=== PATIENT | male | born 1950 | race Caucasian/White ===

== ENCOUNTER 2019-10-09 10:03 | Inpatient (IN) | payer MEDICARE, BC, SELFPAY ==
[2019-10-09] VITALS (28 sets, daily range): BP systolic 132–191; BP diastolic 59–96; PULSE 72–89; RESP 14–22; TEMP 36.2–36.9; O2SAT 95–100
--- NOTE | ~2019-10-09 | XR_ITS ---
XR chest 1V portable DATE: 10/09/2019 10:34 INDICATION: Acute onset of midsternal chest pain TECHNIQUE: Portable upright AP chest on 10/09/2019 at 1036 hours COMPARISON: 11/17/2005 portable AP chest FINDINGS: Cardiomegaly. There is aortic calcification and unfolding. No pulmonary infiltrate or consolidation, pleural effusion or pulmonary vascular congestion or pneumo thorax. Osteopenia. Degenerative spurring of the thoracic spine. IMPRESSION: Cardiomegaly Reviewed, dictated and finalized at location A. IMPRESSION: Cardiomegaly
--- NOTE | 2019-10-09 10:05 | ECG_ITS ---
Measurements Intervals [place] Rate: 82 P: 78 NV: 181 QRS: 30 QRSD: 92 T: 68 QT: 354 QTc: 415 Interpretive Statements SINUS RHYTHM FREQUENT ATRIAL PREMATURE COMPLEXES NONSPECIFIC ST & T-WAVE ABNORMALITY- HIGH LATERAL LEADS BASELINE ARTIFACT- I, II, AVR, AVL ABNORMAL ECG Electronically Signed On 10-09-2019 11:09:30 CDT by James Miles D.O.
[2019-10-09 10:32] LABS: Basophils Percent Auto 0.4 % (0.2-1.2); Eosinophils Absolute Auto 0.1 K/mm3 (0-0.3); Eosinophils Percent Auto 2.1 % (0-4.4); Hematocrit 45.4 % (42.0-52.0); Hemoglobin 14.9 g/dL (14.0-18.0); Immature Granulocyte Absolute 0.02 K/mm3 (0.00-0.031); Immature Granulocyte Percent A 0.4 % (0-0.5); Lymphocytes Absolute Auto 0.67 K/mm3 (0.9-3.2); Lymphocytes Percent Auto 11.9 % (18.3-44.2); Mean Corpuscular HGB Conc 32.8 g/dl (32-36); Mean Corpuscular Hemoglobin 28.4 pg (26-34); Mean Corpuscular Volume 86.6 fl (80-100); Mean Platelet Volume 10.2 fl (7.4-10.4); Monocytes Absolute Auto 0.5 K/mm3 (0.1-0.6); Neutrophils Absolute Auto 4.3 K/mm3 (1.3-6.7); Neutrophils Percent Auto 76.2 % (45.5-73.1); Platelet Count Result 207 k/mm3 (150-375); Red Blood Count 5.24 M/mm3 (4.6-6.20); Red Cell Distribution Width 13.4 % (11.5-14.5); White Blood Count 5.6 K/mm3 (4.5-10.0)
[2019-10-09] MEDS: ASPIRIN 81 MG CHEWABLE TABLET 324 MG PO (10:35)
[2019-10-09 10:41] LABS: INR 0.9; Prothrombin Time 12.3 Seconds (11.1-14.7)
[2019-10-09 10:42] LABS: Partial Thromboplastin Time 20.9 SECONDS (22.3-36.8)
[2019-10-09 10:43] LABS: Anion Gap 9.8 mmol/L (7-16); Blood Urea Nitrogen 19 mg/dL (9-20); Calcium 8.8 mg/dL (8.4-10.2); Carbon Dioxide 27 mmol/L (22-30); Chloride 104 mmol/L (98-107); Estimated CRCL calculation 110 ml/min; Estimated Glomerular Filt Rate > 60; Glucose 148 mg/dL (75-110); Potassium 3.8 mmol/L (3.4-5.0); Sodium 137 mmol/L (137-145)
[2019-10-09 11:01] LABS: Troponin I 0.318 ng/mL (0.000-0.034)
[2019-10-09 11:05] LABS: Alanine Aminotransferase 25 U/L (4-50); Albumin Level 3.8 g/dL (3.5-5.1); Alkaline Phosphatase 100 U/L (38-126); Aspartate Amino Transferase 25 U/L (17-59); Bilirubin,Total 0.5 mg/dL (0.2-1.3); Lipase 54 U/L (23-300)
--- NOTE | 2019-10-09 11:07 | ED.GENADULT ---
HPI - General Adult General Chief complaint: Chest Pain <BUDDY Sevilla Last Filed: 10/09/19 12:04> Stated complaint: Chest Pain <BUDDY Sevilla Last Filed: 10/09/19 12:04> Time Seen by Provider: 10/09/19 10:12 <BUDDY Sevilla Last Filed: 10/09/19 12:04> Source: patient and family <BUDDY Sevilla Last Filed: 10/09/19 12:04> Mode of arrival: ambulatory <BUDDY Sevilla Last Filed: 10/09/19 12:04> Limitations: no limitations <BUDDY Sevilla Last Filed: 10/09/19 12:04> History of Present Illness HPI narrative: Patient is a 69-year-old male who presents to emergency department for evaluation of epigastric discomfort that began last night at midnight. Patient notes that he was able to go to bed after the pain subsided and then this morning had a recurrence also felt diaphoretic and weak for short period this morning patient does note he has a history of angioplasty and coronary artery disease without stenting. Patient on arrival to emergency department notes he has no pain or discomfort. Patient has felt more short of breath with exertion over the last week. Patient denies nausea vomiting diarrhea or URI symptoms <BUDDY Sevilla Last Filed: 10/09/19 12:04> Related Data Home medications: Home Medications Medication Instructions Recorded Confirmed aspirin 81 mg PO HS 10/09/19 10/09/19 atorvastatin 40 mg PO HS 10/09/19 10/09/19 <BUDDY Sevilla Last Filed: 10/09/19 12:04> Allergies/adverse reactions: Allergies Allergy/AdvReac Type Severity Reaction Status Date / Time meperidine [From Demerol] Allergy Unknown Verified 10/09/19 14:48 PROPOXYPHENE HCL AdvReac Mild Unknown Uncoded 10/09/19 14:48 <BUDDY Sevilla Last Filed: 10/09/19 12:04> Review of Systems Review of Systems: All systems reviewed & are unremarkable except as noted in HPI and below <BUDDY Sevilla Last Filed: 10/09/19 12:04> PMFSH Past Medical History Medical History: Medical History Hyperlipidemia Myocardial infarction Obese <Emanuel Killian PA-C - Last Filed: 10/09/19 12:04> Surgical History Surgical History: Surgical History Coronary angioplasty status <Emanuel Killian PA-C - Last Filed: 10/09/19 12:04> Social History Social History: Social History (Updated 10/09/19 @ 11:11 by Emanuel Killian PA-C) Smoking status: Current every day smoker Tobacco type: cigars Smokeless tobacco user: chewing tobacco Additional smoking assessment comments: 1-2 cigars/day Alcohol intake: never Substance use: never Living arrangements: with family Gender identity (if verbalized by the patient): Male Sexual Orientation (if Verbalized by the Patient): Straight or Heterosexual Spiritual care concerns: Yes (Muslim) <Emanuel Killian PA-C - Last Filed: 10/09/19 12:04> Exam Narrative: Exam Narrative: GENERAL: Well-appearing, obese, and in no acute distress. HEAD: Normocephalic, atraumatic. EYES: PERRLA and EOMI. ENT: Nares clear, no rhinorrhea or epistaxis. Mucous membranes moist. Oropharynx without tonsillar hypertrophy exudate or other lesions. NECK: Supple. No adenopathy or masses. CHEST: Clear to auscultation. No respiratory distress. No wheezes rales or rhonchi HEART: Regular rate and rhythm. No murmur heard. Normal peripheral pulses. ABDOMEN: Soft, nontender, distended EXTREMITIES: Normal range of motion. No edema. SKIN: Warm, dry, no rash. NEURO: No focal deficits. Alert and oriented x3. PSYCH: Normal mood and affect. <Emanuel Killian PA-C - Last Filed: 10/09/19 12:04> Course Course Emergency Course: Patient in the room at this time resting comfortably aware of discussions with cardiology and plan was given aspirin in the emerge
[2019-10-09 11:11] LABS: NT Pro B Type Natriuretic Pept 291 PG/ML (5-100)
[2019-10-09 13:56] LABS: Cholesterol 137 mg/dL (0-200); HDL Direct 30 mg/dL; Triglycerides 67 mg/dL (<150)
[2019-10-09 14:07] LABS: LDL Cholesterol Direct 96 mg/dL
[2019-10-09 14:08] LABS: Troponin I 0.436 ng/mL (0.000-0.034)
--- NOTE | 2019-10-09 14:08 | PC.NURSE ---
Sylvia from Lab called to report a critical tropoin. Will inform and pts nurse
--- NOTE | 2019-10-09 14:36 | ADMGEN ---
This patient, Papa Bay, was admitted to IMU Room 201-01. Patient/family oriented to hospital policies and general routines including ID bracelet, bed and alarms, visiting hours, pain management, procedures, bathroom and other care routines, personal items, smoking policy, room service/diet, and visiting hours. Valuables list has been completed. Information on how to activate the Rapid Response Team has been discussed. Patient/Family are encouraged to report perceived risks to care and to ask questions if they do not understand what they are told or what they should do.
--- NOTE | 2019-10-09 15:04 | ECG_ITS ---
Measurements Intervals [place] Rate: 78 P: 17 MT: 181 QRS: 15 QRSD: 84 T: 30 QT: 346 QTc: 395 Interpretive Statements SINUS RHYTHM WITH SINUS ARRHYTHMIA BASELINE ARTIFACT- I, II, III, AVR, AVL NORMAL ECG Electronically Signed On 10-09-2019 15:49:36 CDT by James Miles D.O.
--- NOTE | 2019-10-09 15:12 | PM.IMHP ---
H&P: HPI History of Present Illness Date/Time: Date of service:10/09/19 15:12 Chief complaint: Non STEMI Narrative: Papa Bay is a 69 year old male Who has a history of coronary artery disease admitted to our service from the emergency room with evidence of acute coronary syndrome. The patient states he was in his usual state of what he considers to be good health when he started to have some symptoms of retrosternal subxiphoid chest pain yesterday evening. He thought this represented dyspepsia as he otherwise felt well. He laid down for a while and relaxed in the symptoms subsided. He felt fairly well through the night and actually had a good night sleep. This morning after breakfast the symptoms returned and this time were associated with a sense of some diaphoresis. For this reason and because of his history he contacted his physician who instructed him to come to the emergency room for evaluation. In the emergency room or before he got there his symptoms spontaneously resolved. His electrocardiogram shows a sinus mechanism with PACs but no significant ischemic or injury pattern. His troponin levels however are somewhat elevated at 0.3 and 0.4 he is therefore been admitted with the presumptive diagnosis of acute coronary syndrome / non ST elevation [place]. He has a history of coronary artery disease having been previously treated elsewhere with evidence of an acute inferior wall infarction in 1995. He underwent emergency angioplasty at [facility] by the wire stitcher operator on-call at that time with a good result. He was followed up for a few years after that and then failed follow-up in had been quite stable. He came to see me in actually in September of this year because he had seen a wire stitcher operator in about 5 years and at that time had no complaints of any kind. He had an echocardiogram prior to that appointment which looked favorable he has very modest enlargement of his aortic root otherwise the study was not significantly remarkable. Past medical history is remarkable for hypertension and morbid obesity. Medications prior to admission included aspirin and atorvastatin. Review of Systems Constitutional: Constitutional: Reports no additional constitutional complaints Eyes: Eyes: Reports no additional eye complaints ENT: Reports system reviewed and no additional complaints, except as documented Cardiovascular: Cardiovascular: Reports as per HPI Respiratory: Respiratory: Reports as per HPI Gastrointestinal: Gastrointestinal: Reports no additional gastrointestinal complaints Genitourinary: Genitourinary: Reports no additional male genitourinary complaints Musculoskeletal: Musculoskeletal: Reports no additional musculoskeletal complaints Integumentary/Breasts: Skin/Breast: Reports system reviewed and no additional complaints, except as docu Neurologic: Reports system reviewed and no additional complaints, except as documented Psychiatric: Psychiatric: Reports no additional psychiatric complaints PMF Past Medical History Medical History Hyperlipidemia Myocardial infarction Obese Surgical History Surgical History Coronary angioplasty status Social History Social History (Updated 10/09/19 @ 11:11 by Emanuel Killian PA-C) Smoking status: Current every day smoker Tobacco type: cigars Smokeless tobacco user: chewing tobacco Additional smoking assessment comments: 1-2 cigars/day Alcohol intake: never Substance use: never Living arrangements: with family Gender identity (if verbalized by the patient): Male Sexual Orientation (if Verbalized by the Patient): Straight or Heterosexual Spiritual care concerns: Yes (Hinduism) Meds Home Medications and Allergies Home Medications Medication Instructions Recorded Confirmed Type aspirin 81 mg PO HS 10/09/19 10/09/19 History sarah
--- NOTE | 2019-10-09 15:29 | WPDMODSED ---
Moderate Sedation Note-Pt Data Patient Data Diagnosis: chest pain, troponin elevation consistent with acute coronary syndrome known coronary artery disease remote history of a mi/PCI in 1995 morbid obesity Present Complaint: intermittent episodes of chest discomfort in the last 12 hours Procedure to be performed/Plan: left heart catheterization Allergies Allergy/AdvReac Type Severity Reaction Status Date / Time meperidine [From Demerol] Allergy Unknown Verified 10/09/19 14:48 PROPOXYPHENE HCL AdvReac Mild Unknown Uncoded 10/09/19 14:48 Home Medications Medication Instructions Recorded Confirmed Type aspirin 81 mg PO HS 10/09/19 10/09/19 History atorvastatin 40 mg PO HS 10/09/19 10/09/19 History Current Medications: Active Medications Acetaminophen (Tylenol Tablet) 650 mg PO Q4H PRN PRN Reason: Mild Pain (1-3) Aspirin (Aspirin Chewable) 81 mg PO DAILY@0800 ZACKERY Aspirin (Aspirin Chewable) 81 mg PO HS ZACKERY Atorvastatin Calcium (Lipitor) 40 mg PO HS ZACKERY Nitroglycerin (Nitrostat Subl 0.4 Mg (1/150)) 0.4 mg SUBLINGUAL Q5MIN PRN PRN Reason: Chest Pain Ondansetron HCl (Zofran Inj) 4 mg IV PUSH Q6H PRN PRN Reason: Nausea And Vomiting Sedation/Anesthesia: No previous sedation/anesthesia problems (including family history). [facility] Past Medical History Medical History Hyperlipidemia Myocardial infarction Obese Surgical History Surgical History Coronary angioplasty status Social History Social History (Updated 10/09/19 @ 11:11 by Emanuel Killian PA-C) Smoking status: Current every day smoker Tobacco type: cigars Smokeless tobacco user: chewing tobacco Additional smoking assessment comments: 1-2 cigars/day Alcohol intake: never Substance use: never Living arrangements: with family Gender identity (if verbalized by the patient): Male Sexual Orientation (if Verbalized by the Patient): Straight or Heterosexual Spiritual care concerns: Yes (Anabaptist) Mod Sed Physical Exam Physical Exam Pre Procedural Exam: Normal: Neck, Throat, Airway, Lungs, Heart Size, Heart Rate, Heart Rhythm, Neuro Exam and Extremities and Variation: Appearance ( obese white male appearing his stated age in no apparent distress) and Abdomen ( morbidly obese) Hours since solid foods: 12 Hours since liquid intake: 12 Internal Medicine - PN: Obj Da Vital Signs Vital Signs: Vital Signs - 24 hr 10/09/19 10:07 10/09/19 10:27 10/09/19 11:21 Temperature 36.7 C 36.7 C Pulse Rate 89 78 75 Respiratory Rate 16 20 Blood Pressure 191/89 H 164/85 H Pulse Oximetry 96 97 10/09/19 12:35 10/09/19 14:30 10/09/19 14:40 Temperature 36.6 C 36.2 C L Pulse Rate 73 82 87 Respiratory Rate 20 20 22 H Blood Pressure 158/85 H 138/77 167/88 H Pulse Oximetry 97 97 98 Meds/Results Medications: Active Medications Generic Name Dose Route Start Last Admin Trade Name Freq PRN Reason Stop Dose Admin Acetaminophen 650 mg 10/09/19 12:04 Tylenol Tablet PO Q4H PRN Mild Pain (1-3) Aspirin 81 mg 10/10/19 08:00 Aspirin Chewable PO DAILY@0800 ZACKERY Aspirin 81 mg 10/09/19 21:00 Aspirin Chewable PO HS ZACKERY Atorvastatin Calcium 40 mg 10/09/19 21:00 Lipitor PO HS ZACKERY Nitroglycerin 0.4 mg 10/09/19 12:04 Nitrostat Subl 0.4 Mg (1/150) SUBLINGUAL Q5MIN PRN Chest Pain Ondansetron HCl 4 mg 10/09/19 12:04 Zofran Inj IV PUSH Q6H PRN Nausea And Vomiting Radiology Results: ITS Impressions Chest X-Ray 10/09/19 10:43 IMPRESSION: Cardiomegaly Labs CBC & Chem 7: 10/09/19 10:23 10/09/19 10:23 Labs: Laboratory Results - last 24 hr 10/09/19 10/09/19 10/09/19 10:23 10:23 10:23 WBC 5.6 RBC 5.24 Hgb 14.9 Hct 45.4 MCV 86.6 MCH 28.4 MCHC 32.8 RDW 13.4 Plt Count 2
--- NOTE | 2019-10-09 16:32 | WPDCARDPROC ---
Cardiac Cath Procedure Note Date of procedure:: 10/09/19 Performing physician:: Bam Singh MD Indication:: acute coronary syndrome known history of coronary artery disease with remote history of TN, PCI in 1995 Brief clinical history:: this is a 69-year-old man presenting with intermittent ischemic chest pain starting last evening. No significant ECG abnormalities but troponin shows modest rise. He underwent emergency PCI of his right coronary artery in the setting of an acute TN in 1995. Procedure Procedure performed:: Left heart catheterization with left ventriculography and coronary angiography percutaneous revascularization of the circumflex Sedation/Medication given:: fentanyl 50 mg Versed 2 mg case start time 3:48 p.m. case end time 4:20 p.m. sedation provided by Derik Hitchcock RN, trained observer Access site:: right femoral artery Estimated blood loss:: 15-20 cc Procedure note:: this patient was brought to the cardiac catheterization lab in postabsorptive state where the right femoral triangle was prepared in the usual fashion. Anesthesia was given with 1% lidocaine infiltrated locally. Using the modified Seldinger technique a 5 Somali sheath was placed into the femoral artery after this left heart catheterization was carried out. IUD I used a 5 Somali angled pigtail catheter to document left-sided hemodynamics and to inject the left ventriculogram in the CALDWELL projection. After this a JR4 catheter was used to engage inject the right coronary artery and left coronary was engaged and injected using a 5 Somali FL4 catheter. Cineangiograms were then reviewed and PCI of the circumflex was recommended and carried out as detailed below. Prior to PCI 5 Somali sheath was changed over the guidewire for 6 Somali sheath. He was systemically anticoagulated with bolus and infusion of Angiomax. He received Brilinta 180 mg orally prior to PCI received aspirin in the emergency Room. Following completion of the study the catheters were removed removed the sheath was sutured into position he was taken to the holding area for post catheterization / PCI recovery. Findings:: Hemodynamics: Central aortic pressure is 128/67 left ventricle 128/0 end-diastolic pressure 14. There is no gradient upon pullback across the aortic valve. Left ventricle: The LV is significantly dilated. The inferior wall is akinetic. The remainder of the LV is severely hypodynamic. The global ejection fraction is visually estimated to be 30%. The left main coronary artery is large in caliber and widely patent the LAD is a [id number] caliber vessel extending down to the cardiac apex the LAD has minimal luminal irregularities but is otherwise free of significant disease the circumflex is a large caliber artery with a 99% stenosis in the midportion of the trunk of the circumflex. Proximal marginal branches are rather small. The right coronary artery is large in caliber dominant to the posterior circulation. There is modest luminal irregularities in the RCA but the vessel is widely patent with J LUIS 3 flow. This vessel was treated with balloon angioplasty in 1995. the patient was treated interventionally for the high-grade circumflex lesion. He was anticoagulated with Angiomax bolus infusion as detailed above. The left coronary was engaged using a 6 Somali CLS 3.5 guiding catheter. The circumflex lesion was wired using a 0.014 BMW. Balloon was pre-dilated using a 3.0 x 20 mm emerge PTCA balloon. following balloon dilatation the vessel was nicely patent with J LUIS 3 flow. There was a localized dissection at the site of the high-grade lesion which did not appear to be propagating or flow limiting. The area of disease proximal to the high-grade lesion was also noted. This was covered using a 3.5 x 30 mm Orsiro drug-eluting stent resulting in excellent anatomical result. There was no residual stenosis dissection perforation or distal embolization.
--- NOTE | 2019-10-09 18:40 | SUR.PHASEII ---
R. GROIN 6FR MANUAL SHEATH PULL PER PROTOCOL BY LEE MARTINEZ RN. FIRM STEADY PRESSURE BEING HELD TO SITE TO ACHIEVE HEMOSTASIS. VSS. WILL MONITOR.
--- NOTE | 2019-10-09 19:10 | SUR.PHASEII ---
HEMOSTASIS ACHIEVED TO R. GROIN PUNCTURE SITE AFTER 30 MINUTES OF MANUAL PRESSURE HOLD BY LEE MARTINEZ RN. SOME NAUSEA AND LOWER BACK PAIN C/O TOWARD END OF PRESSURE HOLD; EXPRESSED SOME RELIEF AFTER HEMOSTASIS AND SITE DRESSED. AT BEDSIDE. SITE DRESSED W/ STAT SEAL AND TEGADERM DRESSING. SITE SOFT, NONTENDER, NO BLEEDING OR HEMATOMA NOTED. R. PEDAL PULSE EASILY PALP. REVIEWED BEDREST ORDERS AND ACTIVITY RESTRICTIONS. VOICED UNDERSTANDING.
--- NOTE | 2019-10-09 19:20 | SUR.PHASEII ---
END PHASE II RECOVERY. RETURNED TO IMU 201 VIA STRETCHER. BEDSIDE REPORT AND UPDATES GIVEN TO DIPAK SALAZAR RN BY LEE MARTINEZ RN. BOTH OBSERVED R. GROIN SITE AND PULSES. NO NEW CHANGES.
[2019-10-09] MEDS: SODIUM CHLORIDE 0.9% IV 1,000 ML 125 ML IV CONT (20:22)
[2019-10-09] MEDS: ATORVASTATIN 40 MG TABLET PO (20:23)
[2019-10-09] MEDS: ASPIRIN 81 MG CHEWABLE TABLET PO (20:23)
[2019-10-09] MEDS: carvediloL 6.25 MG TABLET PO (20:23)
[2019-10-09] MEDS: TICAGRELOR 90 MG TABLET PO (20:23)
[2019-10-09 21:42] LABS: Troponin I 0.608 ng/mL (0.000-0.034)
[2019-10-10] VITALS (11 sets, daily range): BP systolic 133–156; BP diastolic 74–94; PULSE 71–92; RESP 12–20; TEMP 36.2–37.2; O2SAT 96–99
[2019-10-10 04:42] LABS: Anion Gap 4 mmol/L (8-16); Blood Urea Nitrogen 16 mg/dL (9-20); Calcium 8.6 mg/dL (8.4-10.2); Carbon Dioxide 25 mmol/L (22-30); Chloride 105 mmol/L (98-107); Estimated CRCL calculation 107 ml/min; Estimated Glomerular Filt Rate > 60; Glucose 110 mg/dL (75-110); Magnesium 2.1 mg/dL (1.6-2.3); Potassium 3.9 mmol/L (3.4-5.0); Sodium 134 mmol/L (137-145)
--- NOTE | 2019-10-10 05:11 | ECG_ITS ---
Measurements Intervals [place] Rate: 84 P: 42 CT: 176 QRS: 27 QRSD: 100 T: 41 QT: 358 QTc: 423 Interpretive Statements SINUS RHYTHM FREQUENT ATRIAL PREMATURE COMPLEXES BASELINE ARTIFACT- II, III ABNORMAL ECG Electronically Signed On 10-10-2019 8:10:42 CDT by James Miles D.O.
[2019-10-10] MEDS: TICAGRELOR 90 MG TABLET PO (08:45)
[2019-10-10] MEDS: ASPIRIN 81 MG CHEWABLE TABLET PO (08:45)
[2019-10-10] MEDS: ATORVASTATIN 40 MG TABLET PO (08:45)
[2019-10-10] MEDS: lisinopriL 5 MG TABLET PO (08:46)
[2019-10-10] MEDS: carvediloL 6.25 MG TABLET PO (08:46)
[2019-10-10] MEDS: SPIRONOLACTONE 25 MG TABLET PO (08:46)
--- NOTE | 2019-10-10 09:50 | PM.PNCARD ---
Progress Note: A&P Assessment and Plan (1) Non-ST elevated myocardial infarction (non-STEMI): Code(s): I21.4 - Non-ST elevation (NSTEMI) myocardial infarction Status: Acute (2) Hypertension: Code(s): I10 - Essential (primary) hypertension Status: Acute (3) Cardiomyopathy: Code(s): I42.9 - Cardiomyopathy, unspecified Status: Acute (4) CAD (coronary artery disease): Code(s): I25.10 - Atherosclerotic heart disease of [place] coronary artery without angina pectoris Status: Acute Subjective Date/time seen: 10/10/19 09:50 Patient admitted 10/09/2019 with a history of coronary disease inferior wall infarction in 1995 treated with emergency PCI. Doing very well in the intervening years now presents with his 2 episodes of ischemic type chest pain very modest troponin elevation up to 0.61, no concerning ECG abnormalities.. cardiac catheterization 10/09/[address] Singh showed akinesis of the inferior wall with severe hypokinesis of the rest the ventricle, EF 30%. 99% stenosis of the mid circumflex and luminal irregularities of the Left anterior descending and RCA. 3.5 x 30 mm drug-eluting Orsiro stent placed in the circumflex. Date of service: 10/10/2019 Objective Data Vital Signs Vital Signs: Vital Signs - 24 hr 10/09/19 10:07 10/09/19 10:27 10/09/19 11:21 Temperature 98.0 F 98.0 F Pulse Rate 89 78 75 Respiratory Rate 16 20 Blood Pressure 191/89 H 164/85 H Pulse Oximetry 96 97 10/09/19 12:35 10/09/19 14:30 10/09/19 14:40 Temperature 97.8 F 97.2 F L Pulse Rate 73 82 87 Respiratory Rate 20 20 22 H Blood Pressure 158/85 H 138/77 167/88 H Pulse Oximetry 97 97 98 10/09/19 16:45 10/09/19 17:00 10/09/19 17:15 Temperature Pulse Rate 81 76 75 Respiratory Rate 16 18 14 Blood Pressure 159/59 H 153/96 H 149/84 H Pulse Oximetry 99 99 99 10/09/19 17:30 10/09/19 18:00 10/09/19 18:30 Temperature Pulse Rate 78 77 72 Respiratory Rate 20 15 18 Blood Pressure 146/90 H 157/92 H 157/87 H Pulse Oximetry 98 100 99 10/09/19 18:40 10/09/19 18:50 10/09/19 19:00 Temperature Pulse Rate 86 81 84 Respiratory Rate 16 20 16 Blood Pressure 144/87 H 139/82 142/81 H Pulse Oximetry 98 98 98 10/09/19 19:05 10/09/19 19:10 10/09/19 19:25 Temperature 98.4 F Pulse Rate 80 78 73 Respiratory Rate 16 14 16 Blood Pressure 157/87 H 143/84 H 154/84 H Pulse Oximetry 98 98 98 10/09/19 19:40 10/09/19 19:55 10/09/19 20:00 Temperature 98.0 F 97.4 F L 98.4 F Pulse Rate 77 84 88 Respiratory Rate 18 18 16 Blood Pressure 155/77 H 143/83 H 154/84 H Pulse Oximetry 100 97 98 10/09/19 20:10 10/09/19 20:23 10/09/19 20:40 Temperature 98.0 F 97.8 F Pulse Rate 78 80 81 Respiratory Rate 18 18 Blood Pressure 144/74 H 142/76 H Pulse Oximetry 95 98 10/09/19 21:10 10/09/19 22:00 10/09/19 22:08 Temperature 97.9 F 97.9 F Pulse Rate 74 73 80 Respiratory Rate 18 18 Blood Pressure 138/76 132/74 Pulse Oximetry 98 98 10/09/19 23:10 10/10/19 00:00 10/10/19 01:10 Temperature 97.4 F L 97.1 F L 97.4 F L Pulse Rate 77 72 77 Respiratory Rate 18 18 18 Blood Pressure 147/73 H 137/77 133/74 Pulse Oximetry 98 96 99 10/10/19 02:00 10/10/19 04:00 10/10/19 06:00 Temperature 97.1 F L Pulse Rate 78 78 92 Respiratory Rate 18 Blood Pressure 154/84 H Pulse Oximetry 98 10/10/19 07:47 10/10/19 08:00 10/10/19 08:46 Temperature 99 F Pulse Rate 71 78 78 Respiratory Rate 12 Blood Pressure 156/94 H Pulse Oximetry 98 Intake/Output Intake/Output: Intake & Output 10/07/19 10/08/19 10/09/19 10/10/19 23:59 23:59 23:59 23:59 Intake Total 150 1470 Output Total 250 325 Balance -100 1145 Meds/Results Medications: Active Medications Generic Name Dose Route Start Last Admin Trade Name Freq PRN Reason Stop Dose Admin Acetaminophen 650 mg 10/09/19 12:04 Tylenol Tablet PO Q4H PRN Mild Pain (1-3) Aspirin 81 mg
--- NOTE | 2019-10-10 10:24 | PM.DS ---
DS: Admitting Diagnosis Admitting Diagnosis Admitting Diagnosis: chest pain, acute coronary syndrome DS: Discharge Diagnosis Discharge Diagnosis (1) Non-ST elevated myocardial infarction (non-STEMI): Code(s): I21.4 - Non-ST elevation (NSTEMI) myocardial infarction Status: Acute (2) CAD (coronary artery disease): Code(s): I25.10 - Atherosclerotic heart disease of [place] coronary artery without angina pectoris Status: Acute (3) Cardiomyopathy: Code(s): I42.9 - Cardiomyopathy, unspecified Status: Acute (4) Hypertension: Code(s): I10 - Essential (primary) hypertension Status: Acute (5) S/P drug eluting coronary stent placement: Code(s): Z95.5 - Presence of coronary angioplasty implant and graft Status: Acute (6) Tobacco use: Code(s): Z72.0 - Tobacco use Status: Acute (7) Hypercholesterolemia: Code(s): E78.00 - Pure hypercholesterolemia, unspecified Status: Acute (8) Obstructive sleep apnea: Code(s): G47.33 - Obstructive sleep apnea (adult) (pediatric) Status: Acute (9) Morbid obesity: Code(s): E66.01 - Morbid (severe) obesity due to excess calories Status: Acute DS: Summary Hospital Course Reason for hospitalization: chest pain, ACS Hospital Course: Patient admitted 10/09/2019 with chest discomfort and diaphoresis. He has a history of coronary disease inferior wall infarction in 1995 treated with emergency PCI. He has been doing very well in the intervening years now presents with his 2 episodes of ischemic type chest pain and a very modest troponin elevation up to 0.61, no concerning ECG abnormalities. Cardiac catheterization 10/09/[address] Singh showed akinesis of the inferior wall with severe hypokinesis of the rest the ventricle, EF 30%. 99% stenosis of the mid circumflex and luminal irregularities of the Left anterior descending and RCA. 3.5 x 30 mm drug-eluting Orsiro stent placed in the circumflex. The patient was started on Brilinta, as well as medications for his hypertension and cardiomyopathy: Lisinopril, carvedilol, spironolactone. His blood pressure was running high in the 140s to 150s for most of the time and he tolerated the addition of these medications. I also added ezetimibe because his LDL cholesterol was 96 despite being compliant with his atorvastatin 40 mg daily. The patient strongly desired to be discharged today. He was up and ambulating, feeling well with no further did chest discomfort. I am encouraging him to quit smoking, pursue treatment of his sleep apnea (intolerant of CPAP in the past), lose weight and exercise. His is interested in him starting cardiac rehab , which we will arrange after his 1st office visit. I also reviewed coronary disease, cardiomyopathy ( this needs to be treated as it can lead to heart failure and ), treatment, need for dual anti-platelet therapy (if this is interrupted he can suffer a stent thrombosis and heart attack/, etcetera), and other issues. Time spent discussing smoking cessation with patient: 3 to 10 minutes Status at Discharge Cognitive/behavioral status at discharge: Competent Functional status at discharge: independent ambulation Overall status at discharge: patient is back to baseline Time Spent with Patient Time attestation: Total time spent providing and/or coordinating discharge services: Time spent: Greater than 30 minutes Exam Const: General: comfortable and no acute distress HENMT: Mouth: Yes moist mucous membranes Eyes: EOM: EOMs intact bilaterally Neck: Neck: supple Resp: Effort & Inspection: normal respiratory effort Auscultation: clear to auscultation bilaterally Cardio: Rate: regular rate Rhythm: regular rhythm Heart sounds: no murmurs Other: cardiac catheterization site shows no hematoma or bleeding. Distal pulses are intact. GI: Inspectio
== END 2019-10-10 15:33 | disposition home or self-care (01) | DRG 247 ==
LOC: ANHED 12:29 → ANHIMU 14:00
PROVIDERS: Emergency Medicine Emergency Medical Services; Nurse Practitioner Adult Health; Admitting Provider Specialist; Emergency Provider Emergency Medicine; PCP Family Medicine Adolescent Medicine; Visit Provider Internal Medicine Cardiovascular Disease
PROC: 4A023N7 Measurement of Cardiac Sampling and Pressure, Left Heart, Percutaneous Approach (ICD-10-PCS; CPT 93452; principal; 2019-10-09 15:15)
PROC: 027034Z Dilation of Coronary Artery, One Artery with Drug-eluting Intraluminal Device, Percutaneous Approach (ICD-10-PCS; CPT 92928; 2019-10-09 15:15)
DX: I21.4 Non-ST elevation (NSTEMI) myocardial infarction (principal); I42.9 Cardiomyopathy, unspecified; I25.10 Atherosclerotic heart disease of native coronary artery without angina pectoris; I10 Essential (primary) hypertension; E78.00 Pure hypercholesterolemia, unspecified; G47.33 Obstructive sleep apnea (adult) (pediatric); E66.01 Morbid (severe) obesity due to excess calories; F17.220 Nicotine dependence, chewing tobacco, uncomplicated; F17.290 Nicotine dependence, other tobacco product, uncomplicated; I25.2 Old myocardial infarction; Z98.61 Coronary angioplasty status
CPT/HCPCS: 36415; 71045; 80048; 80061; 80076; 83690; 83735; 83880; 84484; 85025; 85610; 85730; 93005; 93458; 99291; A9270; C1725; C1769; C1874; C1887; C1894; C9600; G0378; J0583; J1644; J2250; J3010; J7030; J7040

== ENCOUNTER 2019-12-25 14:37 | Outpatient (CLI) | payer MEDICARE, BC, SELFPAY ==
--- NOTE | 2020-01-27 18:17 | WPDHOMESLEEP ---
Sleep Study - Home Unattended Date of Study: 12/25/19 Ordering Provider: Jennifer Molina NP Interpreting Physician: Emiliana Catalan MD Home Sleep Study Type: Apnea Link Air Height: 1.78 m Weight: 120.202 kg Body Mass Index: 38.0 [place]: 2 Reason for Sleep Study Frequent loud snoring; history of BOOGIE in the past with difficulty tolerating CPAP Sleep History Papa Bay is a 69 year-old man who has hypertension, hyperlipidemia, coronary artery disease with a stent in 1995, and a recent non-STEMI with a drug eluting stent placed to the mid-circumflex. He also has ischemic cardiomyopathy. He has a history of BOOGIE with poor tolerance of CPAP in the past. I do not have access to that study. He had an acute non-ST elevation CO in October, and this event brought to attention his sleep issues by his cardiologists. He was also instructed to stop tobacco use. He occasionally falls asleep in the day. He does not awaken from sleep feeling short of breath. He does not have heartburn, belching or coughing at night. He frequently snores and frequently it is loud enough that others complain about it. He occasionally falls asleep during the day, rarely remembers his dreams. Otherwise his sleep questionnaire reveals that he does not have trouble sleeping with a cold, does not gasp for breath at night, does not sweat excessively at night or notices his heart pounding or beating irregularly at night. He does not fall asleep involuntarily, while driving, during physical effort and he does not have loss of muscle tone with strong emotion. He does not have daytime dysfunction due to excessive sleepiness, currently retired. he does not feel paralyzed on waking or falling asleep nor does he have vivid dreamlike scenes upon awakening or falling asleep. He is never afraid to go to sleep. he does not recall his dreams. He does not feel sad, depressed or anxious. He does not notice parts of his body jerking at night, denies kicking at night, does not have crawling or aching feelings in his legs at night nor does he have leg pain at night. He does not have morning jaw pain, does not grind his teeth at night, does not have pain in the day and is not awakened with pain at night. He does not wake up feeling stiff in the morning, and does not have sore or achy muscles on waking. Normal bedtime is 9:00 p.m., falling asleep within 10 minutes, waking twice at night to use the bathroom. Wakes in the morning at 5:00 a.m.. Weekend schedule is the same. He takes naps on occasion. A short nap may be refreshing. He feels good in the morning but feels better later in the day. Habits: Used tobacco 35 years; up until recently smoked cigars and used chewing tobacco. No caffeine, alcohol or recreational drugs. [facility] Past Medical History Medical History CAD (coronary artery disease) 1996: IMI treated with balloon angioplasty 10/2019: Non-STEMI, RIC to the mid CX, Dr. Singh Cardiomyopathy 10/2019: EF 30% Hypercholesterolemia Hyperlipidemia Hypertension Morbid obesity Myocardial infarction Obese Obstructive sleep apnea Tobacco use Surgical History Surgical History Coronary angioplasty status Family History Family History Sibling Acute myocardial infarction Thyroid cancer Father Malignant neoplasm of prostate Acute myocardial infarction Social History Social History Smoking packs per day: 2 Smoking cigarettes per day: 40.0 Years smoked: 51 Smoking pack-years: 102.00 Smoking status: Current every day smoker Tobacco type: cigarettes and cigars Smokeless tobacco user: chewing tobacco Second hand tobacco smoke exposure: No Additional smoking assessment comments: he also smoked cigars and used chewing tabacco he has quit all Alcohol intake: never Substance use: never Gender
[2020-01-27 19:44] VITALS: BMI 38.0
== END 2019-12-25 14:38 | disposition home or self-care (01) ==
LOC: ANHCSM 02-02 14:37
PROVIDERS: PCP Family Medicine Adolescent Medicine; Visit Provider Nurse Practitioner Adult Health
DX: G47.33 Obstructive sleep apnea (adult) (pediatric) (principal); G47.10 Hypersomnia, unspecified; I25.5 Ischemic cardiomyopathy; E66.01 Morbid (severe) obesity due to excess calories; I42.9 Cardiomyopathy, unspecified
CPT/HCPCS: 95806

== ENCOUNTER 2020-01-21 13:30 | Outpatient (RCR) | payer MEDICARE, BC, SELFPAY ==
[2019-11-03 08:40] VITALS: BP 144/70; PULSE 57; RESP 16; TEMP 37.2; O2SAT 97
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
--- NOTE | 2020-01-25 07:54 | PCCPR ---
Victor Manuel called off states he had a Covid exposure, due to dc Victor Manuel called this am states he found out he had a Covid exposure and started feeling poorly on Saturday including a fever. 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 He will be Covid tested later this week. States we gave him his dc paperwork on his last visit. He plans to go ahead with dc and have his daughter run in his paperwork.
== END 2020-01-25 09:21 | disposition home or self-care (01) ==
LOC: ANHCPREHAB 13:30
PROVIDERS: PCP Family Medicine Adolescent Medicine; Visit Provider Nurse Practitioner Adult Health
DX: Z95.5 Presence of coronary angioplasty implant and graft (principal); I25.2 Old myocardial infarction
CPT/HCPCS: 93798

== ENCOUNTER 2020-01-24 12:27 | Emergency (ER) | payer MEDICARE, BC, SELFPAY ==
--- NOTE | ~2020-01-24 | XR_ITS ---
EXAMINATION: XR chest 2V EXAM DATE: 01/24/2020 12:51 INDICATION: Cough, fever, congestion. TECHNIQUE: Frontal and lateral projections of the chest obtained and reviewed. Comparison is made to prior examination from 10/09/2019. FINDINGS: Probable small amount left lower lobe atelectasis or infection. This finding has been indic ated, marked on the examination for review, clinical correlation. The lungs are otherwise clear. The re are no pleural effusions. The cardiomediastinal silhouette is within normal limits. There is no pneumothorax suspected. The bones and soft tissues are unremarkable. IMPRESSION: Probable subsegmental left lower lobe atelectasis or infection. Reviewed, dictated and finalized at location A. E CUTTER
--- NOTE | 2020-01-24 12:35 | ED.GENADULT ---
HPI - General Adult General Chief complaint: Upper Respiratory Infection Stated complaint: cough/congestion Time Seen by Provider: 01/24/20 12:34 Source: patient Mode of arrival: ambulatory Limitations: no limitations History of Present Illness HPI narrative: 69-year-old male patient presents to the [facility] with complaints of cold symptoms for the past 3 days. Patient states he has had nasal congestion, runny nose and a cough that started about 2 to 3 days ago. Denies any chest pain or shortness of breath. Patient states that he is still able to do all of his activities of daily living without any shortness of breath. Denies any nausea, vomiting or diarrhea. Patient states he had a stent placed in his heart about a couple of weeks ago and has been going to cardiac rehab. Patient states tomorrow supposed be his last day in cardiac rehab. Related Data Home Medications Medication Instructions Recorded Confirmed aspirin 81 mg PO HS 10/09/19 01/24/20 atorvastatin 40 mg PO HS 10/09/19 01/24/20 carvedilol [Coreg] 25 mg PO Q12HR 11/03/19 01/24/20 lisinopril 10 mg PO DAILY 11/03/19 01/24/20 Allergies Allergy/AdvReac Type Severity Reaction Status Date / Time meperidine [From Demerol] Allergy Unknown Verified 10/09/19 14:48 PROPOXYPHENE HCL AdvReac Mild Unknown Uncoded 10/09/19 14:48 Review of Systems Review of Systems: Narrative: CONSTITUTIONAL: Positive fever on arrival to clinic, denies chills, or sweats. EYES: Denies visual changes, redness, or discharge. ENT: Positive rhinorrhea, congestion, denies sore throat, or otalgia. CARDIOVASCULAR: Denies chest pain, palpitations, or edema. RESPIRATORY: Positive cough, denies dyspnea. GASTROINTESTINAL: Denies abdominal pain, nausea, vomiting, or diarrhea. GENITOURINARY: Denies dysuria or hematuria. SKIN: Denies rash or itching. MUSCULOSKELETAL: Denies back pain, joint pain, or myalgia. NEUROLOGIC: Denies headache, numbness, or weakness. PSYCHIATRIC: Denies anxiety or depression. [facility] Past Medical History Medical History CAD (coronary artery disease) 1996: IMI treated with balloon angioplasty 10/2019: Non-STEMI, RIC to the mid CX, Dr. Singh Cardiomyopathy 10/2019: EF 30% Hypercholesterolemia Hyperlipidemia Hypertension Morbid obesity Myocardial infarction Obese Obstructive sleep apnea Tobacco use Surgical History Surgical History Coronary angioplasty status Family History Family History Sibling Acute myocardial infarction Thyroid cancer Father Malignant neoplasm of prostate Acute myocardial infarction Social History Social History Smoking packs per day: 2 Smoking cigarettes per day: 40.0 Years smoked: 51 Smoking pack-years: 102.00 Smoking status: Current every day smoker Tobacco type: cigarettes and cigars Smokeless tobacco user: chewing tobacco Second hand tobacco smoke exposure: No Additional smoking assessment comments: he also smoked cigars and used chewing tabacco he has quit all Alcohol intake: never Substance use: never Gender identity (if verbalized by the patient): Male Spiritual care concerns: Yes (Congregational) Comments At the time of my signature I agree with nursing past medical history, surgical, social, and family history. There is no relevant family history pertinent to the presenting complaint. Exam Narrative: Exam Narrative: GENERAL: Well-appearing, well-nourished, and in no acute distress. HEAD: Normocephalic, atraumatic. EYES: PERRLA and EOMI. ENT: Nares clear, no rhinorrhea or epistaxis. Mucous membranes moist. NECK: Supple. No lymphadenopathy CHEST: Clear to auscultation. No respiratory distress. HEART: Regular rate and rhythm. No murmur heard. Normal peripheral pulses. ABDOMEN: Soft, nontender, nondistended, normal active bowel rene
[2020-01-24 12:41] VITALS: PULSE 85; RESP 20; TEMP 38.5; O2SAT 96
== END 2020-01-24 13:10 | disposition home or self-care (01) ==
PROVIDERS: Emergency Provider Nurse Practitioner Family; PCP Family Medicine Adolescent Medicine
DX: Z20.828 Contact with and (suspected) exposure to other viral communicable diseases (principal); J98.11 Atelectasis; Z87.891 Personal history of nicotine dependence; I25.10 Atherosclerotic heart disease of native coronary artery without angina pectoris; E78.00 Pure hypercholesterolemia, unspecified; E78.5 Hyperlipidemia, unspecified; I10 Essential (primary) hypertension; I25.2 Old myocardial infarction; G47.33 Obstructive sleep apnea (adult) (pediatric); E66.01 Morbid (severe) obesity due to excess calories; Z95.1 Presence of aortocoronary bypass graft; Z79.82 Long term (current) use of aspirin
CPT/HCPCS: 71046; 87081; 87804; 87880; 99213; G0463

== ENCOUNTER 2020-01-25 06:55 | Outpatient (NON) | payer MEDICARE, BC, SELFPAY ==
[2020-01-26 01:19] LABS: SARS-CoV-2 RNA PCR Negative
== END 2020-01-25 06:56 ==
LOC: ANHCOVIDDT 07:15
PROVIDERS: PCP Family Medicine Adolescent Medicine; Visit Provider Nurse Practitioner Family
DX: R05 Cough (principal); Z20.828 Contact with and (suspected) exposure to other viral communicable diseases
CPT/HCPCS: 87635; C9803; U0003

== ENCOUNTER 2020-03-08 01:27 | Outpatient (CLI) | payer MEDICARE, BC, SELFPAY ==
[2020-03-08 19:42] LABS: SARS-CoV-2 RNA PCR Negative
== END 2020-03-08 01:28 | disposition home or self-care (01) ==
LOC: ANHCOVIDDT 01:28
PROVIDERS: PCP Family Medicine Adolescent Medicine; Visit Provider Internal Medicine Critical Care Medicine
DX: Z01.812 Encounter for preprocedural laboratory examination (principal); Z20.822 Contact with and (suspected) exposure to COVID-19
CPT/HCPCS: C9803; U0003

== ENCOUNTER 2020-03-10 09:29 | Outpatient (CLI) | payer MEDICARE, BC, SELFPAY ==
--- NOTE | 2020-04-20 11:14 | WPDSLEEPSTUD ---
Sleep Study Date of Study: 03/10/20 Ordering Provider: Jennifer Molina NP Interpreting Physician: Emiliana Catalan MD Sleep Study Type: BiPAP Titration Height: 1.78 m Weight: 120.202 kg Body Mass Index: 38.0 Neck Circumference: 48.26 cm [place]: 6 Reason for Sleep Study Home sleep test on 12/25/2019 with extremely severe obstructive sleep apnea, AHI 84, desaturation to 78% mainly centrals; returns for a BiPAP titration Sleep History Papa Bay is a 69 year old man with hypertension, hyperlipidemia, coronary artery disease with a stent in 1995, and a recent non-STEMI with a drug eluting stent placed to the mid-circumflex. He also has ischemic cardiomyopathy EF 30%. He has a history of BOOGIE with poor tolerance of CPAP in the past. I do not have access to that study. He had an acute non-ST elevation PR in October 2019, and this event brought to attention his sleep issues by his cardiologists. He was also instructed to stop tobacco use. He occasionally falls asleep in the day. He does not awaken from sleep feeling short of breath. He does not have heartburn, belching or coughing at night. He frequently snores and frequently it is loud enough that others complain about it. He occasionally falls asleep during the day, rarely remembers his dreams. Otherwise his sleep questionnaire reveals that he does not have trouble sleeping with a cold, does not gasp for breath at night, does not sweat excessively at night or notices his heart pounding or beating irregularly at night. He does not fall asleep involuntarily, while driving, during physical effort and he does not have loss of muscle tone with strong emotion. He does not have daytime dysfunction due to excessive sleepiness, currently retired. he does not feel paralyzed on waking or falling asleep nor does he have vivid dreamlike scenes upon awakening or falling asleep. He is never afraid to go to sleep. he does not recall his dreams. He does not feel sad, depressed or anxious. He does not notice parts of his body jerking at night, denies kicking at night, does not have crawling or aching feelings in his legs at night nor does he have leg pain at night. He does not have morning jaw pain, does not grind his teeth at night, does not have pain in the day and is not awakened with pain at night. He does not wake up feeling stiff in the morning, and does not have sore or achy muscles on waking. Normal bedtime is 9:00 p.m., falling asleep within 10 minutes, waking twice at night to use the bathroom. Wakes in the morning at 5:00 a.m.. Weekend schedule is the same. He takes naps on occasion. A short nap may be refreshing. He feels good in the morning but feels better later in the day. Habits: Used tobacco 35 years; up until recently smoked cigars and used chewing tobacco. No caffeine, alcohol or recreational drugs. [facility] Past Medical History Medical History CAD (coronary artery disease) 1995: IMI treated with balloon angioplasty 10/2019: Non-STEMI, RIC to the mid CX, Dr. Singh Cardiomyopathy 10/2019: EF 30% Hypercholesterolemia Hyperlipidemia Hypertension Morbid obesity Myocardial infarction Obese Obstructive sleep apnea (~12/2019) Tobacco use Surgical History Surgical History Coronary angioplasty status Family History Family History Sibling Acute myocardial infarction Thyroid cancer Father Malignant neoplasm of prostate Acute myocardial infarction Social History Social History Smoking packs per day: 2 Smoking cigarettes per day: 40.0 Years smoked: 51 Smoking pack-years: 102.00 Smoking status: Current every day smoker Tobacco type: cigarettes and cigars Smokeless tobacco user: chewing tobacco Second hand tobacco smoke exposure: No Additional smoking assessment comments: he also smoked cigars a
[2020-04-20 17:30] VITALS: BMI 38.0
== END 2020-03-10 09:30 | disposition home or self-care (01) ==
LOC: ANHCSM 09:30
PROVIDERS: PCP Family Medicine Adolescent Medicine; Visit Provider Nurse Practitioner Adult Health
DX: G47.39 Other sleep apnea (principal); I10 Essential (primary) hypertension; E78.5 Hyperlipidemia, unspecified; I25.810 Atherosclerosis of coronary artery bypass graft(s) without angina pectoris
CPT/HCPCS: 95811

== ENCOUNTER 2020-09-09 08:43 | Outpatient (CLI) | payer MEDICARE, BC, SELFPAY ==
--- NOTE | 2020-09-14 15:21 | WPDPFTINT ---
PFT Procedure Performed PFT Procedure Performed Spirometry with Pre/Post Bronchodilator Plethysmography (Lung Vol) Diffusing Cap (DLCO) Flow Vol Loop PFT Interpretation DOS:09/09/2020 REQUESTING: Dr Catalan REASON FOR TESTING: Exertional dyspnea PULMONARY FUNCTION TESTS Spirometry results are reliable and reproducible. Spirometry: FEV1 is 64% predicted, 2.13 L. FVC is 61%. The ratio is normal 80%. There is no change with bronchodilator administration. Lung volumes: Total lung capacity is 63% consistent with moderate restriction. residual volume is 66%. RV/TLC is 36% consistent with air trapping. Airway resistance is elevated 203%. Diffusion: DLCO 67% mildly decreased. Flow volume loop: Irregular and not reproducible IMPRESSION: There is a moderate restrictive impairment with mild air trapping and mild diffusion impairment. This is consistent with restrictive and obstructive overlap. Restriction can mask obstruction. There is no response to bronchodilator. Lack of response to bronchodilators should not preclude use of clinically indicated Emiliana Catalan MD
--- NOTE | 2020-09-14 15:21 | WPDSIXMINUTE ---
Six Minute Walk Procedure Procedure Performed Pulmonary Stress Test (6 min walk) Six Minute Walk Six Minute Walk: SIX MINUTE WALK This test was conducted per ATS guidelines. The initial saturation was 97% on room air and pulse was 76. The patient walked without stopping for a total of 950 ft/ 289.6 m. He did not use any assist device. His lowest saturation was 93%. Highest pulse 128. IMPRESSION: No supplemental oxygen is indicated with exertion. Distance walked is less than expected for age. Emiliana Catalan MD
== END 2020-09-09 08:44 | disposition home or self-care (01) ==
LOC: ANHPFT 08:44
PROVIDERS: PCP Family Medicine Adolescent Medicine; Visit Provider Internal Medicine Critical Care Medicine
DX: R06.02 Shortness of breath (principal)
CPT/HCPCS: 94060; 94618; 94726; 94729

== ENCOUNTER 2020-10-14 13:39 | Emergency (ER) | payer MEDICARE, BC, SELFPAY ==
--- NOTE | ~2020-10-14 | XR_ITS ---
XR knee RT min 4V DATE: 10/14/2020 14:08 INDICATION: Patient fell onto concrete. Generalized knee pain. TECHNIQUE: 5 views COMPARISON: None FINDINGS: There is mild suprapatellar knee joint effusion. No recent fracture or dislocation. No periosteal reaction or bone destruction. Joint spaces are well preserved. No radiopaque intra-articular loose body or chondrocalcinosis. There is some heterotopic chronic ossification along the posteromedial aspect of the fibular neck and proximal shaft. IMPRESSION: Mild suprapatellar knee joint effusion No recent fracture or dislocation Reviewed, dictated and finalized at location A.
[2020-10-14 13:49] VITALS: BP 139/54; PULSE 69; RESP 18; TEMP 37.1; O2SAT 98
--- NOTE | 2020-10-14 14:38 | ED.LOWEXIN ---
HPI - Extremity Injury (Lower) General Chief Complaint: Extremity Injury, Lower Stated Complaint: right knee pain Time Seen by Provider: 10/14/20 13:54 Source: patient and RN notes reviewed Mode of arrival: ambulatory Limitations: no limitations History of Present Illness HPI Narrative: Patient presents today complaining of a right knee injury. He was on the back of his 0 turn lawnmower when he fell off onto some cement this morning. Denies numbness or tingling in the leg or foot. Currently rates his knee pain 9/10, which increases with flexion of the knee, especially if he goes to sit down on the toilet. It also increases with walking. He has been using some topical Aleve roll-on with mild relief. Patient takes Brilinta for anticoagulation. Patient has seen Dr. Collado in the past for his left knee issues. MD complaint: knee injury Related Data Home Medications Medication Instructions Recorded Confirmed aspirin 81 mg PO HS 10/09/19 10/14/20 atorvastatin 40 mg PO HS 10/09/19 10/14/20 carvedilol [Coreg] 25 mg PO Q12HR 11/03/19 10/14/20 lisinopril 10 mg PO DAILY 11/03/19 10/14/20 Allergies Allergy/AdvReac Type Severity Reaction Status Date / Time meperidine [From Demerol] Allergy Intermediate Vomiting Verified 10/14/20 13:56 PROPOXYPHENE HCL AdvReac Mild Diarrhea Uncoded 10/14/20 13:56 Review of Systems Review of Systems: CONSTITUTIONAL: Denies body aches, fever, chills, or sweats. EYES: Denies visual changes, redness, or discharge. ENT: Denies rhinorrhea, congestion, sore throat, or otalgia. CARDIOVASCULAR: Denies chest pain, palpitations, or edema. RESPIRATORY: Denies cough or dyspnea. GASTROINTESTINAL: Denies abdominal pain, nausea, vomiting, or diarrhea. GENITOURINARY: Denies dysuria or hematuria. SKIN: Denies rash, itching, or wounds. MUSCULOSKELETAL: Denies back pain,or myalgia.+ Right knee injury NEUROLOGIC: Denies headache, numbness, tingling, or weakness. PSYCH: Denies depression or anxiety. [facility] Past Medical History Medical History CAD (coronary artery disease) 1995: IMI treated with balloon angioplasty 10/2019: Non-STEMI, RIC to the mid CX, Dr. Singh Cardiomyopathy 10/2019: EF 30% Chronic shortness of breath Hypercholesterolemia Hyperlipidemia Hypertension Morbid obesity Myocardial infarction Obese Obstructive sleep apnea (~12/2019) Tobacco use Surgical History Surgical History Coronary angioplasty status Family History Family History Sibling Acute myocardial infarction Thyroid cancer Father Malignant neoplasm of prostate Acute myocardial infarction Social History Social History Smoking packs per day: 2 Smoking cigarettes per day: 40.0 Years smoked: 51 Smoking pack-years: 102.00 Smoking status: Former smoker Tobacco type: cigarettes and cigars Smokeless tobacco user: chewing tobacco Second hand tobacco smoke exposure: No Additional smoking assessment comments: he also smoked cigars and used chewing tabacco he has quit all Alcohol intake: never Substance use: never Gender identity (if verbalized by the patient): Male Spiritual care concerns: Yes (Roman Catholic) Comments At time of signature, I have reviewed and agree with nursing past medical, surgical, social and family history unless otherwise noted. Please see nursing chart for further information. There is no relevant family history pertinent to the presenting complaint Exam Narrative: GENERAL: Well-appearing, well-nourished, and in no acute distress. HEAD: Normocephalic, atraumatic. EYES: EOMI. No redness or drainage. Conjunctivae normal. ENT: Mucous membranes pink and moist. NECK: Normal AROM. CHEST: No respiratory distress. EXTREMITIES: Right knee: Tenderness to the infrapatellar area as well a
== END 2020-10-14 14:52 | disposition home or self-care (01) ==
PROVIDERS: Emergency Provider Nurse Practitioner; PCP Family Medicine Adolescent Medicine
DX: M25.461 Effusion, right knee (principal); Z87.891 Personal history of nicotine dependence; I42.9 Cardiomyopathy, unspecified; E78.00 Pure hypercholesterolemia, unspecified; E78.5 Hyperlipidemia, unspecified; I10 Essential (primary) hypertension; E66.01 Morbid (severe) obesity due to excess calories; Z68.38 Body mass index [BMI] 38.0-38.9, adult; I25.2 Old myocardial infarction
CPT/HCPCS: 73564; 99213; G0463

== ENCOUNTER 2020-10-21 07:54 | Outpatient (CLI) | payer MEDICARE, BC, SELFPAY ==
--- NOTE | ~2020-10-21 | CT_ITS ---
EXAMINATION:CT chest high resolution wo wy DATE: 10/21/2020 08:39 INDICATION: Other disorders of lung. TECHNIQUE: Computed tomography (CT) of the chest was performed without intravenous contrast. Automate d exposure control and iterative reconstruction technique were employed. The dose-length product (DLP ) was 675.04 mGy-cm. COMPARISON: CT abdomen and pelvis 02/10/2015, chest two views 01/24/2020 FINDINGS: The lungs demonstrate mild atelectasis. A calcified right lung nodule and calcified right h ilar lymph nodes are consistent with old granulomatous disease. There is a 3 mm nodule in right upper lobe, likely benign. No pleural effusion. The heart size is normal. There are coronary artery calcif ications. No pericardial effusion. Mediastinal lipomatosis is noted. There is bilateral gynecomastia. Partially visualized is a 5.3 cm cyst in right kidney. There is severe mid thoracic spondylosis. IMPRESSION: 1. No significant lung disease. Reviewed, dictated and finalized at location A.
== END 2020-10-21 07:55 | disposition home or self-care (01) ==
PROVIDERS: PCP Family Medicine Adolescent Medicine; Visit Provider Internal Medicine Critical Care Medicine
DX: J98.4 Other disorders of lung (principal)
CPT/HCPCS: 71250

== ENCOUNTER 2021-02-23 08:07 | Outpatient (CLI) | payer MEDICARE, BC, SELFPAY ==
--- NOTE | ~2021-02-23 | US_ITS ---
EXAMINATION: US art doppler w press LE BI DATE: 02/23/2021 09:04 INDICATION: Vascular disease. Unable to palpate bilateral lower limb pulses. TECHNIQUE: Segmental pressures and plethysmographic and Doppler waveforms of the brachial and lower e xtremity arteries were obtained. COMPARISON: None. FINDINGS: Right and left brachial artery pressures of 135 mm Hg and 129 mm Hg, respectively, are concordant (no rmal difference <= 30 mmHg). The right high thigh pressure index is 1.44 (normal > 1.2). The left hi gh thigh pressure index was unable to be obtained due to inability to occlude the vessels. The right ankle-brachial index (YESSENIA) is 1.10 (normal >= 0.9-1). The right great toe-brachial index (T BI) is 1.19 (normal >= 0.6-0.8). The right lower extremity segmental pressure gradients are normal (n ormal gradients <= 20-30 mmHg between adjacent levels on the same leg or the same levels on the two l egs). Arterial waveforms are biphasic at the right dorsalis pedis and posterior tibial arteries and t riphasic at the right common femoral, superficial femoral and popliteal arteries, all with brisk syst olic upstrokes. The left YESSENIA is unable to be obtained due to inability to occlude the vessels at the left ankle. The left TBI is 1.27. The left lower extremity segmental pressure gradients are normal. Arterial waveform s are biphasic at the left posterior tibial artery and triphasic at the left common femoral, superfic ial femoral, popliteal and dorsalis pedis arteries, all with brisk systolic upstrokes. IMPRESSION: 1. No significant arterial occlusive disease with normal bilateral TBIs and right YESSENIA . Left YESSENIA unab le to be obtained due to inability to occlude the vessels at the left ankle. Reviewed, dictated and finalized at location H. 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 No significant arterial occlusive disease with normal bilateral TBIs and rig ht YESSENIA . Left YESSENIA unable to be obtained due to inability to occlude the vessels at the left ankle.
== END 2021-02-23 08:08 | disposition home or self-care (01) ==
PROVIDERS: PCP Family Medicine Adolescent Medicine; Visit Provider Podiatrist Foot & Ankle Surgery
DX: I73.9 Peripheral vascular disease, unspecified (principal)
CPT/HCPCS: 93923

== ENCOUNTER 2021-03-08 12:01 | Emergency (ER) | payer MEDICARE, BC, SELFPAY ==
--- NOTE | ~2021-03-08 | XR_ITS ---
EXAMINATION: XR chest 2V DATE: 03/08/2021 14:01 INDICATION: Cough and congestion. TECHNIQUE: Frontal and lateral views of the chest were obtained on 3 radiographs. COMPARISON: Chest 2 views 01/24/2020, chest CT 10/21/2020 FINDINGS: The chest demonstrates clear lungs without pneumonia, pleural effusion, or pneumothorax. Th e heart size is normal. There are prominent paracardial fat pads. IMPRESSION: 1. No acute cardiopulmonary disease. Reviewed, dictated and finalized at location A. [place]
[2021-03-08 12:52] VITALS: BP 125/62; PULSE 75; RESP 18; TEMP 36.3; O2SAT 100
--- NOTE | 2021-03-08 14:55 | ED.URI ---
HPI - URI/Sore Throat General Chief Complaint: Upper Respiratory Infection Stated Complaint: Cough,Chest Congestion,Shortness of Breathe Time Seen by Provider: 03/08/21 14:42 Source: patient and RN notes reviewed Mode of arrival: ambulatory Limitations: no limitations History of Present Illness HPI Narrative: Patient presents today complaining of 3-day history of productive cough, chest heaviness, mild shortness of breath. Denies congestion, sore throat, ear pain or fever. He has tried his rescue inhaler at home, but no [id number] medication for symptoms prior to arrival. He has been vaccinated against COVID-19 and influenza. MD elicited complaint: cough Related Data Home Medications Medication Instructions Recorded Confirmed aspirin 81 mg PO HS 10/09/19 03/08/21 atorvastatin 40 mg PO HS 10/09/19 03/08/21 carvedilol [Coreg] 25 mg PO Q12HR 11/03/19 03/08/21 lisinopril 10 mg PO DAILY 11/03/19 03/08/21 Allergies Allergy/AdvReac Type Severity Reaction Status Date / Time meperidine [From Demerol] Allergy Intermediate Vomiting Verified 03/08/21 13:59 PROPOXYPHENE HCL AdvReac Mild Diarrhea Uncoded 03/08/21 13:59 Review of Systems Review of Systems: CONSTITUTIONAL: Denies body aches, fever, chills, or sweats. EYES: Denies visual changes, redness, or discharge. ENT: Denies rhinorrhea, congestion, sore throat, or otalgia. CARDIOVASCULAR: Denies chest pain, palpitations, or edema. RESPIRATORY: + Cough, shortness of breath GASTROINTESTINAL: Denies abdominal pain, nausea, vomiting, or diarrhea. GENITOURINARY: Denies dysuria or hematuria. SKIN: Denies rash, itching, or wounds. MUSCULOSKELETAL: Denies back pain, joint pain, or myalgia. NEUROLOGIC: Denies headache, numbness, tingling, or weakness. PSYCH: Denies depression or anxiety. [facility] Past Medical History Medical History CAD (coronary artery disease) 1996: IMI treated with balloon angioplasty 10/2019: Non-STEMI, RIC to the mid CX, Dr. Singh Cardiomyopathy 10/2019: EF 30% Chronic shortness of breath Hypercholesterolemia Hyperlipidemia Hypertension Morbid obesity Myocardial infarction Obese Obstructive sleep apnea (~12/2019) Tobacco use Surgical History Surgical History Coronary angioplasty status Family History Family History Sibling Acute myocardial infarction Thyroid cancer Father Malignant neoplasm of prostate Acute myocardial infarction Social History Social History Smoking packs per day: 2 Smoking cigarettes per day: 40.0 Years smoked: 51 Smoking pack-years: 102.00 Smoking status: Former smoker Tobacco type: cigarettes and cigars Smokeless tobacco user: chewing tobacco Second hand tobacco smoke exposure: No Additional smoking assessment comments: he also smoked cigars and used chewing tabacco he has quit all Alcohol intake: never Substance use: never Gender identity (if verbalized by the patient): Male Sexual Orientation (if Verbalized by the Patient): Straight or Heterosexual Spiritual care concerns: Yes (Synagogue) Comments At time of signature, I have reviewed and agree with nursing past medical, surgical, social and family history unless otherwise noted. Please see nursing chart for further information. There is no relevant family history pertinent to the presenting complaint Exam Narrative: GENERAL: Chronically ill-appearing, well-nourished, and in no acute distress. HEAD: Normocephalic, atraumatic. EYES: EOMI. No redness or drainage. Conjunctivae normal. ENT: Mucous membranes pink and moist. Nares clear. No rhinorrhea. TMs normal bilaterally. Throat normal. Uvula midline. NECK: Normal AROM. Supple. No lymphadenopathy. CHEST: No respiratory distress. Clear to auscultation. HEART: Regular rate and rhythm. No
== END 2021-03-08 15:03 | disposition home or self-care (01) ==
PROVIDERS: Emergency Provider Nurse Practitioner; PCP Family Medicine Adolescent Medicine
DX: U07.1 COVID-19 (principal); Z87.891 Personal history of nicotine dependence; I25.10 Atherosclerotic heart disease of native coronary artery without angina pectoris; E78.00 Pure hypercholesterolemia, unspecified; E78.5 Hyperlipidemia, unspecified; I10 Essential (primary) hypertension; E66.01 Morbid (severe) obesity due to excess calories; Z68.38 Body mass index [BMI] 38.0-38.9, adult; I25.2 Old myocardial infarction; G47.33 Obstructive sleep apnea (adult) (pediatric); Z95.1 Presence of aortocoronary bypass graft
CPT/HCPCS: 71046; 87426; 87804; 99213; C9803; G0463

== ENCOUNTER 2022-03-12 08:22 | Outpatient (CLI) | payer MEDICARE, BC, SELFPAY ==
--- NOTE | ~2022-03-12 | CT_ITS ---
EXAMINATION: CT lung screening DATE: 03/12/2022 08:52 INDICATION: Personal history of nicotine dependence, prior smoker with 100 pack year history TECHNIQUE: Computed tomography (CT) of the chest was performed without intravenous contrast. The dose -length product (DLP) was 406.41 mGy-cm. Automated exposure control and iterative reconstruction tech [employer]une were employed. COMPARISON: 10/21/2020 FINDINGS: There is mild emphysema. There is a stable 2 mm nodule in the superior segment of the right lower lobe. There is a stable 2 mm nodule of the left lower lobe. No pleural effusion or pneumothora x. The lungs are free of acute opacities. Bilateral gynecomastia is noted. There is calcified coronar y artery atherosclerosis. Subendocardial fat deposition in the left ventricle ejection consistent wit h prior myocardial infarction. There is a 6.4 cm cyst of the left kidney. Again noted is mediastinal lipomatosis. Punctate calcifications in an otherwise normal spleen likely represent healed granulomat ous disease. There is severe mid thoracic spondylosis. IMPRESSION: 1. Lung-RADS category 2: Benign appearance or behavior. Continue annual screening with noncontrast lo w-dose chest CT in 12 months. Reviewed, dictated and finalized at location B. ER CLERK IMPRESSION: 1. Lung-RADS category 2: Benign appearance or behavior. Continue annual screeni ng with noncontrast low-dose chest CT in 12 months.
== END 2022-03-12 08:23 | disposition home or self-care (01) ==
PROVIDERS: PCP Family Medicine Adolescent Medicine; Visit Provider Physician Assistant
DX: Z12.2 Encounter for screening for malignant neoplasm of respiratory organs (principal); Z87.891 Personal history of nicotine dependence
CPT/HCPCS: 71271

== ENCOUNTER 2022-04-26 08:54 | Outpatient (CLI) | payer MEDICARE, BC, SELFPAY ==
--- NOTE | 2022-04-26 10:45 | NEURO_ITS ---
Impression: # Complains of numbness of hands. # Evolving bilateral Carpal Tunnel Syndrome. # Mild right ulnar neuropathy across the elbow. # Normal needle/EMG exam. # Clinical correlation recommended. Motor Nerve Conduction Upper Extremities Median Nerve Conduction Velocity (m/sec) Terminal Latency (msec) Response Voltage(mV) Elbow-Wrist Wrist Elbow Wrist Right 60 3.9 1 2 Left 58 3.6 2 2 Ulnar Nerve Conduction Velocity (m/sec) Terminal Latency (msec) Response Voltage(mV) Above Elbow Below Elbow Wrist Above Elbow Below Elbow Wrist Right 52 55 2.2 4 4 5 Left 56 2.2 5 6 F-Wave Latency Median (ms) Ulnar (ms) Right 28.8 28.4 Left 28.6 28.4 Sensory Nerve Conduction Upper Extremities Median Nerve Stimulation Terminal Latency (msec) Wrist/Digit Response Voltage (uV) Wrist Right 3.3/3.3 23/28 Left 2.9/3.1 49/33 Ulnar Nerve Stimulation Terminal Latency (msec) Wrist/Digit Response Voltage (uV) Wrist Right 2.5 44 Left 2.6 52 Radial Nerve Terminal Latency (msec) Response Voltage(mV) Right 2.4 14 Left 2.3 21 Left Right Muscles Examined Fibrillation Fasciculation Scarcity Voltage Duration Left Right Left Right Left Right Left Right Left Right Deltoid Biceps X X Brachioradialis Triceps X X Pronator Teres X X Ext Indicis X X Ext Digitorum X X Abd Poll Brev X X 1st Dorsal Interosseus X X Abd Dig Min MTDD
== END 2022-04-26 08:55 | disposition home or self-care (01) ==
LOC: ANHNEURO 08:56
PROVIDERS: PCP Family Medicine Adolescent Medicine; Visit Provider Orthopaedic Surgery
DX: G56.03 Carpal tunnel syndrome, bilateral upper limbs (principal)
CPT/HCPCS: 95886; 95911

== ENCOUNTER 2022-10-12 06:45 | Outpatient (CLI) | payer MEDICARE, BC, SELFPAY ==
[2022-10-12 07:27] LABS: Anion Gap 5 mmol/L (8-16); Blood Urea Nitrogen 27 mg/dL (9-20); Calcium 9.4 mg/dL (8.4-10.2); Carbon Dioxide 28 mmol/L (22-30); Chloride 101 mmol/L (98-107); Estimated Glomerular Filt Rate 46; Glucose 110 mg/dL (65-110); Potassium 4.6 mmol/L (3.4-5.0); Sodium 134 mmol/L (137-145)
--- NOTE | 2022-10-12 08:02 | ECG_ITS ---
Measurements Intervals [place] Rate: 65 P: 53 [place]: 186 QRS: 34 QRSD: 92 T: 39 QT: 361 QTc: 376 Interpretive Statements SINUS RHYTHM COMPARED TO ECG 10/10/2019 07:22:26 NO SIGNIFICANT CHANGES Electronically Signed On 10-12-2022 9:01:22 CDT by Reginaldo Amaral M.D.
== END 2022-10-12 06:46 | disposition home or self-care (01) ==
PROVIDERS: PCP Family Medicine Adolescent Medicine; Visit Provider Orthopaedic Surgery
DX: Z01.818 Encounter for other preprocedural examination (principal)
CPT/HCPCS: 36415; 80048; 93005

== ENCOUNTER 2022-12-24 06:45 | Outpatient (CLI) | payer MEDICARE, BC, SELFPAY ==
[2022-12-24 07:40] LABS: Hematocrit 44.2 % (42.0-52.0); Hemoglobin 14.2 g/dL (14.0-18.0); Mean Corpuscular HGB Conc 32.1 g/dl (32-36); Mean Corpuscular Hemoglobin 28.7 pg (26-34); Mean Corpuscular Volume 89.3 fl (80-100); Mean Platelet Volume 10.2 fl (7.4-10.4); Platelet Count Result 208 k/mm3 (150-375); Red Blood Count 4.95 M/mm3 (4.6-6.20); Red Cell Distribution Width 13.6 % (11.5-14.5); White Blood Count 5.4 K/mm3 (4.5-10.0)
[2022-12-24 07:52] LABS: Alanine Aminotransferase 24 U/L (6-50); Albumin Level 4.1 g/dL (3.5-5.1); Alkaline Phosphatase 93 U/L (38-126); Anion Gap 7 mmol/L (8-16); Aspartate Amino Transferase 23 U/L (17-59); Bilirubin,Total 0.7 mg/dL (0.2-1.3); Blood Urea Nitrogen 24 mg/dL (9-20); Calcium 9.4 mg/dL (8.4-10.2); Carbon Dioxide 25 mmol/L (22-30); Chloride 102 mmol/L (98-107); Cholesterol 105 mg/dL (0-200); Estimated Glomerular Filt Rate > 60; Glucose 107 mg/dL (65-110); HDL Direct 34 mg/dL; Potassium 4.4 mmol/L (3.4-5.0); Sodium 134 mmol/L (137-145); Triglycerides 113 mg/dL (<150)
[2022-12-24 08:03] LABS: LDL Cholesterol Direct 58 mg/dL
== END 2022-12-24 06:46 | disposition home or self-care (01) ==
PROVIDERS: PCP Family Medicine Adolescent Medicine; Visit Provider Family Medicine Adolescent Medicine
DX: E78.00 Pure hypercholesterolemia, unspecified (principal); I10 Essential (primary) hypertension; R35.1 Nocturia; Z12.5 Encounter for screening for malignant neoplasm of prostate
CPT/HCPCS: 36415; 80053; 80061; 85027

== ENCOUNTER 2023-03-13 13:13 | Outpatient (CLI) | payer MEDICARE, BC, SELFPAY ==
--- NOTE | ~2023-03-13 | CT_ITS ---
CT Scan of the Chest without Contrast: Clinical Indication: Lung cancer screening, personal history of nicotine dependence Technique: Contiguous sections were acquired throughout the chest without intravenous contrast. Dose reduction technique was used on this scan by utilizing automated exposure control and iterative recon struction technique. The dose-length product (DLP) was 375.28 mGy-cm. COMPARISON: 03/12/2022 Findings: There is no evidence of any significant mediastinal, hilar or axillary lymphadenopathy. The mediastin al soft tissues appear normal. There is no evidence of pleural or pericardial effusion. The lungs are clear. No pulmonary nodules or infiltrates are noted. Images through the upper abdomen reveal stable right renal cyst. Impression: Lung RADS 1: Negative. 12 month follow-up screening CT advised. Reviewed, dictated and finalized at location . 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 12 month follow-up screening CT advised.
== END 2023-03-13 13:14 | disposition home or self-care (01) ==
LOC: ANHIMG 13:16
PROVIDERS: PCP Family Medicine Adolescent Medicine; Visit Provider Physician Assistant
DX: Z12.2 Encounter for screening for malignant neoplasm of respiratory organs (principal); Z87.891 Personal history of nicotine dependence
CPT/HCPCS: 71271

== ENCOUNTER 2023-12-23 12:23 | Outpatient (CLI) | payer MEDICARE, BC, SELFPAY ==
[2023-12-23 13:09] LABS: Alanine Aminotransferase 27 U/L (6-50); Albumin Level 4.1 g/dL (3.5-5.1); Alkaline Phosphatase 89 U/L (38-126); Anion Gap 8 mmol/L (4-12); Aspartate Amino Transferase 21 U/L (17-59); Bilirubin,Total 0.5 mg/dL (0.2-1.3); Blood Urea Nitrogen 21 mg/dL (9-20); Calcium 9.7 mg/dL (8.4-10.2); Carbon Dioxide 27 mmol/L (22-30); Chloride 99 mmol/L (98-107); Cholesterol 105 mg/dL (0-200); Estimated Glomerular Filt Rate 60; Glucose 140 mg/dL (65-110); HDL Direct 36 mg/dL; Potassium 4.2 mmol/L (3.4-5.0); Sodium 134 mmol/L (137-145); Triglycerides 148 mg/dL (<150)
[2023-12-23 13:21] LABS: LDL Cholesterol Direct 46 mg/dL
[2023-12-23 13:41] LABS: Prostate Specific Antigen 1.4 ng/mL (< OR = 4.0)
== END 2023-12-23 12:24 | disposition home or self-care (01) ==
PROVIDERS: PCP Family Medicine Adolescent Medicine; Referring Provider Specialist; Visit Provider Family Medicine Adolescent Medicine
DX: E78.00 Pure hypercholesterolemia, unspecified (principal); I10 Essential (primary) hypertension; R35.1 Nocturia; Z12.5 Encounter for screening for malignant neoplasm of prostate
CPT/HCPCS: 36415; 80053; 80061; 84153; G0103

== ENCOUNTER 2024-03-16 07:24 | Outpatient (CLI) | payer MEDICARE, BC, SELFPAY ==
--- NOTE | ~2024-03-16 | CT_ITS ---
CT Scan of the Chest without Contrast: Clinical Indication: Lung cancer screening, nicotine dependence Technique: Contiguous sections were acquired throughout the chest without intravenous contrast. Dose reduction technique was used on this scan by utilizing automated exposure control and iterative recon struction technique. The dose-length product (DLP) was 357.34 mGy-cm. COMPARISON: 03/13/2023 Findings: There is no evidence of any significant mediastinal, hilar or axillary lymphadenopathy. The mediastin al soft tissues appear normal. There is no evidence of pleural or pericardial effusion. The lungs are clear. No pulmonary nodules or infiltrates are noted. Images through the upper abdomen reveal no abnormalities. Impression: Lung RADS 1: Negative. 12 month follow-up screening CT advised. Reviewed, dictated and finalized at location . 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 12 month follow-up screening CT advised.
== END 2024-03-16 07:25 | disposition home or self-care (01) ==
PROVIDERS: PCP Family Medicine Adolescent Medicine; Visit Provider Physician Assistant
DX: Z12.2 Encounter for screening for malignant neoplasm of respiratory organs (principal); Z87.891 Personal history of nicotine dependence
CPT/HCPCS: 71271

== ENCOUNTER 2024-05-03 12:12 | Emergency (ER) | payer MEDICARE, BC, SELFPAY ==
[2024-05-03 12:26] VITALS: BP 135/70; PULSE 66; RESP 18; TEMP 36.2; O2SAT 99
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
[2024-05-03] MEDS: ACETAMINOPHEN 500 MG TABLET 1000 MG PO (12:48)
[2024-05-03 13:41] LABS: EDUAAPPEAR Clear; EDUABILI Negative (Negative); EDUABLOOD Negative (Negative); EDUACOLOR1 Yellow; EDUAGLUCOSE Negative (Negative); EDUAKETONE Negative (Negative); EDUALEUKO Negative (Negative); EDUANITRATE Negative (Negative); EDUAPROTEIN Trace (Negative)
== END 2024-05-03 13:49 | disposition home or self-care (01) ==
PROVIDERS: Emergency Provider Nurse Practitioner Family; PCP Family Medicine Adolescent Medicine
DX: M54.32 Sciatica, left side (principal); I25.10 Atherosclerotic heart disease of native coronary artery without angina pectoris; I25.2 Old myocardial infarction; E78.5 Hyperlipidemia, unspecified; I10 Essential (primary) hypertension; Z87.891 Personal history of nicotine dependence
CPT/HCPCS: 73502; 73564; 81003; 99214; A9270; G0463

== ENCOUNTER 2024-05-07 02:55 | Emergency (ER) | payer MEDICARE, BC, SELFPAY ==
--- NOTE | ~2024-05-07 | CT_ITS ---
Noncontrast CT scan of the left knee CLINICAL HISTORY: Pain, prior surgery TECHNIQUE: Axial noncontrast imaging of the left knee was performed. Sagittal and coronal reformatted images were constructed. Dose reduction technique was used on this scan by utilizing automated expos ure control and iterative reconstruction technique. The dose-length product (DLP) was 713.11 mGy-cm. Findings: No acute fracture or dislocation is seen. There is compression plate with interlocking scre ws along the lateral aspect of the proximal tibia, compatible with prior orthopedic surgery. There is mild tricompartmental degenerative change at the knee. No definite joint effusion seen. Visualized musculature is grossly unremarkable. No soft tissue mass or fluid collection evident. Subc utaneous soft tissues are unremarkable. IMPRESSION: No acute abnormality. Prior ORIF of the proximal tibia. Mild tricompartmental degenerative change of the knee. Reviewed, dictated and finalized at [facility]. [facility] S[place]TER
[2024-05-07 02:56] VITALS: BP 132/87; PULSE 79; RESP 16; TEMP 36.4; O2SAT 98
[2024-05-07 03:10] VITALS: BP 132/87; PULSE 79; RESP 16; TEMP 36.4; O2SAT 98
[2024-05-07] MEDS: MORPHINE SULFATE (*CRX) 4 MG/ML INJ IV PUSH (03:32)
[2024-05-07 03:39] LABS: Basophils Percent Auto 0.2 % (0.2-1.2); Eosinophils Percent Auto 0.2 % (0-4.4); Hematocrit 45.4 % (42.0-52.0); Hemoglobin 15.2 g/dL (14.0-18.0); Immature Granulocyte Absolute 0.06 K/mm3 (0.00-0.031); Immature Granulocyte Percent A 0.5 % (0-0.5); Lymphocytes Absolute Auto 1.09 K/mm3 (0.9-3.2); Lymphocytes Percent Auto 9.7 % (18.3-44.2); Mean Corpuscular HGB Conc 33.5 g/dl (32-36); Mean Corpuscular Hemoglobin 28.5 pg (26-34); Mean Corpuscular Volume 85.2 fl (80-100); Mean Platelet Volume 9.4 fl (7.4-10.4); Monocytes Absolute Auto 0.9 K/mm3 (0.1-0.6); Monocytes Percent Auto 8.2 % (2.6-8.5); Neutrophils Absolute Auto 9.1 K/mm3 (1.3-6.7); Neutrophils Percent Auto 81.2 % (45.5-73.1); Platelet Count Result 267 k/mm3 (150-375); Red Blood Count 5.33 M/mm3 (4.6-6.20); Red Cell Distribution Width 13.4 % (11.5-14.5); White Blood Count 11.2 K/mm3 (4.5-10.0)
[2024-05-07 03:51] LABS: Alanine Aminotransferase 24 U/L (6-50); Albumin Level 3.9 g/dL (3.5-5.1); Alkaline Phosphatase 82 U/L (38-126); Anion Gap 12 mmol/L (4-12); Aspartate Amino Transferase 21 U/L (17-59); Bilirubin,Total 0.9 mg/dL (0.2-1.3); Blood Urea Nitrogen 29 mg/dL (9-20); Calcium 9.6 mg/dL (8.4-10.2); Carbon Dioxide 22 mmol/L (22-30); Chloride 99 mmol/L (98-107); Estimated CRCL calculation 78 ml/min; Estimated Glomerular Filt Rate > 60; Glucose 120 mg/dL (65-110); Potassium 4.1 mmol/L (3.4-5.0); Sodium 133 mmol/L (137-145)
--- NOTE | 2024-05-07 03:54 | ED_ITS ---
HPI - General Adult General Chief complaint: Extremity Injury, Lower Stated complaint: knee pain Time Seen by Provider: 05/07/24 03:09 History of Present Illness HPI narrative: This presumed year old gentleman presents emergency department chief complaint of left knee pain. Patient reports he has prior history of a knee surgery reports that he has an appointment later this week with his orthopedic surgeon Dr. Edmond the patient states that he has multiple pins and screws in his legs patient reports he was seen at urgent care and had plain film x-rays of his knee and reports now he cannot put weight on his left leg. The patient reports no pain in the hip denies back pain denies any new trauma. Related Data Home Medications ?Medication ?Instructions ?Recorded ?Confirmed ?Last Taken ?Type aspirin 81 mg chewable tablet 81 mg PO HS 10/09/19 04/08/24 11/03/19 History carvedilol 6.25 mg tablet (Coreg) 25 mg PO Q12HR 11/03/19 04/08/24 Unknown History lisinopril 5 mg tablet 10 mg PO DAILY 11/03/19 04/08/24 11/03/19 History Allergies Allergy/AdvReac Type Severity Reaction Status Date / Time meperidine (From Demerol) Allergy Intermediate Vomiting Verified 05/03/24 12:29 acetaminophen (From AdvReac Mild Nausea and Verified 05/03/24 12:17 Darvocet-N) Vomiting propoxyphene (From AdvReac Mild Nausea and Verified 05/03/24 12:29 Darvocet-N) Vomiting Review of Systems 2 Review of Systems: A 10 system review of systems was completed on the patient and is negative except for what is stated in the HPI. Nursing and ancillary documentation was reviewed. [facility] Past Medical History Medical History Left carpal tunnel syndrome COVID-19 Morbid obesity Obstructive sleep apnea (~12/2019) Hypercholesterolemia Tobacco use Quit 2019 CAD (coronary artery disease) 1996: IMI treated with balloon angioplasty 10/2019: Non-STEMI, RIC to the mid CX, Dr. Singh Cardiomyopathy 10/2019: EF 30% Hypertension Non-ST elevated myocardial infarction (non-STEMI) Myocardial infarction Hyperlipidemia Obese Surgical History Surgical History Coronary angioplasty status Family History Family History Sibling Acute myocardial infarction Thyroid cancer Father Malignant neoplasm of prostate Acute myocardial infarction Mother Acute myocardial infarction Social History Social History Smoking packs per day: 2 Smoking cigarettes per day: 40.0 Years smoked: 51 Smoking pack-years: 102.00 Smoking status: Former smoker Tobacco type: cigarettes and cigars Smokeless tobacco user: chewing tobacco Second hand tobacco smoke exposure: No Additional smoking assessment comments: he also smoked cigars and used chewing tabacco he has quit all Alcohol intake: never Substance use: never Lack of Transportation: No Lack of Food: Never True Current Housing: I Have Housing Concerned About Future Housing: No Difficulty Paying Gas/Electric Bills: No Difficulty Paying for Meds: No Currently Unemployed: No Education: High School Diploma/GED Difficulty w/ Childcare or Family Care: No Living arrangements: with family Gender identity (if verbalized by the patient): Male Sexual Orientation (if Verbalized by the Patient): Straight or Heterosexual 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 HEAD: Normocephalic, atraumatic. EYES: PERRLA and EOMI. ENT: Nares clear, no rhinorrhea or epistaxis. Mucous membranes moist. NECK: Supple. CHEST: Clear to auscultation. No respiratory distress. HEART: Regular rate and rhythm. No murmur heard. Normal peripheral pulses. ABDOMEN: Soft, nontender, nondistended, normal active bowel sounds. EXTREMITIES: Normal range of motion. No edema. SKIN: Warm, dry, no rash. NEURO: No focal deficits. Alert and oriented x3. PSYCH: Normal mood and affect. Course Vital Signs Vital signs: Vital Signs Temperature 36.4 C 05/07/24 02:56 Pulse Rate 79 05/07/24 02:56 Respiratory Rate 16 05/07/24 02:56 Blood Pressure 132/87 05/07/24 02:56 Pulse Oximetry 98 05/07/24 02:56 Oxygen Delivery Room Air 05/07/24 02:56 Temperature 36.4 C 05/07/24 03:10 Pulse Rate 73 03/06/25 05:04 Respiratory Rate 19 05/07/24 05:04 Blood Pressure 121/77 05/07/24 05:04 Pulse Oximetry 96 05/07/24 05:04 Oxygen Delivery Room Air 05/07/24 02:56 Medical Decision Making MDM Narrative Medical decision making narrative: Differential diagnosis includes occult fracture, internal derangement knee CT of the knee was obtained as the patient had recently had plain film studies. CT showed no acute abnormality Patient was placed in knee immobilizer Patient given a prescription for pain control and will be instructed to follow- up with his orthopedic surgeon Vital Signs Vital Signs: Vital Signs Temperature 36.4 C 05/07/24 02:56 Pulse Rate 79 05/07/24 02:56 Respiratory Rate 16 05/07/24 02:56 Blood Pressure 132/87 05/07/24 02:56 Pulse Oximetry 98 05/07/24 02:56 Oxygen Delivery Room Air 05/07/24 02:56 Temperature 36.4 C 05/07/24 03:10 Pulse Rate 73 05/07/24 05:04 Respiratory Rate 19 05/07/24 05:04 Blood Pressure 121/77 05/07/24 05:04 Pulse Oximetry 96 05/07/24 05:04 Oxygen Delivery Room Air 05/07/24 02:56 Lab Data 05/07/24 03:29 05/07/24 03:29 Labs: Lab Results 05/07/24 Range/Units 03:29 WBC 11.2 H (4.5-10.0) K/mm3 RBC 5.33 (4.6-6.20) M/mm3 Hgb 15.2 (14.0-18.0) g/dL Hct 45.4 (42.0-52.0) % MCV 85.2 (80-100) fl MCH 28.5 (26-34) pg MCHC 33.5 (32-36) g/dl RDW 13.4 (11.5-14.5) % Plt Count 267 (150-375) k/mm3 MPV 9.4 (7.4-10.4) fl Immature Gran % (Auto) 0.5 (0-0.5) % Neut % (Auto) 81.2 H (45.5-73.1) % Lymph % (Auto) 9.7 L (18.3-44.2) % [place] % (Auto) 8.2 (2.6-8.5) % Eos % (Auto) 0.2 (0-4.4) % Baso % (Auto) 0.2 (0.2-1.2) % Lymph # (Auto) 1.09 (0.9-3.2) K/mm3 [place] # (Auto) 0.9 H (0.1-0.6) K/mm3 Eos # (Auto) 0.0 (0-0.3) K/mm3 Baso # (Auto) 0.0 (0.0-0.1) K/mm3 Abs Immat Gran (auto) 0.06 H (0.00-0.031) K/mm3 Absolute Neuts (auto) 9.1 H (1.3-6.7) K/mm3 Absolute Nucleated RBC 0.000 (0.0-0.012) K/mm3 Nucleated RBC % 0.0 (0.0-0.2) % Sodium 133 L (137-145) mmol/L Potassium 4.1 (3.4-5.0) mmol/L Chloride 99 (98-107) mmol/L Carbon Dioxide 22 (22-30) mmol/L Anion Gap 12 (4-12) mmol/L BUN 29 H (9-20) mg/dL Creatinine 0.95 (0.7-1.3) mg/dL Estim Creat Clear Calc 78 ml/min Estimated GFR > 60 (59 - ) Glucose 120 H (65-110) mg/dL Calcium 9.6 (8.4-10.2) mg/dL Total Bilirubin 0.9 (0.2-1.3) mg/dL AST 21 (17-59) U/L ALT 24 (6-50) U/L Alkaline Phosphatase 82 (38-126) U/L Total Protein 7.0 (6.3-8.2) g/dL Albumin 3.9 (3.5-5.1) g/dL Discharge Plan Discharge Clinical Impression: Acute pain of left knee, Acute internal derangement of left knee Patient Disposition: Home, Self-Care Condition: Stable Instructions: Antibiotic Form, Knee Pain (ED), Knee Immobilizer (ED) Patient Language: Faroese Prescriptions: New hydrocodone-acetaminophen 5-325 mg tablet 1 tablet PO Q6H PRN (Reason: pain) 3 Days Qty: 12 0RF No Action prednisone 10 mg tablets,dose pack See Rx Instructions .ROUTE .COMPLEX Qty: 48 0RF Rx Instructions: 50 mg x 3 days, 40 mg x 3 days, 30 mg x 3 days, 20 mg x 3 days, 10 mg x 3 days cyclobenzaprine 10 mg tablet 10 mg PO TID PRN (Reason: muscle spasm) 7 Days Qty: 21 0RF aspirin 81 mg Tablet,Chewable 81 mg PO HS spironolactone 25 mg Tablet 25 mg PO DAILY Qty: 30 2RF ezetimibe 10 mg tablet 10 mg PO DAILY Qty: 90 1RF carvedilol [Coreg] 6.25 mg tablet 25 mg PO Q12HR lisinopril 5 mg tablet 10 mg PO DAILY atorvastatin 40 mg tablet 40 mg PO HS Qty: 90 2RF Follow-up/Referrals: Cole Petty MD [Primary Care Provider] - Time of Disposition: 05:57
--- OUTSIDE RECORDS SUMMARY | 2024-05-07 04:12 | XMS_ITS | Clinical Summary ---
Author Organization [facility] [address] Address [address] [place] [address] Care Team Providers Care Vocational Instructor Name Role Phone Cole Petty MD Primary Care Prov ider Allergies Active Allergy Reactions Criticality Noted Date Comments Meperidine Unknown 12/27/2022 Propoxyphene Medications atorvastatin (LIPITOR) 40 mg tablet 1 tablet (40 mg total) daily 2 11/16/2018 Active aspirin 81 mg enteric coated tablet Take 1 tablet (81 mg total) by mouth daily Active albuterol HFA (PROVENTIL HFA,VENTOLIN HFA,PROAIR HFA) 90 mcg/actuation inhaler INHALE 1 TO 2 PUFFS BY MOUTH EVERY 4 TO 6 HOURS NEEDED FOR COUGH 11/18/2020 Active nitroglycerin (NITROSTAT) 0.4 mg SL tablet DISSOLVE 1 TABLET UNDER THE TONGUE EVERY 5 MINUTES NEEDED FOR CHEST PAIN 25 tablet 1 02/14/2021 Active nitroglycerin (NITROSTAT) 0.[address] 1 tablet (0.4 mg total) under the tongue every 5 (five) minutes as needed for chest pain May repeat dose q 5 min, up to 3 doses total 30 tablet 3 06/19/2022 Active carvediloL (COREG) 6.25 mg tablet TAKE 1 TABLET BY MOUTH EVERY 12 HOURS 180 tablet 3 03/18/2023 Active ezetimibe (ZETIA) 10 mg tablet TAKE 1 TABLET(10 MG) BY MOUTH DAILY 90 tablet 2 09/11/2023 Active lisinopriL (PRINIVIL,ZESTR [place]) 10 mg tabletIndicatio ns:Cardiomyopat hy, ischemic TAKE 1 TABLET(10 MG) BY MOUTH DAILY 90 tablet 3 10/18/2023 Active spironolactone (ALDACTONE) 25 mg tablet TAKE 1 TABLET BY MOUTH DAILY 90 tablet 2 02/06/2024 Active Active Problems Problem Noted Date Diagnosed Date Morbid (severe) obesity due to excess calories 0 06/19/2022 Angina pectoris, unspecified 06/19/2022 History of coronary artery stent placement 12/22 Coronary artery disease invo lving [place] coronary artery of [place] heart without angina pectoris 12/02/2018 Surgical History Surgery Date Site/Laterality Comments CARDIAC CATHETERIZATION CORONARY ANGIOPLASTY 03/04/1995 - 03/03/1996 Angioplasty to RCA CORONARY ANGIOPLASTY WITH STENT PLACEMENT 10/09/2019 Stent to proximal LCX Medical History Medical History Date Comments Coronary artery disease Hypertension Hyperlipidemia Ischemic cardiomyopathy Family History Medical History Relation Name Comments Heart attack Brother 3 Myocardial Infa rction; Coronary artery disease Brother 4 Martinez nary Artery Bypass Graft; Relation Name Status Comments Brother 1 Alive Brother 2 Alive Brother 3 Brother 4 Social History Tobacco Use Types Packs/Day Years Used Date Smoking Tobacco: Former Cigars Smokeless Tobacco: Former Quit: 10/09/2019 Tobacco Cessation:Counseling Given: Not Answered Comments:CIGARS/ 1 DAILY Alcohol Use Standard Drinks/Week Comments No 0 (1 standard drink = 0.6 oz pur e alcohol) Personal Safety Answer Date Recorded Getting School Help Needed Not on file 02/20 Sex and Gender Information Value Date Recorded Sex Assigned at Not on file 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 Gender Identity Not on file Sexual Orientation Not on file Obstetrics History Last Filed Vital Signs Vital Sign Reading Time Taken Comments Blood Pressure 120/70 12/24/2023 8:55 AM CDT Pulse 79 12/24/2023 8:55 AM CDT Temperature 36.9 C (98.4 F) 12/29/2019 9:05 AM CDT Respiratory Rate 15 12/08/2019 10:5 5 AM CDT Oxygen Saturation 99% 12/24/2023 8:55 AM CDT Inhaled Oxygen Concentration - - Weight 121.7 kg (268 lb 6.4 oz) 12/24/2023 8:55 AM CDT Height 180.3 cm (5' 11 ) 12/24/2023 8:55 AM CDT Body Mass Index 37.43 12/24/2023 8:55 AM CDT Plan of Treatment Health Maintenance Due Date Last Done Comments Colon Cancer Screening-Colonoscopy 1950 Depression Screening 1950 Hepatitis C Screening 1950 DTaP/Tdap/Td Vaccine (1 - Tdap) 07/27/1963 Hepatitis B Screening 1970 Pneumococcal vaccine 65+ (1 of 1 - PCV) 2002 Zoster Vaccine (1 of 2) 2002 Abdominal Aortic Aneurysm (AAA) Screen 2017 Well Visit 65+ 2017 Fall Risk Assessment 12/07/2020 12/08/2019 Influenza Vaccine (#1) 2023 01/11/2020 Insurance MEDICARE [facility] MEDICARE [facility] FEDERAL Care Teams Vocational Instructor Relationship Specialty Start Date End Date Cole Petty MD [address] [place] [address] PCP - General 07/01/12
--- OUTSIDE RECORDS SUMMARY | 2024-05-07 04:12 | XMS_ITS | Clinical Summary ---
Author Organization [facility] Address [facility] [place] [address] Care Team Providers Care Windows Mobile Developer Name Role Phone Unavailable Primary Care Provider Unavailabl e Social History Tobacco Use Types Packs/Day Years Used Date Smoking Tobacco: Never Assessed Sex and Gender Information Value Date Recorded Sex Assigned at Not on file Legal Sex Male 6:29 PM CDT Gender Identity Not on file Sexual Orientation Not on file Plan of Treatment Health Maintenance Due Date Last Done Comments Colorectal Cancer Screening Colonoscopy (10 Years) 1952 Hepatitis C 1970 DTaP, Tdap and Td Vaccines ( 1 - Tdap) 07/27/1971 Zoster Vaccines (1 of 2) 2002 Pneumococcal Vaccine: 65+ Ye ars (1 of 1 - PCV) 2017 COVID-19 Vaccine ( - 2023-2 5 season) 2023 Influenza Adult (#1) 2023 RSV Immunization or 60+ Years (1 - 1-dose 75+ series) 07/27/2027 Meningococcal B Vaccine Aged Out No l onger eligible based on patient's age to complete this topic Meningococcal Vaccine Aged Out No vinicio kristy eligible based on patient's age to complete this topic RSV Immunizations Under 20 Months Aged Out No longer eligible based on patient's age to complete this topic
--- OUTSIDE RECORDS SUMMARY | 2024-05-07 04:12 | XMS_ITS | Data Portability ---
Author Organization [place] [facility] [address], Main Office Address [address] [place] [address] Care Team Providers Care Technology Strategist Name Role Phone ROSARIO CARVAJAL Primary Care Provider ROSARIO CARVAJAL Referring Provider Assessment Encounter Date Assessment Date Assessment LastModified by Organization Details LastModified Time 05/22/2022 05/22/2022 My impression patient has carpal and cubital tunnel. He brings an MRI and EMG that shows both carpal tunnel as well as cubital tunnel complaints. I have offered him surgical intervention he says the left hand is worse than the right. I discussed this with him in detail risks benefits limitations and alternatives were probably release both the cubital and carpal tunnel at the same time. He has declined for now and is going to live with it unless he gets worse. Recommend he wear a brace at night. He does have tingling in all of his fingers at this time. Secondary complaint is that of shoulder pains got impingement pain with overhead motion he is weak with resisted abduction external rotation neurologically he is intact. Wished to have an injection this is done with 20 mg Kenalog 4 cc 1% lidocaine will continue with exercise and anti-inflammatory medication. [email or web address] Not available 05/22/2022 15:03:46 08/30/2022 08/30/2022 Patient returns with the hand and wrist pain left. He has got numbness and tingling more dense in the cubital and carpal tunnel. He has decided he would like to have surgery and I have discussed this with him risks benefits limitations and alternatives. We will release both the cubital tunnel and carpal tunnels he has EMG findings on both we discussed risks benefits limitations and alternatives in detail. [email or web address] Not available 08/30/2022 10:26:07 11/08/2022 11/08/2022 Patient returns status post carpal tunnel release left cubital tunnel release left. Pain and numbness are resolving. He has looks like he has had a very nice result. His incisions look clean. Sutures out today. Follow up on an as-needed basis. He can get back to activity slowly. I told him not to overdo it. [email or web address] Not available 11/08/2022 09:35:04 Plan of Treatment Reminders Order Date Submit Date Provider Last Modified By Organization Details Last Modified Time Details Appointments None recorded. Lab None recorded. Referral None recorded. Procedures injection/a spiration joint/bursa (PROC) - in office procedure, administere d by provider 2022 023 [email or web address] In-Office Order, Internal Use Only DO Not Attach Compendium DO Not Attach Compendium, Do Not Delete/merge, [id number] 14:55:12 Surgeries None recorded. Imaging None recorded. Medication Orders Kenalog 10 mg/mL suspension for injection 2022 023 [address] [address] [id number], [address] [facility], [place], [place], [id number], 14:57:54 ropivacaine (PF) 5 mg/mL (0.5 %) injection solution 2022 023 [email or web address] Not available 16:08:51 Patient TargetsNo targets recorded. Patient InstructionsNo instructions recorded. Reason for Referral None Reported. Results Created Date Observation Date Name Description Value Unit Range Abnormal Flag Note LastModifiedBy Organization Detail LastModifiedTime 03/13/19 23 XR, shoul isabella No observ ation record ed. M[facility]. [facility] [address], [place], [address], 05/03/2022 01:50:34 04/26/19 23 04/26/2022 elect romyo gram + nerve condu ction study No observ ation record ed. [id number] [facility] [address], [place], [address], 05/03/2022 01:50:34 Result Notes None recorded. Problems Name Problem SNOMED Code Status Onset Date Resolution Date Notes Provider Name and Address Organization Details Recorded Time Pain of left shoulder joint 5150612073076 9109 Active 2022 Not Available [facility] 3 01:49:44 Partial thickness rotator cuff tear 403563090 Active 2022 Not Available [facility] 3 01:49:44 Full thickness rotator cuff tear 980196189 Active 2022 Not Available [facility] 3 01:49:45 Full thickness rotator cuff tear 450834670 Active 2022 Not Available [facility] 3 01:49:45 Carpal tunnel syndrome of left wrist 7319577669471 02 Active 2022 Not Available [facility] 3 01:49:45 Bilateral carpal tunnel syndrome 0812958579538 9101 Active 2022 Jaclyn Stapleton RMLaw null, [place] [facility] 3 14:38:36 Carpal tunnel syndrome of right wrist 6282216847316 08 Active 2022 Jaclyn Stapleton RMLaw null, [place] [facility] 3 14:38:54 Problem Notes None recorded. Procedures Surgical History Date Name Laterality Status Provider Name and Address Organization Details Recorded Time 3 Ortho - Cortisone Injection completed Christo Edmond MD [address] [place] [address], [address], [place] [facility] 05/22/2022 15:01:17 Imaging Results Imaging Date Name Status LastModified by Organization Details LastModified Time 03/13/2022 XR, shoulder completed [id number] [facility] [address], [place], [address], 05/03/2022 01:50:34 04/26/2022 electromyogram + nerve conduction study completed [id number], [place], [address], 05/03/2022 01:50:34 Procedure Notes None recorded. Medical Equipment None Reported. Allergies Allergen ID Allergen Name Allergen Category Reaction Reaction Severity Criticality Documentation Date Start Date Code Code System Note Provider Name and Address Organization Details Recorded Time 26278 Demerol medicatio n Not available Not available Not available 05/03/2022 05640 1 RxNorm Not Available [facility] 01:50:28 Medications Name Sig Start Date Stop Date Status Note LastModified by Organization Details LastModified Time atorvastatin 40 mg tablet TAKE 1 TABLET BY MOUTH AT BEDTIME active Not Available Not Available No t Available carvedilol 6.25 mg tablet TAKE 1 TABLET BY MOUTH EVERY 12 HOURS active Not Available Not Available No t Available prednisone 10 mg tablet TAKE 1 TABLET BY MOUTH THREE TIMES DAILY FOR 3 DAYS THEN TAKE 1 TABLET BY MOUTH TWICE DAILY FOR 2 DAYS THEN TAKE 1 TABLET BY MOUTH DAILY FOR 1 DAY active Not Available Not Available No t Available hydrocodone 5 mg-acetaminoph en 325 mg tablet TAKE 1 TABLET BY MOUTH EVERY 6 HOURS active Not Available Not Available No t Available spironolactone 25 mg tablet TAKE 1 TABLET BY MOUTH DAILY active Not Available Not Available No t Available prednisone 10 mg tablets in a dose pack Take 1 tab by mouth, 3 times a day for 3 daysTake 1 tab by mouth 2 times a day for 2 daysTake 1 tab by mouth once a day for 1 day active Not Available Not Available No t Available Kenalog 10 mg/mL suspension for injection in office 2022 active [facility]: 0003- 0494- 20 Not Available Not Available Not Available lisinopril 10 mg tablet active Not Available Not Available No t Available nitroglycerin 0.[address] 1 TABLET UNDER THE TONGUE AND DISSOLVE EVERY 5 MINUTES NEEDED FOR CHEST PAIN. MAY REPEAT UP TO 3 DOSES active Not Available Not Available No t Available albuterol sulfate HFA 90 mcg/actuation aerosol inhaler INHALE 1 TO 2 PUFFS BY MOUTH EVERY 4 TO 6 HOURS NEEDED FOR COUGH active Not Available Not Available No t Available ezetimibe 10 mg tablet active Not Available Not Available No t Available ropivacaine (PF) 5 mg/mL (0.5 %) injection solution in office 2022 active [facility] 80389 -064- 01 Not Available Not Available Not Available Vitals Date Recorded Body mass index (BMI) Body height Body weight Provider Name and Address Organization Details Last Updated DateTime 04/10/2022 36.7 kg/m2 177.8 cm 634737.65 g Not Available [facility] 05/03/2022 01:49:29 Date Recorded Body height Provider Name an d Address Organization Details Last Updated DateTime 05/22/2022 177.8 cm GORDON Abel [facility] [employer] [facility] 05/22/2022 14:37:23 Date Recorded Body height Provider Name an d Address Organization Details Last Updated DateTime 08/30/2022 177.8 cm Sushma Ricketts [facility] [address] 08/30/2022 10:05:33 Date Recorded Body height Body mass index (BMI) Body weight Provider Name and Address Organization Details Last Updated DateTime 11/08/2022 180.34 cm 36.8 kg/m2 337792.39 g Catrachita Pike [employer] [facility] [address] 11/08/2022 09:22:57 Social History None recorded. Functional Status None recorded. Mental Status None recorded. Family History Relationship Description Onset Age of this Age Resolved Age Notes LastModified by Organization Details LastModified Time Father Heart disease [id number] Not available 05/03/2022 01:49:17 Brother Family history of malignant neoplasm [id number] Not available 05/03/2022 01:49:17 Medical History No medical history recorded. Past Encounters Encounter ID Performer Location Encounter Start Date Encounter Closed Date Diagnosis/Indication Diagnosis SNOMED-CT Code Diagnosis ICD10 Code Diagnosis Note [id number] [facility] [address] [place] [address] 03/13/2022 00:00:00 03/13/2022 15:35:06 [id number] [facility] [address] [place] [address] 04/10/2022 00:00:00 04/10/2022 14:08:16 [id number] Christo Edmond MD [facility] [address] [place] [address] 05/22/2022 14:31:14 05/22/2022 15:25:37 Carpal tunnel syndrome of left wrist 7855429103 99458 G56.02 Bilateral carpal tunnel syndrome 3023310385 0053061 G56.03 Carpal waqar tabitha syndrome of right wrist 4107225759 65790 G56.01 Partial th ickness rotator cuff tear 908244385 M75.102 [id number] Christo Edmond MD [facility] [address] [place] [address] 08/30/2022 10:02:29 08/30/2022 11:32:18 Bilateral carpal tunnel syndrome 1830863344 7050934 G56.03 Pain of le ft shoulder joint 0403591915 2574522 M25.512 Partial th ickness rotator cuff tear 076488620 M75.102 Full thick ness rotator cuff tear 931949380 M75.136 [id number] Christo Edmond MD [facility] [address] [place] [address] 11/08/2022 09:20:38 11/08/2022 09:59:06 Bilateral carpal tunnel syndrome 0739096418 6767119 G56.03 Pain of le ft shoulder joint 5936368268 5168105 M25.512 Partial th ickness rotator cuff tear 396000133 M75.102 Full thick ness rotator cuff tear 587416277 M75.121 Postoperative visit 1835 [id number] Z09 Health Concerns Section Related Observation LastModified by Organization Detai ls LastModified Time None Recorded Concern Status LastModified by Organization Details LastModified Time None Recorded Advance Directives Directive None Recorded Payers Encounter Date Sequence Insurance Name Policy Number Policy [place] Covered Member ID [place] Member ID Guarantor Name 05/22/2022 1 [place] [id number] [place] 05/22/2022 2 [place] [address] [place] [id number] [place] 08/30/2022 1 [place] [id number] [place] 08/30/2022 2 [place] [address] [place] [place] [id number] [place] 11/08/2022 1 [place] [id number] [place] 11/08/2022 2 [facility]: [facility] PRO[facility] (PPO) [address] [place] [id number] [place] Notes Date Note Type Note Provider Name and Address Organization Details Recorded Time 03/13/2022 text/html ShoulderReported bypatient.Hand Dominance:right Location:left; anterior; lateral Quality:throbbing; frequent Severity:moderate Timing:recurrent; occasional Duration:continuous since onset Aggravating Factors:pushing/pulli ng; throwing; damp weather Alleviating Factors:rest; elevation; stretching; NSAIDs Associated Symptoms:no weakness; no numbness; no tingling; no redness; no ecchymosis; no catching/locking; no popping/clicking; no buckling; no grinding; no instability; no radiation down arm; no drainage; no fever; no chills; no weight loss; no change in bowel/bladder habits;swelling;warmt hWrist/HandReported bypatient.Quality:ach ing; deep; worsening Severity:moderate Duration:continuous since onset Timing:chronic Alleviating Factors:ice; rest; elevation; OTC medication; NSAIDs; brace Aggravating Factors:carrying; twisting; gripping; grasping Associated Symptoms:no tingling; no redness; no ecchymosis; no catching/locking; no popping/clicking; no buckling; no grinding; no instability; no radiation; no drainage; no fever; no chills; no weight loss; no change in bowel/bladder habits;weakness;numbn ess;swelling;warmth Not Available [facility] 03/13/2022 15:35:06 04/10/2022 text/html ShoulderReported bypatient.Hand Dominance:right Location:left; anterior; lateral Quality:throbbing; frequent Severity:moderate Timing:recurrent; occasional Duration:continuous since onset Aggravating Factors:pushing/pulli ng; throwing; damp weather Alleviating Factors:rest; elevation; stretching; NSAIDs Associated Symptoms:no weakness; no numbness; no tingling; no redness; no ecchymosis; no catching/locking; no popping/clicking; no buckling; no grinding; no instability; no radiation down arm; no drainage; no fever; no chills; no weight loss; no change in bowel/bladder habits;swelling;warmt hWrist/HandReported bypatient.Quality:ach ing; deep; worsening Severity:moderate Duration:continuous since onset Timing:chronic Alleviating Factors:ice; rest; elevation; OTC medication; NSAIDs; brace Aggravating Factors:carrying; twisting; gripping; grasping Associated Symptoms:no tingling; no redness; no ecchymosis; no catching/locking; no popping/clicking; no buckling; no grinding; no instability; no radiation; no drainage; no fever; no chills; no weight loss; no change in bowel/bladder habits;weakness;numbn ess;swelling;warmth Not Available [employer] 04/10/2022 14:08:16 05/22/2022 text/html Patient returns bilateral hand pain. He has got pain in both hands numbness and tingling. He not only has the carpal but also the cubital tunnel distribution the left worse than right. Tried prednisone on and did seem to help too much he is recommended to wear braces at night than it is helping a bit. Presents with an EMG today. Secondary complaint is that of shoulder pain left. Continues to have pain in the left shoulder particularly with activity overhead. Christo Edmond MD [address], [place] [address], [place], [address], [employer] 05/22/2022 15:04:06 08/30/2022 text/html Patient returns bilateral hand pain. He has got pain in both hands numbness and tingling. He not only has the carpal but also the cubital tunnel distribution the left worse than right. Tried prednisone on and did seem to help too much he is recommended to wear braces at night than it is helping a bit. Presents with an EMG today. Secondary complaint is that of shoulder pain left. Continues to have pain in the left shoulder particularly with activity overhead. Christo Edmond MD [address], [facility] [address], [place], [address], [employer] 08/30/2022 10:26:30 11/08/2022 text/html Patient returns status post cubital carpal tunnel release on the left. Numbness and tingling are resolving he looks great. He is comfortable and he thinks the problem has been addressed. Christo Edmond MD [address] [place] [address], [place], [address], [place] [facility] 11/08/2022 09:35:21
--- OUTSIDE RECORDS SUMMARY | 2024-05-07 04:12 | XMS_ITS | Referral Summary ---
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
[2024-05-07 05:04] VITALS: BP 121/77; PULSE 73; RESP 19; O2SAT 96
[2024-05-07] MEDS: HYDROmorphone HCL INJ (*CRX) 1 MG/ML SYR IV PUSH (05:30)
== END 2024-05-07 06:20 | disposition home or self-care (01) ==
PROVIDERS: Emergency Provider Emergency Medicine; PCP Family Medicine Adolescent Medicine
DX: M23.92 Unspecified internal derangement of left knee (principal); I25.10 Atherosclerotic heart disease of native coronary artery without angina pectoris; I42.9 Cardiomyopathy, unspecified; I10 Essential (primary) hypertension; I25.2 Old myocardial infarction; E78.00 Pure hypercholesterolemia, unspecified; E66.01 Morbid (severe) obesity due to excess calories; Z68.35 Body mass index [BMI] 35.0-35.9, adult; G47.33 Obstructive sleep apnea (adult) (pediatric); Z98.61 Coronary angioplasty status; Z86.16 Personal history of COVID-19; Z87.891 Personal history of nicotine dependence; Z79.899 Other long term (current) drug therapy; Z79.82 Long term (current) use of aspirin
CPT/HCPCS: 36415; 73700; 80053; 85025; 96374; 96375; 99284; J1171; J2270

== ENCOUNTER 2024-06-27 16:33 | Inpatient (IN) | payer MEDICARE, BC, SELFPAY ==
[2024-06-27] VITALS (19 sets, daily range): BP systolic 97–141; BP diastolic 54–83; PULSE 65–121; RESP 13–23; TEMP 36.5–36.8; O2SAT 96–100; BMI 36.1
--- NOTE | ~2024-06-27 | XR_ITS ---
XR chest 1V portable Ordering provider: Yuri Torres MD History: 73 years Male with . tachycardia . Comparison: March 08, 2021 FINDINGS: MEDIASTINUM: The cardiac silhouette is slightly enlarged. LUNGS: No effusions or pneumothorax. Prominent markings in the left lower lobe which may indicate ate lectatic changes. OTHER: No free air under the diaphragm. IMPRESSION: Prominent markings in the left lower lobe which is suggestive of atelectatic changes. Reviewed, dictated and finalized at location A. IMPRESSION: Prominent markings in the left lower lobe which is suggestive of atelectatic ch anges.
--- NOTE | 2024-06-27 16:42 | ECG_ITS ---
Test Date: 2024-06-27 16:42:03 Measurements Intervals [place] Rate: 163 P: 153 MO: 185 QRS: 45 QRSD: 89 T: 150 QT: 274 QTc: 451 Interpretive Statements ECTOPIC ATRIAL TACHYCARDIA WITH EPISODES OF VENTRICULAR TACHYCARDIA LOW QRS VOLTAGE - LIMB LEADS BORDERLINE T WAVE ABNORMALITY- HIGH LATERAL LEADS BASELINE ARTIFACT- V6 ABNORMAL ECG No previous ECG available for comparison Electronically Signed On 06-27-2024 20:46:23 CDT by James Miles D.O.
--- NOTE | 2024-06-27 16:45 | PC.NURSE ---
Pt arrived to ED room 4 at 1630. Pt denying pain/dizziness currently. PT on monitor showing v-tach. Pt attached to [facility]. Dr. carrasco at bedside. Dr. Monse PHELPS to administer 300mg amiodarone IVP stat. 300mg amiodarone IVP administered at 1643. Dr. Shea continues to place orders. Pt a&ox4. Skin pwd
--- OUTSIDE RECORDS SUMMARY | 2024-06-27 16:55 | XMS_ITS | Referral Summary ---
Author [place] [facility] [place] [place] [address] Address [address] [place] [address] Care Team Providers Care Casino Floor Runner Name Role Phone Cole Petty MD Primary Care Prov ider Allergies Active Allergy Reactions Criticality Noted Date Comments Meperidine Unknown 12/27/2022 Propoxyphene Medications atorvastatin (LIPITOR) 40 mg tablet 1 tablet (40 mg total) daily 2 11/17/19 19 Active aspirin 81 mg enteric coated tablet Take 1 tablet (81 mg total) by mouth daily Active albuterol HFA (PROVENTIL HFA,VENTOLIN HFA,PROAIR HFA) 90 mcg/actuation inhaler INHALE 1 TO 2 PUFFS BY MOUTH EVERY 4 TO 6 HOURS NEEDED FOR COUGH 11/19/19 21 Active nitroglycerin (NITROSTAT) 0.4 mg SL tablet DISSOLVE 1 TABLET UNDER THE TONGUE EVERY 5 MINUTES NEEDED FOR CHEST PAIN 25 tablet 1 02/15/20 21 Active nitroglycerin (NITROSTAT) 0.[address] 1 tablet (0.4 mg total) under the tongue every 5 (five) minutes as needed for chest pain May repeat dose q 5 min, up to 3 doses total 30 tablet 3 06/20/19 23 Active lisinopriL (PRINIVIL,ZEST RIL) 10 mg tabletIndicati ons:Cardiomyop athy, ischemic TAKE 1 TABLET(10 MG) BY MOUTH DAILY 90 tablet 3 10/18/19 24 Active spironolactone (ALDACTONE) 25 mg tablet TAKE 1 TABLET BY MOUTH DAILY 90 tablet 2 02/06/20 24 Active carvediloL (COREG) 6.25 mg tablet Take 1 tablet (6.25 mg total) by mouth every 12 (twelve) hours 180 tablet 1 06/12/19 25 Active ezetimibe (ZETIA) 10 mg tablet TAKE 1 TABLET(10 MG) BY MOUTH DAILY 90 tablet 1 06/16/19 25 Active carvediloL (COREG) 6.25 mg tablet TAKE 1 TABLET BY MOUTH EVERY 12 HOURS 180 tablet 3 03/18/19 24 025 Discontinued(Re order) ezetimibe (ZETIA) 10 mg tablet TAKE 1 TABLET(10 MG) BY MOUTH DAILY 90 tablet 2 09/11/19 24 025 Discontinued Active Problems Problem Noted Date Diagnosed Date Morbid (severe) obesity due to excess calories 0 06/19/2022 Angina pectoris, unspecified 06/19/2022 History of coronary artery stent placement 12/22 Coronary artery disease invo lving [place] coronary artery of [place] heart without angina pectoris 12/02/2018 Social History [...] on file 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
--- OUTSIDE RECORDS SUMMARY | 2024-06-27 16:55 | XMS_ITS | Data Portability ---
Author Organization [place] [facility], Main Office Address [address] [place] [address] Care Team Providers Care Rn Recruitment Name Role Phone ROSARIO CARVAJAL Primary Care [...] will continue with exercise and anti-inflammatory medication. [email or web address] Not available 05/22/2022 15:03:46 08/30/2022 08/30/2022 Patient [...] risks benefits limitations and alternatives in detail. Not available 08/30/2022 10:26:07 11/08/2022 11/08/2022 Patient [...] procedure, administere d by provider 2022 023 [email or web address] In-Office Order, Internal Use Only DO Not Attach Compendium DO Not Attach Compendium, Do Not Delete/merge, [id number] 14:55:12 Surgeries None recorded. Imaging None recorded. Medication Orders Kenalog 10 mg/mL suspension for injection 2022 023 austen [address] [id number], [address] [facility], [place], [place], [id number], 14:57:54 ropivacaine (PF) 5 mg/mL (0.5 %) injection solution 2022 023 [email or web address] Not available 16:08:51 Patient TargetsNo targets recorded. Patient InstructionsNo instructions recorded. Reason for Referral None Reported. Results Created Date Observation Date Name Description Value Unit Range Abnormal Flag Note LastModifiedBy Organization Detail LastModifiedTime 03/13/19 23 XR, shoul isabella No observ ation record ed. [facility]. [facility] [address], [place], [address], 05/03/2022 01:50:34 04/26/19 23 04/26/2022 elect romyo gram + nerve condu ction study No observ ation record ed. [id number] [facility] [address], [place], [address], 05/03/2022 01:50:34 Result Notes None recorded. Problems Name Problem SNOMED Code Status Onset Date Resolution Date Notes Provider Name and Address Organization Details Recorded Time Pain of left shoulder joint 0907821007046 9109 Active 2022 Not Available [facility] 3 01:49:44 Partial thickness rotator cuff tear 320583014 Active 2022 Not Available [facility] 3 01:49:44 Full thickness rotator cuff tear 009231125 Active 2022 Not Available [facility] 3 01:49:45 Full thickness rotator cuff tear 284617957 Active 2022 Not Available [facility] 3 01:49:45 Carpal tunnel syndrome of left wrist 6291626259050 02 Active 2022 Not Available [facility] 3 01:49:45 Bilateral carpal tunnel syndrome 4957978670363 9101 Active 2022 Jaclyn Stapleton RMLaw null, [place] [facility] 3 14:38:36 Carpal tunnel syndrome of right wrist 1140740292279 08 Active 2022 Jaclyn Stapleton RMLaw null, [place] [facility] 3 14:38:54 Problem Notes None recorded. Procedures Surgical History Date Name Laterality Status Provider Name and Address Organization Details Recorded Time 3 Ortho - Cortisone Injection completed Christo Edmond MD [address] [place] [address], [address], [place] [email or web address] 05/22/2022 15:01:17 Imaging Results Imaging Date Name Status LastModified by Organization Details LastModified Time 03/13/2022 XR, shoulder completed [id number] [facility] [address], [place], [address], 05/03/2022 01:50:34 04/26/2022 electromyogram + nerve conduction study completed [id number], [place], [address], 05/03/2022 01:50:34 Procedure Notes None recorded. Medical Equipment None Reported. Allergies Allergen ID Allergen Name Allergen Category Reaction Reaction Severity Criticality Documentation Date Start Date Code Code System Note Provider Name and Address Organization Details Recorded Time 36961 Demerol medicatio n Not available Not available Not available 05/03/2022 45309 1 RxNorm Not Available [facility] 01:50:28 Medications Name Sig Start Date [...] suspension for injection in office 2022 active [facility]: 0003- 0494- 20 Not Available Not Available [...] %) injection solution in office 2022 active [facility] 09441 -064- 01 Not Available Not Available Not Available Vitals Date Recorded Body mass index (BMI) Body height Body weight Provider Name and Address Organization Details Last Updated DateTime 04/10/2022 36.7 kg/m2 177.8 cm 720756.65 g Not Available [facility] 05/03/2022 01:49:29 Date Recorded Body height Provider Name an d Address Organization Details Last Updated DateTime 05/22/2022 177.8 cm GORDON Abel [facility] 05/22/2022 14:37:23 Date Recorded Body height Provider Name an d Address Organization Details Last Updated DateTime 08/30/2022 177.8 cm Sushma Ricketts [facility] 08/30/2022 10:05:33 Date Recorded Body height Body mass index (BMI) Body weight Provider Name and Address Organization Details Last Updated DateTime 11/08/2022 180.34 cm 36.8 kg/m2 163076.39 g Catrachita Pike [employer] [place] [facility] 11/08/2022 09:22:57 Social History None recorded. Functional Status None recorded. Mental Status None recorded. Family History Relationship Description Onset Age of this Age Resolved Age Notes LastModified by Organization Details LastModified Time Father Heart disease [email or web address] [id number] Not available 05/03/2022 01:49:17 Brother Family history of malignant neoplasm [id number] [id number] Not available 05/03/2022 01:49:17 Medical History No medical history recorded. Past Encounters Encounter ID Performer Location Encounter Start Date Encounter Closed Date Diagnosis/Indication Diagnosis SNOMED-CT Code Diagnosis ICD10 Code Diagnosis Note [id number] [facility] [address] [place] [address] 03/13/2022 00:00:00 03/13/2022 15:35:06 [id number] [facility] [address] [place] [address] 04/10/2022 00:00:00 04/10/2022 14:08:16 [id number] Christo Edmond MD [facility] [address] [place] [address] 05/22/2022 14:31:14 05/22/2022 15:25:37 Carpal tunnel syndrome of left wrist 5154971739 60048 G56.02 Bilateral carpal tunnel syndrome 0108953724 0297999 G56.03 Carpal waqar tabitha syndrome of right wrist 1583566041 12901 G56.01 Partial th ickness rotator cuff tear 813966402 M75.102 [id number] Christo Edmond MD [facility] [address] [place] [address] 08/30/2022 10:02:29 08/30/2022 11:32:18 Bilateral carpal tunnel syndrome 9307580911 1450591 G56.03 Pain of le ft shoulder joint 3483712168 5248419 M25.512 Partial th ickness rotator cuff tear 988266097 M75.102 Full thick ness rotator cuff tear 821205510 M75.064 [id number] Christo Edmond MD [facility] [place] [address] [place] [address] 11/08/2022 09:20:38 11/08/2022 09:59:06 Bilateral carpal tunnel syndrome 0218802211 9514611 G56.03 Pain of le ft shoulder joint 9561702020 2571450 M25.512 Partial th ickness rotator cuff tear 684167862 M75.102 Full thick ness rotator cuff tear 300892255 M75.121 Postoperative visit 1837 28003 Z09 Health Concerns Section Related Observation LastModified by Organization Detai ls LastModified Time None Recorded Concern Status LastModified by Organization Details LastModified Time None Recorded Advance Directives Directive None Recorded Payers Encounter Date Sequence Insurance Name Policy Number Policy Duckworth Covered Member ID Duckworth Member ID Guarantor Name 05/22/2022 1 [place] [id number] [place] 05/22/2022 2 [place] [address] [id number] [place] 08/30/2022 1 [place] [id number] [place] 08/30/2022 2 [place] [address] [place] [id number] [place] 11/08/2022 1 [place] [id number] [place] 11/08/2022 2 [facility]: [facility] EMPLOYEE PROGRAM (PPO) [address] [place] [id number] [place] Notes Date Note Type Note [...] change in bowel/bladder habits;weakness;numbn ess;swelling;warmth Not Available [facility] 03/13/2022 15:35:06 04/10/2022 text/html ShoulderReported bypatient.Hand Dominance:right [...] change in bowel/bladder habits;weakness;numbn ess;swelling;warmth Not Available [facility] 04/10/2022 14:08:16 05/22/2022 text/html Patient returns bilateral [...] overhead. Christo Edmond MD [address], [place] [address], [place], [address], [employer] 05/22/2022 15:04:06 08/30/2022 text/html Patient returns bilateral [...] overhead. Christo Edmond MD [address], [facility] [address], [place], [address], [employer] 08/30/2022 10:26:30 11/08/2022 text/html Patient returns status post cubital carpal tunnel release on the left. Numbness and tingling are resolving he looks great. He is comfortable and he thinks the problem has been addressed. Christo Edmond MD [address] [place] [address], [place], [address], [place] [facility] 11/08/2022 09:35:21
--- OUTSIDE RECORDS SUMMARY | 2024-06-27 16:55 | XMS_ITS | Clinical Summary ---
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
--- OUTSIDE RECORDS SUMMARY | 2024-06-27 16:55 | XMS_ITS | Clinical Summary ---
Author Organization [facility] Address [facility] [place] [address] Care Team Providers Care Leather Roller Name Role Phone Unavailable Primary Care Provider [...] Td Vaccines ( 1 - Tdap) 07/27/1971 Pneumococcal Vaccine: 50+ Ye ars (1 of 1 - PCV) 2002 Zoster Vaccines (1 of 2) 2002 COVID-19 Vaccine ( - 2023-2 5 season) 2023 RSV Immunization or 60+ Years (1 [...]
[2024-06-27] MEDS: AMIODARONE 150 MG/D5W 100 ML 150 MG/100 ML BAG 600 MG IV CONT (16:57)
[2024-06-27 17:02] LABS: Basophils Percent Auto 0.2 % (0.2-1.2); Eosinophils Absolute Auto 0.2 K/mm3 (0-0.3); Eosinophils Percent Auto 2.4 % (0-4.4); Hematocrit 40.7 % (42.0-52.0); Immature Granulocyte Absolute 0.03 K/mm3 (0.00-0.031); Immature Granulocyte Percent A 0.3 % (0-0.5); Lymphocytes Absolute Auto 0.91 K/mm3 (0.9-3.2); Mean Corpuscular HGB Conc 31.9 g/dl (32-36); Mean Corpuscular Hemoglobin 28.7 pg (26-34); Mean Corpuscular Volume 89.8 fl (80-100); Mean Platelet Volume 10.2 fl (7.4-10.4); Monocytes Absolute Auto 0.8 K/mm3 (0.1-0.6); Monocytes Percent Auto 8.6 % (2.6-8.5); Neutrophils Absolute Auto 7.2 K/mm3 (1.3-6.7); Neutrophils Percent Auto 78.5 % (45.5-73.1); Platelet Count Result 239 k/mm3 (150-375); Red Blood Count 4.53 M/mm3 (4.6-6.20); Red Cell Distribution Width 14.4 % (11.5-14.5); White Blood Count 9.1 K/mm3 (4.5-10.0)
[2024-06-27 17:14] LABS: Alanine Aminotransferase 34 U/L (6-50); Albumin Level 3.9 g/dL (3.5-5.1); Alkaline Phosphatase 81 U/L (38-126); Anion Gap 8 mmol/L (4-12); Aspartate Amino Transferase 22 U/L (17-59); Bilirubin,Total 0.5 mg/dL (0.2-1.3); Blood Urea Nitrogen 31 mg/dL (9-20); Calcium 9.4 mg/dL (8.4-10.2); Carbon Dioxide 24 mmol/L (22-30); Chloride 105 mmol/L (98-107); Estimated CRCL calculation 57 ml/min; Estimated Glomerular Filt Rate 52; Glucose 104 mg/dL (65-110); Lipase 93 U/L (23-300); Potassium 4.2 mmol/L (3.4-5.0); Sodium 137 mmol/L (137-145)
[2024-06-27] MEDS: AMIODARONE 360 MG/D5W 200 ML 360 MG/200 ML BAG 33.33 MG IV CONT (17:15)
--- NOTE | 2024-06-27 17:15 | ED_ITS ---
HPI - Arrhythmia/Palpitations General Chief Complaint: Arrhythmia/Palpitations Stated Complaint: runs of V-Tach Time Seen by Provider: 06/27/24 16:42 History of Present Illness HPI narrative: 73-year-old male presents for dizziness and lightheadedness. Has a history of cardiac disease with a single stent placed and follows with Dr. Corrales from Cardiology. He has been in his normal state of health recently. Last month he saw his orthopedic doctor for some knee injections for a potential tore meniscus. No recent health issues otherwise. Denies any chest pain, shortness a breath, nausea, vomiting, abdominal pain, back pain, fever, chills. No leg swelling that is worse than baseline. No history of DVT or PE to his knowledge. He is on aspirin Plavix but no other anticoagulation. On Coreg at home. Related Data Home Medications ?Medication ?Instructions ?Recorded ?Confirmed ?Last Taken ?Type aspirin 81 mg chewable tablet 81 mg PO HS 10/09/19 05/26/24 11/03/19 History carvedilol 6.25 mg tablet (Coreg) 25 mg PO Q12HR 11/03/19 05/26/24 Unknown History lisinopril 5 mg tablet 10 mg PO DAILY 11/03/19 06/27/24 11/03/19 History Allergies Allergy/AdvReac Type Severity Reaction Status Date / Time meperidine (From Demerol) Allergy Intermediate Vomiting Verified 05/26/24 07:10 propoxyphene (From AdvReac Mild Nausea and Verified 05/26/24 07:10 Darvocet-N) Vomiting Review of Systems 2 Review of Systems: As [facility] Past Medical History Medical History Left carpal tunnel syndrome COVID-19 Morbid obesity Obstructive sleep apnea (~12/2019) Hypercholesterolemia Tobacco use Quit 2019 CAD (coronary artery disease) 1996: IMI treated with balloon angioplasty 10/2019: Non-STEMI, RIC to the mid CX, Dr. Singh Cardiomyopathy 10/2019: EF 30% Hypertension Non-ST elevated myocardial infarction (non-STEMI) Myocardial infarction Hyperlipidemia Obese Surgical History Surgical History Coronary angioplasty status Family History Family History Sibling Acute myocardial infarction Thyroid cancer Father Malignant neoplasm of prostate Acute myocardial infarction Mother Acute myocardial infarction Social History Social History Smoking packs per day: 2 Smoking cigarettes per day: 40.0 Years smoked: 51 Smoking pack-years: 102.00 Smoking status: Former smoker Additional smoking assessment comments: he also smoked cigars and used chewing tabacco he has quit all Alcohol intake: never Substance use: never Do You Feel Safe in your Home?: Yes Lack of Transportation: No Lack of Food: Never True Current Housing: I Have Housing Concerned About Future Housing: No Difficulty Paying Gas/Electric Bills: No Difficulty Paying for Meds: No Currently Unemployed: No Education: Decline to Answer Difficulty w/ Childcare or Family Care: No Living arrangements: with family Gender identity (if verbalized by the patient): Male Sexual Orientation (if Verbalized by the Patient): Straight or Heterosexual Spiritual care concerns: Yes (Jain) Exam 2 Narrative: GENERAL: [Well-appearing, well-nourished, and in no acute distress.] HEAD: [Normocephalic, atraumatic.] EYES: [PERRLA and EOMI.] ENT: Nares clear, no rhinorrhea or epistaxis. Mucous membranes moist. NECK: Supple. CHEST: [Clear to auscultation. No respiratory distress.] HEART: Tachycardic rate with a regular. No murmur heard. [Normal peripheral pulses.] ABDOMEN: [Soft, nondistended], [nontender], [No rigidity or guarding] EXTREMITIES: Normal range of motion. Edematous symmetric legs SKIN: Warm, dry, no rash. NEURO: [No focal deficits]. Alert and oriented [x3.] PSYCH: [Normal mood and affect.] Course Vital Signs Vital signs: Vital Signs Temperature 36.5 C 06/27/24 16:38 Pulse Rate 121 H 06/27/24 16:38 Respiratory Rate 17 06/27/24 16:38 Blood Pressure 134/83 06/27/24 16:38 Temperature 36.5 C 06/27/24 16:38 Pulse Rate 66 06/27/24 20:01 Respiratory Rate 20 06/27/24 20:01 Blood Pressure 123/67 06/27/24 20:01 Pulse Oximetry 97 06/27/24 20:01 MDM - Arrhythmia/Palpitations MDM Narrative Medical decision making narrative: 73-year-old male presenting with dizziness since . He presents via EMS. Had intermittent runs of V-tach on EMS monitor but here 1 placed on our monitoring analyst he is in persistent V-tach for up to 10 seconds at a time. He had symptomatic during these episodes and feels like he is about to pass out. These are broken out by normal sinus rhythm in the background otherwise. Patient denies any chest pain, shortness a breath, nausea, vomiting, abdominal pain. No history of dysrhythmias to his knowledge. States that he has been having intermittent symptoms for 3-4 days. At one point during the evaluation patient began having greater than 20s runs of V-tach and had mental status changes with concerns for unstable dysrhythmia and impending cardiac arrest, initiating ACLS protocol with cardiac pads and a bolus dose of 300 mg IV push of amiodarone which seemed to resolve his symptoms before needing to shock him as he is now awake alert and V-tach run had stopped. He is now having very occasional PVCs and awake, alert, denies any symptoms besides some intermittent dizziness. Amiodarone was continued at this time with protocols with pharmacy to assist in dosing. I spoke to the counseling case manager Dr. Christy and made them aware patient's presentation while workup is pending. Recommendations are to given 2 g of magnesium in addition to his cardiac workup. Laboratory studies are pending and he is placed on cardiac monitoring cardiac pads and re-evaluated frequently. Currently appears sinus rhythm with occasional PVC on the monitor at bedside. Patient re-evaluated frequently at bedside remains hemodynamically stable with significant improvement now normal sinus on the monitor with very infrequent PVC identifiable. Workup shows no leukocytosis, hemoglobin of 13.0 which is slight drop from baseline. No active bleeding. Normal platelet count. Normal coag studies. Slight TROY compared to baseline, normal electrolytes, normal glucose and LFTs. Negative initial troponin. Mildly elevated BNP but not significant. TSH normal. Normal lipase. Chest x-ray shows atelectasis but no pneumonia or pneumothorax. Spoke to the hospitalist as well as the liability claims adjuster regarding patient's presentation. He was accepted to the ICU at this juncture. Made the patient and family aware of the plan and they were agreeable. Patient remains asymptomatic on amiodarone at this time. Repeat EKG obtained prior to transport up to the ICU and showed normal sinus rhythm, no signs of ST segment elevations or depressions.. Medical Records Attestation: I reviewed the patient's medical records. Lab Data Attestation: I reviewed the patient's lab results. 06/27/24 16:50 06/27/24 16:50 Labs: Lab Results 06/27/24 Range/Units 16:50 WBC 9.1 (4.5-10.0) K/mm3 RBC 4.53 L (4.6-6.20) M/mm3 Hgb 13.0 L (14.0-18.0) g/dL Hct 40.7 L (42.0-52.0) % MCV 89.8 (80-100) fl MCH 28.7 (26-34) pg MCHC 31.9 L (32-36) g/dl RDW 14.4 (11.5-14.5) % Plt Count 239 (150-375) k/mm3 MPV 10.2 (7.4-10.4) fl Immature Gran % (Auto) 0.3 (0-0.5) % Neut % (Auto) 78.5 H (45.5-73.1) % Lymph % (Auto) 10.0 L (18.3-44.2) % [place] % (Auto) 8.6 H (2.6-8.5) % Eos % (Auto) 2.4 (0-4.4) % Baso % (Auto) 0.2 (0.2-1.2) % Lymph # (Auto) 0.91 (0.9-3.2) K/mm3 [place] # (Auto) 0.8 H (0.1-0.6) K/mm3 Eos # (Auto) 0.2 (0-0.3) K/mm3 Baso # (Auto) 0.0 (0.0-0.1) K/mm3 Abs Immat Gran (auto) 0.03 (0.00-0.031) K/mm3 Absolute Neuts (auto) 7.2 H (1.3-6.7) K/mm3 Absolute Nucleated RBC 0.000 (0.0-0.012) K/mm3 Nucleated RBC % 0.0 (0.0-0.2) % PT 13.0 (11.1-14.7) Seconds INR 0.9 APTT 26.6 (22.3-36.8) Seconds Sodium 137 (137-145) mmol/L Potassium 4.2 (3.4-5.0) mmol/L Chloride 105 (98-107) mmol/L Carbon Dioxide 24 (22-30) mmol/L Anion Gap 8 (4-12) mmol/L BUN 31 H (9-20) mg/dL Creatinine 1.35 H (0.7-1.3) mg/dL Estim Creat Clear Calc 57 ml/min Estimated GFR 52 L (59 - ) Glucose 104 (65-110) mg/dL Calcium 9.4 (8.4-10.2) mg/dL Total Bilirubin 0.5 (0.2-1.3) mg/dL AST 22 (17-59) U/L ALT 34 (6-50) U/L Alkaline Phosphatase 81 (38-126) U/L Troponin I < 0.012 (0.000-0.034) ng/mL NT-Pro-B Natriuret Pep 453 H (19.9-100) pg/mL Total Protein 7.0 (6.3-8.2) g/dL Albumin 3.9 (3.5-5.1) g/dL Lipase 93 (23-300) U/L TSH (Reflex) 2.490 (0.465-4.68) uIU/mL Imaging Data Attestation: I personally reviewed and interpreted this imaging study as follows: My impression: Impressions Chest X-Ray 06/27/24 16:55 IMPRESSION: Prominent markings in the left lower lobe which is suggestive of atelectatic changes. ECG Data EKG #1: Attestation: I personally reviewed and interpreted this ECG as follows: ECG completion date: 06/27/24 ECG completion time: 16:42 Prior ECG tracings: available for review Interpretation: Nonsustained ventricular tachycardia with atrial tachycardia in the background. QTC 451. Final interpretation ventricular tachycardia nonsustained Critical Care Time Critical Care Time Critical Care Time: Yes Total Critical Care Time: 76 Discharge Plan Discharge Clinical Impression: Ventricular tachycardia, Cardiac dysrhythmia, History of cardiomyopathy Patient Disposition: Still a Patient Condition: Serious Time of Disposition: 19:53
[2024-06-27 17:23] LABS: INR 0.9
[2024-06-27 17:24] LABS: Partial Thromboplastin Time 26.6 Seconds (22.3-36.8); Troponin I < 0.012 ng/mL (0.000-0.034)
[2024-06-27 18:26] LABS: NT Pro B Type Natriuretic Pept 453 pg/mL (19.9-100)
[2024-06-27] MEDS: MAGNESIUM SULF 2 GM/WATER 50ML 2 GM/50 ML BAG IVPB (18:26)
--- NOTE | 2024-06-27 20:01 | ECG_ITS ---
Test Date: 2024-06-27 20:07:27 Measurements Intervals Douglas Rate: 66 P: 67 ME: 185 QRS: 24 QRSD: 81 T: 44 QT: 348 QTc: 366 Interpretive Statements SINUS RHYTHM CONSIDER ANTERIOR INFARCT, AGE INDETERMINATE BASELINE ARTIFACT- I, III, AVR, AVL, V3 ABNORMAL ECG Compared to ECG 06/27/2024 16:42:03 ECTOPIC ATRIAL RHYTHM NO LONGER PRESENT Ventricular tachycardia no longer present Electronically Signed On 06-27-2024 20:52:02 CDT by James Miles D.O.
--- NOTE | 2024-06-27 20:41 | P.HP_ITS ---
H&P: HPI History of Present Illness Date/Time: 06/27/24 20:41 Chief Complaint: Dizziness Narrative: Pleasant, loquacious 73-year-old male with a past medical history of severe obstructive sleep apnea, combined restrictive and obstructive lung disease, ischemic cardiomyopathy, severe right ventricular systolic dysfunction,... Who presented to the ER via EMS with intermittent dizziness for 3 days. EMS reported the patient had intermittent runs of V-tach on route to the hospital. The patient reports for the last couple of days he has had intermittent episodes of transient lightheadedness and feeling flushed and on well. The symptoms last from a few seconds to a couple of minutes. He denies any near-syncope. He denies any chest pain, shortness of breath, dyspnea on exertion or actual palpitations. He has not had any changes in his cardiac medications. He does have chronic lower extremity swelling but is unchanged from baseline. The only recent changes in medications was the initiation of Flomax after he had some decreased urinary stream in output that started while being treated for sciatica with pain medications. It he reports his sciatica got better over the last month any is only on diclofenac which was started in May. He follows with Dr. Singh and is post to have an outpatient follow-up with Dr. Singh on the . EKG in the ER did demonstrate intermittent ventricular tachycardia. Patient was symptomatic during the episode. He was initiated on amiodarone infusion. Since arriving to the ICU the patient has not had any recurrent episodes of ventricular tachycardia. He is having occasional PVCs. Review of Systems 2 Review of Systems: 12 systems were reviewed with pertinent positives and negatives per HPI. Except as documented in the HPI, all other systems were reviewed and are negative. 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 Singh Hypertension Non-ST elevated myocardial infarction (non-STEMI) Myocardial infarction Hyperlipidemia Obese BMI 36.2 Surgical History Surgical History (Updated 06/27/24 @ 21:08 by Ying Comer DO) S/P drug eluting coronary stent placement (10/2019) October 2019 Family History Family History Sibling Acute myocardial infarction Thyroid cancer Father Malignant neoplasm of prostate Acute myocardial infarction Mother Acute myocardial infarction Social History Social History (Updated 06/28/24 @ 01:10 by Ying Comer DO) Social History: Of the patient lives with his Jana. They have been for 51 years. They raised a son and a daughter. The daughter is a nurse practitioner. They live on 1 [address]. 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 He stays busy working on things around the property. He used to smoke 2 packs of cigarettes per day the majority of the years he smoked he smoked unfiltered cigarettes and chewed tobacco. He also smoked about 5 cigars a day as well. He quit smoking altogether in 2019. He used to drink 2 fifths of [place] a day on the weekends for a lot of years with about 3 shots of [place] on week days to stop his morning tremors. He quit drinking altogether in approximately 2004. He denies history of illicit substance use. Code status: The patient states he does not have advanced directives in place. However he does not think he would want intubation or CPR. He he states that he would be willing to have cardioversion if on in and unstable heart rhythm. He would not want prolonged or heroic measures. Surrogate decision maker: Jana () Smoking packs per day: 2 Smoking cigarettes per day: 40.0 Years smoked: 51 Smoking pack-years: 102.00 Smoking status: Former smoker Additional smoking assessment comments: he also smoked cigars and used chewing tabacco he has quit all Alcohol intake: former Alcohol use details: 2 fifths of [place] for about 30 years quit in 2004 Substance use: never Substance use type: does not use Do You Feel Safe in your Home?: Yes Lack of Transportation: No Lack of Food: Never True Current Housing: I Have Housing Concerned About Future Housing: No Difficulty Paying Gas/Electric Bills: No Difficulty Paying for Meds: No Currently Unemployed: No Education: High School Diploma/GED Difficulty w/ Childcare or Family Care: No Living arrangements: with family Gender identity (if verbalized by the patient): Male Sexual Orientation (if Verbalized by the Patient): Straight or Heterosexual Spiritual care concerns: No Meds Home Medications and Allergies Home Medications ?Medication ?Instructions ?Recorded ?Confirmed ?Type aspirin 81 mg chewable tablet 81 mg PO HS 10/09/19 06/27/24 History ezetimibe 10 mg tablet 10 mg PO DAILY #90 tabs 10/10/19 06/27/24 Rx spironolactone 25 mg tablet 25 mg PO DAILY #30 tabs 10/10/19 06/27/24 Rx carvedilol 6.25 mg tablet (Coreg) 6.25 mg PO Q12HR 11/03/19 06/27/24 History atorvastatin 40 mg tablet 40 mg PO HS #90 tabs 03/11/24 06/27/24 Rx diclofenac sodium 75 mg 75 mg PO BID #60 tabs 05/26/24 06/27/24 Rx tablet,delayed release tamsulosin 0.4 mg capsule See Rx Instructions .Route 06/14/24 06/27/24 Rx .COMPLEX #180 caps acetaminophen 500 mg tablet 500 mg PO Q4-6H PRN pain 06/27/24 06/27/24 History (Acetaminophen Extra Strength) albuterol sulfate 90 mcg/actuation 1 - 2 puff inhalation Q4-6H PRN 06/27/24 06/27/24 History aerosol inhaler shortness of breath or wheezing lisinopril 10 mg tablet 10 mg PO HS 06/27/24 06/27/24 History Allergies Allergy/AdvReac Type Severity Reaction Status Date / Time meperidine (From Demerol) Allergy Intermediate Vomiting Verified 05/26/24 07:10 propoxyphene (From AdvReac Mild Nausea and Verified 05/26/24 07:10 Darvocet-N) Vomiting Vital Signs Vital Signs - 24 hr 06/27/24 16:38 06/27/24 16:49 06/27/24 16:57 Temperature 97.7 F Pulse Rate 121 H 100 84 Respiratory Rate 17 20 Blood Pressure 134/83 141/57 H 141/57 H Pulse Oximetry 98 06/27/24 17:02 06/27/24 17:10 06/27/24 17:15 Temperature Pulse Rate 84 79 82 Respiratory Rate 20 Blood Pressure 119/73 119/73 119/73 Pulse Oximetry 98 06/27/24 17:16 06/27/24 17:25 06/27/24 17:46 Temperature Pulse Rate 82 94 104 H Respiratory Rate 20 19 20 Blood Pressure 119/73 119/73 112/70 Pulse Oximetry 100 98 96 06/27/24 18:00 06/27/24 18:15 06/27/24 18:30 Temperature Pulse Rate 98 79 72 Respiratory Rate 17 16 13 Blood Pressure Pulse Oximetry 98 99 98 06/27/24 19:00 06/27/24 19:15 06/27/24 19:31 Temperature Pulse Rate 70 70 69 Respiratory Rate 15 14 23 H Blood Pressure 97/54 L 120/64 Pulse Oximetry 96 97 97 06/27/24 20:01 Temperature Pulse Rate 66 Respiratory Rate 20 Blood Pressure 123/67 Pulse Oximetry 97 Exam 2 Narrative: ?Weight 114.3 kg BMI 36.2 Const: Other: Obese, no acute distress, appears stated age HENMT: Other: Mucous membranes are tacky, no oral pharyngeal erythema, crowded posterior oropharynx Eyes: Other: No scleral icterus, no conjunctival pallor, pupils are equal and reactive Neck: Other: Large neck circumference, no JVD, trachea midline Resp: Other: Clear to auscultation bilaterally, no increased work of breathing Cardio: Other: Regular rate, regular rhythm, 2+ bilateral radial pedal pulses GI: Other: Obese/protuberant, distended, soft, nontender Skin: Other: No jaundice, no pallor Neuro: Other: Speech is clear, cranial nerves 2-12 grossly intact, no localizing neurologic deficits noted during the course of conversation Extrem: Other: No clubbing, no cyanosis, 2+ pitting edema bilateral feet and ankles up to about the mid [place] bilaterally Psych: Other: Loquacious, pleasant and cooperative, Appropriate mood and affect, judgment and insight intact H&P: Results Labs Labs: Laboratory Tests 06/27/24 16:50 06/27/24 16:50 06/27/24 06/27/24 16:50 20:08 WBC 9.1 RBC 4.53 L Hgb 13.0 L Hct 40.7 L MCV 89.8 MCH 28.7 MCHC 31.9 L RDW 14.4 Plt Count 239 MPV 10.2 Immature Gran % (Auto) 0.3 Neut % (Auto) 78.5 H Lymph % (Auto) 10.0 L [place] % (Auto) 8.6 H Eos % (Auto) 2.4 Baso % (Auto) 0.2 Lymph # (Auto) 0.91 [place] # (Auto) 0.8 H Eos # (Auto) 0.2 Baso # (Auto) 0.0 Abs Immat Gran (auto) 0.03 Absolute Neuts (auto) 7.2 H Absolute Nucleated RBC 0.000 Nucleated RBC % 0.0 PT 13.0 INR 0.9 APTT 26.6 Sodium 137 Potassium 4.2 Chloride 105 Carbon Dioxide 24 Anion Gap 8 BUN 31 H Creatinine 1.35 H Estim Creat Clear Calc 57 Estimated GFR 52 L Glucose 104 Calcium 9.4 Total Bilirubin 0.5 AST 22 ALT 34 Alkaline Phosphatase 81 Troponin I < 0.012 < 0.012 NT-Pro-B Natriuret Pep 453 H Total Protein 7.0 Albumin 3.9 Lipase 93 TSH (Reflex) 2.490 Impressions Chest X-Ray 06/27/24 16:55 IMPRESSION: Prominent markings in the left lower lobe which is suggestive of atelectatic changes. EKGs:: Test Date: 2024-06-27 16:42:03 Measurements Intervals [place] Rate: 163 P: 153 LA: 185 QRS: 45 QRSD: 89 T: 150 QT: 274 QTc: 451 Interpretive Statements ECTOPIC ATRIAL TACHYCARDIA WITH EPISODES OF VENTRICULAR TACHYCARDIA LOW QRS VOLTAGE - LIMB LEADS BORDERLINE T WAVE ABNORMALITY- HIGH LATERAL LEADS BASELINE ARTIFACT- V6 ABNORMAL ECG No previous ECG available for comparison Test Date: 2024-06-27 20:07:27 Measurements Intervals [place] Rate: 66 P: 67 LA: 185 QRS: 24 QRSD: 81 T: 44 QT: 348 QTc: 366 Interpretive Statements SINUS RHYTHM CONSIDER ANTERIOR INFARCT, AGE INDETERMINATE BASELINE ARTIFACT- I, III, AVR, AVL, V3 ABNORMAL ECG Compared to ECG 06/27/2024 16:42:03 ECTOPIC ATRIAL RHYTHM NO LONGER PRESENT Ventricular tachycardia no longer present All imaging and EKGs personally reviewed and interpreted. And unless stated otherwise agree with radiologic and cardiology interpretation. Assessment and Plan Assessment and plan (1) Ventricular tachycardia: Code(s): I47.20 - Ventricular tachycardia, unspecified Status: Acute (2) Ischemic cardiomyopathy: Code(s): I25.5 - Ischemic cardiomyopathy Status: Acute (3) Obstructive sleep apnea: Onset Date: ~12/2019 Code(s): G47.33 - Obstructive sleep apnea (adult) (pediatric) Status: Acute (4) Acute kidney injury: Code(s): N17.9 - Acute kidney failure, unspecified Status: Acute (5) Advance directive discussed with patient: Code(s): Z71.89 - Other specified counseling Status: Acute Plan The patient had episodes of symptomatic recurrent ventricular tachycardia. Patient received amiodarone bolus and is been placed on amiodarone drip per protocol. Patient's cardiac rhythm has stabilized. Is not had any further dysrhythmias since arriving to the ICU. Blood pressures are stable. Cardiology has been consulted. I the patient reports that he is post have a follow-up with Dr. Singh this coming Saturday. She is will Cardiology consultation for further discussion or recommendations she is antiarrhythmic medication versus potential pacemaker placement. Will continue on Coreg, spironolactone and lisinopril. Patient did receive magnesium supplementation as well in the ER. Will check magnesium level in a.m. and will aim for goal potassium of greater than 4 and magnesium was: 2 to help stabilize the patient's myocardium. Electronic Die Maker has also been consulted Patient does have ischemic cardiomyopathy he does have 2+ pitting edema to his feet and lower extremities which she reports is chronic and unchanged. He is not having any orthopnea, paroxysmal nocturnal dyspnea or other symptoms of acute exacerbation. He reports that his weight is actually down 20 lb due to improved diet over the last couple of months. Given acute kidney injury will need to monitor I&O's closely. Acute kidney injury likely due to recent addition of diclofenac to treat sciatica. Will hold back on fat neck. She will continue home she spironolactone lisinopril with close monitoring of kidney function with repeat electrolyte panel in a.m.. The patient was recently started on Flomax due to decreased urinary stream with recent diagnosis of sciatica and decreased activity. Patient reports significant improvement in urinary symptoms. Will continue home Flomax and monitor urine output closely. An extensive conversation was held with the patient regarding advanced directives upon his request. The patient feels that he would not want CPR or intubation and specially in the case of an outpatient cardiopulmonary arrest or respiratory distress. He would be willing to have medications and or cardioversion if in unstable cardiac rhythm were to develop. But is his heart had actually stopped he would not want chest compressions intervention. At this time I will change the patient's code status to do not intubate. Patient would like to establish advanced directives subsequently care coordination consult has been placed. Quality VTE Prophylaxis VTE prophylaxis: pharmacologic ordered (Lovenox 40 mg subQ daily.) Hospitalist MIPS Advance Care Plan I have confirmed that the patient's Advanced Care Plan is present, code status is documented, or surrogate decision maker is listed in patient medical record.: Yes Medication Reconciliation I have utilized all available resources to obtain, update and review the patients current medications (includes all prescriptions, OTC, herbals, cannabis, and nutritional supplements).: Yes
[2024-06-27 20:50] LABS: Troponin I < 0.012 ng/mL (0.000-0.034)
--- NOTE | 2024-06-27 21:47 | PC.NURSE ---
This patient, [place], was admitted to Intensive Care Unit-5 at 2030. Patient/family oriented to hospital policies and general routines including ID bracelet, bed and alarms, visiting hours, pain management, procedures, bathroom and other care routines, personal items, smoking policy, room service/diet, and visiting hours. Information on how to activate the Rapid Response Team has been discussed. Patient/Family are encouraged to report perceived risks to care and to ask questions if they do not understand what they are told or what they should do.
[2024-06-27] MEDS: lisinopriL 10 MG TABLET PO (22:00)
[2024-06-27 22:34] LABS: MRSA (PCR) NOT DETECTED (NOT DETECTE)
[2024-06-27] MEDS: AMIODARONE 360 MG/D5W 200 ML 360 MG/200 ML BAG 16.67 MG IV CONT (23:07)
[2024-06-27 23:15] LABS: Troponin I 0.013 ng/mL (0.000-0.034)
[2024-06-28] VITALS (27 sets, daily range): BP systolic 97–159; BP diastolic 52–97; PULSE 62–98; RESP 14–20; TEMP 36.4–36.8; O2SAT 94–99
[2024-06-28 04:08] LABS: Hematocrit 39.4 % (42.0-52.0); Hemoglobin 12.7 g/dL (14.0-18.0); Mean Corpuscular HGB Conc 32.2 g/dl (32-36); Mean Corpuscular Hemoglobin 28.7 pg (26-34); Mean Corpuscular Volume 88.9 fl (80-100); Mean Platelet Volume 9.8 fl (7.4-10.4); Platelet Count Result 218 k/mm3 (150-375); Red Blood Count 4.43 M/mm3 (4.6-6.20); Red Cell Distribution Width 14.6 % (11.5-14.5); White Blood Count 7.4 K/mm3 (4.5-10.0)
[2024-06-28 04:18] LABS: Anion Gap 7 mmol/L (4-12); Blood Urea Nitrogen 25 mg/dL (9-20); Calcium 9.1 mg/dL (8.4-10.2); Carbon Dioxide 24 mmol/L (22-30); Chloride 104 mmol/L (98-107); Estimated CRCL calculation 72 ml/min; Estimated Glomerular Filt Rate > 60; Glucose 106 mg/dL (65-110); Magnesium 2.2 mg/dL (1.6-2.3); Potassium 4.1 mmol/L (3.4-5.0); Sodium 135 mmol/L (137-145)
[2024-06-28 08:00] LABS: Phosphorus 2.8 mg/dL (2.5-4.5)
[2024-06-28] MEDS: SPIRONOLACTONE 25 MG TABLET PO (08:17)
[2024-06-28] MEDS: TAMSULOSIN HCL 0.4 MG CAPSULE PO ×2 (08:17→20:01)
[2024-06-28] MEDS: ENOXAPARIN 40 MG/0.4 ML SYRINGE SUB-Q (08:17)
[2024-06-28] MEDS: carvediloL 6.25 MG TABLET PO (08:17)
[2024-06-28] MEDS: EZETIMIBE 10 MG TABLET PO (09:02)
--- NOTE | 2024-06-28 09:22 | P.CONIN_ITS ---
Assessment and Plan Assessment and plan (1) Ventricular tachycardia: Code(s): I47.20 - Ventricular tachycardia, unspecified Status: Acute Assessment and Plan: Intermittent runs of V-tach in a patient with history of coronary disease status post stenting x2 and ischemic cardiomyopathy EKG at the time of admission showed sinus rhythm Denies any chest pain and troponin negative Electrolytes reviewed and are normal range Echo ordered and pending Cardiology consult Continue Coreg statin aspirin lisinopril and spironolactone Continue amiodarone infusion May need cardiac catheterization and or AICD depending on echo results and Cardiology recommendation (2) Hypertension: Code(s): I10 - Essential (primary) hypertension Status: Acute Assessment and Plan: Continue Coreg, Aldactone and lisinopril (3) Ischemic cardiomyopathy: Code(s): I25.5 - Ischemic cardiomyopathy Status: Acute Assessment and Plan: See above (4) CAD (coronary artery disease): Qualifiers: Coronary Disease-Associated Artery/Lesion type: [place] artery [place] vs. transplanted heart: [place] heart Associated angina: without angina Q ualified Code(s): I25.10 - Atherosclerotic heart disease of [place] coronary artery without angina pectoris Code(s): I25.10 - Atherosclerotic heart disease of [place] coronary artery without angina pectoris Status: Acute Assessment and Plan: See above (5) Hypercholesterolemia: Code(s): E78.00 - Pure hypercholesterolemia, unspecified Status: Acute Assessment and Plan: Continue statin (6) Obstructive sleep apnea: Onset Date: ~12/2019 Code(s): G47.33 - Obstructive sleep apnea (adult) (pediatric) Status: Acute Assessment and Plan: BiPAP ordered. Patient prefers to get is on BiPAP machine from home. His will bring his BiPAP machine today (7) Swelling of both lower extremities: Code(s): M79.89 - Other specified soft tissue disorders Status: Acute Assessment and Plan: Significant swelling of the legs likely secondary to cor pulmonale Echo ordered and pending Will start Lasix from tomorrow Compression stockings ordered but patient elected to wear them (8) Acute kidney injury: Code(s): N17.9 - Acute kidney failure, unspecified Status: Acute Assessment and Plan: Patient presented with elevated creatinine of 1.35 which is likely secondary to hypoperfusion from V-tach Patient was given cautious amount of IV fluids due to his history of congestive heart failure and his creatinine has normalized Monitor urine output electrolytes and creatinine Hold further IV fluids as patient is overall volume overloaded Will start diuretics in 24 hours as there is no emergency to diurese patient considering he is on room air and has chronic lower extremity swelling Resume lisinopril and spironolactone NSAIDs on hold Plan DVT prophylaxis -Lovenox Nutrition -diet ordered Code Status -patient wishes to be DNI Total Critical Care Time - 30 minutes Due to a high probability of clinically significant, life threatening deterioration, the patient required my highest level of preparedness to intervene emergently and I personally spent this critical care time directly and personally managing the patient. This critical care time included obtaining a history; examining the patient; pulse oximetry; ordering and review of studies; arranging urgent treatment with development of a management plan; evaluation of patient's response to treatment; frequent reassessment; and discussions with other providers. It was exclusive of separately billable procedures and treating other patients and teaching time. Please see Assessment and Plan section and the rest of the note for further information on patient assessment and treatment [employer] Consult Note Consult date: 06/28/24 Reason for consult: Ventricular tachycardia HPI: [place] is a 73 year old male with a past medical history of severe obstructive sleep apnea on BiPAP, combined restrictive and obstructive lung disease, coronary disease status post stenting and ischemic cardiomyopathy, severe right ventricular systolic dysfunction presented to ER by EMS with intermittent dizziness and lightheadedness for 3 days. Patient states that he was doing well until 3 days ago when he started having intermittent episodes of feeling little dizzy and lightheaded. He did not had any chest pain shortness a breath or palpitations. He states he checked his blood pressure which was low and he called EMS. He was found to be having intermittent runs of V-tach by EMS and was brought to ER. In ER patient again had intermittent runs of V-tach when he was symptomatic but did not lose his pulse. Cardiology consulted patient was started on amiodarone infusion and admitted to ICU for monitoring. Overnight patient has not had any recurrence of V-tach. He denies any symptoms at this time. Review of system was positive for lower extremity swelling which is chronic. He denies any intake of caffeine or nicotine or energy drinks. He claims compliance with his BiPAP and medications. Patient denies fever, chest pain, shortness of breath, cough, nausea vomiting, abdominal pain,, diarrhea, headache or constipation. 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 Singh Hypertension Non-ST elevated myocardial infarction (non-STEMI) Myocardial infarction Hyperlipidemia Obese BMI 36.2 Surgical History Surgical History S/P drug eluting coronary stent placement (10/2019) October 2019 Family History Family History Sibling Acute myocardial infarction Thyroid cancer Father Malignant neoplasm of prostate Acute myocardial infarction Mother Acute myocardial infarction Social History Social History Social History: Of the patient lives with his Jana. They have been for 51 years. They raised a son and a daughter. The daughter is a nurse practitioner. They live on [address]. 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 He stays busy working on things around the property. He used to smoke 2 packs of cigarettes per day the majority of the years he smoked he smoked unfiltered cigarettes and chewed tobacco. He also smoked about 5 cigars a day as well. He quit smoking altogether in 2019. He used to drink 2 fifths of [place] a day on the weekends for a lot of years with about 3 shots of [place] on week days to stop his morning tremors. He quit drinking altogether in approximately 2004. He denies history of illicit substance use. Code status: The patient states he does not have advanced directives in place. However he does not think he would want intubation or CPR. He he states that he would be willing to have cardioversion if on in and unstable heart rhythm. He would not want prolonged or heroic measures. Surrogate decision maker: Jana () Smoking packs per day: 2 Smoking cigarettes per day: 40.0 Years smoked: 51 Smoking pack-years: 102.00 Smoking status: Former smoker Additional smoking assessment comments: he also smoked cigars and used chewing tabacco he has quit all Alcohol intake: former Alcohol use details: 2 fifths of [place] for about 30 years quit in 2004 Substance use: never Substance use type: does not use Do You Feel Safe in your Home?: Yes Lack of Transportation: No Lack of Food: Never True Current Housing: I Have Housing Concerned About Future Housing: No Difficulty Paying Gas/Electric Bills: No Difficulty Paying for Meds: No Currently Unemployed: No Education: High School Diploma/GED Difficulty w/ Childcare or Family Care: No Living arrangements: with family Gender identity (if verbalized by the patient): Male Sexual Orientation (if Verbalized by the Patient): Straight or Heterosexual Spiritual care concerns: No Meds Home Medications and Allergies Home Medications ?Medication ?Instructions ?Recorded ?Confirmed ?Type aspirin 81 mg chewable tablet 81 mg PO HS 10/09/19 06/27/24 History ezetimibe 10 mg tablet 10 mg PO DAILY #90 tabs 10/10/19 06/27/24 Rx spironolactone 25 mg tablet 25 mg PO DAILY #30 tabs 10/10/19 06/27/24 Rx carvedilol 6.25 mg tablet (Coreg) 6.25 mg PO Q12HR 11/03/19 06/27/24 History atorvastatin 40 mg tablet 40 mg PO HS #90 tabs 03/11/24 06/27/24 Rx diclofenac sodium 75 mg 75 mg PO BID #60 tabs 05/26/24 06/27/24 Rx tablet,delayed release tamsulosin 0.4 mg capsule See Rx Instructions .Route 06/14/24 06/27/24 Rx .COMPLEX #180 caps acetaminophen 500 mg tablet 500 mg PO Q4-6H PRN pain 06/27/24 06/27/24 History (Acetaminophen Extra Strength) albuterol sulfate 90 mcg/actuation 1 - 2 puff inhalation Q4-6H PRN 06/27/24 06/27/24 History aerosol inhaler shortness of breath or wheezing lisinopril 10 mg tablet 10 mg PO HS 06/27/24 06/27/24 History Allergies Allergy/AdvReac Type Severity Reaction Status Date / Time meperidine (From Demerol) Allergy Intermediate Vomiting Verified 05/26/24 07:10 propoxyphene (From AdvReac Mild Nausea and Verified 05/26/24 07:10 Darvocet-N) Vomiting Vital Signs Vital Signs - 24 hr 06/27/24 16:38 06/27/24 16:49 06/27/24 16:57 Temperature 36.5 C Pulse Rate 121 H 100 84 Respiratory Rate 17 20 Blood Pressure 134/83 141/57 H 141/57 H Pulse Oximetry 98 Oxygen Delivery 06/27/24 17:02 06/27/24 17:10 06/27/24 17:15 Temperature Pulse Rate 84 79 82 Respiratory Rate 20 Blood Pressure 119/73 119/73 119/73 Pulse Oximetry 98 Oxygen Delivery 06/27/24 17:16 06/27/24 17:25 06/27/24 17:46 Temperature Pulse Rate 82 94 104 H Respiratory Rate 20 19 20 Blood Pressure 119/73 119/73 112/70 Pulse Oximetry 100 98 96 Oxygen Delivery 06/27/24 18:00 06/27/24 18:15 06/27/24 18:30 Temperature Pulse Rate 98 79 72 Respiratory Rate 17 16 13 Blood Pressure Pulse Oximetry 98 99 98 Oxygen Delivery 06/27/24 19:00 06/27/24 19:15 06/27/24 19:31 Temperature Pulse Rate 70 70 69 Respiratory Rate 15 14 23 H Blood Pressure 97/54 L 120/64 Pulse Oximetry 96 97 97 Oxygen Delivery 06/27/24 20:01 06/27/24 20:45 06/27/24 21:50 Temperature Pulse Rate 66 70 Respiratory Rate 20 Blood Pressure 123/67 136/74 Pulse Oximetry 97 Oxygen Delivery BiPAP 06/27/24 22:00 06/27/24 22:00 06/27/24 22:00 Temperature 36.8 C Pulse Rate 69 69 69 Respiratory Rate 16 Blood Pressure 127/68 127/68 Pulse Oximetry 97 Oxygen Delivery 06/27/24 23:07 06/27/24 23:15 06/28/24 00:00 Temperature Pulse Rate 65 Respiratory Rate Blood Pressure 128/67 Pulse Oximetry Oxygen Delivery BiPAP Room Air 06/28/24 00:00 06/28/24 00:00 06/28/24 00:15 Temperature 36.5 C Pulse Rate 65 62 65 Respiratory Rate 16 Blood Pressure 116/65 116/65 Pulse Oximetry 95 Oxygen Delivery 06/28/24 02:00 06/28/24 02:00 06/28/24 02:05 Temperature Pulse Rate 62 62 63 Respiratory Rate 16 Blood Pressure 97/57 L 97/57 L Pulse Oximetry 99 Oxygen Delivery 06/28/24 04:00 06/28/24 04:00 06/28/24 04:00 Temperature 36.6 C Pulse Rate 65 64 Respiratory Rate 20 Blood Pressure 136/79 Pulse Oximetry 94 97 Oxygen Delivery Room Air 06/28/24 04:05 06/28/24 06:00 06/28/24 06:00 Temperature Pulse Rate 65 63 62 Respiratory Rate 16 Blood Pressure 136/79 144/86 H Pulse Oximetry 98 Oxygen Delivery 06/28/24 06:02 06/28/24 07:00 06/28/24 07:44 Temperature 36.6 C Pulse Rate 62 67 67 Respiratory Rate 18 Blood Pressure 144/86 H 132/79 132/79 Pulse Oximetry 96 Oxygen Delivery 06/28/24 08:00 06/28/24 08:00 06/28/24 08:00 Temperature Pulse Rate 74 72 Respiratory Rate Blood Pressure 143/97 H Pulse Oximetry Oxygen Delivery Room Air 06/28/24 08:17 06/28/24 08:21 06/28/24 09:00 Temperature Pulse Rate 77 71 Respiratory Rate Blood Pressure 128/81 Pulse Oximetry 99 Oxygen Delivery Room Air Exam 2 Narrative: General: Pt is alert awake and in NAD Lungs/Chest: Trachea central Clear BS B/L, No crackles or wheezing. Cardiac: RRR. Normal S1 S2. No murmurs Circulation: Pedal pulses are intact and symmetrical. Abdomen: Normal bowel sounds. Obese. Soft. NT. ND. Extremities: Bilateral pitting edema present : Domínguez in place Neurologic: Follows commands. Moves all 4 extremities PERRL AO x3 Skin: No Rash Results Labs 06/28/24 04:02 06/28/24 04:02 Labs: Impressions Chest X-Ray 06/27/24 16:55 IMPRESSION: Prominent markings in the left lower lobe which is suggestive of atelectatic changes. Short CBC 06/27/24 06/28/24 Range/Units 16:50 04:02 WBC 9.1 7.4 (4.5-10.0) K/mm3 Hgb 13.0 L 12.7 L (14.0-18.0) g/dL Hct 40.7 L 39.4 L (42.0-52.0) % Plt Count 239 218 (150-375) k/mm3 BMP 06/27/24 06/28/24 16:50 04:02 Sodium 137 135 L Potassium 4.2 4.1 Chloride 105 104 Carbon Dioxide 24 24 BUN 31 H 25 H Creatinine 1.35 H 1.05 Glucose 104 106 Calcium 9.4 9.1 Cardiac Enzymes 06/27/24 06/27/24 06/27/24 Range/Units 16:50 20:08 22:45 Troponin I < 0.012 < 0.012 0.013 (0.000-0.034) ng/mL Liver Function 06/27/24 Range/Units 16:50 Total Bilirubin 0.5 (0.2-1.3) mg/dL AST 22 (17-59) U/L ALT 34 (6-50) U/L Alkaline Phosphatase 81 (38-126) U/L Albumin 3.9 (3.5-5.1) g/dL
--- NOTE | 2024-06-28 09:40 | PM.CNCAR ---
Assessment and Plan Assessment and plan (1) Hypertension: Code(s): I10 - Essential (primary) hypertension Status: Acute (2) Ischemic cardiomyopathy: Code(s): I25.5 - Ischemic cardiomyopathy Status: Acute (3) CAD (coronary artery disease): Qualifiers: Coronary Disease-Associated Artery/Lesion type: [place] artery [place] vs. transplanted heart: [place] heart Associated angina: without angina Qualified Code(s): I25.10 - Atherosclerotic heart disease of [place] coronary artery without angina pectoris Code(s): I25.10 - Atherosclerotic heart disease of [place] coronary artery without angina pectoris Status: Acute (4) Old myocardial infarction: Code(s): I25.2 - Old myocardial infarction Status: Acute (5) Ventricular tachycardia: Code(s): I47.20 - Ventricular tachycardia, unspecified Status: Acute Plan 1. Monomorphic VT 2. CAD --- POBA RCA in 1995 ---PCI OF LEFT CIRCUMFLEX IN 2016, 3.0/30 MM RIC 3. Chronic systolic heart failure NYHA II, Stage C Last known EF 50% Ischemic cardiomyopathy - left heart catheterization tomorrow to rule out ischemia as an etiology for monomorphic VT - which she was controlled on IV amiodarone, will continue IV today and transition to oral tomorrow - switch carvedilol to metoprolol succinate - discussed the risks, benefits and alternatives of left heart catheterization and possible PCI. The patient understood the risks which include but are not limited to bleeding, infection, arrhythmia, myocardial infarction, stroke, emergent surgery, need for emergency surgery, kidney injury, need for temporary/permanent hemodialysis and even -echo tomorrow to assess LV dimensions, function. -NPO midnight -further recommendations post coronary angiography. No Christy MD [facility] Cardiology History of Present Illness History of Present Illness Consult date/time: 06/28/24 09:40 Reason For Visit: Ventricular dysrhythmia Narrative: [place] is a 73 year old male with a past medical history of CAD s/p POBA in 1995, PCI of LCX in 2017 (3.5/30 mm RIC) , systolic HF s/p recovered EF, last known EF 50%, ICM, obstructive sleep apnea on BiPAP, combined restrictive and obstructive lung disease who sees Dr. Liang as an outpatient. He was admitted with episodes of dizziness and was found to have monomorphic VT. Denies any chest pain. 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 Singh Hypertension Non-ST elevated myocardial infarction (non-STEMI) Myocardial infarction Hyperlipidemia Obese BMI 36.2 Surgical History Surgical History S/P drug eluting coronary stent placement (10/2019) October 2019 Family History Family History Sibling Acute myocardial infarction Thyroid cancer Father Malignant neoplasm of prostate Acute myocardial infarction Mother Acute myocardial infarction Social History Social History Social History: Of the patient lives with his Jana. They have been for 51 years. They raised a son and a daughter. The daughter is a nurse practitioner. They live on 1 [address]. 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 He stays busy working on things around the property. He used to smoke 2 packs of cigarettes per day the majority of the years he smoked he smoked unfiltered cigarettes and chewed tobacco. He also smoked about 5 cigars a day as well. He quit smoking altogether in 2019. He used to drink 2 fifths of [place] a day on the weekends for a lot of years with about 3 shots of [place] on week days to stop his morning tremors. He quit drinking altogether in approximately 2004. He denies history of illicit substance use. Code status: The patient states he does not have advanced directives in place. However he does not think he would want intubation or CPR. He he states that he would be willing to have cardioversion if on in and unstable heart rhythm. He would not want prolonged or heroic measures. Surrogate decision maker: Jana () Smoking packs per day: 2 Smoking cigarettes per day: 40.0 Years smoked: 51 Smoking pack-years: 102.00 Smoking status: Former smoker Additional smoking assessment comments: he also smoked cigars and used chewing tabacco he has quit all Alcohol intake: former Alcohol use details: 2 fifths of [place] for about 30 years quit in 2004 Substance use: never Substance use type: does not use Do You Feel Safe in your Home?: Yes Lack of Transportation: No Lack of Food: Never True Current Housing: I Have Housing Concerned About Future Housing: No Difficulty Paying Gas/Electric Bills: No Difficulty Paying for Meds: No Currently Unemployed: No Education: High School Diploma/GED Difficulty w/ Childcare or Family Care: No Living arrangements: with family Gender identity (if verbalized by the patient): Male Sexual Orientation (if Verbalized by the Patient): Straight or Heterosexual Spiritual care concerns: No Meds Home Medications and Allergies Home Medications ?Medication ?Instructions ?Recorded ?Confirmed ?Type aspirin 81 mg chewable tablet 81 mg PO HS 10/09/19 06/27/24 History ezetimibe 10 mg tablet 10 mg PO DAILY #90 tabs 10/10/19 06/27/24 Rx spironolactone 25 mg tablet 25 mg PO DAILY #30 tabs 10/10/19 06/27/24 Rx carvedilol 6.25 mg tablet (Coreg) 6.25 mg PO Q12HR 11/03/19 06/27/24 History atorvastatin 40 mg tablet 40 mg PO HS #90 tabs 03/11/24 06/27/24 Rx diclofenac sodium 75 mg 75 mg PO BID #60 tabs 05/26/24 06/27/24 Rx tablet,delayed release tamsulosin 0.4 mg capsule See Rx Instructions .Route 06/14/24 06/27/24 Rx .COMPLEX #180 caps acetaminophen 500 mg tablet 500 mg PO Q4-6H PRN pain 06/27/24 06/27/24 History (Acetaminophen Extra Strength) albuterol sulfate 90 mcg/actuation 1 - 2 puff inhalation Q4-6H PRN 06/27/24 06/27/24 History aerosol inhaler shortness of breath or wheezing lisinopril 10 mg tablet 10 mg PO HS 06/27/24 06/27/24 History Allergies Allergy/AdvReac Type Severity Reaction Status Date / Time meperidine (From Demerol) Allergy Intermediate Vomiting Verified 05/26/24 07:10 propoxyphene (From AdvReac Mild Nausea and Verified 05/26/24 07:10 Darvocet-N) Vomiting Vital Signs Vital Signs - 24 hr 06/27/24 16:38 06/27/24 16:49 06/27/24 16:57 Temperature 36.5 C Pulse Rate 121 H 100 84 Respiratory Rate 17 20 Blood Pressure 134/83 141/57 H 141/57 H Pulse Oximetry 98 Oxygen Delivery 06/27/24 17:02 06/27/24 17:10 06/27/24 17:15 Temperature Pulse Rate 84 79 82 Respiratory Rate 20 Blood Pressure 119/73 119/73 119/73 Pulse Oximetry 98 Oxygen Delivery 06/27/24 17:16 06/27/24 17:25 06/27/24 17:46 Temperature Pulse Rate 82 94 104 H Respiratory Rate 20 19 20 Blood Pressure 119/73 119/73 112/70 Pulse Oximetry 100 98 96 Oxygen Delivery 06/27/24 18:00 06/27/24 18:15 06/27/24 18:30 Temperature Pulse Rate 98 79 72 Respiratory Rate 17 16 13 Blood Pressure Pulse Oximetry 98 99 98 Oxygen Delivery 06/27/24 19:00 06/27/24 19:15 06/27/24 19:31 Temperature Pulse Rate 70 70 69 Respiratory Rate 15 14 23 H Blood Pressure 97/54 L 120/64 Pulse Oximetry 96 97 97 Oxygen Delivery 06/27/24 20:01 06/27/24 20:45 06/27/24 21:50 Temperature Pulse Rate 66 70 Respiratory Rate 20 Blood Pressure 123/67 136/74 Pulse Oximetry 97 Oxygen Delivery BiPAP 06/27/24 22:00 06/27/24 22:00 06/27/24 22:00 Temperature 36.8 C Pulse Rate 69 69 69 Respiratory Rate 16 Blood Pressure 127/68 127/68 Pulse Oximetry 97 Oxygen Delivery 06/27/24 23:07 06/27/24 23:15 06/28/24 00:00 Temperature Pulse Rate 65 Respiratory Rate Blood Pressure 128/67 Pulse Oximetry Oxygen Delivery BiPAP Room Air 06/28/24 00:00 06/28/24 00:00 06/28/24 00:15 Temperature 36.5 C Pulse Rate 65 62 65 Respiratory Rate 16 Blood Pressure 116/65 116/65 Pulse Oximetry 95 Oxygen Delivery 06/28/24 02:00 06/28/24 02:00 06/28/24 02:05 Temperature Pulse Rate 62 62 63 Respiratory Rate 16 Blood Pressure 97/57 L 97/57 L Pulse Oximetry 99 Oxygen Delivery 06/28/24 04:00 06/28/24 04:00 06/28/24 04:00 Temperature 36.6 C Pulse Rate 65 64 Respiratory Rate 20 Blood Pressure 136/79 Pulse Oximetry 94 97 Oxygen Delivery Room Air 06/28/24 04:05 06/28/24 06:00 06/28/24 06:00 Temperature Pulse Rate 65 63 62 Respiratory Rate 16 Blood Pressure 136/79 144/86 H Pulse Oximetry 98 Oxygen Delivery 06/28/24 06:02 06/28/24 07:00 06/28/24 07:44 Temperature 36.6 C Pulse Rate 62 67 67 Respiratory Rate 18 Blood Pressure 144/86 H 132/79 132/79 Pulse Oximetry 96 Oxygen Delivery 06/28/24 08:00 06/28/24 08:00 06/28/24 08:00 Temperature Pulse Rate 74 72 Respiratory Rate Blood Pressure 143/97 H Pulse Oximetry Oxygen Delivery Room Air 06/28/24 08:17 06/28/24 08:21 06/28/24 09:00 Temperature Pulse Rate 77 71 Respiratory Rate Blood Pressure 128/81 Pulse Oximetry 99 Oxygen Delivery Room Air Exam Narrative: General: Pt is alert awake and in NAD Lungs/Chest: Trachea central Clear BS B/L, No crackles or wheezing. Cardiac: RRR. Normal S1 S2. No murmurs Circulation: Pedal pulses are intact and symmetrical. Abdomen: Normal bowel sounds. Obese. Soft. NT. ND. Extremities: Bilateral pitting edema present : Domínguez in place Neurologic: Follows commands. Moves all 4 extremities PERRL AO x3 Skin: No Rash Results Labs and Meds 06/28/24 04:02 06/28/24 04:02 Lab results: Cardiac Enzymes 06/27/24 06/27/24 06/27/24 Range/Units 16:50 20:08 22:45 AST 22 (17-59) U/L Troponin I < 0.012 < 0.012 0.013 (0.000-0.034) ng/mL Coagulation 06/27/24 Range/Units 16:50 PT 13.0 (11.1-14.7) Seconds APTT 26.6 (22.3-36.8) Seconds CBC 06/27/24 06/28/24 Range/Units 16:50 04:02 WBC 9.1 7.4 (4.5-10.0) K/mm3 RBC 4.53 L 4.43 L (4.6-6.20) M/mm3 Hgb 13.0 L 12.7 L (14.0-18.0) g/dL Hct 40.7 L 39.4 L (42.0-52.0) % Plt Count 239 218 (150-375) k/mm3 Lymph # (Auto) 0.91 (0.9-3.2) K/mm3 [place] # (Auto) 0.8 H (0.1-0.6) K/mm3 Eos # (Auto) 0.2 (0-0.3) K/mm3 Baso # (Auto) 0.0 (0.0-0.1) K/mm3 Comprehensive Metabolic Panel 06/27/24 06/28/24 Range/Units 16:50 04:02 Sodium 137 135 L (137-145) mmol/L Potassium 4.2 4.1 (3.4-5.0) mmol/L Chloride 105 104 (98-107) mmol/L Carbon Dioxide 24 24 (22-30) mmol/L BUN 31 H 25 H (9-20) mg/dL Creatinine 1.35 H 1.05 (0.7-1.3) mg/dL Glucose 104 106 (65-110) mg/dL Calcium 9.4 9.1 (8.4-10.2) mg/dL AST 22 (17-59) U/L ALT 34 (6-50) U/L Alkaline Phosphatase 81 (38-126) U/L Total Protein 7.0 (6.3-8.2) g/dL Albumin 3.9 (3.5-5.1) g/dL Intake and Output 06/27/24 06/28/24 06/28/24 23:59 07:59 15:59 Intake Total 308.4 611.4 273.4 Output Total 600 500 250 Balance -291.6 111.4 23.4 Intake: IV 308.4 131.4 33.4 Amiodarone 150 mg/D5w 100 ml 100 150 mg In 100 ml @ 600 mls/hr IV CONT .Q10M PENDING SALE TO [facility] Rx#:[id number] Amiodarone 360 mg/D5w 200 ml 158.4 131.4 33.4 360 mg In 200 ml @ 0.5 MG/MIN 16.667 mls/hr IV CONT .Q12H PENDING SALE TO [facility] Rx#:[id number] Magnesium Sulf 2 gm/Water 50Ml 50 2 gm In 50 ml @ 25 mls/hr IVPB ONCE ONE Rx#:[id number] Oral 480 240 Output: Urine 600 500 250 Other: Number of Bowel Movements Today 1 Patient Weight 06/28/24 23:59 Weight 114.3 kg
--- NOTE | 2024-06-28 09:46 | P.PNIM_ITS ---
Progress Note: A&P Assessment and Plan (1) Ventricular tachycardia: Code(s): I47.20 - Ventricular tachycardia, unspecified Status: Acute Assessment and Plan: Intermittent runs of V-tach in a patient with history of coronary disease status post stenting x2 and ischemic cardiomyopathy EKG at the time of admission showed sinus rhythm Denies any chest pain and troponin negative Electrolytes reviewed and are normal range Echo ordered and pending Cardiology consult Continue Coreg statin aspirin lisinopril and spironolactone Continue amiodarone infusion May need cardiac catheterization and or AICD depending on echo results and Cardiology recommendation 06/28/2024 Cardio consult noted Heart rate is controlled, will continue current treatment (2) Hypertension: Code(s): I10 - Essential (primary) hypertension Status: Acute Assessment and Plan: Continue Coreg, Aldactone and lisinopril (3) Ischemic cardiomyopathy: Code(s): I25.5 - Ischemic cardiomyopathy Status: Acute Assessment and Plan: See above (4) CAD (coronary artery disease): Qualifiers: Coronary Disease-Associated Artery/Lesion type: [place] artery [place] vs. transplanted heart: [place] heart Associated angina: without angina Qualified Code(s): I25.10 - Atherosclerotic heart disease of [place] coronary artery without angina pectoris Code(s): I25.10 - Atherosclerotic heart disease of [place] coronary artery without angina pectoris Status: Acute Assessment and Plan: See above (5) Hypercholesterolemia: Code(s): E78.00 - Pure hypercholesterolemia, unspecified Status: Acute Assessment and Plan: Continue statin (6) Obstructive sleep apnea: Onset Date: ~12/2019 Code(s): G47.33 - Obstructive sleep apnea (adult) (pediatric) Status: Acute Assessment and Plan: BiPAP ordered. Patient prefers to get is on BiPAP machine from home. His will bring his BiPAP machine today (7) Swelling of both lower extremities: Code(s): M79.89 - Other specified soft tissue disorders Status: Acute Assessment and Plan: Significant swelling of the legs likely secondary to cor pulmonale Echo ordered and pending Will start Lasix from tomorrow Compression stockings ordered but patient elected to wear them (8) Acute kidney injury: Code(s): N17.9 - Acute kidney failure, unspecified Status: Acute Assessment and Plan: Patient presented with elevated creatinine of 1.35 which is likely secondary to hypoperfusion from V-tach Patient was given cautious amount of IV fluids due to his history of congestive heart failure and his creatinine has normalized Monitor urine output electrolytes and creatinine Hold further IV fluids as patient is overall volume overloaded Will start diuretics in 24 hours as there is no emergency to diurese patient considering he is on room air and has chronic lower extremity swelling Resume lisinopril and spironolactone NSAIDs on hold Plan DVT prophylaxis -Lovenox Nutrition -diet ordered Code Status -patient wishes to be DNI Subjective Date/time seen: 06/28/24 09:46 Interval history: Patient was seen during the morning rounds today. Patient is feeling better. No chest pain no shortness of breath. No abdominal pain, nausea, no vomiting. Review of Systems Review of Systems: 12 systems were reviewed with pertinent positives and negatives per HPI. Except as documented in the HPI, all other systems were reviewed and are negative. All systems reviewed & are unremarkable except as noted in HPI and below (HPI) Exam Narrative: General: Pt is alert awake and in NAD Lungs/Chest: Trachea central Clear BS B/L, No crackles or wheezing. Cardiac: RRR. Normal S1 S2. No murmurs Circulation: Pedal pulses are intact and symmetrical. Abdomen: Normal bowel sounds. Obese. Soft. NT. ND. Extremities: Bilateral pitting edema present : Domínguez in place Neurologic: Follows commands. Moves all 4 extremities PERRL AO x3 Skin: No Rash Const: Other: Obese, no acute distress, appears stated age HENMT: Other: Mucous membranes are tacky, no oral pharyngeal erythema, crowded posterior oropharynx Eyes: Other: No scleral icterus, no conjunctival pallor, pupils are equal and reactive Neck: Other: Large neck circumference, no JVD, trachea midline Resp: Other: Clear to auscultation bilaterally, no increased work of breathing Cardio: Other: Regular rate, regular rhythm, 2+ bilateral radial pedal pulses GI: Other: Obese/protuberant, distended, soft, nontender Skin: Other: No jaundice, no pallor Neuro: Other: Speech is clear, cranial nerves 2-12 grossly intact, no localizing neurologic deficits noted during the course of conversation Extrem: Other: No clubbing, no cyanosis, 2+ pitting edema bilateral feet and ankles up to about the mid [place] bilaterally Psych: Other: Loquacious, pleasant and cooperative, Appropriate mood and affect, judgment and insight intact Objective Data Vital Signs Vital Signs: Vital Signs - 24 hr 06/27/24 16:38 06/27/24 16:49 06/27/24 16:57 Temperature 36.5 C Pulse Rate 121 H 100 84 Respiratory Rate 17 20 Blood Pressure 134/83 141/57 H 141/57 H Pulse Oximetry 98 Oxygen Delivery 06/27/24 17:02 06/27/24 17:10 06/27/24 17:15 Temperature Pulse Rate 84 79 82 Respiratory Rate 20 Blood Pressure 119/73 119/73 119/73 Pulse Oximetry 98 Oxygen Delivery 06/27/24 17:16 06/27/24 17:25 06/27/24 17:46 Temperature Pulse Rate 82 94 104 H Respiratory Rate 20 19 20 Blood Pressure 119/73 119/73 112/70 Pulse Oximetry 100 98 96 Oxygen Delivery 06/27/24 18:00 06/27/24 18:15 06/27/24 18:30 Temperature Pulse Rate 98 79 72 Respiratory Rate 17 16 13 Blood Pressure Pulse Oximetry 98 99 98 Oxygen Delivery 06/27/24 19:00 06/27/24 19:15 06/27/24 19:31 Temperature Pulse Rate 70 70 69 Respiratory Rate 15 14 23 H Blood Pressure 97/54 L 120/64 Pulse Oximetry 96 97 97 Oxygen Delivery 06/27/24 20:01 06/27/24 20:45 06/27/24 21:50 Temperature Pulse Rate 66 70 Respiratory Rate 20 Blood Pressure 123/67 136/74 Pulse Oximetry 97 Oxygen Delivery BiPAP 06/27/24 22:00 06/27/24 22:00 06/27/24 22:00 Temperature 36.8 C Pulse Rate 69 69 69 Respiratory Rate 16 Blood Pressure 127/68 127/68 Pulse Oximetry 97 Oxygen Delivery 06/27/24 23:07 06/27/24 23:15 06/28/24 00:00 Temperature Pulse Rate 65 Respiratory Rate Blood Pressure 128/67 Pulse Oximetry Oxygen Delivery BiPAP Room Air 06/28/24 00:00 06/28/24 00:00 06/28/24 00:15 Temperature 36.5 C Pulse Rate 65 62 65 Respiratory Rate 16 Blood Pressure 116/65 116/65 Pulse Oximetry 95 Oxygen Delivery 06/28/24 02:00 06/28/24 02:00 06/28/24 02:05 Temperature Pulse Rate 62 62 63 Respiratory Rate 16 Blood Pressure 97/57 L 97/57 L Pulse Oximetry 99 Oxygen Delivery 06/28/24 04:00 06/28/24 04:00 06/28/24 04:00 Temperature 36.6 C Pulse Rate 65 64 Respiratory Rate 20 Blood Pressure 136/79 Pulse Oximetry 94 97 Oxygen Delivery Room Air 06/28/24 04:05 06/28/24 06:00 06/28/24 06:00 Temperature Pulse Rate 65 63 62 Respiratory Rate 16 Blood Pressure 136/79 144/86 H Pulse Oximetry 98 Oxygen Delivery 06/28/24 06:02 06/28/24 07:00 06/28/24 07:44 Temperature 36.6 C Pulse Rate 62 67 67 Respiratory Rate 18 Blood Pressure 144/86 H 132/79 132/79 Pulse Oximetry 96 Oxygen Delivery 06/28/24 08:00 06/28/24 08:00 06/28/24 08:00 Temperature Pulse Rate 74 72 Respiratory Rate Blood Pressure 143/97 H Pulse Oximetry Oxygen Delivery Room Air 06/28/24 08:17 06/28/24 08:21 06/28/24 09:00 Temperature Pulse Rate 77 71 Respiratory Rate Blood Pressure 128/81 Pulse Oximetry 99 Oxygen Delivery Room Air Intake/Output Intake/Output: Intake & Output 06/25/24 06/26/24 06/27/24 06/28/24 23:59 23:59 23:59 23:59 Intake Total 308.4 884.8 Output Total 600 750 Balance -291.6 134.8 Meds/Results Medications: Active Medications Generic Name Dose Route Start Last Admin Trade Name Mjq PRN Reason Stop Dose Admin Acetaminophen 500 mg 06/27/24 21:13 Acetaminophen 500 Mg Tablet PO Q4H PRN Mild Pain (1-3) or Fever Aspirin 81 mg 06/28/24 21:00 Aspirin 81 Mg Chewable Tablet PO HS ZACKERY Atorvastatin Calcium 40 mg 06/28/24 21:00 Atorvastatin 40 Mg Tablet PO HS ZACKERY Ezetimibe 10 mg 06/28/24 09:00 06/28/24 09:02 Ezetimibe 10 Mg Tablet PO 10 mg DAILY ZACKERY Administration Enoxaparin Sodium 40 mg 06/28/24 09:00 06/28/24 08:17 Enoxaparin 40 Mg/0.4 Ml Syringe SUB-Q 40 mg DAILY ZACKERY Administration Furosemide 40 mg 06/29/24 09:00 Furosemide Inj 40 Mg/4 Ml Vial IV PUSH DAILY ZACKERY Amiodarone HCl/Dextrose 360 mg in 200 mls @ 16.667 mls/hr 06/27/24 22:44 06/28/24 09:00 Nexterone 360 Mg/D5w 200 Ml IV CONT 0.5 mg/min .Q12H ZACKERY 16.67 mls/hr Infusion 0.5 MG/MIN Levalbuterol HCl 0.63 mg 06/27/24 21:14 Levalbuterol Neb 1.25 Mg/3 Ml INHALATION Q6HRT PRN Shortness Of Breath Lisinopril 10 mg 06/27/24 21:10 06/27/24 22:00 Lisinopril 10 Mg Tablet PO 10 mg HS ZACKERY Administration Metoprolol Succinate 25 mg 06/28/24 17:00 Metoprolol Succinate Ext Rel 25 Mg Tabcr PO BID ZACKERY Perflutren Lipid Microsphere 0 ml 06/28/24 07:43 Perflutren Lipid Microspheres 1.5 Ml Vial Diluted To 10 Ml Total Volume IV PUSH 07/01/24 07:45 ONCE PRN adequate visualization Protocol Spironolactone 25 mg 06/28/24 09:00 06/28/24 08:17 Spironolactone 25 Mg Tablet PO 25 mg DAILY ZACKERY Administration Tamsulosin HCl 0.4 mg 06/28/24 09:00 06/28/24 08:17 Tamsulosin Hcl 0.4 Mg Capsule PO 0.4 mg Q12HR ZACKERY Administration Radiology Results: ITS Impressions Chest X-Ray 06/27/24 16:55 IMPRESSION: Prominent markings in the left lower lobe which is suggestive of atelectatic changes. Labs Labs: Laboratory Results - last 24 hr 06/27/24 06/27/24 06/27/24 16:50 20:08 21:18 WBC 9.1 RBC 4.53 L Hgb 13.0 L Hct 40.7 L MCV 89.8 MCH 28.7 MCHC 31.9 L RDW 14.4 Plt Count 239 MPV 10.2 Immature Gran % (Auto) 0.3 Neut % (Auto) 78.5 H Lymph % (Auto) 10.0 L [place] % (Auto) 8.6 H Eos % (Auto) 2.4 Baso % (Auto) 0.2 Lymph # (Auto) 0.91 [place] # (Auto) 0.8 H Eos # (Auto) 0.2 Baso # (Auto) 0.0 Abs Immat Gran (auto) 0.03 Absolute Neuts (auto) 7.2 H Absolute Nucleated RBC 0.000 Nucleated RBC % 0.0 PT 13.0 INR 0.9 APTT 26.6 Sodium 137 Potassium 4.2 Chloride 105 Carbon Dioxide 24 Anion Gap 8 BUN 31 H Creatinine 1.35 H Estim Creat Clear Calc 57 Estimated GFR 52 L Glucose 104 Calcium 9.4 Phosphorus Magnesium Total Bilirubin 0.5 AST 22 ALT 34 Alkaline Phosphatase 81 Troponin I < 0.012 < 0.012 NT-Pro-B Natriuret Pep 453 H Total Protein 7.0 Albumin 3.9 Lipase 93 TSH (Reflex) 2.490 Nasal MRSA (PCR) Not detected 06/27/24 06/28/24 06/28/24 22:45 03:56 04:02 WBC 7.4 RBC 4.43 L Hgb 12.7 L Hct 39.4 L MCV 88.9 MCH 28.7 MCHC 32.2 RDW 14.6 H Plt Count 218 MPV 9.8 Immature Gran % (Auto) Neut % (Auto) Lymph % (Auto) [place] % (Auto) Eos % (Auto) Baso % (Auto) Lymph # (Auto) [place] # (Auto) Eos # (Auto) Baso # (Auto) Abs Immat Gran (auto) Absolute Neuts (auto) Absolute Nucleated RBC Nucleated RBC % PT INR APTT Sodium 135 L Potassium 4.1 Chloride 104 Carbon Dioxide 24 Anion Gap 7 BUN 25 H Creatinine 1.05 Estim Creat Clear Calc 72 Estimated GFR > 60 Glucose 106 Calcium 9.1 Phosphorus 2.8 Magnesium 2.2 Total Bilirubin AST ALT Alkaline Phosphatase Troponin I 0.013 NT-Pro-B Natriuret Pep Total Protein Albumin Lipase TSH (Reflex) Nasal MRSA (PCR) Quality VTE Prophylaxis VTE prophylaxis: pharmacologic ordered (Lovenox 40 mg subQ daily.)
[2024-06-28] MEDS: AMIODARONE 360 MG/D5W 200 ML 360 MG/200 ML BAG 16.67 MG IV CONT ×2 (10:27→22:10)
[2024-06-28] MEDS: METOPROLOL SUCCINATE EXT REL 25 MG TABCR PO (17:27)
--- NOTE | 2024-06-28 17:32 | PC.NURSE ---
Report given to DAWOOD Alaniz with IMU. All questions answered and plan of care reviewed. Patient transferred to IMU room 204.
[2024-06-28] MEDS: ATORVASTATIN 40 MG TABLET PO (20:01)
[2024-06-28] MEDS: ASPIRIN 81 MG CHEWABLE TABLET PO (20:01)
[2024-06-28] MEDS: lisinopriL 10 MG TABLET PO (20:01)
[2024-06-28] MEDS: WATER FOR IRRIGATION, STERILE 1,000 ML BOTTLE 1000 ML (22:45)
[2024-06-29] VITALS (39 sets, daily range): BP systolic 96–146; BP diastolic 5–88; PULSE 60–109; RESP 14–24; TEMP 36.4–37; O2SAT 93–100
--- NOTE | 2024-06-29 | ECHO_ITS ---
Patient Info Name: Papa Bay Age: 73 years : 1950 Gender: Male Ht: 70 in Wt: 251 lbs BSA: 2.41 m2 BP: 120 / 60 mmHg Technical Quality: Fair Exam Date: 06/29/2024 1:52 PM Exam Location: Echo Lab Patient Status: Inpatient Admit Date: 06/27/2024 Staff Ordering Physician: Ravin Joe MD Apron Worker: Mirian Goetz RDCS Attending Provider: Ying Comer DO Exam Type: CA echo doppler color flow Study Info Indications - VT, CAD Complete two-dimensional, color flow and Doppler transthoracic echocardiogram is performed. Summary 1. Complete two-dimensional, color flow and Doppler transthoracic echocardiogram is performed. 2. Left ventricular systolic function is normal, estimated at 50-55%. 3. There is moderate concentric increased left ventricular wall thickness. 4. The left ventricular diastolic function is grade I diastolic dysfunction. 5. There is mild aortic valve regurgitation. 6. There is mild mitral valve regurgitation. 7. There is trace tricuspid valve regurgitation. 8. No pulmonary hypertension, estimated pulmonary arterial systolic pressure is 26 mmHg. Left Ventricle Left ventricular chamber dimension is normal. Left ventricular systolic function is normal, estimated at 50-55%. There is moderate concentric increased left ventricular wall thickness. Left ventricular septal wall motion is normal. The left ventricular diastolic function is grade I diastolic dysfunction. Right Ventricle Right ventricular chamber dimension is normal. Right ventricular systolic function is normal. Left Atria Left atrial chamber dimension is normal. Right Atria Right atrial chamber dimension is normal. Aortic Valve The aortic valve is probable trileaflet. There is mild aortic valve sclerosis. There is no aortic valve stenosis. There is mild aortic valve regurgitation. Pulmonic Valve The pulmonic valve is normal. There is no pulmonic valve stenosis. There is no pulmonic regurgitation. Mitral Valve The mitral valve has normal leaflets. There is no mitral valve stenosis. There is mild mitral valve regurgitation. Tricuspid Valve The tricuspid valve leaflets are normal. There is no significant tricuspid valve stenosis. There is trace tricuspid valve regurgitation. No pulmonary hypertension, estimated pulmonary arterial systolic pressure is 26 mmHg. Pericardium/Pleural The pericardium appears normal. There is no pericardial effusion. Inferior Vena Cava Normal inferior vena cava with >50% collapse upon inspiration consistent with Empty right atrial pressure, 10 mmHg. Aorta The aortic root size at the sinus of Valsalva is normal. The prox ascending aorta size is normal. Left Ventricular Outflow Tract Name Value Normal LVOT 2D LVOT Diameter 2.1 cm LVOT Doppler LVOT Peak Gradient 3 mmHg LVOT Mean Gradient 2 mmHg LVOT VTI 16 cm LVOT VTI/AV VTI Ratio 0.7 LVOT Stroke Volume 59 ml LVOT CO 14.4 l/min LVOT CI 5.9 l/min/m2 Pulmonic Valve Name Value Normal PV Doppler PV Peak Gradient 2 mmHg Mitral Valve Name Value Normal MV Doppler MV Decel [place] 154 cm/s2 MV PHT 101 ms MV Area (PHT) 2.2 cm2 4.0-5.0 MV Diastolic Function MV E Peak Velocity 54 cm/s MV A Peak Velocity 67 cm/s MV E/A 0.8 MV Decel Time 350 ms MV Annular TDI MV E/e' (Septal) 8.3 <=8.0 MV E/e' (Lateral) 7.8 <=8.0 MV E/e' (Average) 8.0 Tricuspid Valve Name Value Normal TV Regurgitation Doppler TR Peak Velocity 201 cm/s TR Peak Gradient 16 mmHg Estimated PAP/RSVP RA Pressure 10 mmHg <=5 PA Systolic Pressure 26 mmHg <36 RV Systolic Pressure 26 mmHg <36 Aorta Name Value Normal Ascending Aorta Ao Root Diameter (MM) 3.8 cm Ao Root Diam Index (MM) 1.6 cm/m2 Aortic Valve Name Value Normal AV Doppler AV Peak Velocity 109 cm/s AV Peak Gradient 5 mmHg AV Mean Gradient 3 mmHg AV VTI 22 cm AV Area (Cont Eq VTI) 2.7 cm2 >=3.0 AV Area (Cont Eq Ronak) 2.7 cm2 AV Regurgitation 2D LVOT Area 3.6 cm2 Ventricles Name Value Normal LV Dimensions 2D/MM IVS Diastolic Thickness (2D) 1.5 cm 0.6-1.0 LVID Diastole (2D) 4.3 cm 4.2-5.8 LVIW Diastolic Thickness (2D) 1.2 cm 0.6-1.0 LVID Systole (2D) 3.5 cm 2.5-4.0 LVOT Diameter 2.1 cm LV Mass (2D Cubed) 226.73 g 88.00-224.00 LV Mass Index (2D Cubed) 94 g/m2 49-115 Relative Wall Thickness (2D) 0.57 LV Fractional Shortening/Ejection Fraction 2D/MM LV Fractional Shortening (2D) 19 % 25-43 LV EF (2D Teicholz) 39 % 52-72 LV Diastolic Volume (4C MOD) 129 ml LV EF (4C MOD) 54 % LV Diastolic Volume (2C MOD) 88 ml LV EF (2C MOD) 51 % LV Diastolic Volume (BP MOD) 107 ml 62-150 LV Diastolic Volume Index (BP MOD) 44 ml/m2 34-74 LV Systolic Volume (BP MOD) 52 ml 21-61 LV Systolic Volume Index (BP MOD) 22 ml/m2 11-31 LV EF (BP MOD) 51 % 52-72 LV Diastolic Length (4C) 8.4 cm LV Systolic Length (4C) 6.7 cm LV Stroke Volume (4C MOD) 70 ml RV Dimensions 2D/MM RVID Diastole (2D) 4.0 cm 2.5-3.5 Atria Name Value Normal LA Dimensions LA Dimension (MM) 3.6 cm 3.0-4.1 LA Volume (4C A-L) 42 ml LA Volume (BP A-L) 41 ml RA Dimensions RA Area (4C) 11.6 cm2 <=18.0 Report Signatures
[2024-06-29 04:16] LABS: Hematocrit 39.7 % (42.0-52.0); Hemoglobin 12.9 g/dL (14.0-18.0); Mean Corpuscular HGB Conc 32.5 g/dl (32-36); Mean Corpuscular Hemoglobin 28.9 pg (26-34); Mean Corpuscular Volume 88.8 fl (80-100); Mean Platelet Volume 9.8 fl (7.4-10.4); Platelet Count Result 218 k/mm3 (150-375); Red Blood Count 4.47 M/mm3 (4.6-6.20); Red Cell Distribution Width 14.6 % (11.5-14.5); White Blood Count 7.5 K/mm3 (4.5-10.0)
[2024-06-29 04:31] LABS: Alanine Aminotransferase 35 U/L (6-50); Albumin Level 3.8 g/dL (3.5-5.1); Alkaline Phosphatase 83 U/L (38-126); Anion Gap 6 mmol/L (4-12); Aspartate Amino Transferase 23 U/L (17-59); Bilirubin,Total 0.5 mg/dL (0.2-1.3); Blood Urea Nitrogen 21 mg/dL (9-20); Calcium 9.4 mg/dL (8.4-10.2); Carbon Dioxide 29 mmol/L (22-30); Chloride 102 mmol/L (98-107); Estimated CRCL calculation 75 ml/min; Estimated Glomerular Filt Rate > 60; Glucose 104 mg/dL (65-110); Magnesium 1.9 mg/dL (1.6-2.3); Phosphorus 3.2 mg/dL (2.5-4.5); Potassium 4.3 mmol/L (3.4-5.0); Sodium 137 mmol/L (137-145)
--- NOTE | 2024-06-29 07:16 | P.SEDATION_ITS ---
Moderate Sedation Note-Pt Data Patient Data Present Complaint: Ventricular tachycardia Procedure to be performed/Plan: Left heart catheterization Coronary angiography Allergies Allergy/AdvReac Type Severity Reaction Status Date / Time meperidine (From Demerol) Allergy Intermediate Vomiting Verified 05/26/24 07:10 propoxyphene (From AdvReac Mild Nausea and Verified 05/26/24 07:10 Darvocet-N) Vomiting Home Medications ?Medication ?Instructions ?Recorded ?Confirmed ?Type aspirin 81 mg chewable tablet 81 mg PO HS 10/09/19 06/27/24 History ezetimibe 10 mg tablet 10 mg PO DAILY #90 tabs 10/10/19 06/27/24 Rx spironolactone 25 mg tablet 25 mg PO DAILY #30 tabs 10/10/19 06/27/24 Rx carvedilol 6.25 mg tablet (Coreg) 6.25 mg PO Q12HR 11/03/19 06/27/24 History atorvastatin 40 mg tablet 40 mg PO HS #90 tabs 03/11/24 06/27/24 Rx diclofenac sodium 75 mg 75 mg PO BID #60 tabs 05/26/24 06/27/24 Rx tablet,delayed release tamsulosin 0.4 mg capsule See Rx Instructions .Route 06/14/24 06/27/24 Rx .COMPLEX #180 caps acetaminophen 500 mg tablet 500 mg PO Q4-6H PRN pain 06/27/24 06/27/24 History (Acetaminophen Extra Strength) albuterol sulfate 90 mcg/actuation 1 - 2 puff inhalation Q4-6H PRN 06/27/24 06/27/24 History aerosol inhaler shortness of breath or wheezing lisinopril 10 mg tablet 10 mg PO HS 06/27/24 06/27/24 History Current Medications: Active Medications Acetaminophen (Acetaminophen 500 Mg Tablet) 500 mg PO Q4H PRN PRN Reason: Mild Pain (1-3) or Fever Aspirin (Aspirin 81 Mg Chewable Tablet) 81 mg PO HS [facility] Last Admin: 06/28/24 20:01 Dose: 81 mg Atorvastatin Calcium (Atorvastatin 40 Mg Tablet) 40 mg PO HS [facility] Last Admin: 06/28/24 20:01 Dose: 40 mg Ezetimibe (Ezetimibe 10 Mg Tablet) 10 mg PO DAILY [facility] Last Admin: 06/28/24 09:02 Dose: 10 mg Enoxaparin Sodium (Enoxaparin 40 Mg/0.4 Ml Syringe) 40 mg SUB-Q DAILY [facility] Last Admin: 06/28/24 08:17 Dose: 40 mg Furosemide (Furosemide Inj 40 Mg/4 Ml Vial) 40 mg IV PUSH DAILY [facility] Amiodarone HCl/Dextrose (Nexterone 360 Mg/D5w 200 Ml) 360 mg in 200 mls @ 16.667 mls/hr IV CONT .Q12H [facility] Last Infusion: 06/29/24 06:00 Dose: 0.5 mg/min, 16.67 mls/hr Levalbuterol HCl (Levalbuterol Neb 1.25 Mg/3 Ml) 0.63 mg INHALATION Q6HRT PRN PRN Reason: Shortness Of Breath Lisinopril (Lisinopril 10 Mg Tablet) 10 mg PO HS [facility] Last Admin: 06/28/24 20:01 Dose: 10 mg Metoprolol Succinate (Metoprolol Succinate Ext Rel 25 Mg Tabcr) 25 mg PO BID [facility] Last Admin: 06/28/24 17:27 Dose: 25 mg Perflutren Lipid Microsphere (Perflutren Lipid Microspheres 1.5 Ml Vial Diluted To 10 Ml Total Volume) 0 ml IV PUSH ONCE PRN; Protocol PRN Reason: adequate visualization Stop: 07/01/24 07:45 Spironolactone (Spironolactone 25 Mg Tablet) 25 mg PO DAILY [facility] Last Admin: 06/28/24 08:17 Dose: 25 mg Tamsulosin HCl (Tamsulosin Hcl 0.4 Mg Capsule) 0.4 mg PO Q12HR [facility] Last Admin: 06/28/24 20:01 Dose: 0.4 mg Sedation/Anesthesia: No previous sedation/anesthesia problems (including family history). 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 Singh Hypertension Non-ST elevated myocardial infarction (non-STEMI) Myocardial infarction Hyperlipidemia Obese BMI 36.2 Surgical History Surgical History S/P drug eluting coronary stent placement (10/2019) October 2019 Family History Family History Sibling Acute myocardial infarction Thyroid cancer Father Malignant neoplasm of prostate Acute myocardial infarction Mother Acute myocardial infarction Social History Social History Social History: Of the patient lives with his Jana. They have been for 51 years. They raised a son and a daughter. The daughter is a nurse practitioner. They live on 1 [address]. 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 He stays busy working on things around the property. He used to smoke 2 packs of cigarettes per day the majority of the years he smoked he smoked unfiltered cigarettes and chewed tobacco. He also smoked about 5 cigars a day as well. He quit smoking altogether in 2019. He used to drink 2 fifths of [place] a day on the weekends for a lot of years with about 3 shots of [place] on week days to stop his morning tremors. He quit drinking altogether in approximately 2004. He denies history of illicit substance use. Code status: The patient states he does not have advanced directives in place. However he does not think he would want intubation or CPR. He he states that he would be willing to have cardioversion if on in and unstable heart rhythm. He would not want prolonged or heroic measures. Surrogate decision maker: Jana () Smoking packs per day: 2 Smoking cigarettes per day: 40.0 Years smoked: 51 Smoking pack-years: 102.00 Smoking status: Former smoker Additional smoking assessment comments: he also smoked cigars and used chewing tabacco he has quit all Alcohol intake: former Alcohol use details: 2 fifths of [place] for about 30 years quit in 2004 Substance use: never Substance use type: does not use Do You Feel Safe in your Home?: Yes Lack of Transportation: No Lack of Food: Never True Current Housing: I Have Housing Concerned About Future Housing: No Difficulty Paying Gas/Electric Bills: No Difficulty Paying for Meds: No Currently Unemployed: No Education: High School Diploma/GED Difficulty w/ Childcare or Family Care: No Living arrangements: with family Gender identity (if verbalized by the patient): Male Sexual Orientation (if Verbalized by the Patient): Straight or Heterosexual Spiritual care concerns: No Mod Sed Physical Exam Physical Exam Pre Procedural Exam: Normal: Appearance, Eyes, Ears, Nose, Neck, Throat, Airway, Lungs, Heart Size, Heart Rate, Heart Rhythm, Neuro Exam, Abdomen, Liver, Kidneys, Spleen, Breasts, Genitalia, Extremities and Skin Hours since solid foods: 10 Hours since liquid intake: 10 Mallampati Classification: class II Internal Medicine - PN: Obj Da Vital Signs Vital Signs: Vital Signs - 24 hr 06/28/24 07:44 06/28/24 08:00 06/28/24 08:00 Temperature 36.6 C Pulse Rate 67 74 Respiratory Rate 18 Blood Pressure 132/79 143/97 H Pulse Oximetry 96 Oxygen Delivery Room Air 06/28/24 08:00 06/28/24 08:17 06/28/24 08:21 Temperature Pulse Rate 72 77 Respiratory Rate Blood Pressure Pulse Oximetry 99 Oxygen Delivery Room Air 06/28/24 09:00 06/28/24 10:00 06/28/24 10:00 Temperature Pulse Rate 71 83 76 Respiratory Rate 20 Blood Pressure 128/81 139/66 Pulse Oximetry 96 Oxygen Delivery 06/28/24 10:00 06/28/24 10:27 06/28/24 10:27 Temperature Pulse Rate 70 70 70 Respiratory Rate Blood Pressure 139/66 139/66 139/66 Pulse Oximetry Oxygen Delivery 06/28/24 11:00 06/28/24 12:00 06/28/24 12:00 Temperature Pulse Rate 66 79 Respiratory Rate Blood Pressure 150/84 H Pulse Oximetry Oxygen Delivery Room Air 06/28/24 12:00 06/28/24 12:00 06/28/24 14:00 Temperature 36.6 C Pulse Rate 76 76 81 Respiratory Rate 18 Blood Pressure 123/77 123/77 Pulse Oximetry 97 Oxygen Delivery 06/28/24 14:00 06/28/24 14:00 06/28/24 16:00 Temperature Pulse Rate 81 81 Respiratory Rate 18 Blood Pressure 159/89 H 159/89 H Pulse Oximetry 99 Oxygen Delivery Room Air 06/28/24 16:00 06/28/24 16:00 06/28/24 16:00 Temperature 36.4 C L Pulse Rate 74 88 88 Respiratory Rate 20 Blood Pressure 113/71 113/71 Pulse Oximetry 99 Oxygen Delivery 06/28/24 17:27 06/28/24 18:00 06/28/24 18:00 Temperature 36.8 C Pulse Rate 90 80 80 Respiratory Rate 14 Blood Pressure 104/61 104/61 Pulse Oximetry 98 Oxygen Delivery 06/28/24 18:00 06/28/24 19:35 06/28/24 20:00 Temperature 36.5 C Pulse Rate 98 96 79 Respiratory Rate 18 Blood Pressure 130/71 130/71 Pulse Oximetry 97 Oxygen Delivery 06/28/24 20:00 06/28/24 20:00 06/28/24 22:00 Temperature Pulse Rate 80 80 Respiratory Rate Blood Pressure 156/74 H Pulse Oximetry Oxygen Delivery Room Air 06/28/24 22:00 06/28/24 22:00 06/28/24 22:10 Temperature 36.4 C L Pulse Rate 80 79 80 Respiratory Rate 17 Blood Pressure 156/74 H 156/74 H Pulse Oximetry 98 Oxygen Delivery 06/28/24 22:10 06/28/24 22:30 06/28/24 23:35 Temperature 36.5 C Pulse Rate 80 71 Respiratory Rate 17 Blood Pressure 156/74 H 136/52 L Pulse Oximetry 94 Oxygen Delivery BiPAP 06/29/24 00:00 06/29/24 00:00 06/29/24 00:05 Temperature Pulse Rate 68 71 Respiratory Rate Blood Pressure 136/52 L Pulse Oximetry Oxygen Delivery BiPAP 06/29/24 02:00 06/29/24 02:00 06/29/24 02:00 Temperature 36.8 C Pulse Rate 76 60 76 Respiratory Rate 18 Blood Pressure 146/76 H 146/76 H Pulse Oximetry 96 Oxygen Delivery 06/29/24 03:56 06/29/24 04:00 06/29/24 04:00 Temperature 36.7 C Pulse Rate 75 68 75 Respiratory Rate 16 Blood Pressure 120/60 120/60 Pulse Oximetry 98 Oxygen Delivery 06/29/24 04:00 06/29/24 06:00 06/29/24 06:00 Temperature 36.4 C L Pulse Rate 73 75 Respiratory Rate 18 Blood Pressure 114/52 L Pulse Oximetry 94 Oxygen Delivery Room Air 06/29/24 06:00 Temperature Pulse Rate 75 Respiratory Rate Blood Pressure 114/52 L Pulse Oximetry Oxygen Delivery Intake/Output Intake/Output: Intake & Output 06/26/24 06/27/24 06/28/24 06/29/24 23:59 23:59 23:59 23:59 Intake Total 308.4 1584.2 130.5 Output Total 600 1850 Balance -291.6 -265.8 130.5 Meds/Results Medications: Active Medications Generic Name Dose Route Start Last Admin Trade Name Freq PRN Reason Stop Dose Admin Acetaminophen 500 mg 06/27/24 21:13 Acetaminophen 500 Mg Tablet PO Q4H PRN Mild Pain (1-3) or Fever Aspirin 81 mg 06/28/24 21:00 06/28/24 20:01 Aspirin 81 Mg Chewable Tablet PO 81 mg HS [facility] Administration Atorvastatin Calcium 40 mg 06/28/24 21:00 06/28/24 20:01 Atorvastatin 40 Mg Tablet PO 40 mg HS [facility] Administration Ezetimibe 10 mg 06/28/24 09:00 06/28/24 09:02 Ezetimibe 10 Mg Tablet PO 10 mg DAILY [facility] Administration Enoxaparin Sodium 40 mg 06/28/24 09:00 06/28/24 08:17 Enoxaparin 40 Mg/0.4 Ml Syringe SUB-Q 40 mg DAILY [facility] Administration Furosemide 40 mg 06/29/24 09:00 Furosemide Inj 40 Mg/4 Ml Vial IV PUSH DAILY [facility] Amiodarone HCl/Dextrose 360 mg in 200 mls @ 16.667 mls/hr 06/27/24 22:44 06/29/24 06:00 Nexterone 360 Mg/D5w 200 Ml IV CONT 0.5 mg/min .Q12H [facility] 16.67 mls/hr Infusion 0.5 MG/MIN Levalbuterol HCl 0.63 mg 06/27/24 21:14 Levalbuterol Neb 1.25 Mg/3 Ml INHALATION Q6HRT PRN Shortness Of Breath Lisinopril 10 mg 06/27/24 21:10 06/28/24 20:01 Lisinopril 10 Mg Tablet PO 10 mg HS [facility] Administration Metoprolol Succinate 25 mg 06/28/24 17:00 06/28/24 17:27 Metoprolol Succinate Ext Rel 25 Mg Tabcr PO 25 mg BID [facility] Administration Perflutren Lipid Microsphere 0 ml 06/28/24 07:43 Perflutren Lipid Microspheres 1.5 Ml Vial Diluted To 10 Ml Total Volume IV PUSH 07/01/24 07:45 ONCE PRN adequate visualization Protocol Spironolactone 25 mg 06/28/24 09:00 06/28/24 08:17 Spironolactone 25 Mg Tablet PO 25 mg DAILY [facility] Administration Tamsulosin HCl 0.4 mg 06/28/24 09:00 06/28/24 20:01 Tamsulosin Hcl 0.4 Mg Capsule PO 0.4 mg Q12HR [facility] Administration Radiology Results: ITS Impressions Chest X-Ray 06/27/24 16:55 IMPRESSION: Prominent markings in the left lower lobe which is suggestive of atelectatic changes. Labs 06/29/24 04:07 06/29/24 04:07 Labs: Laboratory Results - last 24 hr 06/28/24 06/29/24 03:56 04:07 WBC 7.5 RBC 4.47 L Hgb 12.9 L Hct 39.7 L MCV 88.8 MCH 28.9 MCHC 32.5 RDW 14.6 H Plt Count 218 MPV 9.8 Sodium 137 Potassium 4.3 Chloride 102 Carbon Dioxide 29 Anion Gap 6 BUN 21 H Creatinine 1.01 Estim Creat Clear Calc 75 Estimated GFR > 60 Glucose 104 Calcium 9.4 Phosphorus 2.8 3.2 Magnesium 1.9 Total Bilirubin 0.5 AST 23 ALT 35 Alkaline Phosphatase 83 Total Protein 6.0 L Albumin 3.8 ASA Classification/Sedation ASA Classification/Sedation ASA Class: III Emergent: No Risks: Risks, benefits and alternatives explained and patient/family accepted plan for sedation. Patient re-evaluated immediately prior to sedation.
--- NOTE | 2024-06-29 08:22 | P.PNCA_ITS ---
Progress Note: A&P Assessment and Plan (1) Hypertension: Code(s): I10 - Essential (primary) hypertension Status: Acute (2) Ischemic cardiomyopathy: Code(s): I25.5 - Ischemic cardiomyopathy Status: Acute (3) CAD (coronary artery disease): Qualifiers: Coronary Disease-Associated Artery/Lesion type: [place] artery [place] vs. transplanted heart: [place] heart Associated angina: without angina Qualified Code(s): I25.10 - Atherosclerotic heart disease of [place] coronary artery without angina pectoris Code(s): I25.10 - Atherosclerotic heart disease of [place] coronary artery without angina pectoris Status: Acute (4) Old myocardial infarction: Code(s): I25.2 - Old myocardial infarction Status: Acute (5) Ventricular tachycardia: Code(s): I47.20 - Ventricular tachycardia, unspecified Status: Acute Plan 1. Monomorphic VT 2. CAD --- POBA RCA in 1995 ---PCI OF LEFT CIRCUMFLEX IN 2017, 3.0/30 MM RIC 3. Chronic systolic heart failure NYHA II, Stage C Last known EF 50% Ischemic cardiomyopathy - left heart catheterization tomorrow to rule out ischemia as an etiology for monomorphic VT -will transition to oral -continue metoprolol succinate - Left heart catheterization/angiography today -further recommendations post coronary angiography. Subjective Date/time seen: 06/29/24 08:22 Interval history: No acute events over Denies any chest pain shortness a Review of Systems Review of Systems: All systems reviewed & are unremarkable except as noted in HPI and below (HPI) Exam Narrative: General: Pt is alert awake and in NAD Lungs/Chest: Trachea central Clear BS B/L, No crackles or wheezing. Cardiac: RRR. Normal S1 S2. No murmurs Circulation: Pedal pulses are intact and symmetrical. Abdomen: Normal bowel sounds. Obese. Soft. NT. ND. Extremities: Bilateral pitting edema present : Domínguez in place Neurologic: Follows commands. Moves all 4 extremities PERRL AO x3 Skin: No Rash Objective Data Vital Signs Vital Signs: Vital Signs - 24 hr 06/28/24 09:00 06/28/24 10:00 06/28/24 10:00 Temperature Pulse Rate 71 83 76 Respiratory Rate 20 Blood Pressure 128/81 139/66 Pulse Oximetry 96 Oxygen Delivery 06/28/24 10:00 06/28/24 10:27 06/28/24 10:27 Temperature Pulse Rate 70 70 70 Respiratory Rate Blood Pressure 139/66 139/66 139/66 Pulse Oximetry Oxygen Delivery 06/28/24 11:00 06/28/24 12:00 06/28/24 12:00 Temperature Pulse Rate 66 79 Respiratory Rate Blood Pressure 150/84 H Pulse Oximetry Oxygen Delivery Room Air 06/28/24 12:00 06/28/24 12:00 06/28/24 14:00 Temperature 36.6 C Pulse Rate 76 76 81 Respiratory Rate 18 Blood Pressure 123/77 123/77 Pulse Oximetry 97 Oxygen Delivery 06/28/24 14:00 06/28/24 14:00 06/28/24 16:00 Temperature Pulse Rate 81 81 Respiratory Rate 18 Blood Pressure 159/89 H 159/89 H Pulse Oximetry 99 Oxygen Delivery Room Air 06/28/24 16:00 06/28/24 16:00 06/28/24 16:00 Temperature 36.4 C L Pulse Rate 74 88 88 Respiratory Rate 20 Blood Pressure 113/71 113/71 Pulse Oximetry 99 Oxygen Delivery 06/28/24 17:27 06/28/24 18:00 06/28/24 18:00 Temperature 36.8 C Pulse Rate 90 80 80 Respiratory Rate 14 Blood Pressure 104/61 104/61 Pulse Oximetry 98 Oxygen Delivery 06/28/24 18:00 06/28/24 19:35 06/28/24 20:00 Temperature 36.5 C Pulse Rate 98 96 79 Respiratory Rate 18 Blood Pressure 130/71 130/71 Pulse Oximetry 97 Oxygen Delivery 06/28/24 20:00 06/28/24 20:00 06/28/24 22:00 Temperature Pulse Rate 80 80 Respiratory Rate Blood Pressure 156/74 H Pulse Oximetry Oxygen Delivery Room Air 06/28/24 22:00 06/28/24 22:00 06/28/24 22:10 Temperature 36.4 C L Pulse Rate 80 79 80 Respiratory Rate 17 Blood Pressure 156/74 H 156/74 H Pulse Oximetry 98 Oxygen Delivery 06/28/24 22:10 06/28/24 22:30 06/28/24 23:35 Temperature 36.5 C Pulse Rate 80 71 Respiratory Rate 17 Blood Pressure 156/74 H 136/52 L Pulse Oximetry 94 Oxygen Delivery BiPAP 06/29/24 00:00 06/29/24 00:00 06/29/24 00:05 Temperature Pulse Rate 68 71 Respiratory Rate Blood Pressure 136/52 L Pulse Oximetry Oxygen Delivery BiPAP 06/29/24 02:00 06/29/24 02:00 06/29/24 02:00 Temperature 36.8 C Pulse Rate 76 60 76 Respiratory Rate 18 Blood Pressure 146/76 H 146/76 H Pulse Oximetry 96 Oxygen Delivery 06/29/24 03:56 06/29/24 04:00 06/29/24 04:00 Temperature 36.7 C Pulse Rate 75 68 75 Respiratory Rate 16 Blood Pressure 120/60 120/60 Pulse Oximetry 98 Oxygen Delivery 06/29/24 04:00 06/29/24 06:00 06/29/24 06:00 Temperature 36.4 C L Pulse Rate 73 75 Respiratory Rate 18 Blood Pressure 114/52 L Pulse Oximetry 94 Oxygen Delivery Room Air 06/29/24 06:00 06/29/24 08:00 Temperature 36.4 C Pulse Rate 75 78 Respiratory Rate 24 H Blood Pressure 114/52 L 137/78 Pulse Oximetry 100 Oxygen Delivery Intake/Output Intake/Output: Intake & Output 06/26/24 06/27/24 06/28/24 06/29/24 23:59 23:59 23:59 23:59 Intake Total 308.4 1584.2 130.5 Output Total 600 1850 Balance -291.6 -265.8 130.5 Meds/Results Medications: Active Medications Generic Name Dose Route Start Last Admin Trade Name Freq PRN Reason Stop Dose Admin Acetaminophen 500 mg 06/27/24 21:13 Acetaminophen 500 Mg Tablet PO Q4H PRN Mild Pain (1-3) or Fever Aspirin 81 mg 06/28/24 21:00 06/28/24 20:01 Aspirin 81 Mg Chewable Tablet PO 81 mg HS ZACKERY Administration Atorvastatin Calcium 40 mg 06/28/24 21:00 06/28/24 20:01 Atorvastatin 40 Mg Tablet PO 40 mg HS ZACKERY Administration Ezetimibe 10 mg 06/28/24 09:00 06/28/24 09:02 Ezetimibe 10 Mg Tablet PO 10 mg DAILY ZACKERY Administration Enoxaparin Sodium 40 mg 06/28/24 09:00 06/28/24 08:17 Enoxaparin 40 Mg/0.4 Ml Syringe SUB-Q 40 mg DAILY ZACKERY Administration Furosemide 40 mg 06/29/24 09:00 Furosemide Inj 40 Mg/4 Ml Vial IV PUSH DAILY ZACKERY Amiodarone HCl/Dextrose 360 mg in 200 mls @ 16.667 mls/hr 06/27/24 22:44 06/29/24 06:00 Nexterone 360 Mg/D5w 200 Ml IV CONT 0.5 mg/min .Q12H ZACKERY 16.67 mls/hr Infusion 0.5 MG/MIN Levalbuterol HCl 0.63 mg 06/27/24 21:14 Levalbuterol Neb 1.25 Mg/3 Ml INHALATION Q6HRT PRN Shortness Of Breath Lisinopril 10 mg 06/27/24 21:10 06/28/24 20:01 Lisinopril 10 Mg Tablet PO 10 mg HS ZACKERY Administration Metoprolol Succinate 25 mg 06/28/24 17:00 06/28/24 17:27 Metoprolol Succinate Ext Rel 25 Mg Tabcr PO 25 mg BID ZACKERY Administration Perflutren Lipid Microsphere 0 ml 06/28/24 07:43 Perflutren Lipid Microspheres 1.5 Ml Vial Diluted To 10 Ml Total Volume IV PUSH 07/01/24 07:45 ONCE PRN adequate visualization Protocol Spironolactone 25 mg 06/28/24 09:00 06/28/24 08:17 Spironolactone 25 Mg Tablet PO 25 mg DAILY ZACKERY Administration Tamsulosin HCl 0.4 mg 06/28/24 09:00 06/28/24 20:01 Tamsulosin Hcl 0.4 Mg Capsule PO 0.4 mg Q12HR ZACKERY Administration Radiology Results: ITS Impressions Chest X-Ray 06/27/24 16:55 IMPRESSION: Prominent markings in the left lower lobe which is suggestive of atelectatic changes. Labs Labs: Laboratory Results - last 24 hr 06/29/24 04:07 WBC 7.5 RBC 4.47 L Hgb 12.9 L Hct 39.7 L MCV 88.8 MCH 28.9 MCHC 32.5 RDW 14.6 H Plt Count 218 MPV 9.8 Sodium 137 Potassium 4.3 Chloride 102 Carbon Dioxide 29 Anion Gap 6 BUN 21 H Creatinine 1.01 Estim Creat Clear Calc 75 Estimated GFR > 60 Glucose 104 Calcium 9.4 Phosphorus 3.2 Magnesium 1.9 Total Bilirubin 0.5 AST 23 ALT 35 Alkaline Phosphatase 83 Total Protein 6.0 L Albumin 3.8
--- NOTE | 2024-06-29 08:31 | PC.NURSE ---
This patient, [place], was transferred to [facility] on 06/29/24 at 0811.
--- NOTE | 2024-06-29 08:49 | PM.IMPN ---
Progress Note: A&P Assessment and Plan (1) Ventricular tachycardia: Code(s): I47.20 - Ventricular tachycardia, unspecified Status: Acute Plan (1) Ventricular tachycardia: Code(s): I47.20 - Ventricular tachycardia, unspecified Status: Acute Assessment and Plan: Intermittent runs of V-tach in a patient with history of coronary disease status post stenting x2 and ischemic cardiomyopathy EKG at the time of admission showed sinus rhythm Denies any chest pain and troponin negative Electrolytes reviewed and are normal range Echo ordered and pending Cardiology consult Continue Coreg statin aspirin lisinopril and spironolactone Continue amiodarone infusion Cardiac catheterization showed patent coronary artery AICD depending on echo results and Cardiology recommendation Hypertension: Code(s): I10 - Essential (primary) hypertension Status: Acute Assessment and Plan: Continue Coreg, Aldactone and lisinopril (3) Ischemic cardiomyopathy: Code(s): I25.5 - Ischemic cardiomyopathy Status: Acute Assessment and Plan: (4) CAD (coronary artery disease): Qualifiers: Coronary Disease-Associated Artery/Lesion type: [place] artery [place] vs. transplanted heart: [place] Associated angina: without angina Qualified Code(s): I25.10 - Atherosclerotic heart disease of [place] coronary artery without angina pectoris Code(s): I25.10 - Atherosclerotic heart disease of [place] coronary artery without angina pectoris Status: Acute Assessment and Plan: See above (5) Hypercholesterolemia: Code(s): E78.00 - Pure hypercholesterolemia, unspecified Status: Acute Assessment and Plan: Continue statin (6) Obstructive sleep apnea: Onset Date: ~12/2019 Code(s): G47.33 - Obstructive sleep apnea (adult) (pediatric) Status: Acute Assessment and Plan: BiPAP ordered. Patient prefers to get is on BiPAP machine from home. His will bring his BiPAP machine today Swelling of both lower extremities: Code(s): M79.89 - Other specified soft tissue disorders Status: Acute Assessment and Plan: Significant swelling of the legs likely secondary to cor pulmonale Echo ordered and pending Compression stockings ordered but patient elected to wear them (8) Acute kidney injury: Code(s): N17.9 - Acute kidney failure, unspecified Status: Acute Assessment and Plan: Patient presented with elevated creatinine of 1.35 which is likely secondary to hypoperfusion from V-tach resolved Avoid nephrotoxic medication Subjective Date/time seen: 06/29/24 08:49 Interval history: Patient underwent catheterization today without complication, patient denies chest pain, palpitation Telemetry showed sinus rhythm Exam Narrative: GENERAL: Pleasant, in no acute distress. Well-nourished, obesity. - EYES: EOMI. Anicteric. - HENT: Moist mucous membranes. - LUNGS: Clear to auscultation bilaterally, no wheezing, rhonchi, or rales. - CARDIOVASCULAR: Regular rate and rhythm. No murmur. No JVD. - ABDOMEN: Soft, non-tender and non-distended. No palpable masses. - EXTREMITIES: No edema. Peripheral pulses 2+. Non-tender. - NEUROLOGIC: No focal neurological deficits. CN II-XII grossly intact. - PSYCHIATRIC: Awake, Alert and oriented x 3. Appropriate mood and affect. - SKIN: No rashes or lesions. Warm. - LYMPH: No cervical lymphadenopathy. Objective Data Vital Signs Vital Signs: Vital Signs - 24 hr 06/28/24 09:00 06/28/24 10:00 06/28/24 10:00 Temperature Pulse Rate 71 83 76 Respiratory Rate 20 Blood Pressure 128/81 139/66 Pulse Oximetry 96 Oxygen Delivery 06/28/24 10:00 06/28/24 10:27 06/28/24 10:27 Temperature Pulse Rate 70 70 70 Respiratory Rate Blood Pressure 139/66 139/66 139/66 Pulse Oximetry Oxygen Delivery 06/28/24 11:00 06/28/24 12:00 06/28/24 12:00 Temperature Pulse Rate 66 79 Respiratory Rate Blood Pressure 150/84 H Pulse Oximetry Oxygen Delivery Room Air 06/28/24 12:00 06/28/24 12:00 06/28/24 14:00 Temperature 98 F Pulse Rate 76 76 81 Respiratory Rate 18 Blood Pressure 123/77 123/77 Pulse Oximetry 97 Oxygen Delivery 06/28/24 14:00 06/28/24 14:00 06/28/24 16:00 Temperature Pulse Rate 81 81 Respiratory Rate 18 Blood Pressure 159/89 H 159/89 H Pulse Oximetry 99 Oxygen Delivery Room Air 06/28/24 16:00 06/28/24 16:00 06/28/24 16:00 Temperature 97.5 F L Pulse Rate 74 88 88 Respiratory Rate 20 Blood Pressure 113/71 113/71 Pulse Oximetry 99 Oxygen Delivery 06/28/24 17:27 06/28/24 18:00 06/28/24 18:00 Temperature 98.3 F Pulse Rate 90 80 80 Respiratory Rate 14 Blood Pressure 104/61 104/61 Pulse Oximetry 98 Oxygen Delivery 06/28/24 18:00 06/28/24 19:35 06/28/24 20:00 Temperature 97.7 F Pulse Rate 98 96 79 Respiratory Rate 18 Blood Pressure 130/71 130/71 Pulse Oximetry 97 Oxygen Delivery 06/28/24 20:00 06/28/24 20:00 06/28/24 22:00 Temperature Pulse Rate 80 80 Respiratory Rate Blood Pressure 156/74 H Pulse Oximetry Oxygen Delivery Room Air 06/28/24 22:00 06/28/24 22:00 06/28/24 22:10 Temperature 97.5 F L Pulse Rate 80 79 80 Respiratory Rate 17 Blood Pressure 156/74 H 156/74 H Pulse Oximetry 98 Oxygen Delivery 06/28/24 22:10 06/28/24 22:30 06/28/24 23:35 Temperature 97.7 F Pulse Rate 80 71 Respiratory Rate 17 Blood Pressure 156/74 H 136/52 L Pulse Oximetry 94 Oxygen Delivery BiPAP 06/29/24 00:00 06/29/24 00:00 06/29/24 00:05 Temperature Pulse Rate 68 71 Respiratory Rate Blood Pressure 136/52 L Pulse Oximetry Oxygen Delivery BiPAP 06/29/24 02:00 06/29/24 02:00 06/29/24 02:00 Temperature 98.2 F Pulse Rate 76 60 76 Respiratory Rate 18 Blood Pressure 146/76 H 146/76 H Pulse Oximetry 96 Oxygen Delivery 06/29/24 03:56 06/29/24 04:00 06/29/24 04:00 Temperature 98.0 F Pulse Rate 75 68 75 Respiratory Rate 16 Blood Pressure 120/60 120/60 Pulse Oximetry 98 Oxygen Delivery 06/29/24 04:00 06/29/24 06:00 06/29/24 06:00 Temperature 97.5 F L Pulse Rate 73 75 Respiratory Rate 18 Blood Pressure 114/52 L Pulse Oximetry 94 Oxygen Delivery Room Air 06/29/24 06:00 06/29/24 08:00 06/29/24 08:00 Temperature 97.6 F Pulse Rate 75 78 78 Respiratory Rate 24 H Blood Pressure 114/52 L 137/78 137/78 Pulse Oximetry 100 Oxygen Delivery Intake/Output Intake/Output: Intake & Output 06/26/24 06/27/24 06/28/24 06/29/24 23:59 23:59 23:59 23:59 Intake Total 308.4 1584.2 163.8 Output Total 600 1850 Balance -291.6 -265.8 163.8 Meds/Results Medications: Active Medications Generic Name Dose Route Start Last Admin Trade Name Freq PRN Reason Stop Dose Admin Acetaminophen 500 mg 06/27/24 21:13 Acetaminophen 500 Mg Tablet PO Q4H PRN Mild Pain (1-3) or Fever Aspirin 81 mg 06/28/24 21:00 06/28/24 20:01 Aspirin 81 Mg Chewable Tablet PO 81 mg HS ZACKERY Administration Atorvastatin Calcium 40 mg 06/28/24 21:00 06/28/24 20:01 Atorvastatin 40 Mg Tablet PO 40 mg HS ZACKERY Administration Ezetimibe 10 mg 06/28/24 09:00 06/28/24 09:02 Ezetimibe 10 Mg Tablet PO 10 mg DAILY ZACKERY Administration Enoxaparin Sodium 40 mg 06/28/24 09:00 06/28/24 08:17 Enoxaparin 40 Mg/0.4 Ml Syringe SUB-Q 40 mg DAILY ZACKERY Administration Furosemide 40 mg 06/29/24 09:00 Furosemide Inj 40 Mg/4 Ml Vial IV PUSH DAILY ZACKERY Amiodarone HCl/Dextrose 360 mg in 200 mls @ 16.667 mls/hr 06/27/24 22:44 06/29/24 08:00 Nexterone 360 Mg/D5w 200 Ml IV CONT 0.5 mg/min .Q12H ZACKERY 16.67 mls/hr Infusion 0.5 MG/MIN Levalbuterol HCl 0.63 mg 06/27/24 21:14 Levalbuterol Neb 1.25 Mg/3 Ml INHALATION Q6HRT PRN Shortness Of Breath Lisinopril 10 mg 06/27/24 21:10 06/28/24 20:01 Lisinopril 10 Mg Tablet PO 10 mg HS ZACKERY Administration Metoprolol Succinate 25 mg 06/28/24 17:00 06/28/24 17:27 Metoprolol Succinate Ext Rel 25 Mg Tabcr PO 25 mg BID ZACKERY Administration Perflutren Lipid Microsphere 0 ml 06/28/24 07:43 Perflutren Lipid Microspheres 1.5 Ml Vial Diluted To 10 Ml Total Volume IV PUSH 07/01/24 07:45 ONCE PRN adequate visualization Protocol Spironolactone 25 mg 06/28/24 09:00 06/28/24 08:17 Spironolactone 25 Mg Tablet PO 25 mg DAILY ZACKERY Administration Tamsulosin HCl 0.4 mg 06/28/24 09:00 06/28/24 20:01 Tamsulosin Hcl 0.4 Mg Capsule PO 0.4 mg Q12HR ZACKERY Administration Radiology Results: ITS Impressions Chest X-Ray 06/27/24 16:55 IMPRESSION: Prominent markings in the left lower lobe which is suggestive of atelectatic changes. Labs Labs: Laboratory Results - last 24 hr 06/29/24 04:07 WBC 7.5 RBC 4.47 L Hgb 12.9 L Hct 39.7 L MCV 88.8 MCH 28.9 MCHC 32.5 RDW 14.6 H Plt Count 218 MPV 9.8 Sodium 137 Potassium 4.3 Chloride 102 Carbon Dioxide 29 Anion Gap 6 BUN 21 H Creatinine 1.01 Estim Creat Clear Calc 75 Estimated GFR > 60 Glucose 104 Calcium 9.4 Phosphorus 3.2 Magnesium 1.9 Total Bilirubin 0.5 AST 23 ALT 35 Alkaline Phosphatase 83 Total Protein 6.0 L Albumin 3.8
--- NOTE | 2024-06-29 08:53 | WPDCARDPROC ---
Cardiac Cath Procedure Note Date of procedure:: 06/29/24 Performing physician:: No Christy MD Indication:: Ventricular tachycardia Brief clinical history:: 73-year-old gentleman with CAD. The RCA and PCI 09/20/2016 came in with nonsustained VT. No chest pain or dyspnea Procedure Procedure performed:: Left heart catheterization Coronary angiography Sedation/Medication given:: Versed 1 mg Fentanyl 25 mcg Access site:: Right radial Estimated blood loss:: 2 cc Procedure note:: The patient was brought to the catheterization the cardiac catheterization lab. Informed consent was taken. The patient was prepped and draped in usual sterile manner. Right radial access was taken after infiltration of lidocaine. A 5-6 [place] sheath was placed. A JL3 5 catheter was used to engage the left coronary artery and the JR4 catheter was used to engage the right coronary artery. Multiple cine angiographic images were taken in different projections. The aortic valve was crossed and LVEDP was measured. Catheters were removed radial sheath was removed out of the procedure and TR band was placed for hemostasis Findings:: 1 Coronary angiography. Right dominant system with a ramus intermedius. Left main artery; large caliber, intermediately and divides into left anterior descending and left circumflex branches. No angiographic evidence of atherosclerotic disease. Left anterior descending artery: large caliber vessel which reaches the apex and does not give any significant and diagonal branches. Luminal irregularity seen in the LAD. Ramus intermedius artery: Large caliber vessel which reaches the apex. No significant atherosclerotic disease seen Left circumflex artery: Large caliber vessel which gives rise to a large caliber OM 1. Patent stent in the proximal mid circumflex with 5-10% ISR Right coronary artery: Large caliber vessel divides into PDA and PLV branches. Luminal irregularities in the mid RCA 2. Left heart catheterization LVEDP 21 mm Hg No significant gradient across the LV-AO Conclusion:: 1. Patent stent in circumflex 2. No significant atherosclerotic disease seen 3. Slow flow seen in the LAD and circumflex suggestive of microvascular disease Assessment and Plan Assessment and plan (1) Ventricular tachycardia: Code(s): I47.20 - Ventricular tachycardia, unspecified Status: Acute Plan -can be transferred back to his room -hemostasis by TR band -switch to oral amiodarone -continue metoprolol current -echocardiogram to assess LV dimensions and systolic function -may need a cardiac MRI as an outpatient -will consider discharge on a Holter monitor for 14 days to assess PVC burden, assess nonsustained VT episodes
--- NOTE | 2024-06-29 10:15 | SUR.PHASEII ---
pt. had a 7 beat run of V tach. Dr. Christy notified. no further orders at this time. will continue to monitor.
[2024-06-29] MEDS: AMIODARONE 150 MG/D5W 100 ML 150 MG/100 ML BAG 600 MG IV CONT ×2 (10:48→11:03)
[2024-06-29] MEDS: METOPROLOL TARTRATE 25 MG TABLET PO (10:51)
[2024-06-29] MEDS: TAMSULOSIN HCL 0.4 MG CAPSULE PO ×2 (12:33→20:40)
[2024-06-29] MEDS: EZETIMIBE 10 MG TABLET PO (12:33)
[2024-06-29] MEDS: FUROSEMIDE INJ 40 MG/4 ML VIAL IV PUSH (12:33)
[2024-06-29] MEDS: ASPIRIN 81 MG CHEWABLE TABLET PO (20:41)
[2024-06-29] MEDS: lisinopriL 10 MG TABLET PO (20:41)
[2024-06-29] MEDS: ATORVASTATIN 40 MG TABLET PO (20:41)
[2024-06-29] MEDS: METOPROLOL SUCCINATE EXT REL 50 MG TABCR PO (20:41)
[2024-06-30] VITALS (17 sets, daily range): BP systolic 87–118; BP diastolic 40–67; PULSE 60–90; RESP 16–24; TEMP 36.3–37.1; O2SAT 92–98
[2024-06-30 05:02] LABS: Hematocrit 39.5 % (42.0-52.0); Hemoglobin 12.4 g/dL (14.0-18.0); Mean Corpuscular HGB Conc 31.4 g/dl (32-36); Mean Corpuscular Hemoglobin 28.3 pg (26-34); Mean Corpuscular Volume 90.2 fl (80-100); Mean Platelet Volume 10.2 fl (7.4-10.4); Platelet Count Result 227 k/mm3 (150-375); Red Blood Count 4.38 M/mm3 (4.6-6.20); Red Cell Distribution Width 14.7 % (11.5-14.5); White Blood Count 7.3 K/mm3 (4.5-10.0)
[2024-06-30 05:17] LABS: Alanine Aminotransferase 33 U/L (6-50); Albumin Level 3.8 g/dL (3.5-5.1); Alkaline Phosphatase 87 U/L (38-126); Anion Gap 8 mmol/L (4-12); Aspartate Amino Transferase 20 U/L (17-59); Bilirubin,Total 0.9 mg/dL (0.2-1.3); Blood Urea Nitrogen 26 mg/dL (9-20); Calcium 9.4 mg/dL (8.4-10.2); Carbon Dioxide 30 mmol/L (22-30); Chloride 98 mmol/L (98-107); Estimated CRCL calculation 64 ml/min; Estimated Glomerular Filt Rate 59; Glucose 95 mg/dL (65-110); Magnesium 1.9 mg/dL (1.6-2.3); Phosphorus 3.7 mg/dL (2.5-4.5); Sodium 136 mmol/L (137-145)
[2024-06-30] MEDS: EZETIMIBE 10 MG TABLET PO (08:33)
[2024-06-30] MEDS: METOPROLOL SUCCINATE EXT REL 50 MG TABCR PO ×2 (08:33→20:13)
[2024-06-30] MEDS: TAMSULOSIN HCL 0.4 MG CAPSULE PO ×2 (08:33→20:14)
--- NOTE | 2024-06-30 08:38 | PM.PNCARD ---
Progress Note: A&P Assessment and Plan (1) Hypertension: Code(s): I10 - Essential (primary) hypertension Status: Acute (2) Ischemic cardiomyopathy: Code(s): I25.5 - Ischemic cardiomyopathy Status: Acute (3) CAD (coronary artery disease): Qualifiers: Associated angina: without angina Coronary Disease-Associated Artery/Lesion type: [place] artery [place] vs. transplanted heart: [place] heart Qualified Code(s): I25.10 - Atherosclerotic heart disease of [place] coronary artery without angina pectoris Code(s): I25.10 - Atherosclerotic heart disease of [place] coronary artery without angina pectoris Status: Acute (4) Old myocardial infarction: Code(s): I25.2 - Old myocardial infarction Status: Acute (5) Ventricular tachycardia: Code(s): I47.20 - Ventricular tachycardia, unspecified Status: Acute Plan 1. 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 CAD --- POBA RCA in 1995 ---PCI OF LEFT CIRCUMFLEX IN 2016, 3.0/30 MM RIC 3. Chronic systolic heart failure NYHA II, Stage C (06/29/2024) EF 50-55% Ischemic cardiomyopathy TTE (06/29/2024) EF 50-55%, mod LVH, GD 1 DD LHC (06/29/2024) patent stent in LCX, no significant atherosclerotic disease; Slow flow seen in the LAD/LCX suggestive of microvascular disease - Restart amiodarone infusion, fell off MAR - Continue beta-jil at current dose - It appears that the VT maybe scar mediated. - With the frequency of symptoms and he being symptomatic, I think he may benefit from a VT ablation. Will refer him to [facility] for further evaluation and mgt. 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 Cardiac: RRR. Normal S1 S2. No murmurs Circulation: Pedal pulses are intact and symmetrical. Abdomen: Normal bowel sounds. Obese. Soft. NT. ND. Extremities: Bilateral pitting edema present : Domínguez in place Neurologic: Follows commands. Moves all 4 extremities PERRL AO x3 Skin: No Rash Objective Data Vital Signs Vital Signs: Vital Signs - 24 hr 06/29/24 09:10 06/29/24 09:10 06/29/24 09:15 Temperature Pulse Rate 76 75 Pulse Rate [Monitor] 78 Pulse Rate [Right Radial Palpation] 78 Respiratory Rate 20 19 Blood Pressure 111/63 120/64 Pulse Oximetry 99 99 Oxygen Delivery Room Air Room Air 06/29/24 09:15 06/29/24 09:30 06/29/24 09:30 Temperature Pulse Rate 78 Pulse Rate [Monitor] Pulse Rate [Right Radial Palpation] 77 77 Respiratory Rate 18 Blood Pressure 101/82 Pulse Oximetry 98 Oxygen Delivery Room Air 06/29/24 09:45 06/29/24 09:45 06/29/24 10:00 Temperature 36.4 C Pulse Rate 77 109 H Pulse Rate [Monitor] Pulse Rate [Right Radial Palpation] 77 Respiratory Rate 15 14 Blood Pressure 116/71 123/66 Pulse Oximetry 100 96 Oxygen Delivery Room Air Room Air 06/29/24 10:00 06/29/24 10:15 06/29/24 10:15 Temperature Pulse Rate 77 Pulse Rate [Monitor] Pulse Rate [Right Radial Palpation] 109 H 77 Respiratory Rate 16 Blood Pressure 117/67 Pulse Oximetry 98 Oxygen Delivery Room Air 06/29/24 10:30 06/29/24 10:30 06/29/24 10:45 Temperature Pulse Rate 84 85 Pulse Rate [Monitor] Pulse Rate [Right Radial Palpation] 84 Respiratory Rate 19 17 Blood Pressure 120/66 120/88 Pulse Oximetry 98 97 Oxygen Delivery Room Air Room Air 06/29/24 10:45 06/29/24 10:48 06/29/24 10:51 Temperature Pulse Rate 79 85 Pulse Rate [Monitor] Pulse Rate [Right Radial Palpation] 85 Respiratory Rate Blood Pressure 120/66 Pulse Oximetry Oxygen Delivery 06/29/24 10:59 06/29/24 11:00 06/29/24 11:00 Temperature Pulse Rate 82 80 Pulse Rate [Monitor] Pulse Rate [Right Radial Palpation] 79 Respiratory Rate 17 Blood Pressure 122/64 Pulse Oximetry 97 Oxygen Delivery Room Air 06/29/24 11:03 06/29/24 11:15 06/29/24 11:15 Temperature Pulse Rate 82 78 Pulse Rate [Monitor] Pulse Rate [Right Radial Palpation] 80 Respiratory Rate 17 Blood Pressure 122/64 107/58 L Pulse Oximetry 97 Oxygen Delivery Room Air 06/29/24 11:30 06/29/24 11:30 06/29/24 11:45 Temperature Pulse Rate 78 66 Pulse Rate [Monitor] Pulse Rate [Right Radial Palpation] 67 Respiratory Rate 15 16 Blood Pressure 106/68 113/57 L Pulse Oximetry 98 98 Oxygen Delivery Room Air Room Air 06/29/24 11:45 06/29/24 12:00 06/29/24 12:00 Temperature Pulse Rate 60 Pulse Rate [Monitor] Pulse Rate [Right Radial Palpation] 66 61 Respiratory Rate 16 Blood Pressure 101/55 L Pulse Oximetry 98 Oxygen Delivery Room Air 06/29/24 12:29 06/29/24 12:35 06/29/24 13:29 Temperature 36.9 C Pulse Rate 66 Pulse Rate [Monitor] Pulse Rate [Right Radial Palpation] 67 71 Respiratory Rate 18 Blood Pressure 114/71 Pulse Oximetry 99 Oxygen Delivery 06/29/24 13:30 06/29/24 14:00 06/29/24 14:29 Temperature 36.8 C Pulse Rate 70 68 Pulse Rate [Monitor] Pulse Rate [Right Radial Palpation] 74 Respiratory Rate 22 H Blood Pressure 111/5 L Pulse Oximetry 98 Oxygen Delivery 06/29/24 14:30 06/29/24 16:00 06/29/24 16:30 Temperature 36.8 C 36.5 C Pulse Rate 74 74 79 Pulse Rate [Monitor] Pulse Rate [Right Radial Palpation] Respiratory Rate 18 18 Blood Pressure 125/65 110/54 L Pulse Oximetry 93 100 Oxygen Delivery 06/29/24 17:30 06/29/24 18:00 06/29/24 19:20 Temperature 36.6 C 36.4 C Pulse Rate 68 79 86 Pulse Rate [Monitor] Pulse Rate [Right Radial Palpation] Respiratory Rate 18 18 Blood Pressure 122/60 96/57 L Pulse Oximetry 98 94 Oxygen Delivery 06/29/24 20:00 06/29/24 20:00 06/29/24 20:41 Temperature Pulse Rate 83 85 Pulse Rate [Monitor] Pulse Rate [Right Radial Palpation] Respiratory Rate Blood Pressure Pulse Oximetry Oxygen Delivery Room Air 06/29/24 22:00 06/29/24 23:35 06/30/24 00:00 Temperature 37.0 C Pulse Rate 76 79 Pulse Rate [Monitor] Pulse Rate [Right Radial Palpation] Respiratory Rate 17 Blood Pressure 102/58 L Pulse Oximetry 97 Oxygen Delivery Room Air 06/30/24 00:00 06/30/24 02:00 06/30/24 04:00 Temperature Pulse Rate 77 77 Pulse Rate [Monitor] Pulse Rate [Right Radial Palpation] Respiratory Rate Blood Pressure Pulse Oximetry Oxygen Delivery Room Air 06/30/24 04:00 06/30/24 04:00 06/30/24 06:00 Temperature 37.1 C Pulse Rate 79 85 74 Pulse Rate [Monitor] Pulse Rate [Right Radial Palpation] Respiratory Rate 17 Blood Pressure 116/63 Pulse Oximetry 92 Oxygen Delivery 06/30/24 08:00 06/30/24 08:00 06/30/24 08:33 Temperature 36.7 C Pulse Rate 82 84 87 Pulse Rate [Monitor] Pulse Rate [Right Radial Palpation] Respiratory Rate 24 H Blood Pressure 106/67 Pulse Oximetry 97 Oxygen Delivery Intake/Output Intake/Output: Intake & Output 06/27/24 06/28/24 06/29/24 06/30/24 23:59 23:59 23:59 23:59 Intake Total 308.4 1584.2 1423.8 Output Total 600 1850 3 Balance -291.6 -265.8 1420.8 Meds/Results Medications: Active Medications Generic Name Dose Route Start Last Admin Trade Name Freq PRN Reason Stop Dose Admin Acetaminophen 500 mg 06/27/24 21:13 Acetaminophen 500 Mg Tablet PO Q4H PRN Mild Pain (1-3) or Fever Aspirin 81 mg 06/28/24 21:00 06/29/24 20:41 Aspirin 81 Mg Chewable Tablet PO 81 mg HS ZACKERY Administration Atorvastatin Calcium 40 mg 06/28/24 21:00 06/29/24 20:41 Atorvastatin 40 Mg Tablet PO 40 mg HS ZACKERY Administration Ezetimibe 10 mg 06/28/24 09:00 06/30/24 08:33 Ezetimibe 10 Mg Tablet PO 10 mg DAILY ZACKERY Administration Enoxaparin Sodium 40 mg 06/28/24 09:00 06/28/24 08:17 Enoxaparin 40 Mg/0.4 Ml Syringe SUB-Q 40 mg DAILY ZACKERY Administration Furosemide 40 mg 06/29/24 09:00 06/29/24 12:33 Furosemide Inj 40 Mg/4 Ml Vial IV PUSH 40 mg DAILY ZACKERY Administration Levalbuterol HCl 0.63 mg 06/27/24 21:14 Levalbuterol Neb 1.25 Mg/3 Ml INHALATION Q6HRT PRN Shortness Of Breath Lisinopril 10 mg 06/27/24 21:10 06/29/24 20:41 Lisinopril 10 Mg Tablet PO 10 mg HS ZACKERY Administration Metoprolol Succinate 50 mg 06/29/24 21:00 06/30/24 08:33 Metoprolol Succinate Ext Rel 50 Mg Tabcr PO 50 mg Q12HR ZACKERY Administration Perflutren Lipid Microsphere 0 ml 06/28/24 07:43 Perflutren Lipid Microspheres 1.5 Ml Vial Diluted To 10 Ml Total Volume IV PUSH 07/01/24 07:45 ONCE PRN adequate visualization Protocol Tamsulosin HCl 0.4 mg 06/28/24 09:00 06/30/24 08:33 Tamsulosin Hcl 0.4 Mg Capsule PO 0.4 mg Q12HR ZACKERY Administration Radiology Results: ITS Impressions Chest X-Ray 06/27/24 16:55 IMPRESSION: Prominent markings in the left lower lobe which is suggestive of atelectatic changes. Labs Labs: Laboratory Results - last 24 hr 06/30/24 06/30/24 04:27 04:27 WBC 7.3 RBC 4.38 L Hgb 12.4 L Hct 39.5 L MCV 90.2 MCH 28.3 MCHC 31.4 L RDW 14.7 H Plt Count 227 MPV 10.2 Sodium 136 L Potassium 4.0 4.0 Chloride 98 Carbon Dioxide 30 Anion Gap 8 BUN 26 H Creatinine 1.21 Estim Creat Clear Calc 64 Estimated GFR 59 Glucose 95 Calcium 9.4 Phosphorus 3.7 Magnesium 1.9 Total Bilirubin 0.9 AST 20 ALT 33 Alkaline Phosphatase 87 Total Protein 7.0 Albumin 3.8
--- NOTE | 2024-06-30 08:41 | P.PNIM_ITS ---
Progress Note: A&P Assessment and Plan (1) Ventricular tachycardia: Code(s): I47.20 - Ventricular tachycardia, unspecified Status: Acute Plan (1) Ventricular tachycardia: Code(s): I47.20 - Ventricular tachycardia, unspecified Status: Acute Assessment and Plan: Intermittent runs of V-tach in a patient with history of coronary disease status post stenting x2 and ischemic cardiomyopathy EKG at the time of admission showed sinus rhythm Denies any chest pain and troponin negative Electrolytes reviewed and are normal range Echo ordered and pending Cardiology consult Continue Coreg statin aspirin lisinopril and spironolactone Continue amiodarone infusion Cardiac catheterization showed patent coronary artery AICD depending on echo results and Cardiology recommendation Patient had episode of V-tach overnight, restart amiodarone drip per wheel alignment technician recommendation Hypertension: Code(s): I10 - Essential (primary) hypertension Status: Acute Assessment and Plan: Continue Coreg, Aldactone and lisinopril (3) Ischemic cardiomyopathy: Code(s): I25.5 - Ischemic cardiomyopathy Status: Acute Assessment and Plan: (4) CAD (coronary artery disease): Qualifiers: Coronary Disease-Associated Artery/Lesion type: [place] artery [place] vs. transplanted heart: [place] heart Associated angina: without angina Qualified Code(s): I25.10 - Atherosclerotic heart disease of [place] coronary artery without angina pectoris Code(s): I25.10 - Atherosclerotic heart disease of [place] coronary artery without angina pectoris Status: Acute Assessment and Plan: See above (5) Hypercholesterolemia: Code(s): E78.00 - Pure hypercholesterolemia, unspecified Status: Acute Assessment and Plan: Continue statin (6) Obstructive sleep apnea: Onset Date: ~12/2019 Code(s): G47.33 - Obstructive sleep apnea (adult) (pediatric) Status: Acute Assessment and Plan: BiPAP ordered. Patient prefers to get is on BiPAP machine from home. His will bring his BiPAP machine today Swelling of both lower extremities: Code(s): M79.89 - Other specified soft tissue disorders Status: Acute Assessment and Plan: Significant swelling of the legs likely secondary to cor pulmonale Echo ordered and pending Compression stockings ordered but patient elected to wear them (8) Acute kidney injury: Code(s): N17.9 - Acute kidney failure, unspecified Status: Acute Assessment and Plan: Patient presented with elevated creatinine of 1.35 which is likely secondary to hypoperfusion from V-tach resolved Avoid nephrotoxic medication Subjective Date/time seen: 06/30/24 08:41 Interval history: I saw exam patient patient patient feels comfortable, denies lightheadedness, chest pain, palpitation. Telemetry showed episodes of V-tach Patient is afebrile blood pressure stable, Labs reviewed, Exam Narrative: GENERAL: Pleasant, in no acute distress. Well-nourished, obesity. - EYES: EOMI. Anicteric. - HENT: Moist mucous membranes. - LUNGS: Clear to auscultation bilateral ly, no wheezing, rhonchi, or rales. - CARDIOVASCULAR: Regular rate and rhyth m. No murmur. No JVD. - ABDOMEN: Soft, non-tender and non-dist ended. No palpable masses. - EXTREMITIES: No edema. Peripheral puls es 2+. Non-tender. - NEUROLOGIC: No focal neurological defi cits. CN II-XII grossly intact. - PSYCHIATRIC: Awake, Alert and oriented x 3. Appropriate mood and affect. - SKIN: No rashes or lesions. Warm. - LYMPH: No cervical lymphadenopathy. Objective Data Vital Signs Vital Signs: Vital Signs - 24 hr 06/29/24 09:10 06/29/24 09:10 06/29/24 09:15 Temperature Pulse Rate 76 75 Pulse Rate [Monitor] 78 Pulse Rate [Right Radial Palpation] 78 Respiratory Rate 20 19 Blood Pressure 111/63 120/64 Pulse Oximetry 99 99 Oxygen Delivery Room Air Room Air 06/29/24 09:15 06/29/24 09:30 06/29/24 09:30 Temperature Pulse Rate 78 Pulse Rate [Monitor] Pulse Rate [Right Radial Palpation] 77 77 Respiratory Rate 18 Blood Pressure 101/82 Pulse Oximetry 98 Oxygen Delivery Room Air 06/29/24 09:45 06/29/24 09:45 06/29/24 10:00 Temperature 97.6 F Pulse Rate 77 109 H Pulse Rate [Monitor] Pulse Rate [Right Radial Palpation] 77 Respiratory Rate 15 14 Blood Pressure 116/71 123/66 Pulse Oximetry 100 96 Oxygen Delivery Room Air Room Air 06/29/24 10:00 06/29/24 10:15 06/29/24 10:15 Temperature Pulse Rate 77 Pulse Rate [Monitor] Pulse Rate [Right Radial Palpation] 109 H 77 Respiratory Rate 16 Blood Pressure 117/67 Pulse Oximetry 98 Oxygen Delivery Room Air 06/29/24 10:30 06/29/24 10:30 06/29/24 10:45 Temperature Pulse Rate 84 85 Pulse Rate [Monitor] Pulse Rate [Right Radial Palpation] 84 Respiratory Rate 19 17 Blood Pressure 120/66 120/88 Pulse Oximetry 98 97 Oxygen Delivery Room Air Room Air 06/29/24 10:45 06/29/24 10:48 06/29/24 10:51 Temperature Pulse Rate 79 85 Pulse Rate [Monitor] Pulse Rate [Right Radial Palpation] 85 Respiratory Rate Blood Pressure 120/66 Pulse Oximetry Oxygen Delivery 06/29/24 10:59 06/29/24 11:00 06/29/24 11:00 Temperature Pulse Rate 82 80 Pulse Rate [Monitor] Pulse Rate [Right Radial Palpation] 79 Respiratory Rate 17 Blood Pressure 122/64 Pulse Oximetry 97 Oxygen Delivery Room Air 06/29/24 11:03 06/29/24 11:15 06/29/24 11:15 Temperature Pulse Rate 82 78 Pulse Rate [Monitor] Pulse Rate [Right Radial Palpation] 80 Respiratory Rate 17 Blood Pressure 122/64 107/58 L Pulse Oximetry 97 Oxygen Delivery Room Air 06/29/24 11:30 06/29/24 11:30 06/29/24 11:45 Temperature Pulse Rate 78 66 Pulse Rate [Monitor] Pulse Rate [Right Radial Palpation] 67 Respiratory Rate 15 16 Blood Pressure 106/68 113/57 L Pulse Oximetry 98 98 Oxygen Delivery Room Air Room Air 06/29/24 11:45 06/29/24 12:00 06/29/24 12:00 Temperature Pulse Rate 60 Pulse Rate [Monitor] Pulse Rate [Right Radial Palpation] 66 61 Respiratory Rate 16 Blood Pressure 101/55 L Pulse Oximetry 98 Oxygen Delivery Room Air 06/29/24 12:29 06/29/24 12:35 06/29/24 13:29 Temperature 98.5 F Pulse Rate 66 Pulse Rate [Monitor] Pulse Rate [Right Radial Palpation] 67 71 Respiratory Rate 18 Blood Pressure 114/71 Pulse Oximetry 99 Oxygen Delivery 06/29/24 13:30 06/29/24 14:00 06/29/24 14:29 Temperature 98.2 F Pulse Rate 70 68 Pulse Rate [Monitor] Pulse Rate [Right Radial Palpation] 74 Respiratory Rate 22 H Blood Pressure 111/5 L Pulse Oximetry 98 Oxygen Delivery 06/29/24 14:30 06/29/24 16:00 06/29/24 16:30 Temperature 98.2 F 97.7 F Pulse Rate 74 74 79 Pulse Rate [Monitor] Pulse Rate [Right Radial Palpation] Respiratory Rate 18 18 Blood Pressure 125/65 110/54 L Pulse Oximetry 93 100 Oxygen Delivery 06/29/24 17:30 06/29/24 18:00 06/29/24 19:20 Temperature 98 F 97.6 F Pulse Rate 68 79 86 Pulse Rate [Monitor] Pulse Rate [Right Radial Palpation] Respiratory Rate 18 18 Blood Pressure 122/60 96/57 L Pulse Oximetry 98 94 Oxygen Delivery 06/29/24 20:00 06/29/24 20:00 06/29/24 20:41 Temperature Pulse Rate 83 85 Pulse Rate [Monitor] Pulse Rate [Right Radial Palpation] Respiratory Rate Blood Pressure Pulse Oximetry Oxygen Delivery Room Air 06/29/24 22:00 06/29/24 23:35 06/30/24 00:00 Temperature 98.6 F Pulse Rate 76 79 Pulse Rate [Monitor] Pulse Rate [Right Radial Palpation] Respiratory Rate 17 Blood Pressure 102/58 L Pulse Oximetry 97 Oxygen Delivery Room Air 06/30/24 00:00 06/30/24 02:00 06/30/24 04:00 Temperature Pulse Rate 77 77 Pulse Rate [Monitor] Pulse Rate [Right Radial Palpation] Respiratory Rate Blood Pressure Pulse Oximetry Oxygen Delivery Room Air 06/30/24 04:00 06/30/24 04:00 06/30/24 06:00 Temperature 98.7 F Pulse Rate 79 85 74 Pulse Rate [Monitor] Pulse Rate [Right Radial Palpation] Respiratory Rate 17 Blood Pressure 116/63 Pulse Oximetry 92 Oxygen Delivery 06/30/24 08:00 06/30/24 08:00 06/30/24 08:33 Temperature 98.1 F Pulse Rate 82 84 87 Pulse Rate [Monitor] Pulse Rate [Right Radial Palpation] Respiratory Rate 24 H Blood Pressure 106/67 Pulse Oximetry 97 Oxygen Delivery Intake/Output Intake/Output: Intake & Output 06/27/24 06/28/24 06/29/24 06/30/24 23:59 23:59 23:59 23:59 Intake Total 308.4 1584.2 1423.8 Output Total 600 1850 3 Balance -291.6 -265.8 1420.8 Meds/Results Medications: Active Medications Generic Name Dose Route Start Last Admin Trade Name Mjq PRN Reason Stop Dose Admin Acetaminophen 500 mg 06/27/24 21:13 Acetaminophen 500 Mg Tablet PO Q4H PRN Mild Pain (1-3) or Fever Aspirin 81 mg 06/28/24 21:00 06/29/24 20:41 Aspirin 81 Mg Chewable Tablet PO 81 mg HS ZACKERY Administration Atorvastatin Calcium 40 mg 06/28/24 21:00 06/29/24 20:41 Atorvastatin 40 Mg Tablet PO 40 mg HS ZACKERY Administration Ezetimibe 10 mg 06/28/24 09:00 06/30/24 08:33 Ezetimibe 10 Mg Tablet PO 10 mg DAILY ZACKERY Administration Enoxaparin Sodium 40 mg 06/28/24 09:00 06/28/24 08:17 Enoxaparin 40 Mg/0.4 Ml Syringe SUB-Q 40 mg DAILY ZACKERY Administration Furosemide 40 mg 06/29/24 09:00 06/29/24 12:33 Furosemide Inj 40 Mg/4 Ml Vial IV PUSH 40 mg DAILY ZACKERY Administration Levalbuterol HCl 0.63 mg 06/27/24 21:14 Levalbuterol Neb 1.25 Mg/3 Ml INHALATION Q6HRT PRN Shortness Of Breath Lisinopril 10 mg 06/27/24 21:10 06/29/24 20:41 Lisinopril 10 Mg Tablet PO 10 mg HS ZACKERY Administration Metoprolol Succinate 50 mg 06/29/24 21:00 06/30/24 08:33 Metoprolol Succinate Ext Rel 50 Mg Tabcr PO 50 mg Q12HR ZACKERY Administration Perflutren Lipid Microsphere 0 ml 06/28/24 07:43 Perflutren Lipid Microspheres 1.5 Ml Vial Diluted To 10 Ml Total Volume IV PUSH 07/01/24 07:45 ONCE PRN adequate visualization Protocol Tamsulosin HCl 0.4 mg 06/28/24 09:00 06/30/24 08:33 Tamsulosin Hcl 0.4 Mg Capsule PO 0.4 mg Q12HR ZACKERY Administration Radiology Results: ITS Impressions Chest X-Ray 06/27/24 16:55 IMPRESSION: Prominent markings in the left lower lobe which is suggestive of atelectatic changes. Labs Labs: Laboratory Results - last 24 hr 06/30/24 06/30/24 04:27 04:27 WBC 7.3 RBC 4.38 L Hgb 12.4 L Hct 39.5 L MCV 90.2 MCH 28.3 MCHC 31.4 L RDW 14.7 H Plt Count 227 MPV 10.2 Sodium 136 L Potassium 4.0 4.0 Chloride 98 Carbon Dioxide 30 Anion Gap 8 BUN 26 H Creatinine 1.21 Estim Creat Clear Calc 64 Estimated GFR 59 Glucose 95 Calcium 9.4 Phosphorus 3.7 Magnesium 1.9 Total Bilirubin 0.9 AST 20 ALT 33 Alkaline Phosphatase 87 Total Protein 7.0 Albumin 3.8
[2024-06-30] MEDS: AMIODARONE 360 MG/D5W 200 ML 360 MG/200 ML BAG 33.33 MG IV CONT (09:17)
[2024-06-30] MEDS: ENOXAPARIN 40 MG/0.4 ML SYRINGE SUB-Q (10:30)
[2024-06-30] MEDS: FUROSEMIDE INJ 40 MG/4 ML VIAL IV PUSH (10:31)
[2024-06-30] MEDS: AMIODARONE 360 MG/D5W 200 ML 360 MG/200 ML BAG 16.67 MG IV CONT (15:03)
[2024-06-30] MEDS: SODIUM CHLORIDE 0.9% IV 500 ML 999 ML IV CONT (16:22)
[2024-06-30] MEDS: ASPIRIN 81 MG CHEWABLE TABLET PO (20:14)
[2024-06-30] MEDS: ATORVASTATIN 40 MG TABLET PO (20:14)
--- NOTE | 2024-07-01 17:01 | P.TS_ITS ---
Transfer Discharge Sum: Prov Provider Date of admission: 06/27/24 19:18 Primary care physician: Cole Petty MD Admitting clinician: Ying Comer DO Consults: 06/27/24 Care Coordination Consult Routine Reason for Consult:: Advanced Directives Consult to Physician Routine Comment: Consulting Provider: No Christy Reason for consultation: Not nonsustained V-tach Has provider been notified: Yes Consult to Physician Routine Comment: Consulting Provider: Ravin Joe Reason for consultation: Ventricular tachycardia Has provider been notified: Yes 06/30/24 08:25 Care Coordination Consult Routine Reason for Consult:: LifeVest DS: Admitting Diagnosis Discharge Date 06/30/24 Admitting Diagnosis (1) Ventricular tachycardia: Code(s): I47.20 - Ventricular tachycardia, unspecified Status: Acute DS: Discharge Diagnosis Discharge Diagnosis (1) Ventricular tachycardia: Code(s): I47.20 - Ventricular tachycardia, unspecified Status: Acute Transfer Discharge Sum: Med Medications Active and Home Medications: Home Medications aspirin 81 mg chewable tablet 81 mg PO HS 10/09/19 [History Confirmed 06/27/24] ezetimibe 10 mg tablet 10 mg PO DAILY #90 tabs 10/10/19 [Rx Confirmed 06/27/24] spironolactone 25 mg tablet 25 mg PO DAILY #30 tabs 10/10/19 [Rx Confirmed ] carvedilol 6.25 mg tablet (Coreg) 6.25 mg PO Q12HR 11/03/19 [History Confirmed 06/27/24] atorvastatin 40 mg tablet 40 mg PO HS #90 tabs 03/11/24 [Rx Confirmed 06/27/24] diclofenac sodium 75 mg tablet,delayed release 75 mg PO BID #60 tabs 05/26/24 [Rx Confirmed 06/27/24] tamsulosin 0.4 mg capsule See Rx Instructions .Route .COMPLEX #180 caps 06/14/24 [Rx Confirmed 06/27/24] acetaminophen 500 mg tablet (Acetaminophen Extra Strength) 500 mg PO Q4-6H PRN pain 06/27/24 [History Confirmed 06/27/24] albuterol sulfate 90 mcg/actuation aerosol inhaler 1 - 2 puff inhalation Q4-6H PRN shortness of breath or wheezing 06/27/24 [History Confirmed 06/27/24] lisinopril 10 mg tablet 10 mg PO HS 06/27/24 [History Confirmed 06/27/24] Transfer Discharge Sum: Hosp Hospital Course Hospital course: Pleasant, loquacious 73-year-old male with a past medical history of severe obstructive sleep apnea, combined restrictive and obstructive lung disease, ischemic cardiomyopathy, severe right ventricular systolic dysfunction,... Who presented to the ER via EMS with intermittent dizziness for 3 days. EMS reported the patient had intermittent runs of V-tach on route to the hospital. The patient reports for the last couple of days he has had intermittent episodes of transient lightheadedness and feeling flushed and on well. The symptoms last from a few seconds to a couple of minutes. He denies any near-syncope. He denies any chest pain, shortness of breath, dyspnea on exertion or actual palpit ations. He has not had any changes in his cardiac medications. He does have chronic lower extremity swelling but is unchanged from baseline. The only recent changes in medications was the initiation of Flomax after he had some decreased urinary stream in output that started while being treated for sciatica with pain medications. It he reports his sciatica got better over the last month any is only on diclofenac which was started in May. He follows with Dr. Singh and is post to have an outpatient follow-up with Dr. Singh on the . EKG in the ER did demonstrate intermittent ventricular tachycardia. Patient was symptomatic during the episode. He was initiated on amiodarone infusion. Since arriving to the ICU the patient has not had any recurrent episodes of ventricular tachycardia. He is having occasional PVCs. The following med issues have been addressed during hospitalization (1) Ventricular tachycardia: Code(s): I47.20 - Ventricular tachycardia, unspecified Status: Acute Assessment and Plan: Intermittent runs of V-tach in a patient with history of coronary disease status post stenting x2 and ischemic cardiomyopathy EKG at the time of admission showed sinus rhythm Denies any chest pain and troponin negative Electrolytes reviewed and are normal range Echo 1. Complete two-dimensional, color flow and Doppler transthoracic echocardiogram is performed. 2. Left ventricular systolic function is normal, estimated at 50-55%. 3. There is moderate concentric increased left ventricular wall thickness. 4. The left ventricular diastolic function is grade I diastolic dysfunction. 5. There is mild aortic valve regurgitation. 6. There is mild mitral valve regurgitation. 7. There is trace tricuspid valve regurgitation. 8. No pulmonary hypertension, estimated pulmonary arterial systolic pressure is 26 mmHg. Cardiology consult Continue Coreg statin aspirin lisinopril and spironolactone Continue amiodarone infusion Cardiac catheterization showed patent coronary arteries Patient had episode of V-tach overnight, restart amiodarone drip per anatomic pathology assistant recommendation Health Worker recommends to transfer patient to [facility] for EP evaluation treatment Hypertension: Code(s): I10 - Essential (primary) hypertension Status: Acute Assessment and Plan: Continue Coreg, Aldactone and lisinopril (3) Ischemic cardiomyopathy: Code(s): I25.5 - Ischemic cardiomyopathy Status: Acute Assessment and Plan: (4) CAD (coronary artery disease): Qualifiers: Coronary Disease-Associated Artery/Lesion type: [place] artery [place] vs. transplanted heart: [place] heart Associated angina: without angina Qualified Code(s): I25.10 - Atherosclerotic heart disease of [place] coronary artery without angina pectoris Code(s): I25.10 - Atherosclerotic heart disease of [place] coronary artery without angina pectoris Status: Acute Assessment and Plan: See above (5) Hypercholesterolemia: Code(s): E78.00 - Pure hypercholesterolemia, unspecified Status: Acute Assessment and Plan: Continue statin (6) Obstructive sleep apnea: Onset Date: ~12/2019 Code(s): G47.33 - Obstructive sleep apnea (adult) (pediatric) Status: Acute Assessment and Plan: BiPAP ordered. Patient prefers to get is on BiPAP machine from home. His will bring his BiPAP machine today Swelling of both lower extremities: Code(s): M79.89 - Other specified soft tissue disorders Status: Acute Assessment and Plan: Significant swelling of the legs likely secondary to cor pulmonale Compression stockings ordered but patient elected to wear them (8) Acute kidney injury: Code(s): N17.9 - Acute kidney failure, unspecified Status: Acute Assessment and Plan: Patient presented with elevated creatinine of 1.35 which is likely secondary to hypoperfusion from V-tach resolved Avoid nephrotoxic medication Patient is accepted [facility]. Before transfer, patient condition was stable Time Spent with Patient Time attestation: Total time spent providing and/or coordinating transfer services: Exam 2 Narrative: GENERAL: Pleasant, in no acute distress. Well-nourished, obesity. - EYES: EOMI. Anicteric. - HENT: Moist mucous membranes. - LUNGS: Clear to auscultation bilateral ly, no wheezing, rhonchi, or rales. - CARDIOVASCULAR: Regular rate and rhyth m. No murmur. No JVD. - ABDOMEN: Soft, non-tender and non-dist ended. No palpable masses. - EXTREMITIES: No edema. Peripheral puls es 2+. Non-tender. - NEUROLOGIC: No focal neurological defi cits. CN II-XII grossly intact. - PSYCHIATRIC: Awake, Alert and oriented x 3. Appropriate mood and affect. - SKIN: No rashes or lesions. Warm. - LYMPH: No cervical lymphadenopathy.
== END 2024-06-30 22:03 | disposition short-term general hospital (02) | DRG 287 ==
LOC: ANHED 16:53 → ANHICU 19:41 → ANHIMU 06-28 17:31
PROVIDERS: Internal Medicine; Internal Medicine Interventional Cardiology; Admitting Provider Internal Medicine; Emergency Provider Student in an Organized Health Care Education/Training Program; PCP Family Medicine Adolescent Medicine; Visit Provider Hospitalist
PROC: 4A023N7 Measurement of Cardiac Sampling and Pressure, Left Heart, Percutaneous Approach (ICD-10-PCS; CPT 93452; principal; 2024-06-29 08:00)
DX: I47.20 Ventricular tachycardia, unspecified (principal); I50.22 Chronic systolic (congestive) heart failure; N17.9 Acute kidney failure, unspecified; I11.0 Hypertensive heart disease with heart failure; I25.5 Ischemic cardiomyopathy; I25.10 Atherosclerotic heart disease of native coronary artery without angina pectoris; G47.33 Obstructive sleep apnea (adult) (pediatric); E78.00 Pure hypercholesterolemia, unspecified; I27.81 Cor pulmonale (chronic); J98.4 Other disorders of lung; E66.01 Morbid (severe) obesity due to excess calories; Z86.16 Personal history of COVID-19; I25.2 Old myocardial infarction; Z87.891 Personal history of nicotine dependence; Z95.5 Presence of coronary angioplasty implant and graft
CPT/HCPCS: 36415; 71045; 80048; 80053; 83690; 83735; 83880; 84100; 84132; 84443; 84484; 85025; 85027; 85610; 85730; 87641; 93005; 93306; 93458; 96365; 96366; 96367; 99285; A9270; C1769; C1887; C1894; J0282; J1644; J1650; J1938; J2003; J2250; J2371; J3010; J3475; J7030; J7040

== ENCOUNTER 2024-07-21 08:37 | Outpatient (CLI) | payer MEDICARE, BC, SELFPAY ==
--- OUTSIDE RECORDS SUMMARY | 2024-07-21 08:48 | XMS_ITS | Data Portability ---
Author Organization [place] [facility], Main Office Address [address] [place] [address] Care Team Providers Care Clerical And Administrative Workers Name Role Phone ROSARIO CARVAJAL Primary Care [...] will continue with exercise and anti-inflammatory medication. [email or web address] Not available 05/22/2022 15:03:46 08/30/2022 08/30/2022 Patient [...] procedure, administere d by provider 2022 023 [email or web address] In-Office Order, Internal Use Only DO Not Attach Compendium DO Not Attach Compendium, Do Not Delete/merge, [id number] 14:55:12 Surgeries None recorded. Imaging None recorded. Medication Orders Kenalog 10 mg/mL suspension for injection 2022 023 [address] [address] [id number], [address], [place], [place], [id number], 14:57:54 ropivacaine (PF) 5 mg/mL (0.5 %) injection solution 2022 023 [email or web address] Not available 16:08:51 Patient TargetsNo targets recorded. Patient InstructionsNo instructions recorded. Reason for Referral None Reported. Results Created Date Observation Date Name Description Value Unit Range Abnormal Flag Note LastModifiedBy Organization Detail LastModifiedTime 03/13/19 23 XR, shoul isabella No observ ation record ed. MIGRATION. [facility] [address], [place], [address], 05/03/2022 01:50:34 04/26/19 23 04/26/2022 elect romyo gram + nerve condu ction study No observ ation record ed. [id number] [facility] [address], [place], [address], 05/03/2022 01:50:34 Result Notes None recorded. Problems Name Problem SNOMED Code Status Onset Date Resolution Date Notes Provider Name and Address Organization Details Recorded Time Pain of left shoulder joint 4540547653428 9109 Active 2022 Not Available [facility] 3 01:49:44 Partial thickness rotator cuff tear 211149821 Active 2022 Not Available [facility] 3 01:49:44 Full thickness rotator cuff tear 829326752 Active 2022 Not Available [facility] 3 01:49:45 Full thickness rotator cuff tear 497011722 Active 2022 Not Available [facility] 3 01:49:45 Carpal tunnel syndrome of left wrist 3861972499663 02 Active 2022 Not Available [facility] 3 01:49:45 Bilateral carpal tunnel syndrome 2978789098991 9101 Active 2022 Jaclyn Stapleton RMLaw null, [place] [facility] 3 14:38:36 Carpal tunnel syndrome of right wrist 2971438498048 08 Active 2022 Jaclyn Stapleton RMLaw null, [place] [facility] 3 14:38:54 Problem Notes None recorded. Procedures Surgical History Date Name Laterality Status Provider Name and Address Organization Details Recorded Time 3 Ortho - Cortisone Injection completed Christo Edmond MD [address] [place] [address], [address], [place] [facility] 05/22/2022 15:01:17 Imaging Results Imaging Date Name Status LastModified by Organization Details LastModified Time 03/13/2022 XR, shoulder completed [id number] [facility] [address], [place], [address], 05/03/2022 01:50:34 04/26/2022 electromyogram + nerve conduction study completed [id number], [place], [address], 05/03/2022 01:50:34 Procedure Notes None recorded. Medical Equipment None Reported. Allergies Allergen ID Allergen Name Allergen Category Reaction Reaction Severity Criticality Documentation Date Start Date Code Code System Note Provider Name and Address Organization Details Recorded Time 76873 Demerol medicatio n Not available Not available Not available 05/03/2022 98418 1 RxNorm Not Available [facility] 01:50:28 Medications Name Sig Start Date Stop [...] suspension for injection in office 2022 active [facility]: 0003- 0494- 20 Not Available Not Available [...] %) injection solution in office 2022 active [facility] [address]2045 -064- 01 Not Available Not Available Not Available Vitals Date Recorded Body mass index (BMI) Body height Body weight Provider Name and Address Organization Details Last Updated DateTime 04/10/2022 36.7 kg/m2 177.8 cm 798736.65 g Not Available [facility] 05/03/2022 01:49:29 Date Recorded Body height Provider Name an d Address Organization Details Last Updated DateTime 05/22/2022 177.8 cm GORDON Abel [facility] [employer] [facility] 05/22/2022 14:37:23 Date Recorded Body height Provider Name an d Address Organization Details Last Updated DateTime 08/30/2022 177.8 cm Sushma Ricketts [facility] [employer] [facility] 08/30/2022 10:05:33 Date Recorded Body height Body mass index (BMI) Body weight Provider Name and Address Organization Details Last Updated DateTime 11/08/2022 180.34 cm 36.8 kg/m2 313273.39 g Catrachita Pike [employer] [facility] 11/08/2022 09:22:57 Social History None recorded. Functional Status None recorded. Mental Status None recorded. Family History Relationship Description Onset Age of this Age Resolved Age Notes LastModified by Organization Details LastModified Time Father Heart disease [id number] Not available 05/03/2022 01:49:17 Brother Family history of malignant neoplasm [id number] Not available 05/03/2022 01:49:17 Medical History No medical history recorded. Past Encounters Encounter ID Performer Location Encounter Start Date Encounter Closed Date Diagnosis/Indication Diagnosis SNOMED-CT Code Diagnosis ICD10 Code Diagnosis Note [id number] Christo Edmond MD [facility] [address] [place] [address] 03/13/2022 00:00:00 03/13/2022 15:35:06 [id number] Christo Edmond MD [facility] [address] [place] [address] 04/10/2022 00:00:00 04/10/2022 14:08:16 [id number] [facility] [address] [facility] [address] [place] [address] 05/22/2022 14:31:14 05/22/2022 15:25:37 Carpal tunnel syndrome of left wrist 3990164276 68104 G56.02 Bilateral carpal tunnel syndrome 1046402851 0280527 G56.03 Carpal waqar tabitha syndrome of right wrist 3741623913 92729 G56.01 Partial th ickness rotator cuff tear 656390512 M75.102 [id number] Christo Edmond MD [facility] [address] [place] [address] 08/30/2022 10:02:29 08/30/2022 11:32:18 Bilateral carpal tunnel syndrome 4578543830 8093081 G56.03 Pain of le ft shoulder joint 0848887381 5794873 M25.512 Partial th ickness rotator cuff tear 893760253 M75.102 Full thick ness rotator cuff tear 292290151 M75.624 [id number] Christo Edmond MD [facility] [address] [place] [address] 11/08/2022 09:20:38 11/08/2022 09:59:06 Bilateral carpal tunnel syndrome 3478468093 8381878 G56.03 Pain of le ft shoulder joint 7412471765 9629730 M25.512 Partial th ickness rotator cuff tear 334409553 M75.102 Full thick ness rotator cuff tear 907891838 M75.121 Postoperative visit 1836 13774 Z09 Health Concerns Section Related Observation LastModified by Organization Detai ls LastModified Time None Recorded Concern Status LastModified by Organization Details LastModified Time None Recorded Advance Directives Directive None Recorded Payers Encounter Date Sequence Insurance Name Policy Number Policy [place] Covered Member ID [place] Member ID Guarantor Name 05/22/2022 1 [place] [id number] [place] 05/22/2022 2 [place] [address] [place] [id number] [place] 08/30/2022 1 [place] [id number] [place] 08/30/2022 2 [place] [address] [place] [id number] [place] 11/08/2022 1 [place] [id number] [place] 11/08/2022 2 [facility]: FEDERAL EMPLOYEE PROGRAM (PPO) [address] [place] [id number] [place] Notes Date Note Type Note [...] change in bowel/bladder habits;weakness;numbn ess;swelling;warmth Not Available [facility] [employer] [facility] 03/13/2022 15:35:06 04/10/2022 text/html [...] change in bowel/bladder habits;weakness;numbn ess;swelling;warmth Not Available [employer] [facility] 04/10/2022 14:08:16 05/22/2022 text/html Patient returns bilateral [...] overhead. Christo Edmond MD [address], [place] [address], [place], [address], [employer] [facility] 05/22/2022 15:04:06 08/30/2022 text/html Patient returns bilateral [...] overhead. Christo Edmond MD [address], [facility] [address], [place], [address], [employer] [facility] 08/30/2022 10:26:30 11/08/2022 text/html Patient returns status post cubital carpal tunnel release on the left. Numbness and tingling are resolving he looks great. He is comfortable and he thinks the problem has been addressed. Christo Edmond MD [address] [place] [address], [place], [address], [place] [facility] [employer] 11/08/2022 09:35:21
--- OUTSIDE RECORDS SUMMARY | 2024-07-21 08:48 | XMS_ITS | Clinical Summary ---
Author Organization [facility] Address [facility] [place] [address] Care Team Providers Care Door To Door Fundraising Collector Name Role Phone Unavailable Primary Care Provider [...]
--- OUTSIDE RECORDS SUMMARY | 2024-07-21 08:48 | XMS_ITS | Clinical Summary ---
Author Organization [facility] [address] Address [address] [place] [address] Care Team Providers Care Hearing Therapist Name Role Phone Cole Petty MD Primary Care Prov ider Allergies Active Allergy Reactions Criticality Noted Date Comments Meperidine Nausea & Vomiting Low 12/27/2022 Propoxyphene Nausea & Vomiting Low Medications atorvastatin (LIPITOR) 40 mg tablet 1 tablet (40 mg total) daily 2 9 Active aspirin 81 mg enteric coated tablet Take 1 tablet (81 mg total) by mouth nightly Active albuterol HFA (PROVENTIL HFA,VENTOLIN HFA,PROAIR HFA) 90 mcg/actuation inhaler Inhale 1 puff every 4 (four) hours as needed for wheezing or shortness of breath 1 Active tamsulosin (FLOMAX) 0.4 mg extended release capsule Take 1 capsule (0.4 mg total) by mouth 2 (two) times a day Active acetaminophen (TYLENOL) 500 mg tablet Take 1 tablet (500 mg total) by mouth every 6 (six) hours as needed for pain Active metoprolol tartrate (LOPRESSOR) 25 mg immediate release tablet Take 1 tablet (25 mg total) by mouth 2 (two) times a day 60 tablet 5 08/01/19 25 Active ezetimibe (ZETIA) 10 mg tablet Take 1 tablet (10 mg total) by mouth daily Active nitroglycerin (NITROSTAT) 0.[address] 1 tablet (0.4 mg total) under the tongue every 5 (five) minutes as needed for chest pain Active amiodarone (PACERONE) 400 mg tablet Take 1 tablet (400 mg total) by mouth daily 30 tablet 5 08/04/19 25 Active amiodarone (PACERONE) 200 mg tabletIndicatio ns:Life-Threate julian Ventricular Tachycardia Take 1 tablet (200 mg total) by mouth daily 30 tablet 5 5 02/01/20 25 Active furosemide (LASIX) 20 mg tablet Take 1 tablet (20 mg total) by mouth daily 30 tablet 5 08/10/19 25 Active potassium chloride ER (KLOR-CON) 20 mEq CR tablet Take 1 tablet (20 mEq total) by mouth daily 30 tablet 5 08/10/19 25 Active nitroglycerin (NITROSTAT) 0.4 mg SL tablet DISSOLVE 1 TABLET UNDER THE TONGUE EVERY 5 MINUTES NEEDED FOR CHEST PAIN 25 tablet 1 1 07/03/19 25 Discontinu ed(Stop Taking at Discharge) nitroglycerin (NITROSTAT) 0.[address] 1 tablet (0.4 mg total) under the tongue every 5 (five) minutes as needed for chest pain May repeat dose q 5 min, up to 3 doses total 30 tablet 3 3 07/03/19 25 Discontinu ed(Stop Taking at Discharge) lisinopriL (PRINIVIL,ZESTR IL) 10 mg tabletIndicatio ns:Cardiomyopat hy, ischemic TAKE 1 TABLET(10 MG) BY MOUTH DAILY 90 tablet 3 4 07/03/19 25 Discontinu ed(Stop Taking at Discharge) spironolactone (ALDACTONE) 25 mg tablet TAKE 1 TABLET BY MOUTH DAILY 90 tablet 2 4 07/03/19 25 Discontinu ed(Stop Taking at Discharge) carvediloL (COREG) 6.25 mg tablet Take 1 tablet (6.25 mg total) by mouth every 12 (twelve) hours 180 tablet 1 5 07/03/19 25 Discontinu ed(Stop Taking at Discharge) ezetimibe (ZETIA) 10 mg tablet TAKE 1 TABLET(10 MG) BY MOUTH DAILY 90 tablet 1 5 07/03/19 25 Discontinu ed(Stop Taking at Discharge) diclofenac DR (VOLTAREN) 75 mg EC tablet Take 1 tablet (75 mg total) by mouth 2 (two) times a day 07/03/19 Discontinu ed(Stop Taking at Discharge) enoxaparin (LOVENOX) 40 mg/0.4 mL syringeIndicati ons:Deep Vein Thrombosis Prevention Inject 0.4 mL (40 mg total) under the skin daily for 3 days 1.2 mL 5 07/04/19 25 Discontinu ed(Stop Taking at Discharge) lisinopriL (PRINIVIL,ZESTR [place]) 10 mg tablet Take 1 tablet (10 mg total) by mouth daily 07/04/19 Discontinu ed(Stop Taking at Discharge) spironolactone (ALDACTONE) 25 mg tablet Take 1 tablet (25 mg total) by mouth daily 07/04/19 Discontinu ed(Stop Taking at Discharge) clindamycin (CLEOCIN) 300 mg capsuleIndicati ons:Prophylaxis , Surgical Take 1 capsule (300 mg total) by mouth 4 (four) times a day for 3 days 12 capsule 5 07/07/19 Active Problems Problem Noted Date Diagnosed Date V-tach 07/02/2024 COPD (chronic obstructive pulmonary disease) BOOGIE (obstructive sleep apnea) 07/01/2024 Morbid (severe) obesity due to excess calories 0 06/19/2022 Angina pectoris, unspecified 06/19/2022 History of coronary artery stent placement 12/22 Coronary artery disease invo lving cachil dehe coronary artery of cachil dehe heart without angina pectoris 12/02/2018 Encounters Date Type Department Care Team Description 07/10/2024 Telephone [facility] [address] [address] Leigh Ann Cisse NP 07/09/2024 1:15 PM CDT Office Visit [facility] [address] [address] Leigh Ann Cisse NP Cardiac arrhythmia, unspecified cardiac arrhythmia type (Primary Dx); Cardiac pacemaker in situ 07/09/2024 1:00 PM CDT Ancillary Procedure [facility] [address] [place] [address] Automatic implantable cardiac defibrillator in situ (Primary Dx); Cardiac pacemaker in situ 07/09/2024 Telephone [facility] Cardiology [address] [place] [address] Bam Singh MD 07/09/2024 Orders Only [facility] [address] [place] [address] [address] [address] Donald Lehman MD V tach (HCC) (Primary Dx) 07/03/2024 Telephone [facility] Cardiology [address], [place] [address] Tosha Jin NP 07/02/2024 3:32 PM CDT Anesthesia Event [facility] Electrophysiology Lab [address] [place] [phone] Ashley Maldonado MD Malik, Ari Redd MD 07/02/2024 3:30 PM CDT - 07/02/2024 5:05 PM CDT Surgery [facility] Electrophysiology Lab [address] [place] [phone] Donald Lehman MD ELECTROPHYSIOLOGIC EVALUATION (EPS) WITH INDUCTION OR ATTEMPTED INDUCTION OF ARRHYTHMIA [id number] 07/02/2024 12:44 PM CDT - 07/03/2024 2:13 PM CDT Hospital Encounter [address] [phone] Lorena Mueller DO Dehaan, Kevin Patrick, MD Halasa, Tariq, MD V-tach (HCC) (Primary Dx); V tach (HCC); Coronary artery disease involving cachil dehe coronary artery of cachil dehe heart without angina pectoris Discharge Disposition: Discharge to home or self care 07/02/2024 12:12 PM CDT - 07/02/2024 11:59 PM CDT Hospital Encounter [facility]BULANCE [facility]ILL[facility] [address] [place] [id number] Emergency, Room R Discharge Disposition: Discharge to home or self care 07/02/2024 Orders Only [facility] Hospitalists [address] [place] [phone] Lorena Muelleriaz, DO 07/01/2024 Orders Only [address] [address] Lorena Mueller Bryan, DO 07/01/2024 Orders Only [facility] Cardiac Catheterization Lab [id number] [place] [address] Chandni Benton MD V tach (HCC) (Primary Dx) 06/30/2024 10:50 PM CDT - 07/02/2024 12:10 PM CDT Hospital Encounter [place] [phone] Brian Dai DO Khoukaz, Ghassan Hikmat, MD [place], Nicholas Peter, MD V tach (HCC) (Primary Dx); History of coronary artery stent placement; Simple chronic bronchitis ([facility]); Morbid (severe) obesity due to excess calories (HCC); Coronary artery disease involving cachil dehe coronary artery of cachil dehe heart without angina pectoris; BOOGIE (obstructive sleep apnea) Discharge Disposition: Discharge to a short term hospital for IP from Last 3 Months Surgical History Surgery Date Site/Laterality Comments CARDIAC CATHETERIZATION CORONARY ANGIOPLASTY 03/04/1995 - 03/03/1996 Angioplasty to RCA CORONARY ANGIOPLASTY WITH STENT PLACEMENT 10/09/2019 Stent to proximal LCX CARDIAC ELECTROPHYSIOLOGY PROCEDURE 07/02/2024 Left Procedure: ELECTROPHYSIOLOGIC EVALUATION (EPS) WITH INDUCTION OR ATTEMPTED INDUCTION OF ARRHYTHMIA [id number]; Surgeon: Donald Lehman MD; Location: [facility] EP LAB; Service: Cardiovascular; Laterality: Left; Medical devices from this surgery are in the Medical Devices section. CARDIAC CATHETERIZATION 07/02/2024 N/A Procedure: ULTRASOUND GUIDANCE FOR VASCULAR ACCESS S&I 38423; Surgeon: Donald Lehman MD; Location: [facility] EP LAB; Service: Cardiovascular; Laterality: N/A; Medical devices from this surgery are in the Medical Devices section. CARDIAC ELECTROPHYSIOLOGY PROCEDURE 07/02/2024 N/A Procedure: IMPLANT DUAL CHAMBER PPM SYSTEM W/ DUAL ELECTRODES (GEN AND LEADS, NEW OR REPLACE) 68147; Surgeon: Donald Lehman MD; Location: [facility] EP LAB; Service: Cardiovascular; Laterality: N/A; Medical devices from this surgery are in the Medical Devices section. Medical History Medical History Date Comments Coronary artery disease Hypertension Hyperlipidemia Ischemic cardiomyopathy [facility] (myocardial infarction) (HCC) COPD (chronic obstructive pulmonary disease) (HC C) Sleep apnea Family History Medical History Relation Name Comments Heart attack Brother 3 Myocardial Infa rction; Coronary artery disease Brother 4 Martinez nary Artery Bypass Graft; Relation Name Status Comments Brother 1 Alive Brother 2 Alive Brother 3 Brother 4 Social History Tobacco Use Types Packs/Day Years Used Date Smoking Tobacco: Former Cigarettes 2.5 50 Q uit: 2020 Cigars Smokeless Tobacco: Former Quit: 10/09/2019 Tobacco Cessation:Counseling Given: Not Answered Alcohol Use Standard Drinks/Week Comments No 0 (1 standard drink = 0.6 oz pur e alcohol) [facility] Answer Date Recorded In the past 12 months has [employer], gas, oil, or water [employer] threatened to shut off services in your home? No 07/03/2024 Social Connection and Isolat ion Panel [NHANES] Answer Date Recorded In a typical week, how many times do you talk on the phone with family, friends, or neighbors? More than three times a week 07/03/2024 How often do you get togethe r with friends or relatives? More than three times a week 07/03/2024 How often do you attend [facility] or yazidi services? More than 4 times per year 07/03/2024 Do you belong to any clubs o r organizations such as christian groups, unions, fraternal or athletic groups, or school groups? No 07/03/2024 How often do you attend meet ings of the clubs or organizations you belong to? Never 07/03/2024 Are you , , di vorced, , never , or living with a partner? 07/03/2024 AUDIT-C Answer Date Recorded Frequency of Alcohol Consumption Not on file 07/01/2024 Q2: How many drinks containi ng alcohol do you have on a typical day when you are drinking? Patient does not drink Frequency of Binge Drinking Not on file 06/04 Overall Financial Resource Strain (CARDIA) Answe r Date Recorded How hard is it for you to pa y for the very basics like food, housing, medical care, and heating? Not very hard 07/03/2024 Hunger Vital Sign Answer Date Recorded Within the past 12 months, y ou worried that your food would run out before you got the money to buy more. Never true 07/04/19 25 Within the past 12 months, t he food you bought just didn't last and you didn't have money to get more. Never true 07/03/2024 PRAPARE - Transportation Answer Date Re corded In the past 12 months, has l ack of transportation kept you from medical appointments or from getting medications? No 04/2024 In the past 12 months, has l ack of transportation kept you from meetings, work, or from getting things needed for daily living? No 07/03/2024 Housing Stability Vital Sign Answer Joe e Recorded In the last 12 months, was t here a time when you were not able to pay the mortgage or rent on time? No 07/03/2024 In the past 12 months, how m any times have you moved where you were living? 0 07/03/2024 At any time in the past 12 m [facility], were you homeless or living in a senior care (including now)? No 07/03/2024 Personal Safety Answer Date Recorded Have you ever been in or are you currently in a harmful physical or emotional relationship or is someone making you feel afraid or unsafe? Denies 07/02/2024 Sex and Gender Information Value Date Recorded Sex Assigned at Not on file Legal Sex Male 2:19 AM CLINICAL OB Gender Identity Not on file Sexual Orientation Not on file Obstetrics History Last Filed Vital Signs Vital Sign Reading Time Taken Comments Blood Pressure 104/58 07/09/2024 12:54 PM CDT Pulse 73 07/03/2024 11:55 AM CDT Temperature 36.1 C (97 F) 07/03/2024 11:55 AM CDT Respiratory Rate 20 07/03/2024 11:55 AM CDT Oxygen Saturation 99% 07/03/2024 11:55 AM CDT Inhaled Oxygen Concentration - - Weight 120.2 kg (265 lb) 07/09/2024 12:54 PM CDT Height 180.3 cm (5' 11 ) 07/09/2024 12:54 PM CDT Body Mass Index 36.96 07/09/2024 12:54 PM CDT Plan of Treatment Health Maintenance Due Date Last Done Comments Colon Cancer Screening-Colonoscopy 1950 Depression Screening 1950 Hepatitis C Screening 1950 DTaP/Tdap/Td Vaccine (1 - Tdap) 07/27/1963 Hepatitis B Screening 1970 Pneumococcal vaccine 65+ (1 of 2 - PCV) 07/27/1971 Lung Cancer Screening 2002 Zoster Vaccine (1 of 2) 2002 Abdominal Aortic Aneurysm (AAA) Screen 2017 Well Visit 65+ 2017 Influenza Vaccine (Season Ended) 2024 01/11/20 20 Fall Risk Assessment 07/03/2025 07/03/2024, 12/08/19 20 Medical Devices Implanted Type Area Labor Conciliator Device Identifier Shelf Expiration Date Model / Serial / Lot House Vascular Defib Cardiac [id number] [place] Implantable 2 Chamber [id number] - [id number] - [id number] Implanted:Qty: 1 on 07/02/2024 by Donald Lehman MD at [facility] ICD House Vascular 12/01/2025 CDDRA 500Q / [id number] / House Vascular Active Fixation Steroid Eluting Latex Free Sterile Right Atrium Ventricle Ultipace 52cm [id number]/52 - [id number] - [id number] Implanted:Qty: 1 on 07/02/2024 by Donald Lehman MD at [facility] Lead Right: Ventricle House Vascular 05/02/2027 [id number]/5 2 / [id number] / [employer] Optisure 8fr 65cm 1 Coil Df4 Connector True Bipolar Optim [id number]/65 - [id number] - [id number] Implanted:Qty: 1 on 07/02/2024 by Donald Lehman MD at [facility] Lead Right: [employer] 06/02/2027 [id number]/6 5 / [id number] / [employer] Device Closure Vascade Od5 Fr Femoral Artery [id number] - [id number] - [id number] Implanted:Qty: 1 on 07/02/2024 by Donald Lehman MD at [facility] [employer] 04/01/2026 700-500DX -05U / [id number] / [id number] [employer] [facility] Device Vascular Closure Femoral Artery Bioabsorbable Dual Method Vascade 6-7fr Collagen [id number] - [id number] - [id number] Implanted:Qty: 1 on 07/02/2024 by Donald Lehman MD at [facility] [employer] 04/15/2026 700-580I- 05U / [id number] / [id number] [employer] [facility] Device Closure Vascade Od5 Fr Femoral Artery [id number] - [id number] - [id number] Implanted:Qty: 1 on 07/02/2024 by Donald Lehman MD at [facility] [employer] 01/29/2026 700-500DX -05U / [id number] / [id number] Procedures Procedure Name Priority Date/Time Associated Diagnosis Comments ECG 12-LEAD Routine 07/10/2024 10:32 PM CDT Cardiac arrhythmia, unspecified cardiac arrhythmia type DEVICE CHECK - IN OFFICE Routine 025 1:17 PM CDT Cardiac pacemaker in situ EGFR Routine 07/03/2024 5:17 AM CDT DIFFERENTIAL AUTO Routine 07/03/2024 5:1 7 AM CDT MAGNESIUM Routine 07/03/2024 5:17 AM CDT BASIC METABOLIC PANEL Routine 07/03/2024 5:17 AM CDT CBC WITH AUTO DIFFERENTIAL Routine 07/03/2024 5:17 AM CDT XR CHEST PA LATERAL 2 VIEWS Timed 07/03/2024 2:29 AM CDT IMPLANT DUAL CHAMBER PPM SYSTEM W/ DUAL ELECTRODES (GEN AND LEADS, NEW OR REPLACE) Routine 07/02/2024 5:51 PM CDT V tach (HCC) VASCULAR ACCESS US GUIDANCE Routine 07/02/2024 5:51 PM CDT V tach (HCC) ELECTROPHYSIOLOGIC EVALUATION (EPS) WITH INDUCTION OR ATTEMPTED INDUCTION OF ARRHYTHMIA Routine 07/02/2024 5:51 PM CDT V tach (HCC) EGFR Routine 07/02/2024 2:27 AM CDT DIFFERENTIAL AUTO Routine 07/02/2024 2:2 7 AM CDT MAGNESIUM Routine 07/02/2024 2:27 AM CDT BASIC METABOLIC PANEL Routine 07/02/2024 2:27 AM CDT CBC WITH AUTO DIFFERENTIAL Routine 07/02/2024 2:27 AM CDT ECG 12-LEAD STAT 07/01/2024 1:45 PM CDT ECG 12-LEAD STAT 07/01/2024 8:39 AM CDT EGFR Routine 07/01/2024 6:19 AM CDT DIFFERENTIAL AUTO Routine 07/01/2024 6:1 9 AM CDT HEPATIC FUNCTION PANEL Routine 6:19 AM CDT MAGNESIUM Routine 07/01/2024 6:19 AM CDT BASIC METABOLIC PANEL Routine 07/01/2024 6:19 AM CDT CBC WITH AUTO DIFFERENTIAL Routine 07/01/2024 6:19 AM CDT from Last 3 Months Results * ECG 12 lead (07/10/2024 10:32 PM CDT) Leigh Ann Cisse [employer] ECG ORDERABLES Inez elizabeth Result * DEVICE CHECK - IN OFFICE (07/09/2024 1:17 PM CDT) Anatomical Region Laterality Modality Other Narrative 07/11/2024 3:01 PM CDT Table formatting from the original result was not included. ICD CHECK (IN OFFICE) Patient ID: [place] is a 73 y.o. male. This patient received a House ICD. They had a routine in office device interrogation on 07/09/24 Device implant indications: Ventricular tachycardia Interrogation of the patient's device demonstrates the following: Presenting EGM: A sensed V sensed @ 66 bpm Underlying Rhythm: As above Original Device Settings Right Atrium Right Ventricle Sensitivity (mV) Auto mV Auto mV Pacing Outputs 2.5 V @ 0.5 ms 0.875 V @ 0.5 ms Testing Measurements Right Atrium Right Ventricle Sensitivity (mV) 3.9 mV 10.3 mV Impedence (Ohms) 350 ohms 540 ohms High Voltage Impedence 62 ohms Pace Threshold 1.125 V @ 0.5 ms 0.625 V @ 0.5 ms Pacing % 2.9 % 4.2 % Battery Status: 8.6 years to KETAN with Charge Time not done seconds Episodes last 90 days/Comments: AF [place] less than 1%, there was 1 episode classified as a mode switch lasting 8 seconds however no available EGM for review. There were no treated ventricular arrhythmias noted on today's in office device interrogation. NORMAL DEVICE FUNCTION PROGRAMMED MEDICATIONS: Anti-coagulant(s): Aspirin 81 mg daily Anti-arrhythmic(s): Amiodarone 400 mg daily and instructed at 30 days to decrease to 200 mg daily, Lopressor 25 mg twice daily. PLAN: 1) House ICD evaluation. 2) we will see the patient back in approximately 1 month for additional wound and device check. 3) Programming appropriate for device measurements 4) the left infraclavicular pocket area remained with Aquacel dressing intact, this was removed, the incision is well approximated without drainage and there is only minimal bruising in the area. Liban Smith, DAWOOD Leigh Ann Cisse NP CV CARDIAC SERVICES PROCEDURES Final Result * eGFR (07/03/2024 5:17 AM CDT) eGFR 76 >=60 mL/min/1. 73 m2 Comment: Interpretive Data Reference Interval Normal >/= 90 mL/min/1.73m2 Mildly decreased* 60 - 89 mL/min/1.73m2 Mildly to moderately decreased 45 - 59 mL/min/1.73m2 Moderately to severely decreased 30 - 44 mL/min/1.73m2 Severely decreased 15 - 29 mL/min/1.73m2 Kidney Failure < 15 mL/min/1.73m2 *Relative to young adult level Estimated glomerular filtration rate is determined by the 2020 CKD-EPI equation recommended by the National Kidney Foundation (A Unifying Approach to GFR Estimation: Recommendations of the NKF-ASK Task Force on Reassessing the Inclusion of Race in Diagnosing Kidney Disease, JASN 2020). The CKD-EPI equation should not be used for patients with unstable renal function and has not been validated in children and those over 70. Current interpretive data was last reviewed 2021. Blood 07/03/2024 5:17 AM CDT 07/03/2024 6:06 AM CDT Macho Sweet MD LAB BLOOD ORDERABLES Fin al Result [facility] [address] Department [place] [address] * (ABNORMAL) Differential, auto (07/03/2024 5:17 AM CDT) Pathologist [facility] Neutrophil abs 5.70 1.50 - 6.50 K/cumm Imm gran abs 0.03 0.00 - 0.10 K/cumm [facility] Lymphocyte abs 0.47(L) 0.80 - 3.30 K/cumm [facility] Monocyte abs 0.66 0.20 - 0.80 K/cumm [facility] Eosinophil abs 0.21 0.00 - 0.50 K/cumm [facility] Basophil abs 0.02 0.00 - 0.10 K/cumm [facility] Neutrophil pct 80.4 % [facility] Comment: Interpretive Data Percent cell count reference ranges are not reported, since discordance with absolute values may lead to misinterpretation of CBC data. Current Interpretive Data was last revised on 2017. Imm gran pct 0.4 % [facility] Comment: Interpretive Data Percent cell count reference ranges are not reported, since discordance with absolute values may lead to misinterpretation of CBC data. Current Interpretive Data was last revised on 2017. Lymphocyte pct 6.6 % [facility] Comment: Interpretive Data Percent cell count reference ranges are not reported, since discordance with absolute values may lead to misinterpretation of CBC data. Current Interpretive Data was last revised on 2017. Monocyte pct 9.3 % [facility] Comment: Interpretive Data Percent cell count reference ranges are not reported, since discordance with absolute values may lead to misinterpretation of CBC data. Current Interpretive Data was last revised on 2017. Eosinophil pct 3.0 % [facility] Comment: Interpretive Data Percent cell count reference ranges are not reported, since discordance with absolute values may lead to misinterpretation of CBC data. Current Interpretive Data was last revised on 2017. Basophil pct 0.3 % [facility] Comment: Interpretive Data Percent cell count reference ranges are not reported, since discordance with absolute values may lead to misinterpretation of CBC data. Current Interpretive Data was last revised on 2017. Blood 07/03/2024 5:17 AM CDT 07/03/2024 6:05 AM CDT Macho Sweet MD LAB BLOOD ORDERABLES Fin al Result [facility] [address] Department [place] [address] * (ABNORMAL) CBC with auto differential (07/03/2024 5:17 AM CDT) [facility] WBC 7.09 3.80 - 9.90 K/cumm Hgb 12.4(L) 13.0 - 17.5 g/dL [facility] Hct 37.9(L) 38.9 - 50.3 % [facility] Plt 217 150 - 400 K/cumm [facility] MPV 10.8 9.1 - 12.3 fL [facility] RBC 4.23(L) 4.30 - 5.80 M/cumm [facility] MCV 89.6 81.3 - 96.4 fL [facility] MCH 29.3 27.1 - 33.3 pg [facility] MCHC 32.7 32.3 - 35.7 g/dL [facility] RDW CV 14.3 11.1 - 14.9 % [facility] RDW SD 46.3 35.7 - 48.1 fL [facility] NRBC abs 0.00 0.00 - 0.01 K/cumm [facility] Blood 07/03/2024 5:17 AM CDT 07/03/2024 6:05 AM CDT Macho Sweet MD LAB BLOOD ORDERABLES Fin al Result Performing Organization Address [facility] Co de Phone Number [facility] [address] [facility] [place] [address] * Magnesium (07/03/2024 5:17 AM CDT) [facility] Magnesium 1.9 1.4 - 2.5 mg/dL Blood 07/03/2024 5:17 AM CDT 07/03/2024 6:06 AM CDT Macho Sweet MD LAB BLOOD ORDERABLES Fin al Result Performing Organization Address [facility] Co de Phone Number [facility] [address] [place] [address] * Basic metabolic panel (07/03/2024 5:17 AM CDT) Sodium 135 135 - 145 mmol/L Potassium, pl 4.3 3.3 - 4.9 mmol/L [facility] Chloride 101 97 - 110 mmol/L [facility] CO2 25 22 - 32 mmol/L [facility] Anion gap 9 2 - 15 mmol/L [facility] BUN 22 6 - 25 mg/dL [facility] Creatinine 1.05 0.80 - 1.30 mg/dL [facility] Glucose 86 70 - 199 mg/dL [facility] Comment: Interpretive Data Fasting glucose >/= 126 mg/dl is diagnostic for diabetes. Fasting is defined as no caloric intake for at least 8 hours. Fasting glucose between 100 mg/dl to 125 mg/dl is diagnostic of prediabetes. In a patient with classic symptoms of hyperglycemia or hyperglycemic crisis, a random glucose >/= 200 mg/dl is diagnostic for diabetes. In the absence of unequivocal hyperglycemia, results should be confirmed by repeat testing. The classification and Diagnosis of Diabetes Diabetes Care 2021; 46: S19-S40. Current interpretive data was last revised 2022. Calcium 8.8 8.5 - 10.3 mg/dL [facility] Blood 07/03/2024 5:17 AM CDT 07/03/2024 6:06 AM CDT Macho Sweet MD LAB BLOOD ORDERABLES Fin al Result [facility] [address] Department [place] [address] * X-ray chest 2 views (07/03/2024 2:29 AM CDT) Anatomical Region Laterality Modality Body, Chest N/A Computed Radiogr aphy 07/03/2024 9:22 AM CDT Impressions 07/03/2024 9:25 AM CDT There is a left subclavian approach cardiac defibrillator, with leads in the right atrium and the right ventricle. No pneumothorax or pleural effusion. There is widening of the mediastinum. Mild left perihilar and basilar atelectasis. No pulmonary edema. No pleural effusion. Dictated by: Macho Little MD, Ph.D The radiology attending physician has personally reviewed this study, and had reviewed and/or edited this written report and agrees with it. Electronically signed by: Chandra Carrasquillo M.D., MPH Narrative 07/03/2024 9:25 AM CDT EXAMINATION: XR CHEST PA LATERAL 2 VIEWS COMPARISON: None. Procedure Note Chandra Carrasquillo MD - 07/03/2024 EXAMINATION: XR CHEST PA LATERAL 2 VIEWS COMPARISON: None. IMPRESSION: There is a left subclavian approach cardiac defibrillator, with leads in the right atrium and the right ventricle. No pneumothorax or pleural effusion. There is widening of the mediastinum. Mild left perihilar and basilar atelectasis. No pulmonary edema. No pleural effusion. Dictated by: Macho Little MD, Ph.D The radiology attending physician has personally reviewed this study, and had reviewed and/or edited this written report and agrees with it. Electronically signed by: Chandra Carrasquillo M.D., MPH Donald Lehman MD IMG XR PROCEDURES Final Result * ELECTROPHYSIOLOGIC EVALUATION (EPS) WITH INDUCTION OR ATTEMPTED INDUCTION OF ARRHYTHMIA, VASCULAR ACCESS US GUIDANCE, IMPLANT DUAL CHAMBER PPM SYSTEM W/ DUAL ELECTRODES (GEN AND LEADS, NEW OR REPLACE) (07/02/2024 5:51 PM CDT) Anatomical Region Laterality Modality X-Ray Angiograph y Addenda Addendum by Donald Lehman MD on 07/02/2024 6:54 PM CDT Table formatting from the original result was not included. ELECTROPHYSIOLOGY SERVICES REPORT PROCEDURE(S): Comprehensive electrophysiologic evaluation with attempted induction (40520) Placement of transvenous implantable cardioverter-defibrillator LEAF STRIPPER: Donald Lehman MD, [facility] NIGHT NURSE(S): None. INDICATION(S): Near-syncope, nonsustained ventricular tachycardia ANESTHESIA TYPE: Monitored Anesthesia Care (MAC) CLINICAL HISTORY: [place] is a very pleasant 73 y.o. male with a history of ischemic heart disease status post prior myocardial infarction who recently presented with recurrent near-syncope and was found to have runs of nonsustained ventricular tachycardia. He now presents for a comprehensive electrophysiology evaluation for further risk stratification, with plans for placement of an implantable cardioverter-defibrillator if he is found to have sustained hemodynamically unstable ventricular tachycardia. The benefits, risks, and alternatives of an implantable cardioverter-defibrillator (ICD) implant were reviewed with the patient using the principles of shared decision-making and utilizing the [place] [employer] ICD CardioSmart Decision Aid. Specific procedural risks discussed included, but were not limited to: vascular injury, bleeding, pneumothorax, and cardiac perforation/tamponade. Long-term risks discussed included, but were not limited to: device/lead failure and/or recall, lead dislodgement with need for subsequent revision, inappropriate ICD discharges, and infection necessitating a system extraction. All questions were answered. DESCRIPTION: After obtaining informed consent, the patient was brought to the EP laboratory in a postabsorptive, nonsedated state. Peripheral IV access was established. Continuous ECG, noninvasive blood pressure monitoring, and pulse oximetry were initiated. Cardioversion patch electrodes were placed on the patient's chest and back. Sedation was administered per Anesthesia Services. The patient was sterilely prepared and draped in the usual manner. Bilateral inguinal access sites were infiltrated with 2% lidocaine. Vascular access was achieved using a micropuncture access needle via the modified Seldinger technique and utilizing ultrasound guidance. After placement of venous access sheaths, multipolar catheters were advanced to the His bundle recording position, coronary sinus and the right ventricle. The patient arrived in the room in sinus rhythm. Induction attempts included: incremental ventricular overdrive pacing down to 200 ms or ventricular refractoriness; and ventricular single-, double- and triple-extrastimuli testing at coupling intervals down to 200 ms or ventricular refractoriness. Induced arrhythmia(s): Sustained monomorphic ventricular tachycardia at a cycle length of 190 ms which required rescue external cardioversion for congregation of sinus rhythm. All venous sheaths were removed and hemostasis was achieved using Vascade closure devices. Attention was next directed towards placement of an implantable cardioverter-defibrillator. The patient was prepared and draped in the usual manner. Prophylactic antibiotics were administered prior to incision. In order to define the extrathoracic portion of the subclavian vein and exclude significant venous obstruction or anomalous anatomy, subclavian venography was performed prior to the procedure. Using the patient's peripheral IV(s), contrast was injected and images were recorded. The left subclavian vein and SVC were found to be widely patent. The left chest was prepared and draped in a sterile fashion. Lidocaine 2% was injected in the subcutaneous tissue in the infraclavicular area to provide local anesthesia. An incision was made medial to the deltopectoral groove. The subcutaneous tissue was dissected to the level of the prepectoral fascia. Under fluoroscopic guidance and with the assistance of the images from the venogram, two separate vena punctures were made using a micropuncture access needle and the modified Seldinger technique to access the extrathoracic portion of the subclavian vein. Guidewires were passed and peel-away sheaths were placed and used to advance pacing lead(s) into the circulation. Under fluoroscopic guidance utilizing CALDWELL and AZERBAIJANI projections, the right ventricular ICD lead was advanced and positioned along the right ventricular septum and secured to the myocardium via extension of the retractable helix tip. Adequate sensing and pacing parameters were found, and no diaphragmatic stimulation was seen with high-output pacing. The lead was secured to the fascia using nonabsorbable Ethibond sutures. Next, the right atrial lead was advanced and positioned was positioned in the right atrial appendage and secured to the myocardium via extension of the retractable helix tip. Adequate sensing and pacing parameters were found, and no diaphragmatic stimulation was seen with high-output pacing. The lead was secured to the fascia using nonabsorbable Ethibond sutures. A subcutaneous pocket was created. The generator was connected to the leads and placed inside the pocket. The pocket was irrigated with BD Surgiphor antimicrobial solution. An absorbable hemostatic agent was placed into the pocket. The pocket was closed with overlapping layers of 2-0, 3-0, and 4-0 absorbable Vicryl sutures. An Aquacell dressing was applied over the incision site. The patient was taken to the recovery area in stable condition. CONDUCTION INTERVALS: RR NM QRS QT AH HV 933 206 80 395 106 58 ARRHYTHMIA SUMMARY: Sustained monomorphic ventricular tachycardia at a cycle length of 190 ms DEVICE INFORMATION AND PROGRAMMING: Model Serial No. 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 VASCULAR ACCESS SUMMARY: ? Right femoral vein: 5 F, 5 F, 7 F ? Left femoral vein: None ESTIMATED BLOOD LOSS: <5 cc. COMPLICATIONS: None. 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 Follow-up: Wound check in 7-10 days. Donald Lehman MD, [facility] [address] [place] [address], [address], [place] [address] Ying Guaman NP CV ELECTROPHYSIOLOGY PROCS Edited Result - Final * (ABNORMAL) eGFR (07/02/2024 2:27 AM CDT) eGFR 52(L) >=60 mL/min/1. 73 m2 Comment: Interpretive Data Reference Interval Normal >/= 90 mL/min/1.73m2 Mildly decreased* 60 - 89 mL/min/1.73m2 Mildly to moderately decreased 45 - 59 mL/min/1.73m2 Moderately to severely decreased 30 - 44 mL/min/1.73m2 Severely decreased 15 - 29 mL/min/1.73m2 Kidney Failure < 15 mL/min/1.73m2 *Relative to young adult level Estimated glomerular filtration rate is determined by the 2020 CKD-EPI equation recommended by the National Kidney Foundation (A Unifying Approach to GFR Estimation: Recommendations of the NKF-ASK Task Force on Reassessing the Inclusion of Race in Diagnosing Kidney Disease, JASN 2020). The CKD-EPI equation should not be used for patients with unstable renal function and has not been validated in children and those over 70. Current interpretive data was last reviewed 2021. Blood 07/02/2024 2:27 AM CDT 07/02/2024 2:30 AM CDT us Kin Boyd MD LAB BLOOD ORDERABLES F inal Result [facility] [address] Department of Laboratories [place], [place] [id number] * Differential, auto (07/02/2024 2:27 AM CDT) Neutrophil abs 4.92 1.50 - 6.50 K/cumm Imm gran abs 0.03 0.00 - 0.10 K/cumm [facility] Lymphocyte abs 0.86 0.80 - 3.30 K/cumm [facility] Monocyte abs 0.61 0.20 - 0.80 K/cumm [facility] Eosinophil abs 0.25 0.00 - 0.50 K/cumm [facility] Basophil abs 0.02 0.00 - 0.10 K/cumm [facility] Neutrophil pct 73.6 % [facility] Comment: Interpretive Data Percent cell count reference ranges are not reported, since discordance with absolute values may lead to misinterpretation of CBC data. Current Interpretive Data was last revised on 2017. Imm gran pct 0.4 % [facility] Comment: Interpretive Data Percent cell count reference ranges are not reported, since discordance with absolute values may lead to misinterpretation of CBC data. Current Interpretive Data was last revised on 2017. Lymphocyte pct 12.9 % [facility] Comment: Interpretive Data Percent cell count reference ranges are not reported, since discordance with absolute values may lead to misinterpretation of CBC data. Current Interpretive Data was last revised on 2017. Monocyte pct 9.1 % [facility] Comment: Interpretive Data Percent cell count reference ranges are not reported, since discordance with absolute values may lead to misinterpretation of CBC data. Current Interpretive Data was last revised on 2017. Eosinophil pct 3.7 % [facility] Comment: Interpretive Data Percent cell count reference ranges are not reported, since discordance with absolute values may lead to misinterpretation of CBC data. Current Interpretive Data was last revised on 2017. Basophil pct 0.3 % [facility] Comment: Interpretive Data Percent cell count reference ranges are not reported, since discordance with absolute values may lead to misinterpretation of CBC data. Current Interpretive Data was last revised on 2017. Blood 07/02/2024 2:27 AM CDT 07/02/2024 2:29 AM CDT Kin Boyd MD LAB BLOOD ORDERABLES F inal Result [facility] [address] Department [place] [address] * (ABNORMAL) CBC with auto differential (07/02/2024 2:27 AM CDT) WBC 6.69 3.80 - 9.90 K/cumm Hgb 12.5(L) 13.0 - 17.5 g/dL [facility] Hct 39.4 38.9 - 50.3 % [facility] Plt 243 150 - 400 K/cumm [facility] MPV 10.2 9.1 - 12.3 fL [facility] RBC 4.41 4.30 - 5.80 M/cumm [facility] MCV 89.3 81.3 - 96.4 fL [facility] MCH 28.3 27.1 - 33.3 pg [facility] MCHC 31.7(L) 32.3 - 35.7 g/dL [facility] RDW CV 14.3 11.1 - 14.9 % [facility] RDW SD 47.5 35.7 - 48.1 fL [facility] NRBC abs 0.00 0.00 - 0.01 K/cumm [facility] Blood 07/02/2024 2:27 AM CDT 07/02/2024 2:29 AM CDT Kin Boyd MD LAB BLOOD ORDERABLES F inal Result Performing Organization Address City/[facility]/ZIP Co de Phone Number MADAY REES [address] [place] [address] * Magnesium (07/02/2024 2:27 AM CDT) Pathologist [facility] Magnesium 2.3 1.4 - 2.5 mg/dL Blood 07/02/2024 2:27 AM CDT 07/02/2024 2:29 AM CDT Kin Boyd MD LAB BLOOD ORDERABLES F inal Result Performing Organization Address [facility] de Phone Number MADAY REES [address] [place] [address] * (ABNORMAL) Basic metabolic panel (07/02/2024 2:27 AM CDT) Pathologist [facility] Sodium 137 135 - 145 mmol/L Potassium, pl 4.2 3.3 - 4.9 mmol/L [facility] Chloride 101 97 - 110 mmol/L [facility] CO2 25 22 - 32 mmol/L [facility] Anion gap 11 2 - 15 mmol/L [facility] BUN 33(H) 6 - 25 mg/dL [facility] Creatinine 1.43(H) 0.80 - 1.30 mg/dL [facility] Glucose 99 70 - 199 mg/dL [facility] Comment: Interpretive Data Fasting glucose >/= 126 mg/dl is diagnostic for diabetes. Fasting is defined as no caloric intake for at least 8 hours. Fasting glucose between 100 mg/dl to 125 mg/dl is diagnostic of prediabetes. In a patient with classic symptoms of hyperglycemia or hyperglycemic crisis, a random glucose >/= 200 mg/dl is diagnostic for diabetes. In the absence of unequivocal hyperglycemia, results should be confirmed by repeat testing. The classification and Diagnosis of Diabetes Diabetes Care 202; 46: S19-S40. Current interpretive data was last revised 2022. Calcium 9.4 8.5 - 10.3 mg/dL [facility] Blood 07/02/2024 2:27 AM CDT 07/02/2024 2:29 AM CDT us Kin Boyd MD LAB BLOOD ORDERABLES F inal Result Performing Organization Address [facility] Co de Phone Number MADAY REES [address] Department [place] [address] * ECG 12 lead (07/01/2024 1:45 PM CDT) 07/01/2024 1:45 PM CDT Narrative [facility] - 07/01/2024 4:00 PM CDT Vent Rate: 71 bpm RR Interval: 837 msec NM Interval: 206 msec QRS Duration: 87 msec QT Interval: 397 msec QTC Interval: 420 msec P-R-T Farwell: 52 - 27 - 34 degrees IMPRESSION: SINUS RHYTHM WITH FREQUENT VENTRICULAR PREMATURE COMPLEXES LOW QRS VOLTAGE IN PRECORDIAL LEADS [QRS DEFLECTION < 1.0 mV IN CHEST LEADS] ABNORMAL RHYTHM ECG Electronically Signed By: Dr. Bharathi Aguilar [facility] us Tosha Jin NP ECG ORDERABLES Final Result Performing Organization Address [facility] Phone Number [facility] [place]is [facility] * ECG 12 lead (07/01/2024 8:39 AM CDT) 07/01/2024 8:39 AM CDT Narrative [facility] - 07/01/2024 12:46 PM CDT Vent Rate: 65 bpm RR Interval: 922 msec NM Interval: 202 msec QRS Duration: 86 msec QT Interval: 392 msec QTC Interval: 403 msec P-R-T Farwell: 42 - 17 - 29 degrees IMPRESSION: SINUS RHYTHM NORMAL ECG Electronically Signed By: Dr. Bharathi Aguilar [facility] Chandni Benton MD ECG ORDERABLES Final Resul t Performing Organization Address [facility] Phone Number [facility] [place] [facility] * eGFR (07/01/2024 6:19 AM CDT) eGFR 68 >=60 mL/min/1. 73 m2 Comment: Interpretive Data Reference Interval Normal >/= 90 mL/min/1.73m2 Mildly decreased* 60 - 89 mL/min/1.73m2 Mildly to moderately decreased 45 - 59 mL/min/1.73m2 Moderately to severely decreased 30 - 44 mL/min/1.73m2 Severely decreased 15 - 29 mL/min/1.73m2 Kidney Failure < 15 mL/min/1.73m2 *Relative to young adult level Estimated glomerular filtration rate is determined by the 2020 CKD-EPI equation recommended by the National Kidney Foundation (A Unifying Approach to GFR Estimation: Recommendations of the NKF-ASK Task Force on Reassessing the Inclusion of Race in Diagnosing Kidney Disease, JASN 2020). The CKD-EPI equation should not be used for patients with unstable renal function and has not been validated in children and those over 70. Current interpretive data was last reviewed 2021. Blood 07/01/2024 6:19 AM CDT 07/01/2024 6:28 AM CDT us Kin Boyd MD LAB BLOOD ORDERABLES F inal Result [facility] [address] Department [place] [address] * Differential, auto (07/01/2024 6:19 AM CDT) Neutrophil abs 4.84 1.50 - 6.50 K/cumm Imm gran abs 0.02 0.00 - 0.10 K/cumm [facility] Lymphocyte abs 0.89 0.80 - 3.30 K/cumm [facility] Monocyte abs 0.70 0.20 - 0.80 K/cumm [facility] Eosinophil abs 0.21 0.00 - 0.50 K/cumm [facility] Basophil abs 0.03 0.00 - 0.10 K/cumm [facility] Neutrophil pct 72.4 % [facility] Comment: Interpretive Data Percent cell count reference ranges are not reported, since discordance with absolute values may lead to misinterpretation of CBC data. Current Interpretive Data was last revised on 2017. Imm gran pct 0.3 % [facility] Comment: Interpretive Data Percent cell count reference ranges are not reported, since discordance with absolute values may lead to misinterpretation of CBC data. Current Interpretive Data was last revised on 2017. Lymphocyte pct 13.3 % [facility] Comment: Interpretive Data Percent cell count reference ranges are not reported, since discordance with absolute values may lead to misinterpretation of CBC data. Current Interpretive Data was last revised on 2017. Monocyte pct 10.5 % [facility] Comment: Interpretive Data Percent cell count reference ranges are not reported, since discordance with absolute values may lead to misinterpretation of CBC data. Current Interpretive Data was last revised on 2017. Eosinophil pct 3.1 % [facility] Comment: Interpretive Data Percent cell count reference ranges are not reported, since discordance with absolute values may lead to misinterpretation of CBC data. Current Interpretive Data was last revised on 2017. Basophil pct 0.4 % [facility] Comment: Interpretive Data Percent cell count reference ranges are not reported, since discordance with absolute values may lead to misinterpretation of CBC data. Current Interpretive Data was last revised on 2017. Blood 07/01/2024 6:19 AM CDT 07/01/2024 6:28 AM CDT Kin Boyd MD LAB BLOOD ORDERABLES F inal Result [facility] [address] Department [place] [address] * (ABNORMAL) CBC with auto differential (07/01/2024 6:19 AM CDT) WBC 6.69 3.80 - 9.90 K/cumm Hgb 12.4(L) 13.0 - 17.5 g/dL [facility] Hct 37.8(L) 38.9 - 50.3 % [facility] Plt 213 150 - 400 K/cumm [facility] MPV 10.1 9.1 - 12.3 fL [facility] RBC 4.27(L) 4.30 - 5.80 M/cumm [facility] MCV 88.5 81.3 - 96.4 fL [facility] MCH 29.0 27.1 - 33.3 pg [facility] MCHC 32.8 32.3 - 35.7 g/dL [facility] RDW CV 14.6 11.1 - 14.9 % [facility] RDW SD 46.9 35.7 - 48.1 fL [facility] NRBC abs 0.00 0.00 - 0.01 K/cumm [facility] Blood 07/01/2024 6:19 AM CDT 07/01/2024 6:28 AM CDT Kin Boyd MD LAB BLOOD ORDERABLES F inal Result [employer] [facility] [address] [facility] [place] [address] * Magnesium (07/01/2024 6:19 AM CDT) Magnesium 1.9 1.4 - 2.5 mg/dL Blood 07/01/2024 6:19 AM CDT 07/01/2024 6:28 AM CDT Kin Boyd MD LAB BLOOD ORDERABLES F inal Result Performing Organization Address [facility] Co de Phone Number MADAY [address] [facility] [place] [address] * (ABNORMAL) Hepatic function panel (07/01/2024 6:19 AM CDT) Bilirubin, total 1.0 0.1 - 1.2 mg/dL Bilirubin, direct 0.2 0.1 - 0.3 mg/dL [facility] Protein, pl 6.1(L) 6.5 - 8.5 g/dL [facility] Albumin 3.3(L) 3.5 - 5.0 g/dL [facility] Alk phos 95 40 - 130 Units/L [facility] ALT 25 7 - 55 Units/L [facility] AST 16 10 - 50 Units/L [facility] Blood 07/01/2024 6:19 AM CDT 07/01/2024 6:28 AM CDT Kin Boyd MD LAB BLOOD ORDERABLES F inal Result [facility] [address] Department [place] [address] * (ABNORMAL) Basic metabolic panel (07/01/2024 6:19 AM CDT) Sodium 136 135 - 145 mmol/L Potassium, pl 4.0 3.3 - 4.9 mmol/L [facility] Chloride 101 97 - 110 mmol/L [facility] CO2 24 22 - 32 mmol/L [facility] Anion gap 11 2 - 15 mmol/L [facility] BUN 26(H) 6 - 25 mg/dL [facility] Creatinine 1.15 0.80 - 1.30 mg/dL [facility] Glucose 105 70 - 199 mg/dL [facility] Comment: Interpretive Data Fasting glucose >/= 126 mg/dl is diagnostic for diabetes. Fasting is defined as no caloric intake for at least 8 hours. Fasting glucose between 100 mg/dl to 125 mg/dl is diagnostic of prediabetes. In a patient with classic symptoms of hyperglycemia or hyperglycemic crisis, a random glucose >/= 200 mg/dl is diagnostic for diabetes. In the absence of unequivocal hyperglycemia, results should be confirmed by repeat testing. The classification and Diagnosis of Diabetes Diabetes Care 202; 46: S19-S40. Current interpretive data was last revised 2022. Calcium 9.2 8.5 - 10.3 mg/dL [facility] Blood 07/01/2024 6:19 AM CDT 07/01/2024 6:28 AM CDT Kin Boyd MD LAB BLOOD ORDERABLES F inal Result [facility] [address] Department [place] [address] from Last 3 Months Insurance MEDICARE [facility] FEDERAL MEDICARE [facility] FEDERAL Advance Directives For more information, please contact: [phone] * Full Code (Latest Code Status on File) Date Activated Date Inactivated Comments 07/02/2024 6:14 PM 07/03/2024 6:19 PM * Full Code Date Activated Date Inactivated Comments 07/02/2024 12:48 PM 07/02/2024 6:14 PM * Full Code Date Activated Date Inactivated Comments 07/01/2024 1:43 AM 07/02/2024 12:44 PM * LIMITED - No CPR Date Activated Date Inactivated Comments 07/01/2024 1:16 AM 07/01/2024 1:43 AM Question Answer Comments Provide aggressive medical m anagement before a full cardiopulmonary arrest occurs. Use antibiotics, IV Fluids, and medical treatment unless specifically selected below: No intubation Care Teams Hearing Therapist Relationship Specialty Start Date End Date Cole Petty MD [address] [place] [address] PCP - General 07/01/12
--- OUTSIDE RECORDS SUMMARY | 2024-07-21 08:48 | XMS_ITS | CONTINUITY OF CARE DOCUMENT ---
Author Name lala reeves Address Unknown Organization [facility] Address [address] [place] [address] Phone [phone] Care Team Providers Care Cutter And Presser Name Role Phone Chandni Benton MD Unavailable [phone] Chandni Benton MD Unavailable [phone] INSURANCE PROVIDERS Payer name Policy type / Coverage type [place] [employer] [place] [id number]
--- OUTSIDE RECORDS SUMMARY | 2024-07-21 08:48 | XMS_ITS | Referral Summary ---
Author Organization [facility] [address] [facility] [address] Address [address] [place] [address] Care Team Providers Care Non Clinical Advisor Name Role Phone Cole Petty MD Primary Care Prov ider Encounters Date Type Department Care Team Description 07/10/2024 Telephone [facility] [address] [place] [address] [place] [phone] Leigh Ann Cisse NP 07/09/2024 Telephone [facility] Cardiology [address] [place] [address] Bam Singh MD 07/09/2024 Orders Only [facility] [address] [place] [address] [place] [phone] Donald Lehman MD V tach (HCC) (Primary Dx) 07/09/2024 1:00 PM CDT Ancillary Procedure [facility] [address] [place] [address] [place] [phone] Automatic implantable cardiac defibrillator in situ (Primary Dx); Cardiac pacemaker in situ 07/09/2024 1:15 PM CDT Office Visit [facility] [address] [place] [address] [place] [phone] Leigh Ann Cisse NP Cardiac arrhythmia, unspecified cardiac arrhythmia type (Primary Dx); Cardiac pacemaker in situ 07/03/2024 Telephone [facility] Cardiology [address] [facility] [address], [place] [address] Tosha Jin NP 07/02/2024 12:44 PM CDT - 07/03/2024 2:13 PM CDT Hospital Encounter [address] [phone] Lorena Mueller, Macho Naidu MD Halasa, Tariq, MD V-tach (HCC) (Primary Dx); V tach (HCC); 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 Discharge Disposition: Discharge to home or self care 07/02/2024 12:12 PM CDT - 07/02/2024 11:59 PM CDT Hospital Encounter [facility] [address] [place] [address] Emergency, Room R Discharge Disposition: Discharge to home or self care 07/02/2024 3:32 PM CDT Anesthesia Event [facility] Electrophysiology Lab [address] [place] [phone] Ashley Maldonado MD Malik, Asad S., MD 07/02/2024 3:30 PM CDT - 07/02/2024 5:05 PM CDT Surgery [facility] Electrophysiology Lab [address] [place] [phone] Donald Lehman MD ELECTROPHYSIOLOGIC EVALUATION (EPS) WITH INDUCTION OR ATTEMPTED INDUCTION OF ARRHYTHMIA [id number] 07/02/2024 Orders Only [facility] Hospitalists [address] [place] [phone] Lorena Mueller DO 06/30/2024 10:50 PM CDT - 07/02/2024 12:10 PM CDT Hospital Encounter [facility] [address] [place] [address] Brian Dai DO Khoukaz, Ghassan Hikmat, MD [place], Nicholas Peter, MD V tach (HCC) (Primary Dx); History of coronary artery stent placement; Simple chronic bronchitis (HCC); Morbid (severe) obesity due to excess calories (HCC); 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; BOOGIE (obstructive sleep apnea) Discharge Disposition: Discharge to a short term hospital for IP 07/01/2024 Orders Only [facility] [address] [place] [phone] Lorena Mueller, DO 07/01/2024 Orders Only [facility] Cardiac Catheterization Lab [address] [place] [address] Chandni Benton MD V tach ([facility]) (Primary Dx) from Last 3 Months Allergies Active Allergy Reactions Criticality Noted Date [...] mouth 2 (two) times a day 07/03/19 25 Discontinu ed(Stop Taking at Discharge) enoxaparin (LOVENOX) 40 mg/0.4 mL syringeIndicati ons:Deep Vein Thrombosis Prevention Inject 0.4 mL (40 mg total) under the skin daily for 3 days 1.2 mL 5 07/04/19 25 Discontinu ed(Stop Taking at Discharge) lisinopriL (PRINIVIL,ZESTR IL) 10 mg tablet Take 1 tablet (10 mg total) by mouth daily 07/04/19 25 Discontinu ed(Stop Taking at Discharge) spironolactone (ALDACTONE) 25 mg tablet Take 1 tablet (25 mg total) by mouth daily 07/04/19 25 Discontinu ed(Stop Taking at Discharge) clindamycin (CLEOCIN) [...] placement 12/22 Coronary artery disease invo lving diomede coronary artery of diomede heart without angina pectoris 12/02/2018 Social History Tobacco Use Types Packs/Day Years Used Date Smoking Tobacco: Former Cigarettes 2.5 50 Q uit: 2019 Cigars Smokeless Tobacco: Former Quit: 10/09/2019 Tobacco Cessation:Counseling Given: Not Answered Alcohol Use Standard Drinks/Week Comments No 0 (1 standard drink = 0.6 oz pur e alcohol) [facility] Utilities Answer Date Recorded In the past 12 months has [employer], gas, oil, or water [employer] threatened to shut off services in your [...] week 07/03/2024 How often do you attend chur ch or lutheran services? More than 4 times per year 07/03/2024 Do you belong to any clubs o r organizations such as jehovah's witness groups, unions, fraternal or athletic groups, or [...] any time in the past 12 m [facility], were you homeless or living in a [place] health care facility (including now)? No 07/03/2024 Personal Safety Answer Date Recorded Have you ever been in or are you currently in a harmful physical or emotional relationship or is someone making you feel afraid or unsafe? 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 Gender Identity Not on file Sexual Orientation [...] 07/09/2024 12:54 PM CDT Plan of Treatment Not on file Medical Devices Implanted Type Area Patient Service Representative Device Identifier Shelf Expiration Date Model / Serial / Lot House Vascular Defib Cardiac [id number] 28f59hr [place] Implantable 2 Chamber [id number] - [id number] - [id number] Implanted:Qty: 1 on 07/02/2024 by Donald Lehman MD at [facility] ICD House Vascular 12/01/2025 CDDRA 500Q / [id number] / House Vascular Active Fixation Steroid Eluting Latex Free Sterile Right Atrium Ventricle Ultipace 52cm Mgm8881/52 - [id number] - [id number] Implanted:Qty: 1 on 07/02/2024 by Donald Lehman MD at [facility] Lead Right: Ventricle House Vascular 05/02/2027 [id number]/5 2 / [id number] / [employer] Optisure 8fr 65cm 1 Coil Df4 Connector True Bipolar Optim Vuj647e/65 - [id number] - [id number] Implanted:Qty: 1 on 07/02/2024 by Donald Lehman MD at [facility] Lead Right: [employer] 06/02/2027 [id number]/6 5 / [id number] / [employer] Device Closure Vascade Od5 Fr Femoral Artery [id number] - [id number] - [id number] Implanted:Qty: 1 on 07/02/2024 by Donald Lehman MD at [facility] [employer] [facility] 04/01/2026 700-500DX -05U / [id number] 204A / [id number] [employer] [facility] Device Vascular Closure Femoral Artery Bioabsorbable Dual Method Vascade 6-7fr Collagen [id number] - [id number] - [id number] Implanted:Qty: 1 on 07/02/2024 by Donald Lehman MD at [facility] [employer] [facility] 04/15/2026 [id number]- 05U / [id number] 11A / [id number] [employer] [facility] Device Closure Vascade Od5 Fr Femoral Artery [id number] - [id number] - [id number] Implanted:Qty: 1 on 07/02/2024 by Donald Lehman MD at [facility] [employer] [facility] 01/29/2026 700-500DX -05U / [id number] 202A / [id number] Procedures Procedure Name Priority Date/Time Associated [...] (07/10/2024 10:32 PM CDT) Leigh Ann Cisse NP ECG ORDERABLES Inez elizabeth Result * DEVICE [...] done seconds Episodes last 90 days/Comments: AF [place] less than 1%, there was 1 episode [...] Result * eGFR (07/03/2024 5:17 AM CDT) Pathologist [facility] eGFR 76 >=60 mL/min/1. 73 m2 Comment: [...] MD LAB BLOOD ORDERABLES Fin al Result [facility] [address] [place] [address] * (ABNORMAL) Differential, auto (07/03/2024 5:17 AM CDT) Pathologist [facility] Neutrophil abs 5.70 1.50 - 6.50 K/cumm Imm gran abs 0.03 0.00 - 0.10 K/cumm [facility] Lymphocyte abs 0.47(L) 0.80 - 3.30 K/cumm [facility] Monocyte abs 0.66 0.20 - 0.80 K/cumm [facility] Eosinophil abs 0.21 0.00 - 0.50 K/cumm [facility] Basophil abs 0.02 0.00 - 0.10 K/cumm [facility] Neutrophil pct 80.4 % [facility] Comment: Interpretive Data Percent cell count reference ranges are not reported, since discordance with absolute values may lead to misinterpretation of CBC data. Current Interpretive Data was last revised on 2017. Imm gran pct 0.4 % [facility] Comment: Interpretive Data Percent cell count reference ranges are not reported, since discordance with absolute values may lead to misinterpretation of CBC data. Current Interpretive Data was last revised on 2017. Lymphocyte pct 6.6 % [facility] Comment: Interpretive Data Percent cell count reference ranges are not reported, since discordance with absolute values may lead to misinterpretation of CBC data. Current Interpretive Data was last revised on 2017. Monocyte pct 9.3 % [facility] Comment: Interpretive Data Percent cell count reference ranges are not reported, since discordance with absolute values may lead to misinterpretation of CBC data. Current Interpretive Data was last revised on 2017. Eosinophil pct 3.0 % [facility] Comment: Interpretive Data Percent cell count reference ranges are not reported, since discordance with absolute values may lead to misinterpretation of CBC data. Current Interpretive Data was last revised on 2017. Basophil pct 0.3 % [facility] Comment: Interpretive Data Percent cell count reference ranges are not reported, since discordance with absolute values may lead to misinterpretation of CBC data. Current Interpretive Data was last revised on 2017. Blood 07/03/2024 5:17 AM CDT 07/03/2024 6:05 AM CDT us Macho Sweet MD LAB BLOOD ORDERABLES Fin al Result [facility] [address] Department [place] [address] * (ABNORMAL) CBC with auto differential (07/03/2024 5:17 AM CDT) [facility] WBC 7.09 3.80 - 9.90 K/cumm Hgb 12.4(L) 13.0 - 17.5 g/dL [facility] Hct 37.9(L) 38.9 - 50.3 % [facility] Plt 217 150 - 400 K/cumm [facility] MPV 10.8 9.1 - 12.3 fL [facility] RBC 4.23(L) 4.30 - 5.80 M/cumm [facility] MCV 89.6 81.3 - 96.4 fL [facility] MCH 29.3 27.1 - 33.3 pg [facility] MCHC 32.7 32.3 - 35.7 g/dL [facility] RDW CV 14.3 11.1 - 14.9 % [facility] RDW SD 46.3 35.7 - 48.1 fL [facility] NRBC abs 0.00 0.00 - 0.01 K/cumm [facility] Blood 07/03/2024 5:17 AM CDT 07/03/2024 6:05 AM CDT Macho Sweet MD LAB BLOOD ORDERABLES Fin al Result Performing Organization Address [facility] Co de Phone Number [facility] [address] [facility] [place] [address] * Magnesium (07/03/2024 5:17 AM CDT) [facility] Magnesium 1.9 1.4 - 2.5 mg/dL Blood 07/03/2024 5:17 AM CDT 07/03/2024 6:06 AM CDT Macho Sweet MD LAB BLOOD ORDERABLES Fin al Result Performing Organization Address City/[facility]/ZIP Co de Phone Number [facility] [address] [place] [address] * Basic metabolic panel (07/03/2024 5:17 AM CDT) Sodium 135 135 - 145 mmol/L Potassium, pl 4.3 3.3 - 4.9 mmol/L [facility] Chloride 101 97 - 110 mmol/L [facility] CO2 25 22 - 32 mmol/L [facility] Anion gap 9 2 - 15 mmol/L [facility] BUN 22 6 - 25 mg/dL [facility] Creatinine 1.05 0.80 - 1.30 mg/dL [facility] Glucose 86 70 - 199 mg/dL [facility] Comment: Interpretive Data Fasting glucose >/= 126 [...] 2022. Calcium 8.8 8.5 - 10.3 mg/dL [facility] Blood 07/03/2024 5:17 AM CDT 07/03/2024 6:06 AM CDT Macho Sweet MD LAB BLOOD ORDERABLES Fin al Result [facility] [address] Department [place] [address] * X-ray chest 2 views (07/03/2024 2:29 [...] PROCEDURE(S): Comprehensive electrophysiologic evaluation with attempted induction (47807) Placement of transvenous implantable cardioverter-defibrillator STOCK BROKER SUPERVISOR: Donald Lehman MD, FACC GEOPHYSICAL LABORATORY CHIEF(S): None. INDICATION(S): Near-syncope, nonsustained ventricular tachycardia ANESTHESIA [...] principles of shared decision-making and utilizing the [employer] ICD CardioSmart Decision Aid. [...] ms which required rescue external cardioversion for hinduism of sinus rhythm. All venous sheaths were [...] circulation. Under fluoroscopic guidance utilizing CALDWELL and [place]GIAN projections, the right ventricular ICD lead was [...] area in stable condition. CONDUCTION INTERVALS: RR TN QRS QT AH HV 933 206 80 [...] check in 7-10 days. Donald Lehman MD, [facility] [address] [place] [address], [address], [place] [address] Ying Guaman NP CV ELECTROPHYSIOLOGY PROCS Edited [...] LAB BLOOD ORDERABLES F inal Result [facility] [address] Department of Laboratories [place], [place] [id number] * Differential, auto (07/02/2024 2:27 AM CDT) Neutrophil abs 4.92 1.50 - 6.50 K/cumm Imm gran abs 0.03 0.00 - 0.10 K/cumm [facility] Lymphocyte abs 0.86 0.80 - 3.30 K/cumm [facility] Monocyte abs 0.61 0.20 - 0.80 K/cumm [facility] Eosinophil abs 0.25 0.00 - 0.50 K/cumm [facility] Basophil abs 0.02 0.00 - 0.10 K/cumm [facility] Neutrophil pct 73.6 % [facility] Comment: Interpretive Data Percent cell count reference ranges are not reported, since discordance with absolute values may lead to misinterpretation of CBC data. Current Interpretive Data was last revised on 2017. Imm gran pct 0.4 % [facility] Comment: Interpretive Data Percent cell count reference ranges are not reported, since discordance with absolute values may lead to misinterpretation of CBC data. Current Interpretive Data was last revised on 2017. Lymphocyte pct 12.9 % [facility] Comment: Interpretive Data Percent cell count reference ranges are not reported, since discordance with absolute values may lead to misinterpretation of CBC data. Current Interpretive Data was last revised on 2017. Monocyte pct 9.1 % [facility] Comment: Interpretive Data Percent cell count reference ranges are not reported, since discordance with absolute values may lead to misinterpretation of CBC data. Current Interpretive Data was last revised on 2017. Eosinophil pct 3.7 % [facility] Comment: Interpretive Data Percent cell count reference ranges are not reported, since discordance with absolute values may lead to misinterpretation of CBC data. Current Interpretive Data was last revised on 2017. Basophil pct 0.3 % [facility] Comment: Interpretive Data Percent cell count reference ranges are not reported, since discordance with absolute values may lead to misinterpretation of CBC data. Current Interpretive Data was last revised on 2017. Blood 07/02/2024 2:27 AM CDT 07/02/2024 2:29 AM CDT Kin Boyd MD LAB BLOOD ORDERABLES F inal Result [facility] [address] Department [place] [address] * (ABNORMAL) CBC with auto differential (07/02/2024 2:27 AM CDT) WBC 6.69 3.80 - 9.90 K/cumm Hgb 12.5(L) 13.0 - 17.5 g/dL [facility] Hct 39.4 38.9 - 50.3 % [facility] Plt 243 150 - 400 K/cumm [facility] MPV 10.2 9.1 - 12.3 fL [facility] RBC 4.41 4.30 - 5.80 M/cumm [facility] MCV 89.3 81.3 - 96.4 fL [facility] MCH 28.3 27.1 - 33.3 pg [facility] MCHC 31.7(L) 32.3 - 35.7 g/dL [facility] RDW CV 14.3 11.1 - 14.9 % [facility] RDW SD 47.5 35.7 - 48.1 fL [facility] NRBC abs 0.00 0.00 - 0.01 K/cumm [facility] Blood 07/02/2024 2:27 AM CDT 07/02/2024 2:29 AM CDT Kin Boyd MD LAB BLOOD ORDERABLES F inal Result Performing Organization Address City/[facility] Co de Phone Number [facility] [address] [address] [facility] [place] [address] * Magnesium (07/02/2024 2:27 AM CDT) Magnesium 2.3 1.4 - 2.5 mg/dL Blood 07/02/2024 2:27 AM CDT 07/02/2024 2:29 AM CDT Kin Boyd MD LAB BLOOD ORDERABLES F inal Result Performing Organization Address [facility] de Phone Number [facility] [address] [employer] [place] [address] * (ABNORMAL) Basic metabolic panel (07/02/2024 2:27 AM CDT) Sodium 137 135 - 145 mmol/L Potassium, pl 4.2 3.3 - 4.9 mmol/L [facility] Chloride 101 97 - 110 mmol/L [facility] CO2 25 22 - 32 mmol/L [facility] Anion gap 11 2 - 15 mmol/L [facility] BUN 33(H) 6 - 25 mg/dL [facility] Creatinine 1.43(H) 0.80 - 1.30 mg/dL [facility] Glucose 99 70 - 199 mg/dL [facility] Comment: Interpretive Data Fasting glucose >/= 126 [...] F inal Result Performing Organization Address City/[facility] Co de Phone Number [facility] [address] Department [place] [address] * ECG 12 lead (07/01/2024 1:45 PM CDT) 07/01/2024 1:45 PM CDT Narrative [facility] - 07/01/2024 4:00 PM CDT Vent Rate: 71 bpm RR Interval: 837 msec TN Interval: 206 msec QRS Duration: 87 msec QT Interval: 397 msec QTC Interval: 420 msec P-R-T [place]: 52 - 27 - 34 degrees IMPRESSION: SINUS RHYTHM WITH FREQUENT VENTRICULAR PREMATURE COMPLEXES LOW QRS VOLTAGE IN PRECORDIAL LEADS [QRS DEFLECTION < 1.0 mV IN CHEST LEADS] ABNORMAL RHYTHM ECG Electronically Signed By: Dr. Bharathi Aguilar [facility] us Tosha Jin NP ECG ORDERABLES Final Result Performing Organization Address [facility] de Phone Number [facility] [employer] [facility] * ECG 12 lead (07/01/2024 8:39 AM CDT) 07/01/2024 8:39 AM CDT Narrative [facility] - 07/01/2024 12:46 PM CDT Vent Rate: 65 bpm RR Interval: 922 msec TN Interval: 202 msec QRS Duration: 86 msec QT Interval: 392 msec QTC Interval: 403 msec P-R-T [place]: 42 - 17 - 29 degrees IMPRESSION: SINUS RHYTHM NORMAL ECG Electronically Signed By: Dr. Bharathi Aguilar [facility] Chandni Benton MD ECG ORDERABLES Final Resul t Performing Organization Address [facility] Co de Phone Number [facility] [employer] [facility] * eGFR (07/01/2024 6:19 AM CDT) [...] of Race in Diagnosing Kidney Disease, JASN 202). The CKD-EPI equation should not be used for patients with unstable renal function and has not been validated in children and those over 70. Current interpretive data was last reviewed 2021. Blood 07/01/2024 6:19 AM CDT 07/01/2024 6:28 AM CDT Kin Boyd MD LAB BLOOD ORDERABLES F inal Result [facility] [address] Department of Laboratories [place], [place] [id number] * Differential, auto (07/01/2024 6:19 AM CDT) Pathologist [facility] Neutrophil abs 4.84 1.50 - 6.50 K/cumm Imm gran abs 0.02 0.00 - 0.10 K/cumm [facility] Lymphocyte abs 0.89 0.80 - 3.30 K/cumm [facility] Monocyte abs 0.70 0.20 - 0.80 K/cumm [facility] Eosinophil abs 0.21 0.00 - 0.50 K/cumm [facility] Basophil abs 0.03 0.00 - 0.10 K/cumm [facility] Neutrophil pct 72.4 % [facility] Comment: Interpretive Data Percent cell count reference ranges are not reported, since discordance with absolute values may lead to misinterpretation of CBC data. Current Interpretive Data was last revised on 2017. Imm gran pct 0.3 % [facility] Comment: Interpretive Data Percent cell count reference ranges are not reported, since discordance with absolute values may lead to misinterpretation of CBC data. Current Interpretive Data was last revised on 2017. Lymphocyte pct 13.3 % [facility] Comment: Interpretive Data Percent cell count reference ranges are not reported, since discordance with absolute values may lead to misinterpretation of CBC data. Current Interpretive Data was last revised on 2017. Monocyte pct 10.5 % [facility] Comment: Interpretive Data Percent cell count reference [...] revised on 2017. Basophil pct 0.4 % [facility] Comment: Interpretive Data Percent cell count reference ranges are not reported, since discordance with absolute values may lead to misinterpretation of CBC data. Current Interpretive Data was last revised on 2017. Blood 07/01/2024 6:19 AM CDT 07/01/2024 6:28 AM CDT us Kin Boyd MD LAB BLOOD ORDERABLES F inal Result [facility] [address] Department [place] [address] * (ABNORMAL) CBC with auto differential (07/01/2024 6:19 AM CDT) WBC 6.69 3.80 - 9.90 K/cumm Hgb 12.4(L) 13.0 - 17.5 g/dL [facility] Hct 37.8(L) 38.9 - 50.3 % [facility] Plt 213 150 - 400 K/cumm [facility] MPV 10.1 9.1 - 12.3 fL [facility] RBC 4.27(L) 4.30 - 5.80 M/cumm [facility] MCV 88.5 81.3 - 96.4 fL [facility] MCH 29.0 27.1 - 33.3 pg [facility] [...] F inal Result Performing Organization Address City/[facility]/ZIP Co de Phone Number [facility] [address] [address] [facility] [place] [address] * Magnesium (07/01/2024 6:19 AM CDT) Pathologist [facility] Magnesium 1.9 1.4 - 2.5 mg/dL Blood 07/01/2024 6:19 AM CDT 07/01/2024 6:28 AM CDT Kin Boyd MD LAB BLOOD ORDERABLES F inal Result Performing Organization Address City/[facility] Co de Phone Number [facility] [address] [address] [facility] [employer] [place], [place] [id number] * (ABNORMAL) Hepatic function panel (07/01/2024 6:19 [...] BLOOD ORDERABLES F inal Result [facility] [address] [address] Department [place] [address] * (ABNORMAL) Basic metabolic panel (07/01/2024 6:19 AM CDT) Sodium 136 135 - 145 mmol/L Potassium, pl 4.0 3.3 - 4.9 mmol/L [facility] Chloride 101 97 - 110 mmol/L [facility] CO2 24 22 - 32 mmol/L [facility] Anion gap 11 2 - 15 mmol/L [facility] BUN 26(H) 6 - 25 mg/dL [facility] Creatinine 1.15 0.80 - 1.30 mg/dL [facility] Glucose 105 70 - 199 mg/dL [facility] Comment: Interpretive Data Fasting glucose >/= 126 [...] Calcium 9.2 8.5 - 10.3 mg/dL [facility] Blood 07/01/2024 6:19 AM CDT 07/01/2024 6:28 AM CDT Kin Boyd MD LAB BLOOD ORDERABLES F inal Result [facility] [address] [address] Department [place] [address] from Last 3 Months Insurance MEDICARE [facility] [employer] MEDICARE [facility] FED[employer]AL Advance Directives For more information, please contact: [phone] * Full Code (Latest Code Status on [...] specifically selected below: No intubation Care Teams Non Clinical Advisor Relationship Specialty Start Date End Date Cole Petty MD [address] [place] [address] PCP - General 07/01/12
[2024-07-21 09:43] LABS: Anion Gap 9 mmol/L (4-12); Blood Urea Nitrogen 24 mg/dL (9-20); Calcium 9.1 mg/dL (8.4-10.2); Carbon Dioxide 26 mmol/L (22-30); Chloride 104 mmol/L (98-107); Estimated Glomerular Filt Rate 55; Glucose 99 mg/dL (65-110); Potassium 4.3 mmol/L (3.4-5.0); Sodium 139 mmol/L (137-145)
== END 2024-07-21 08:38 | disposition home or self-care (01) ==
LOC: ANHLAB 08:41
PROVIDERS: PCP Family Medicine Adolescent Medicine; Visit Provider Specialist
DX: R60.9 Edema, unspecified (principal)
CPT/HCPCS: 36415; 80048

== ENCOUNTER 2024-08-21 06:42 | Outpatient (CLI) | payer MEDICARE, BC, SELFPAY ==
--- OUTSIDE RECORDS SUMMARY | 2024-08-21 06:45 | XMS_ITS | Referral Summary ---
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; Lipid screening; Essential hypertension 07/10/2024 Telephone [facility] [address] [place] [address] [place] [phone] Leigh Ann Cisse NP 07/09/2024 Telephone [facility] Cardiology [address] [place] [address] [address] [place] [phone] Bam Singh MD 07/09/2024 Orders Only [facility] [address] [place] [phone] Donald Lehman MD V tach (HCC) (Primary Dx) 07/09/2024 1:00 PM CDT Ancillary Procedure [facility] [address] [place] [address] [address], [place] [address] Automatic implantable cardiac defibrillator in situ (Primary Dx); Cardiac pacemaker in situ 07/09/2024 1:15 PM CDT Office Visit [facility] [address] [place] [address] Leigh Ann Cisse NP Cardiac arrhythmia, unspecified cardiac arrhythmia type (Primary Dx); Cardiac pacemaker in situ 07/03/2024 Telephone [facility] [address] [place] [address] Tosha Jin NP 07/02/2024 12:44 PM CDT - 07/03/2024 2:13 PM CDT Hospital Encounter [address] [phone] Lorena Mueller DO Dehaan, Kevin Patrick, MD Halasa, Tariq, MD V-tach (HCC) (Primary Dx); V tach (HCC); 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 Discharge Disposition: Discharge to home or self care 07/02/2024 12:12 PM CDT - 07/02/2024 11:59 PM CDT Hospital Encounter [facility] [address] [place] [address] Emergency, Room R Discharge Disposition: Discharge to home or self care 07/02/2024 3:32 PM CDT Anesthesia Event [facility] Electrophysiology Lab [address] [place] [phone] Ashley Maldonado MD Malik, Asad S., MD 07/02/2024 3:30 PM CDT - 07/02/2024 5:05 PM CDT Surgery [facility] Electrophysiology Lab [address] [place] [phone] Donald Lehman MD ELECTROPHYSIOLOGIC EVALUATION (EPS) WITH INDUCTION OR ATTEMPTED INDUCTION OF ARRHYTHMIA [id number] 07/02/2024 Orders Only [facility] [address] [place] [phone] Lorena Mueller DO 06/30/2024 10:50 PM CDT - 07/02/2024 12:10 PM CDT Hospital Encounter [facility] [address] [place] [address] Brian Dai, Juvenal Vitale MD [place], Nicholas Peter, MD V tach ([facility]) (Primary Dx); History of coronary artery stent placement; Simple chronic bronchitis (HCC); Morbid (severe) obesity due to excess calories (HCC); 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; BOOGIE (obstructive sleep apnea) Discharge Disposition: Discharge to a short term hospital for IP 07/01/2024 Orders Only [facility] [address] [place] [phone] Lorena Mueller [facility], DO 07/01/2024 Orders Only [facility] Cardiac Catheterization Lab [id number] [place] [address] Chandni Benton MD V tach ([facility]) (Primary Dx) from Last 3 [...] needed for wheezing or shortness of breath 11/19/19 21 Active tamsulosin (FLOMAX) 0.4 mg extended release capsule Take 1 capsule (0.4 mg total) by mouth 2 (two) times a day Active acetaminophen (TYLENOL) 500 mg tablet Take 1 tablet (500 mg total) by mouth every 6 (six) hours as needed for pain Active ezetimibe (ZETIA) 10 mg tablet Take 1 tablet (10 mg total) by mouth daily Active nitroglycerin (NITROSTAT) 0.[address] 1 tablet (0.4 mg total) under the tongue every 5 (five) minutes as needed for chest pain Active amiodarone (PACERONE) 400 mg tablet Take 1 tablet (400 mg total) by mouth daily 30 tablet 07/05/19 25 Active amiodarone (PACERONE) 200 mg tabletIndicati ons:Life-Threa tening Ventricular Tachycardia Take 1 tablet (200 mg total) by mouth daily 30 tablet 5 08/05/19 25 025 Active Additional Information Patient not taking.Reported on 07/23/2024 metoprolol tartrate (LOPRESSOR) 25 mg immediate release tablet Take 1 tablet (25 mg total) by mouth 2 (two) times a day 180 tablet 3 07/24/19 25 026 Active furosemide (LASIX) 20 mg tabletIndicati ons:Edema, lower extremity Take 1 tablet (20 mg total) by mouth daily 30 tablet 1 07/24/19 25 Active potassium chloride ER (KLOR-CON) 20 mEq CR tabletIndicati ons:Edema, lower extremity Take 1 tablet (20 mEq total) by mouth daily 30 tablet 1 07/24/19 25 Active metoprolol tartrate (LOPRESSOR) 25 mg immediate release tablet Take 1 tablet (25 mg total) by mouth 2 (two) times a day 60 tablet 07/02/19 25 025 Discontinued furosemide (LASIX) 20 mg tablet Take 1 tablet (20 mg total) by mouth daily 30 tablet 07/11/19 25 025 Discontinued(R eorder) potassium chloride ER (KLOR-CON) 20 mEq CR tablet Take 1 tablet (20 mEq total) by mouth daily 30 tablet 07/11/19 25 025 Discontinued(R eorder) Active Problems Problem Noted Date Diagnosed Date V-tach 07/02/2024 COPD (chronic obstructive pulmonary disease) BOOGIE (obstructive sleep apnea) 07/01/2024 Morbid (severe) obesity due to excess calories 0 06/19/2022 Angina pectoris, unspecified 06/19/2022 History of coronary artery stent placement 12/22 Coronary artery disease invo lving pamunkey coronary artery of pamunkey heart without angina pectoris 12/02/2018 Social History Tobacco Use Types Packs/Day Years Used Date Smoking Tobacco: Former Cigarettes 2.5 50 Q uit: 2020 Cigars Smokeless Tobacco: Former Quit: 10/09/2019 Tobacco Cessation:Counseling Given: Not Answered Alcohol Use Standard Drinks/Week Comments No 0 (1 standard drink = 0.6 oz pur e alcohol) [facility] Utilities Answer Date Recorded In the past 12 months has th e electric, gas, oil, or water company threatened to shut off services in your [...] often do you attend chur ch or gnosticist services? More than 4 times per year 07/03/2024 Do you belong to any clubs o r organizations such as sabianism groups, unions, fraternal or athletic groups, or [...] any time in the past 12 m [facility], were you homeless or living in a halfway (including now)? No 07/03/2024 Personal Safety Answer Date Recorded Have you ever been in or are you currently in a harmful physical or emotional relationship or is someone making you feel afraid or unsafe? Denies 07/02/2024 Sex and Gender Information Value Date Recorded Sex Assigned at Not on file Legal Sex Male 2:19 AM [employer] Gender Identity Not on file Sexual Orientation Not on file Last Filed Vital Signs Vital Sign Reading Time Taken Comments Blood Pressure 122/60 07/23/2024 8:51 AM CDT Pulse 56 07/23/2024 8:51 AM CDT Temperature 36.1 C (97 F) 07/03/2024 11:55 AM CDT Respiratory Rate 20 07/03/2024 11:55 AM CDT Oxygen Saturation 96% 07/23/2024 8:51 AM CDT Inhaled Oxygen Concentration - - Weight 118.8 kg (262 lb) 07/23/2024 8:51 AM CDT Height 180.3 cm (5' 11) 07/23/2024 8:51 AM CDT Body Mass Index 36.54 07/23/2024 8:51 AM CDT Plan of Treatment Not on file Medical Devices Implanted Type Area Tankage Supervisor Device Identifier Shelf Expiration Date Model / Serial / Lot House Vascular Defib Cardiac [id number] [place] Implantable 2 Chamber [id number] - [id number] - [id number] Implanted:Qty: 1 on 07/02/2024 by Donald Lehman MD at [facility] ICD House Vascular 12/01/2025 CDDRA 500Q / [id number] / House Vascular Active Fixation Steroid Eluting Latex Free Sterile Right Atrium Ventricle Ultipace 52cm [id number]/52 - [id number] - [id number] Implanted:Qty: 1 on 07/02/2024 by Donald Lehman MD at [facility] Lead Right: Ventricle House [employer] 05/02/2027 [id number]/5 2 / [id number] / [employer] Optisure 8fr 65cm 1 Coil Df4 Connector True Bipolar Optim [id number]/65 - [id number] - [id number] Implanted:Qty: 1 on 07/02/2024 by Donald Lehman MD at [facility] Lead Right: Atria [employer] 06/02/2027 [id number]/6 5 / [id number] / [employer] Device Closure Vascade Od5 Fr Femoral Artery [id number] - [id number] - [id number] Implanted:Qty: 1 on 07/02/2024 by Donald Lehman MD at [facility] [employer] 04/01/2026 700-500DX -05U / [id number] 204A / [id number] [employer] Device Vascular Closure Femoral Artery Bioabsorbable Dual Method Vascade 6-7fr Collagen [id number] - [id number] - [id number] Implanted:Qty: 1 on 07/02/2024 by Donald Lehman MD at [facility] [employer] 04/15/2026 [id number]- 05U / [id number] 11A / [id number] [employer] Device Closure Vascade Od5 Fr Femoral Artery [id number] - [id number] - [id number] Implanted:Qty: 1 on 07/02/2024 by Donald Lehman MD at [facility] [employer] 01/29/2026 700-500DX -05U / [id number] / [id number] Procedures Procedure Name Priority Date/Time Associated Diagnosis Comments POCT LIPID PANEL Routine 07/23/2024 8:58 AM CDT Lipid screening ECG 12-LEAD Routine 07/10/2024 10:32 PM CDT [...] CDT from Last 3 Months Results * (ABNORMAL) POCT lipid panel (07/23/2024 8:58 AM CDT) Cholesterol, POC 100 <200 MG/DL HDL, POC 35(A) >=40 mg/dL Triglycerides, POC 78 <=149 mg/dL LDL Cholesterol POC 49 <=129 mg/dL Chol/HDL Ratio, POC 0 NONE Non-HDL Cholesterol, POC 0 NONE mg/dL Cholesterol Total, POC 100 30 - 199 mg/dL Capillary blood 07/23/2024 8 :58 AM CDT Jennifer Molina NP POINT OF CARE TEST ORDERA BLES Final Result * ECG 12 lead (07/10/2024 10:32 PM CDT) Leigh Ann Cisse NP ECG ORDERABLES Inez l Result * DEVICE CHECK - IN OFFICE [...] done seconds Episodes last 90 days/Comments: AF Floyd less than 1%, there was 1 episode [...] MD LAB BLOOD ORDERABLES Fin al Result [facility] [address] Department [place] [address] * (ABNORMAL) Differential, auto (07/03/2024 5:17 AM CDT) Neutrophil abs 5.70 1.50 - 6.50 K/cumm Imm gran abs 0.03 0.00 - 0.10 K/cumm [facility] Lymphocyte abs 0.47(L) 0.80 - 3.30 K/cumm [facility] Monocyte abs 0.66 0.20 - 0.80 K/cumm [facility] Eosinophil abs 0.21 0.00 - 0.50 K/cumm [facility] Basophil abs 0.02 0.00 - 0.10 K/cumm [facility] Neutrophil pct 80.4 % [facility] Comment: Interpretive Data Percent cell count reference ranges are not reported, since discordance with absolute values may lead to misinterpretation of CBC data. Current Interpretive Data was last revised on 2017. Imm gran pct 0.4 % [facility] Comment: Interpretive Data Percent cell count reference ranges are not reported, since discordance with absolute values may lead to misinterpretation of CBC data. Current Interpretive Data was last revised on 2017. Lymphocyte pct 6.6 % [facility] Comment: Interpretive Data Percent cell count reference ranges are not reported, since discordance with absolute values may lead to misinterpretation of CBC data. Current Interpretive Data was last revised on 2017. Monocyte pct 9.3 % [facility] Comment: Interpretive Data Percent cell count reference ranges are not reported, since discordance with absolute values may lead to misinterpretation of CBC data. Current Interpretive Data was last revised on 2017. Eosinophil pct 3.0 % [facility] Comment: Interpretive Data Percent cell count reference ranges are not reported, since discordance with absolute values may lead to misinterpretation of CBC data. Current Interpretive Data was last revised on 2017. Basophil pct 0.3 % [facility] Comment: Interpretive Data Percent cell count reference ranges are not reported, since discordance with absolute values may lead to misinterpretation of CBC data. Current Interpretive Data was last revised on 2017. Blood 07/03/2024 5:17 AM CDT 07/03/2024 6:05 AM CDT Macho Sweet MD LAB BLOOD ORDERABLES Fin al Result [facility] [address] Department [place] [address] * (ABNORMAL) CBC with auto differential (07/03/2024 5:17 AM CDT) WBC 7.09 3.80 - 9.90 K/cumm Hgb 12.4(L) 13.0 - 17.5 g/dL [facility] Hct 37.9(L) 38.9 - 50.3 % [facility] Plt 217 150 - 400 K/cumm [facility] MPV 10.8 9.1 - 12.3 fL [facility] RBC 4.23(L) 4.30 - 5.80 M/cumm [facility] MCV 89.6 81.3 - 96.4 fL [facility] MCH 29.3 27.1 - 33.3 pg [facility] MCHC 32.7 32.3 - 35.7 g/dL [facility] RDW CV 14.3 11.1 - 14.9 % [facility] RDW SD 46.3 35.7 - 48.1 fL [facility] NRBC abs 0.00 0.00 - 0.01 K/cumm [facility] Blood 07/03/2024 5:17 AM CDT 07/03/2024 6:05 AM CDT Macho Sweet MD LAB BLOOD ORDERABLES Fin al Result Performing Organization Address City/[facility]/ZIP Co de Phone Number [facility] [address] [place] [address] * Magnesium (07/03/2024 5:17 AM CDT) [facility] Magnesium 1.9 1.4 - 2.5 mg/dL Blood 07/03/2024 5:17 AM CDT 07/03/2024 6:06 AM CDT Macho Sweet MD LAB BLOOD ORDERABLES Fin al Result Performing Organization Address [facility] Co de Phone Number [facility] [address] [place] [address] * Basic metabolic panel (07/03/2024 5:17 AM CDT) Pathologist [facility] Sodium 135 135 - 145 mmol/L Potassium, pl 4.3 3.3 - 4.9 mmol/L [facility] Chloride 101 97 - 110 mmol/L [facility] CO2 25 22 - 32 mmol/L [facility] Anion gap 9 2 - 15 mmol/L [facility] BUN 22 6 - 25 mg/dL [facility] Creatinine 1.05 0.80 - 1.30 mg/dL [facility] Glucose 86 70 - 199 mg/dL [facility] Comment: Interpretive Data Fasting glucose >/= 126 [...] 2022. Calcium 8.8 8.5 - 10.3 mg/dL [facility] Blood 07/03/2024 5:17 AM CDT 07/03/2024 6:06 AM CDT us Macho Sweet MD LAB BLOOD ORDERABLES Fin al Result [facility] [address] Department [place] [address] * X-ray chest 2 views (07/03/2024 2:29 [...] Electronically signed by: Chandra Carrasquillo M.D., MPH us Donald Lehman MD IMG XR PROCEDURES Final [...] PROCEDURE(S): Comprehensive electrophysiologic evaluation with attempted induction (42775) Placement of transvenous implantable cardioverter-defibrillator ERP ANALYST: Donald Lehman MD, [facility] MACHINE HAND(S): None. INDICATION(S): Near-syncope, nonsustained ventricular tachycardia ANESTHESIA [...] principles of shared decision-making and utilizing the [employer] ICD CardioSmart Decision Aid. [...] ms which required rescue external cardioversion for scientology of sinus rhythm. All venous sheaths were [...] circulation. Under fluoroscopic guidance utilizing CALDWELL and REINA projections, the right ventricular ICD lead was [...] area in stable condition. CONDUCTION INTERVALS: RR IN QRS QT AH HV 933 206 80 [...] check in 7-10 days. Donald Lehman MD, [facility] [address] [place] [address], [address], [place] [address] us Ying Guaman NP CV ELECTROPHYSIOLOGY PROCS Edited [...] LAB BLOOD ORDERABLES F inal Result [facility] [address] [facility] Department [place] [address] * Differential, auto (07/02/2024 2:27 AM CDT) Neutrophil abs 4.92 1.50 - 6.50 K/cumm Imm gran abs 0.03 0.00 - 0.10 K/cumm [facility] Lymphocyte abs 0.86 0.80 - 3.30 K/cumm [facility] Monocyte abs 0.61 0.20 - 0.80 K/cumm [facility] Eosinophil abs 0.25 0.00 - 0.50 K/cumm [facility] Basophil abs 0.02 0.00 - 0.10 K/cumm [facility] Neutrophil pct 73.6 % [facility] Comment: Interpretive Data Percent cell count reference ranges are not reported, since discordance with absolute values may lead to misinterpretation of CBC data. Current Interpretive Data was last revised on 2017. Imm gran pct 0.4 % [facility] Comment: Interpretive Data Percent cell count reference ranges are not reported, since discordance with absolute values may lead to misinterpretation of CBC data. Current Interpretive Data was last revised on 2017. Lymphocyte pct 12.9 % [facility] Comment: Interpretive Data Percent cell count reference ranges are not reported, since discordance with absolute values may lead to misinterpretation of CBC data. Current Interpretive Data was last revised on 2017. Monocyte pct 9.1 % [facility] Comment: Interpretive Data Percent cell count reference ranges are not reported, since discordance with absolute values may lead to misinterpretation of CBC data. Current Interpretive Data was last revised on 2017. Eosinophil pct 3.7 % [facility] Comment: Interpretive Data Percent cell count reference ranges are not reported, since discordance with absolute values may lead to misinterpretation of CBC data. Current Interpretive Data was last revised on 2017. Basophil pct 0.3 % [facility] Comment: Interpretive Data Percent cell count reference ranges are not reported, since discordance with absolute values may lead to misinterpretation of CBC data. Current Interpretive Data was last revised on 2017. Blood 07/02/2024 2:27 AM CDT 07/02/2024 2:29 AM CDT Kin Boyd MD LAB BLOOD ORDERABLES F inal Result Performing Organization Address [facility] Co de Phone Number [facility] [address] [facility] [place] [address] * (ABNORMAL) CBC with auto differential (07/02/2024 2:27 AM CDT) WBC 6.69 3.80 - 9.90 K/cumm Hgb 12.5(L) 13.0 - 17.5 g/dL [facility] Hct 39.4 38.9 - 50.3 % [facility] Plt 243 150 - 400 K/cumm [facility] MPV 10.2 9.1 - 12.3 fL [facility] RBC 4.41 4.30 - 5.80 M/cumm [facility] MCV 89.3 81.3 - 96.4 fL [facility] MCH 28.3 27.1 - 33.3 pg [facility] MCHC 31.7(L) 32.3 - 35.7 g/dL [facility] RDW CV 14.3 11.1 - 14.9 % [facility] RDW SD 47.5 35.7 - 48.1 fL [facility] NRBC abs 0.00 0.00 - 0.01 K/cumm [facility] Blood 07/02/2024 2:27 AM CDT 07/02/2024 2:29 AM CDT Kin Boyd MD LAB BLOOD ORDERABLES F inal Result Performing Organization Address City/[facility]/ZIP Co de Phone Number [facility] [address] [address] [place] [address] * Magnesium (07/02/2024 2:27 AM CDT) Pathologist [facility] Magnesium 2.3 1.4 - 2.5 mg/dL Blood 07/02/2024 2:27 AM CDT 07/02/2024 2:29 AM CDT Kin Boyd MD LAB BLOOD ORDERABLES F inal Result Performing Organization Address City/[facility]/ZIP Co de Phone Number [facility] [address] [address] [place] [address] * (ABNORMAL) Basic metabolic panel (07/02/2024 2:27 AM CDT) Sodium 137 135 - 145 mmol/L Potassium, pl 4.2 3.3 - 4.9 mmol/L [facility] Chloride 101 97 - 110 mmol/L [facility] CO2 25 22 - 32 mmol/L [facility] Anion gap 11 2 - 15 mmol/L [facility] BUN 33(H) 6 - 25 mg/dL [facility] Creatinine 1.43(H) 0.80 - 1.30 mg/dL [facility] Glucose 99 70 - 199 mg/dL [facility] Comment: Interpretive Data Fasting glucose >/= 126 [...] 2022. Calcium 9.4 8.5 - 10.3 mg/dL [facility] Blood 07/02/2024 2:27 AM CDT 07/02/2024 2:29 AM CDT Kin Boyd MD LAB BLOOD ORDERABLES F inal Result [facility] [address] [address] [place] [address] * ECG 12 lead (07/01/2024 1:45 PM CDT) 07/01/2024 1:45 PM CDT Narrative [facility] - 07/01/2024 4:00 PM CDT Vent Rate: 71 bpm RR Interval: 837 msec IN Interval: 206 msec QRS Duration: 87 msec QT Interval: 397 msec QTC Interval: 420 msec P-R-T Register: 52 - 27 - 34 degrees IMPRESSION: SINUS RHYTHM WITH FREQUENT VENTRICULAR PREMATURE COMPLEXES LOW QRS VOLTAGE IN PRECORDIAL LEADS [QRS DEFLECTION < 1.0 mV IN CHEST LEADS] ABNORMAL RHYTHM ECG Electronically Signed By: Dr. Bharathi Aguilar [facility] Tosha Jin NP ECG ORDERABLES Final Result Performing Organization Address [facility] de Phone Number [facility] * ECG 12 lead (07/01/2024 8:39 AM CDT) 07/01/2024 8:39 AM CDT Narrative [facility] - 07/01/2024 12:46 PM CDT Vent Rate: 65 bpm RR Interval: 922 msec IN Interval: 202 msec QRS Duration: 86 msec QT Interval: 392 msec QTC Interval: 403 msec P-R-T Register: 42 - 17 - 29 degrees IMPRESSION: SINUS RHYTHM NORMAL ECG Electronically Signed By: Dr. Bharathi Aguilar [facility] Chandni Benton MD ECG ORDERABLES Final Resul t Performing Organization Address [facility] Phone Number [facility] [employer] [facility] * eGFR (07/01/2024 6:19 AM CDT) eGFR [...] Inclusion of Race in Diagnosing Kidney Disease, EVAN 2020). The CKD-EPI equation should not be used for patients with unstable renal function and has not been validated in children and those over 70. Current interpretive data was last reviewed 2021. Blood 07/01/2024 6:19 AM CDT 07/01/2024 6:28 AM CDT Kin Boyd MD LAB BLOOD ORDERABLES F inal Result [facility] [address] [address] Department [place] [address] * Differential, auto (07/01/2024 6:19 AM CDT) Neutrophil abs 4.84 1.50 - 6.50 K/cumm Imm gran abs 0.02 0.00 - 0.10 K/cumm [facility] Lymphocyte abs 0.89 0.80 - 3.30 K/cumm [facility] Monocyte abs 0.70 0.20 - 0.80 K/cumm [facility] Eosinophil abs 0.21 0.00 - 0.50 K/cumm [facility] Basophil abs 0.03 0.00 - 0.10 K/cumm [facility] Neutrophil pct 72.4 % [facility] Comment: Interpretive Data Percent cell count reference ranges are not reported, since discordance with absolute values may lead to misinterpretation of CBC data. Current Interpretive Data was last revised on 2017. Imm gran pct 0.3 % [facility] Comment: Interpretive Data Percent cell count reference ranges are not reported, since discordance with absolute values may lead to misinterpretation of CBC data. Current Interpretive Data was last revised on 2017. Lymphocyte pct 13.3 % [facility] Comment: Interpretive Data Percent cell count reference ranges are not reported, since discordance with absolute values may lead to misinterpretation of CBC data. Current Interpretive Data was last revised on 2017. Monocyte pct 10.5 % [facility] Comment: Interpretive Data Percent cell count reference ranges are not reported, since discordance with absolute values may lead to misinterpretation of CBC data. Current Interpretive Data was last revised on 2017. Eosinophil pct 3.1 % [facility] Comment: Interpretive Data Percent cell count reference ranges are not reported, since discordance with absolute values may lead to misinterpretation of CBC data. Current Interpretive Data was last revised on 2017. Basophil pct 0.4 % [facility] Comment: Interpretive Data Percent cell count reference ranges are not reported, since discordance with absolute values may lead to misinterpretation of CBC data. Current Interpretive Data was last revised on 2017. Blood 07/01/2024 6:19 AM CDT 07/01/2024 6:28 AM CDT Kin Boyd MD LAB BLOOD ORDERABLES F inal Result [facility] [address] [address] Department [place] [address] * (ABNORMAL) CBC with auto differential (07/01/2024 6:19 AM CDT) WBC 6.69 3.80 - 9.90 K/cumm Hgb 12.4(L) 13.0 - 17.5 g/dL [facility] Hct 37.8(L) 38.9 - 50.3 % [facility] Plt 213 150 - 400 K/cumm [facility] MPV 10.1 9.1 - 12.3 fL [facility] RBC 4.27(L) 4.30 - 5.80 M/cumm [facility] MCV 88.5 81.3 - 96.4 fL [facility] MCH 29.0 27.1 - 33.3 pg [facility] MCHC 32.8 32.3 - 35.7 g/dL [facility] RDW CV 14.6 11.1 - 14.9 % [facility] RDW SD 46.9 35.7 - 48.1 fL [facility] NRBC abs 0.00 0.00 - 0.01 K/cumm [facility] Blood 07/01/2024 6:19 AM CDT 07/01/2024 6:28 AM CDT Kin Boyd MD LAB BLOOD ORDERABLES F inal Result [facility] [address] [address] [facility] [address] [place], [place] [id number] * Magnesium (07/01/2024 6:19 AM CDT) Magnesium 1.9 1.4 - 2.5 mg/dL Blood 07/01/2024 6:19 AM CDT 07/01/2024 6:28 AM CDT Kin Boyd MD LAB BLOOD ORDERABLES F inal Result Performing Organization Address [facility] de Phone Number [facility] [address] [address] [employer] [place], [place] [phone] * (ABNORMAL) Hepatic function panel (07/01/2024 6:19 [...] ORDERABLES F inal Result Performing Organization Address City/[facility]/ZIP Co de Phone Number [facility] [address] [address] [facility] [place] [address] * (ABNORMAL) Basic metabolic panel (07/01/2024 6:19 AM CDT) Sodium 136 135 - 145 mmol/L Potassium, pl 4.0 3.3 - 4.9 mmol/L [facility] Chloride 101 97 - 110 mmol/L [facility] CO2 24 22 - 32 mmol/L [facility] Anion gap 11 2 - 15 mmol/L [facility] BUN 26(H) 6 - 25 mg/dL [facility] Creatinine 1.15 0.80 - 1.30 mg/dL [facility] Glucose 105 70 - 199 mg/dL [facility] Comment: Interpretive Data Fasting glucose >/= 126 [...] 2022. Calcium 9.2 8.5 - 10.3 mg/dL [facility] Blood 07/01/2024 6:19 AM CDT 07/01/2024 6:28 AM CDT Kin Boyd MD LAB BLOOD ORDERABLES F inal Result M[facility]AY [address] [address] Department [place] [address] from Last 3 Months Insurance MEDICARE [facility] Address: [id number] [place] [address] [facility] MEDICARE [facility] MEDICARE [facility] Advance Directives For more information, please contact: [phone] * Full Code (Latest Code Status on [...] specifically selected below: No intubation Care Teams Ball Racker Relationship Specialty Start Date End Date Cole Petty MD [address] [place] [address] PCP - General 07/01/12
--- OUTSIDE RECORDS SUMMARY | 2024-08-21 06:45 | XMS_ITS | Data Portability ---
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 [email or web address] Not available 05/22/2022 15:03:46 08/30/2022 08/30/2022 Patient [...] risks benefits limitations and alternatives in detail. [email or web address] Not available 08/30/2022 10:26:07 11/08/2022 11/08/2022 Patient returns status post carpal tunnel release left cubital tunnel release left. Pain and numbness are resolving. He has looks like he has had a very nice result. His incisions look clean. Sutures out today. Follow up on an as-needed basis. He can get back to activity slowly. I told him not to overdo it. [email or web address] Not available 11/08/2022 09:35:04 Plan of Treatment Reminders Order Date Submit Date Provider Last Modified By Organization Details Last Modified Time Details Appointments None recorded. Lab None recorded. Referral None recorded. Procedures injection/a spiration joint/bursa (PROC) - in office procedure, administere d by provider 2022 023 In-Office Order, Internal Use Only DO Not Attach Compendium DO Not Attach Compendium, Do Not Delete/merge, [address] 14:55:12 Surgeries None recorded. Imaging None recorded. Medication Orders Kenalog 10 mg/mL suspension for injection 2022 023 [address] [id number], [address] [facility], [place], [place], [id number], 14:57:54 ropivacaine (PF) 5 mg/mL (0.5 %) injection solution 2022 023 [email or web address] Not available 16:08:51 Patient TargetsNo targets recorded. Patient InstructionsNo instructions recorded. Reason for Referral None Reported. Results Created Date Observation Date Name Description Value Unit Range Abnormal Flag Note LastModifiedBy Organization Detail LastModifiedTime 03/13/19 23 XR, shoul isabella No observ ation record ed. MIGRATION. [facility] [address], [place], [address], 05/03/2022 01:50:34 04/26/19 23 04/26/2022 elect romyo gram + nerve condu ction study No observ ation record ed. [id number] [facility] [address], [place], [address], 05/03/2022 01:50:34 Result Notes None recorded. Problems Name Problem SNOMED Code Status Onset Date Resolution Date Notes Provider Name and Address Organization Details Recorded Time Pain of left shoulder joint 4441044044945 9109 Active 2022 Not Available [facility] 3 01:49:44 Partial thickness rotator cuff tear 212477232 Active 2022 Not Available [facility] 3 01:49:44 Full thickness rotator cuff tear 558895831 Active 2022 Not Available [facility] 3 01:49:45 Full thickness rotator cuff tear 373253773 Active 2022 Not Available [facility] 3 01:49:45 Carpal tunnel syndrome of left wrist 9797021832615 02 Active 2022 Not Available [facility] 3 01:49:45 Bilateral carpal tunnel syndrome 7138528910548 9101 Active 2022 Jaclyn Stapleton RMA null, [place] [facility] 3 14:38:36 Carpal tunnel syndrome of right wrist 4688102103653 08 Active 2022 Jaclyn Stapleton RMA null, [place] [facility] 3 14:38:54 Problem Notes None recorded. Procedures Surgical History Date Name Laterality Status Provider Name and Address Organization Details Recorded Time 3 Ortho - Cortisone Injection completed Christo Edmond MD [address] [place] [address], [address], [place] [employer] [facility] 05/22/2022 15:01:17 Imaging Results None recorded. Procedure Notes None recorded. Medical Equipment None Reported. Allergies Allergen ID Allergen Name Allergen Category Reaction Reaction Severity Criticality Documentation Date Start Date Code Code System Note Provider Name and Address Organization Details Recorded Time 15869 Demerol medicatio n Not available Not available Not available 05/03/2022 07248 1 RxNorm Not Available [facility] 3 01:50:28 Medications Name Sig Start Date Stop [...] suspension for injection in office 2022 active [facility]: 0003- [phone]- 20 Not Available Not Available [...] %) injection solution in office 2022 active [facility] 70365 -064- 01 Not Available Not Available Not Available Vitals Date Recorded Body mass index (BMI) Body height Body weight Provider Name and Address Organization Details Last Updated DateTime 04/10/2022 36.7 kg/m2 177.8 cm 165491.65 g Not Available [employer] 05/03/2022 01:49:29 Date Recorded Body height Provider Name an d Address Organization Details Last Updated DateTime 05/22/2022 177.8 cm GORDON Abel [facility] [employer] [facility] 05/22/2022 14:37:23 Date Recorded Body height Provider Name an d Address Organization Details Last Updated DateTime 08/30/2022 177.8 cm Sushma Ricketts [facility] [employer] [facility] 08/30/2022 10:05:33 Date Recorded Body height Body mass index (BMI) Body weight Provider Name and Address Organization Details Last Updated DateTime 11/08/2022 180.34 cm 36.8 kg/m2 721299.39 anish Pike CNA [place] [facility] 11/08/2022 09:22:57 Social History None recorded. Functional Status None recorded. Mental Status None recorded. Family History Relationship Description Onset Age of this Age Resolved Age Notes LastModified by Organization Details LastModified Time Father Heart disease [email or web address] [id number] Not available 05/03/2022 01:49:17 Brother Family history of malignant neoplasm [id number] [id number] Not available 05/03/2022 01:49:17 Medical History No medical history recorded. Past Encounters Encounter ID Performer Location Encounter Start Date Encounter Closed Date Diagnosis/Indication Diagnosis SNOMED-CT Code Diagnosis ICD10 Code Diagnosis Note [id number] Christo Edmond MD [facility] [address] [place] [address] 03/13/2022 00:00:00 03/13/2022 15:35:06 [id number] Christo Edmond MD [facility] [address] [place] [address] 04/10/2022 00:00:00 04/10/2022 14:08:16 [id number] Christo Edmond MD [facility] [address] [place] [address] 05/22/2022 14:31:14 05/22/2022 15:25:37 Carpal tunnel syndrome of left wrist 8792889372 21919 G56.02 Bilateral carpal tunnel syndrome 2729169429 1750079 G56.03 Carpal waqar tabitha syndrome of right wrist 3745580463 98845 G56.01 Partial th ickness rotator cuff tear 303097609 M75.102 [id number] Christo Edmond MD [facility] [address] [place] [address] 08/30/2022 10:02:29 08/30/2022 11:32:18 Bilateral carpal tunnel syndrome 5546621491 7049040 G56.03 Pain of le ft shoulder joint 9546854119 1953282 M25.512 Partial th ickness rotator cuff tear 693284530 M75.102 Full thick ness rotator cuff tear 861869529 M75.713 [id number] Christo Edmond MD [facility] [address] [place] [address] 11/08/2022 09:20:38 11/08/2022 09:59:06 Bilateral carpal tunnel syndrome 2918398038 8530403 G56.03 Pain of le ft shoulder joint 3062007314 8249211 M25.512 Partial th ickness rotator cuff tear 238602656 M75.102 Full thick ness rotator cuff tear 152610864 M75.121 Postoperative visit 9668 05699 Z27 Health Concerns Section Related Observation LastModified by Organization Detai ls LastModified Time None Recorded Concern Status LastModified by Organization Details LastModified Time None Recorded Advance Directives Directive None Recorded Payers Insurance Date Sequence Insurance Name Policy Number Policy Duckworth Covered Member ID Duckworth Member ID Guarantor Name 11/27/2022 1 [place] [id number] [place] 06/03/2023 2 [place] Chin Heller Shanique [id number] [place] 06/03/2023 [employer] - DMEPOS ASSIGNED (MEDICARE DME REGION B) [place] [id number] [place] Notes Date Note Type Note [...] change in bowel/bladder habits;weakness;numbn ess;swelling;warmth Not Available [employer] 03/13/2022 15:35:06 04/10/2022 text/html ShoulderReported bypatient.Hand Dominance:right [...] change in bowel/bladder habits;weakness;numbn ess;swelling;warmth Not Available [employer] 04/10/2022 14:08:16 05/22/2022 text/html Patient returns bilateral [...] particularly with activity overhead. Christo Edmond MD [address], [place], [address], [employer] 05/22/2022 15:04:06 08/30/2022 text/html Patient returns bilateral [...] particularly with activity overhead. Christo Edmond MD [address], [place], [address], [employer] 08/30/2022 10:26:30 11/08/2022 text/html Patient returns status post cubital carpal tunnel release on the left. Numbness and tingling are resolving he looks great. He is comfortable and he thinks the problem has been addressed. Christo Edmond MD [address], [place], [address], [employer] [facility] [employer] 11/08/2022 09:35:21
--- OUTSIDE RECORDS SUMMARY | 2024-08-21 06:46 | XMS_ITS | Clinical Summary ---
Author Organization [facility] [address] Address [address] [place] [address] Care Team Providers Care Relocation Director Name Role Phone Cole Petty MD [...] placement 12/22 Coronary artery disease invo lving [place] coronary artery of [place] heart without angina pectoris 12/02/2018 Encounters Date Type Department Care Team Description 07/23/2024 9:00 AM CDT Office Visit [facility] Cardiology [address] [facility] [address] [place] [address] Jennifer Molina NP Edema, lower extremity; V tach (HCC); Automatic implantable cardiac defibrillator in situ; Coronary artery disease involving [place] coronary artery of [place] heart without angina pectoris; Lipid screening; Essential hypertension 07/10/2024 Telephone [facility] [address] [place] [address] [place] [phone] Leigh Ann Cisse NP 07/09/2024 1:15 PM CDT Office Visit [facility] [address] [place] [address] [place] [phone] Leigh Ann Cisse NP Cardiac arrhythmia, unspecified cardiac arrhythmia type (Primary Dx); Cardiac pacemaker in situ 07/09/2024 1:00 PM CDT Ancillary Procedure [facility] [address] [place] [address] [place] [phone] Automatic implantable cardiac defibrillator in situ (Primary Dx); Cardiac pacemaker in situ 07/09/2024 Telephone [facility] Cardiology [address] [address] [address] [place] [address] Bam Singh MD 07/09/2024 Orders Only [facility] [address] [place] [address] [place] [phone] Donald Lehman MD V tach (HCC) (Primary Dx) 07/03/2024 Telephone [facility] Cardiology [address] [facility] [address] [place] [phone] Tosha Jin NP 07/02/2024 3:32 PM CDT Anesthesia Event [facility] Electrophysiology Lab [address] [place] [phone] Ashley Maldonado MD Malik, Asad S., MD 07/02/2024 3:30 PM CDT - 07/02/2024 5:05 PM CDT Surgery [facility] Electrophysiology Lab [address] [place] [phone] Donald Lehman MD ELECTROPHYSIOLOGIC EVALUATION (EPS) WITH INDUCTION OR ATTEMPTED INDUCTION OF ARRHYTHMIA [id number] 07/02/2024 12:44 PM CDT - 07/03/2024 2:13 PM CDT Hospital Encounter [address] [phone] Lorena Mueller, Macho Naidu MD Halasa, Tariq, MD V-tach (HCC) (Primary Dx); V tach (HCC); Coronary artery disease involving [place] coronary artery of [place] heart without angina pectoris Discharge Disposition: Discharge to home or self care 07/02/2024 12:12 PM CDT - 07/02/2024 11:59 PM CDT Hospital Encounter [facility] [id number] [place] [phone] Emergency, Room R Discharge Disposition: Discharge to home or self care 07/02/2024 Orders Only [facility] Hospitalists [address] [place] [phone] Lorena Mueller, DO 07/01/2024 Orders Only [address] [phone] Lorena Mueller, DO 07/01/2024 Orders Only [facility] Cardiac Catheterization Lab [id number] [place], [place] [phone] Chandni Benton MD V tach (HCC) (Primary Dx) 06/30/2024 10:50 PM CDT - 07/02/2024 12:10 PM CDT Hospital Encounter [facility] [address] [place] [address] Brian Dai DO Khoukaz, Ghassan Hikmat, MD [place], Nicholas Peter, MD V tach (HCC) (Primary Dx); History of coronary artery stent placement; Simple chronic bronchitis (HCC); Morbid (severe) obesity due to excess calories (HCC); Coronary artery disease involving [place] coronary artery of [place] heart without angina pectoris; BOOGIE (obstructive sleep [...] WITH INDUCTION OR ATTEMPTED INDUCTION OF ARRHYTHMIA [id number]; Surgeon: Donald Lehman MD; Location: [facility] EP LAB; Service: Cardiovascular; Laterality: Left; Medical devices from this surgery are in the Medical Devices section. CARDIAC CATHETERIZATION 07/02/2024 N/A Procedure: ULTRASOUND GUIDANCE FOR VASCULAR ACCESS S&I [id number]; Surgeon: Donald Lehman MD; Location: [facility] EP LAB; Service: Cardiovascular; Laterality: N/A; Medical devices from this surgery are in the Medical Devices section. CARDIAC ELECTROPHYSIOLOGY PROCEDURE 07/02/2024 N/A Procedure: IMPLANT DUAL CHAMBER PPM SYSTEM W/ DUAL ELECTRODES (GEN AND LEADS, NEW OR REPLACE) [id number]; Surgeon: Donald Lehman MD; Location: [facility] EP LAB; Service: Cardiovascular; Laterality: N/A; Medical devices from this surgery are in the Medical Devices section. FRACTURE SURGERY 1997 HERNIA REPAIR 2005 Medical History Medical History Date Comments Coronary artery disease Hypertension Hyperlipidemia Ischemic cardiomyopathy IA (myocardial infarction) (HCC) COPD (chronic obstructive pulmonary disease) (HC C) Sleep apnea Heart disease 1995 Benign prostatic hyperplasia 2019 Chronic bronchitis (HCC) 2019 Kidney stone 2007 Family History Medical History Relation Name Comments Arthritis Brother 1 Cancer Brother 1 Heart attack Brother 3 Myocardial Infa rction; Coronary artery disease Brother 4 Martinez nary Artery Bypass Graft; Relation Name Status Comments Brother 1 Brother 2 Alive Brother 3 Brother 4 Social History Tobacco Use Types Packs/Day Years Used Date Smoking Tobacco: Former Cigarettes 2.5 50 Q uit: 2020 Cigars Smokeless Tobacco: Former Quit: 10/09/2019 Tobacco Cessation:Counseling Given: Not Answered Alcohol Use Standard Drinks/Week Comments No 0 (1 standard drink = 0.6 oz pur e alcohol) [facility] Utilities Answer Date Recorded In the past 12 months has [employer], gas, oil, or water [employer] threatened to shut off services in your [...] 07/03/2024 How often do you attend chur or quaker services? More than 4 times per year 07/03/2024 Do you belong to any clubs o r organizations such as gnosticism groups, unions, fraternal or athletic groups, or [...] any time in the past 12 m [facility], were you homeless or living in a correction (including now)? No 07/03/2024 Personal Safety Answer Date Recorded Have you ever been in or are you currently in a harmful physical or emotional relationship or is someone making you feel afraid or unsafe? 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 Gender Identity Not on file Sexual Orientation [...] 07/23/2024 8:51 AM CDT Plan of Treatment Health Maintenance [...] 12/08/19 20 Medical Devices Implanted Type Area Grounds And Nursery Specialist Device Identifier Shelf Expiration Date Model / Serial / Lot House Vascular Defib Cardiac [id number] [place] Implantable 2 Chamber [id number] - [id number] - [id number] Implanted:Qty: 1 on 07/02/2024 by Donald Lehman MD at [facility] ICD House Vascular 12/01/2025 CDDRA 500Q / [id number] / House Vascular Active Fixation Steroid Eluting Latex Free Sterile Right Atrium Ventricle Ultipace 52cm Ihg2427/52 - [id number] - [id number] Implanted:Qty: 1 on 07/02/2024 by Donald Lehman MD at [facility] Lead Right: Ventricle House Vascular 05/02/2027 [id number]/5 2 / [id number] / [employer] Optisure 8fr 65cm 1 Coil Df4 Connector True Bipolar Optim Ume604h/65 - [id number] - [id number] Implanted:Qty: 1 on 07/02/2024 by Donald Lehman MD at [facility] Lead Right: [employer] 06/02/2027 [id number]/6 5 / [id number] / [employer] Device Closure Vascade Od5 Fr Femoral Artery [id number] - [id number] - [id number] Implanted:Qty: 1 on 07/02/2024 by Donald Lehman MD at [facility] [employer] 04/01/2026 700-500DX -05U / [id number] / [id number] [employer] Device Vascular Closure Femoral Artery Bioabsorbable Dual Method Vascade 6-7fr Collagen [id number] - [id number] - [id number] Implanted:Qty: 1 on 07/02/2024 by Donald Lehman MD at [facility] [employer] 04/15/2026 700-580I- 05U / [id number] 11A / [id number] [employer] Device Closure Vascade Od5 Fr Femoral Artery [id number] - [id number] - [id number] Implanted:Qty: 1 on 07/02/2024 by Donald Lehman MD at [facility] [employer] 01/29/2026 700-500DX -05U / [id number] / [id number] Procedures Procedure Name Priority Date/Time Associated Diagnosis [...] done seconds Episodes last 90 days/Comments: AF [place] less than 1%, there was 1 episode [...] minimal bruising in the area. Liban Smith, RN Leigh Ann Cisse NP CV CARDIAC SERVICES [...] MD LAB BLOOD ORDERABLES Fin al Result [facility] [address] Department [place] [address] * (ABNORMAL) Differential, auto (07/03/2024 5:17 AM CDT) Neutrophil abs 5.70 1.50 - 6.50 K/cumm Imm gran abs 0.03 0.00 - 0.10 K/cumm [facility] Lymphocyte abs 0.47(L) 0.80 - 3.30 K/cumm [facility] Monocyte abs 0.66 0.20 - 0.80 K/cumm [facility] Eosinophil abs 0.21 0.00 - 0.50 K/cumm [facility] Basophil abs 0.02 0.00 - 0.10 K/cumm [facility] Neutrophil pct 80.4 % [facility] Comment: Interpretive Data Percent cell count reference ranges are not reported, since discordance with absolute values may lead to misinterpretation of CBC data. Current Interpretive Data was last revised on 2017. Imm gran pct 0.4 % [facility] Comment: Interpretive Data Percent cell count reference ranges are not reported, since discordance with absolute values may lead to misinterpretation of CBC data. Current Interpretive Data was last revised on 2017. Lymphocyte pct 6.6 % [facility] Comment: Interpretive Data Percent cell count reference ranges are not reported, since discordance with absolute values may lead to misinterpretation of CBC data. Current Interpretive Data was last revised on 2017. Monocyte pct 9.3 % [facility] Comment: Interpretive Data Percent cell count reference ranges are not reported, since discordance with absolute values may lead to misinterpretation of CBC data. Current Interpretive Data was last revised on 2017. Eosinophil pct 3.0 % [facility] Comment: Interpretive Data Percent cell count reference ranges are not reported, since discordance with absolute values may lead to misinterpretation of CBC data. Current Interpretive Data was last revised on 2017. Basophil pct 0.3 % [facility] Comment: Interpretive Data Percent cell count reference ranges are not reported, since discordance with absolute values may lead to misinterpretation of CBC data. Current Interpretive Data was last revised on 2017. Blood 07/03/2024 5:17 AM CDT 07/03/2024 6:05 AM CDT us Macho Sweet MD LAB BLOOD ORDERABLES Fin al Result [facility] [address] Department [place] [address] * (ABNORMAL) CBC with auto differential (07/03/2024 5:17 AM CDT) WBC 7.09 3.80 - 9.90 K/cumm Hgb 12.4(L) 13.0 - 17.5 g/dL [facility] Hct 37.9(L) 38.9 - 50.3 % [facility] Plt 217 150 - 400 K/cumm [facility] MPV 10.8 9.1 - 12.3 fL [facility] RBC 4.23(L) 4.30 - 5.80 M/cumm [facility] MCV 89.6 81.3 - 96.4 fL [facility] MCH 29.3 27.1 - 33.3 pg [facility] MCHC 32.7 32.3 - 35.7 g/dL [facility] RDW CV 14.3 11.1 - 14.9 % [facility] RDW SD 46.3 35.7 - 48.1 fL [facility] NRBC abs 0.00 0.00 - 0.01 K/cumm [facility] Blood 07/03/2024 5:17 AM CDT 07/03/2024 6:05 AM CDT Macho Sweet MD LAB BLOOD ORDERABLES Fin al Result Performing Organization Address [facility] Co de Phone Number [facility] [address] [place] [address] * Magnesium (07/03/2024 5:17 AM CDT) Pathologist [facility] Magnesium 1.9 1.4 - 2.5 mg/dL Blood 07/03/2024 5:17 AM CDT 07/03/2024 6:06 AM CDT Macho Sweet MD LAB BLOOD ORDERABLES Fin al Result Performing Organization Address City/[facility] Co de Phone Number [facility] [address] [facility] [place] [address] * Basic metabolic panel (07/03/2024 5:17 AM CDT) Sodium 135 135 - 145 mmol/L Potassium, pl 4.3 3.3 - 4.9 mmol/L [facility] Chloride 101 97 - 110 mmol/L [facility] CO2 25 22 - 32 mmol/L [facility] Anion gap 9 2 - 15 mmol/L [facility] BUN 22 6 - 25 mg/dL [facility] Creatinine 1.05 0.80 - 1.30 mg/dL [facility] Glucose 86 70 - 199 mg/dL [facility] Comment: Interpretive Data Fasting glucose [...] 2022. Calcium 8.8 8.5 - 10.3 mg/dL [facility] Blood 07/03/2024 5:17 AM CDT 07/03/2024 6:06 AM CDT us Macho Sweet MD LAB BLOOD ORDERABLES [facility] al Result [facility] [address] Department [place] [address] * X-ray chest 2 views (07/03/2024 2:29 [...] PROCEDURE(S): Comprehensive electrophysiologic evaluation with attempted induction (34537) Placement of transvenous implantable cardioverter-defibrillator MANAGER TRAINING AND DEVELOPMENT: Donald Lehman MD, FACC RETAIL TEAM LEADER(S): None. INDICATION(S): Near-syncope, nonsustained ventricular tachycardia ANESTHESIA [...] principles of shared decision-making and utilizing the [employer] ICD CardioSmart Decision Aid. [...] ms which required rescue external cardioversion for anabaptism of sinus rhythm. All venous sheaths were [...] circulation. Under fluoroscopic guidance utilizing CALDWELL and HUNGARIAN projections, the right ventricular ICD lead was [...] area in stable condition. CONDUCTION INTERVALS: RR MA QRS QT AH HV 933 206 80 [...] check in 7-10 days. Donald Lehman MD, [facility] [address] [place] [address], [address], [place] [address] us Ying Guaman METAL ENGRAVER CV ELECTROPHYSIOLOGY PROCS Edited Result - Final [...] MD LAB BLOOD ORDERABLES F inal Result [facility] [address] Department [place] [address] * Differential, auto (07/02/2024 2:27 AM CDT) Neutrophil abs 4.92 1.50 - 6.50 K/cumm Imm gran abs 0.03 0.00 - 0.10 K/cumm [facility] Lymphocyte abs 0.86 0.80 - 3.30 K/cumm [facility] Monocyte abs 0.61 0.20 - 0.80 K/cumm [facility] Eosinophil abs 0.25 0.00 - 0.50 K/cumm [facility] Basophil abs 0.02 0.00 - 0.10 K/cumm [facility] Neutrophil pct 73.6 % [facility] Comment: Interpretive Data Percent cell count reference ranges are not reported, since discordance with absolute values may lead to misinterpretation of CBC data. Current Interpretive Data was last revised on 2017. Imm gran pct 0.4 % [facility] Comment: Interpretive Data Percent cell count reference ranges are not reported, since discordance with absolute values may lead to misinterpretation of CBC data. Current Interpretive Data was last revised on 2017. Lymphocyte pct 12.9 % [facility] Comment: Interpretive Data Percent cell count reference ranges are not reported, since discordance with absolute values may lead to misinterpretation of CBC data. Current Interpretive Data was last revised on 2017. Monocyte pct 9.1 % [facility] Comment: Interpretive Data Percent cell count reference ranges are not reported, since discordance with absolute values may lead to misinterpretation of CBC data. Current Interpretive Data was last revised on 2017. Eosinophil pct 3.7 % [facility] Comment: Interpretive Data Percent cell count reference ranges are not reported, since discordance with absolute values may lead to misinterpretation of CBC data. Current Interpretive Data was last revised on 2017. Basophil pct 0.3 % [facility] Comment: Interpretive Data Percent cell count reference ranges are not reported, since discordance with absolute values may lead to misinterpretation of CBC data. Current Interpretive Data was last revised on 2017. Blood 07/02/2024 2:27 AM CDT 07/02/2024 2:29 AM CDT Kin Boyd MD LAB BLOOD ORDERABLES F inal Result Performing Organization Address City/[facility]/ZIP Co de Phone Number [facility] [address] Department [place] [address] * (ABNORMAL) CBC with auto differential (07/02/2024 2:27 AM CDT) WBC 6.69 3.80 - 9.90 K/cumm Hgb 12.5(L) 13.0 - 17.5 g/dL [facility] Hct 39.4 38.9 - 50.3 % [facility] Plt 243 150 - 400 K/cumm [facility] MPV 10.2 9.1 - 12.3 fL [facility] RBC 4.41 4.30 - 5.80 M/cumm [facility] MCV 89.3 81.3 - 96.4 fL [facility] MCH 28.3 27.1 - 33.3 pg [facility] MCHC 31.7(L) 32.3 - 35.7 g/dL [facility] RDW CV 14.3 11.1 - 14.9 % [facility] RDW SD 47.5 35.7 - 48.1 fL [facility] NRBC abs 0.00 0.00 - 0.01 K/cumm [facility] Blood 07/02/2024 2:27 AM CDT 07/02/2024 2:29 AM CDT Kin Boyd MD LAB BLOOD ORDERABLES F inal Result Performing Organization Address City/[facility]/ZIP Co de Phone Number [facility] [address] Department [employer] [place], [place] [id number] * Magnesium (07/02/2024 2:27 AM CDT) Magnesium 2.3 1.4 - 2.5 mg/dL Blood 07/02/2024 2:27 AM CDT 07/02/2024 2:29 AM CDT Kin Boyd MD LAB BLOOD ORDERABLES F inal Result [facility] [address] Department [place] [address] * (ABNORMAL) Basic metabolic panel (07/02/2024 2:27 AM CDT) [facility] Sodium 137 135 - 145 mmol/L Potassium, pl 4.2 3.3 - 4.9 mmol/L [facility] Chloride 101 97 - 110 mmol/L [facility] CO2 25 22 - 32 mmol/L [facility] Anion gap 11 2 - 15 mmol/L [facility] BUN 33(H) 6 - 25 mg/dL [facility] Creatinine 1.43(H) 0.80 - 1.30 mg/dL [facility] Glucose 99 70 - 199 mg/dL [facility] Comment: Interpretive Data Fasting glucose >/= 126 [...] 2022. Calcium 9.4 8.5 - 10.3 mg/dL [facility] Blood 07/02/2024 2:27 AM CDT 07/02/2024 2:29 AM CDT Kin Boyd MD LAB BLOOD ORDERABLES F inal Result Performing Organization Address City/[facility]/ZIP Co de Phone Number [facility] [address] Department [place] [address] * ECG 12 lead (07/01/2024 1:45 PM CDT) 07/01/2024 1:45 PM CDT Narrative [facility] - 07/01/2024 4:00 PM CDT Vent Rate: 71 bpm RR Interval: 837 msec MA Interval: 206 msec QRS Duration: 87 msec QT Interval: 397 msec QTC Interval: 420 msec P-R-T [place]: 52 - 27 - 34 degrees IMPRESSION: SINUS RHYTHM WITH FREQUENT VENTRICULAR PREMATURE COMPLEXES LOW QRS VOLTAGE IN PRECORDIAL LEADS [QRS DEFLECTION < 1.0 mV IN CHEST LEADS] ABNORMAL RHYTHM ECG Electronically Signed By: Dr. Bharathi Aguilar [facility] us Tosha Jin METAL ENGRAVER ECG ORDERABLES Final Result Performing Organization Address [facility] de Phone Number [facility] * ECG 12 lead (07/01/2024 8:39 AM CDT) 07/01/2024 8:39 AM CDT Narrative [facility] - 07/01/2024 12:46 PM CDT Vent Rate: 65 bpm RR Interval: 922 msec MA Interval: 202 msec QRS Duration: 86 msec QT Interval: 392 msec QTC Interval: 403 msec P-R-T [place]: 42 - 17 - 29 degrees IMPRESSION: SINUS RHYTHM NORMAL ECG Electronically Signed By: Dr. Bharathi Aguilar [facility] us Chandni Benton MD ECG ORDERABLES Final Resul t Performing Organization Address [facility] de Phone Number [facility] * eGFR (07/01/2024 6:19 AM CDT) [...] MD LAB BLOOD ORDERABLES F inal Result [facility] [address] Department [place] [address] * Differential, auto (07/01/2024 6:19 AM CDT) Neutrophil abs 4.84 1.50 - 6.50 K/cumm Imm gran abs 0.02 0.00 - 0.10 K/cumm [facility] CH Lymphocyte abs 0.89 0.80 - 3.30 K/cumm [facility] Monocyte abs 0.70 0.20 - 0.80 K/cumm [facility] Eosinophil abs 0.21 0.00 - 0.50 K/cumm [facility] Basophil abs 0.03 0.00 - 0.10 K/cumm [facility] Neutrophil pct 72.4 % [facility] Comment: Interpretive Data Percent cell count reference ranges are not reported, since discordance with absolute values may lead to misinterpretation of CBC data. Current Interpretive Data was last revised on 2017. Imm gran pct 0.3 % [facility] Comment: Interpretive Data Percent cell count reference ranges are not reported, since discordance with absolute values may lead to misinterpretation of CBC data. Current Interpretive Data was last revised on 2017. Lymphocyte pct 13.3 % [facility] Comment: Interpretive Data Percent cell count reference ranges are not reported, since discordance with absolute values may lead to misinterpretation of CBC data. Current Interpretive Data was last revised on 2017. Monocyte pct 10.5 % [facility] Comment: Interpretive Data Percent cell count reference ranges are not reported, since discordance with absolute values may lead to misinterpretation of CBC data. Current Interpretive Data was last revised on 2017. Eosinophil pct 3.1 % [facility] Comment: Interpretive Data Percent cell count reference ranges are not reported, since discordance with absolute values may lead to misinterpretation of CBC data. Current Interpretive Data was last revised on 2017. Basophil pct 0.4 % [facility] Comment: Interpretive Data Percent cell count reference ranges are not reported, since discordance with absolute values may lead to misinterpretation of CBC data. Current Interpretive Data was last revised on 2017. Blood 07/01/2024 6:19 AM CDT 07/01/2024 6:28 AM CDT us Kin Boyd MD LAB BLOOD ORDERABLES F inal Result [facility] [address] Department [place] [address] * (ABNORMAL) CBC with auto differential (07/01/2024 6:19 AM CDT) WBC 6.69 3.80 - 9.90 K/cumm Hgb 12.4(L) 13.0 - 17.5 g/dL [facility] Hct 37.8(L) 38.9 - 50.3 % [facility] Plt 213 150 - 400 K/cumm [facility] MPV 10.1 9.1 - 12.3 fL [facility] RBC 4.27(L) 4.30 - 5.80 M/cumm [facility] MCV 88.5 81.3 - 96.4 fL [facility] MCH 29.0 27.1 - 33.3 pg [facility] MCHC 32.8 32.3 - 35.7 g/dL [facility] RDW CV 14.6 11.1 - 14.9 % [facility] RDW SD 46.9 35.7 - 48.1 fL [facility] NRBC abs 0.00 0.00 - 0.01 K/cumm [facility] Blood 07/01/2024 6:19 AM CDT 07/01/2024 6:28 AM CDT Kin Boyd MD LAB BLOOD ORDERABLES F inal Result Performing Organization Address [facility] Co de Phone Number [facility] REES [id number] [facility] [place] [address] * Magnesium (07/01/2024 6:19 AM CDT) Magnesium 1.9 1.4 - 2.5 mg/dL Blood 07/01/2024 6:19 AM CDT 07/01/2024 6:28 AM CDT Kin Boyd MD LAB BLOOD ORDERABLES F inal Result Performing Organization Address [facility] de Phone Number MADAY REES [phone] [facility] [place] [address] * (ABNORMAL) Hepatic function panel (07/01/2024 6:19 [...] ORDERABLES F inal Result Performing Organization Address [facility] Co de Phone Number MADAY REES [phone] [facility] [place] [address] * (ABNORMAL) Basic metabolic panel (07/01/2024 6:19 AM CDT) Sodium 136 135 - 145 mmol/L Potassium, pl 4.0 3.3 - 4.9 mmol/L [facility] Chloride 101 97 - 110 mmol/L [facility] CO2 24 22 - 32 mmol/L [facility] Anion gap 11 2 - 15 mmol/L [facility] BUN 26(H) 6 - 25 mg/dL [facility] Creatinine 1.15 0.80 - 1.30 mg/dL [facility] Glucose 105 70 - 199 mg/dL [facility] Comment: Interpretive Data Fasting glucose [...] 2022. Calcium 9.2 8.5 - 10.3 mg/dL [facility] Blood 07/01/2024 6:19 AM CDT 07/01/2024 6:28 AM CDT Kin Boyd MD LAB BLOOD ORDERABLES F inal Result [facility] [id number] [address] Department [place] [address] from Last 3 Months Insurance MEDICARE [facility] MED[facility]ARE [facility] Advance Directives For more information, please contact: [phone] * Full Code (Latest Code Status on [...] specifically selected below: No intubation Care Teams Relocation Director Relationship Specialty Start Date End Date Cole Petty MD [address] [place] [address] PCP - General 07/01/12
--- OUTSIDE RECORDS SUMMARY | 2024-08-21 06:46 | XMS_ITS | Clinical Summary ---
Author Organization [facility] Address [facility] [place] [address] Care Team Providers Care Barrel Bung Remover And Dumper Name Role Phone Unavailable Primary Care Provider [...]
[2024-08-21 11:44] LABS: Anion Gap 9 mmol/L (4-12); Blood Urea Nitrogen 18 mg/dL (9-20); Calcium 9.4 mg/dL (8.4-10.2); Carbon Dioxide 23 mmol/L (22-30); Chloride 104 mmol/L (98-107); Estimated Glomerular Filt Rate > 60; Glucose 112 mg/dL (65-110); Potassium 3.9 mmol/L (3.4-5.0); Sodium 136 mmol/L (137-145)
== END 2024-08-21 06:43 | disposition home or self-care (01) ==
PROVIDERS: PCP Family Medicine Adolescent Medicine; Visit Provider Nurse Practitioner Adult Health
DX: R60.0 Localized edema (principal)
CPT/HCPCS: 36415; 80048

== ENCOUNTER 2024-09-07 06:40 | Outpatient (CLI) | payer MEDICARE, BC, SELFPAY ==
--- OUTSIDE RECORDS SUMMARY | 2024-09-07 06:45 | XMS_ITS | Referral Summary ---
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 Tube Machine Operator Helper Name Role Phone Cole Petty MD Primary Care Prov ider Encounters Date Type Department Care Team Description 08/31/2024 11:15 AM CDT Office Visit [facility] [address] [place] [phone] Donald Lehman MD Cardiac arrhythmia, unspecified cardiac arrhythmia type (Primary Dx); Automatic implantable cardiac defibrillator in situ; Cardiomyopathy, ischemic; History of coronary artery stent placement; V tach (HCC); Cardiac pacemaker in situ 08/31/2024 11:00 AM CDT Ancillary Procedure [facility] [address] [place] [phone] Automatic implantable cardiac defibrillator in situ (Primary Dx); V tach (HCC) 08/24/2024 Results Follow-Up [facility] Cardiology [address] [place] [address] [address] [place] [address] Jennifer Molina NP Basic metabolic panel 07/23/2024 9:00 AM CDT Office Visit [facility] Cardiology [address] [place] [address] [address] [place] [address] Jennifer Molina NP Edema, lower extremity; V tach (HCC); Automatic implantable cardiac defibrillator in situ; 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; Lipid screening; Essential hypertension 07/10/2024 Telephone [facility] [address] [place] [address] [address], [place] [address] Leigh Ann Cisse NP 07/09/2024 Telephone [facility] Cardiology [address] [place] [phone] Bam Singh MD 07/09/2024 Orders Only [facility] [address] [place] [address] [address], [place] [address] Donald Lehman MD V tach (HCC) (Primary Dx) 07/09/2024 1:00 PM CDT Ancillary Procedure [facility] [address] [place] [address] [place] [phone] Automatic implantable cardiac defibrillator in situ (Primary Dx); Cardiac pacemaker in situ 07/09/2024 1:15 PM CDT Office Visit [facility] [address] [place] [address] [address], [place] [address] Leigh Ann Cisse NP Cardiac arrhythmia, unspecified cardiac arrhythmia type (Primary Dx); Cardiac pacemaker in situ 07/03/2024 Telephone [facility] Cardiology [address] [facility] [address], [place] [phone] Tosha Jin NP 07/02/2024 12:44 PM CDT - 07/03/2024 2:13 PM CDT Hospital Encounter [facility] [address] [place] [address] Lorena Mueller DO Dehaan, Kevin Patrick, MD Halasa, Tariq, MD V-tach (HCC) (Primary Dx); V tach (HCC); 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 Discharge Disposition: Discharge to home or self care 07/02/2024 12:12 PM CDT - 07/02/2024 11:59 PM CDT Hospital Encounter [facility] [address] [place] [address] Emergency, Room R Discharge Disposition: Discharge to home or self care 07/02/2024 3:32 PM CDT Anesthesia Event [facility] Electrophysiology Lab [address] [place] [phone] Ashley Maldonado MD Malik, Ari Redd MD 07/02/2024 3:30 PM CDT - 07/02/2024 5:05 PM CDT Surgery [facility] Electrophysiology Lab [address] [place] [phone] Donald Lehman MD ELECTROPHYSIOLOGIC EVALUATION (EPS) WITH INDUCTION OR ATTEMPTED INDUCTION OF ARRHYTHMIA [id number] 07/02/2024 Orders Only [facility] Hospitalists [address] [place] [address] Lorena Mueller, DO 06/30/2024 10:50 PM CDT - 07/02/2024 12:10 PM CDT Hospital Encounter [address] [address] Brian Dai DO Khoukaz, Ghassan Hikmat, MD [place], Kin Villafuerte MD V tach ([facility]) (Primary Dx); History of coronary artery stent placement; Simple chronic bronchitis (HCC); Morbid (severe) obesity due to excess calories (HCC); 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; BOOGIE (obstructive sleep apnea) Discharge Disposition: Discharge to a short term hospital for IP 07/01/2024 Orders Only [address] [phone] Lorena Mueller, DO 07/01/2024 Orders Only [facility] Cardiac Catheterization Lab [address] [place], [place] [id number] Chandni Benton MD V tach (HCC) (Primary Dx) from Last 3 Months Allergies [...] needed for chest pain Active amiodarone (PACERONE) 200 mg tabletIndicatio ns:Life-Threate julian Ventricular Tachycardia Take 1 tablet (200 mg total) by mouth daily 30 tablet 5 5 02/01/20 25 Active metoprolol tartrate (LOPRESSOR) 25 mg immediate release tablet Take 1 tablet (25 mg total) by mouth 2 (two) times a day 180 tablet 3 5 07/23/19 26 Active furosemide (LASIX) 20 mg tabletIndicatio ns:Edema, lower extremity Take 1 tablet (20 mg total) by mouth daily 30 tablet 1 5 Active potassium chloride ER (KLOR-CON) 20 mEq CR tabletIndicatio ns:Edema, lower extremity Take 1 tablet (20 mEq total) by mouth daily 30 tablet 1 5 Active amiodarone (PACERONE) 400 mg tablet Take 1 tablet (400 mg total) by mouth daily 30 tablet 5 09/01/19 25 Discontinu ed(Patient Reported) Active Problems Problem Noted Date Diagnosed Date V-tach 07/02/2024 COPD (chronic obstructive pulmonary disease) BOOGIE (obstructive sleep apnea) 07/01/2024 Morbid (severe) obesity due to excess calories 0 06/19/2022 Angina pectoris, unspecified 06/19/2022 History of coronary artery stent placement 12/22 Coronary artery disease invo lving inupiat coronary artery of inupiat heart without angina pectoris 12/02/2018 Social History Tobacco Use Types Packs/Day Years Used Date Smoking Tobacco: Former Cigarettes 2.5 50 Q uit: 2019 Cigars Smokeless Tobacco: Former Quit: 10/09/2019 Tobacco Cessation:Counseling Given: Not Answered Alcohol Use Standard Drinks/Week Comments No 0 (1 standard drink = 0.6 oz pur e alcohol) [facility] Utilities Answer Date Recorded In the past 12 months has th e electric, gas, oil, or water [employer] threatened to shut off services in your [...] often do you attend chur ch or buddhism services? More than 4 times per year 07/03/2024 Do you belong to any clubs o r organizations such as zoroastrian groups, unions, fraternal or athletic groups, or [...] any time in the past 12 m [facility], were you homeless or living in a custodial (including now)? No 07/03/2024 Personal Safety Answer Date Recorded Have you ever been in or are you currently in a harmful physical or emotional relationship or is someone making you feel afraid or unsafe? 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 Gender Identity Not on file Sexual Orientation Not on file Last Filed Vital Signs Vital Sign Reading Time Taken Comments Blood Pressure 124/72 08/31/2024 11:07 AM CDT Pulse 50 08/31/2024 11:07 AM CDT Temperature 36.1 C (97 F) 07/03/2024 11:55 AM CDT Respiratory Rate 20 07/03/2024 11:55 AM CDT Oxygen Saturation 96% 07/23/2024 8:51 AM CDT Inhaled Oxygen Concentration - - Weight 119 kg (262 lb 4.8 oz) 08/31/2024 11:07 A M CDT Height 180.3 cm (5' 11) 08/31/2024 11:07 AM CDT Body Mass Index 36.58 08/31/2024 11:07 AM CDT Plan of Treatment Not on file Medical Devices Implanted Type Area Concrete Panel Installer Device Identifier Shelf Expiration Date Model / Serial / Lot House Vascular Defib Cardiac [id number] [employer] Implantable 2 Chamber [id number] - [id number] - [id number] Implanted:Qty: 1 on 07/02/2024 by Donald Lehman MD at [facility] ICD House Vascular 12/01/2025 CDDRA 500Q / [id number] / House Vascular Active Fixation Steroid Eluting Latex Free Sterile Right Atrium Ventricle Ultipace 52cm [id number]/52 - [id number] - [id number] Implanted:Qty: 1 on 07/02/2024 by Donald Lehman MD at [facility] Lead Right: Ventricle House V[employer] 05/02/2027 [id number]/5 2 / [id number] / [employer] Optisure 8fr 65cm 1 Coil Df4 Connector True Bipolar Optim [id number]/65 - [id number] - [id number] Implanted:Qty: 1 on 07/02/2024 by Donald Lehman MD at [facility] Lead Right: Atria [employer] 06/02/2027 [id number]/6 5 / [id number] / [employer] Device Closure Vascade Od5 Fr Femoral Artery [id number] - [id number] - [id number] Implanted:Qty: 1 on 07/02/2024 by Donald Lehman MD at [facility] [employer] 04/01/2026 [id number] -05U / [id number] / [id number] [employer] Device Vascular Closure Femoral Artery Bioabsorbable Dual Method Vascade 6-7fr Collagen [id number] - [id number] - [id number] Implanted:Qty: 1 on 07/02/2024 by Donald Lehman MD at [facility] [employer] 04/15/2026 [id number]- 05U / [id number] 11A / [id number] [employer] Device Closure Vascade Od5 Fr Femoral Artery [id number] - [id number] - [id number] Implanted:Qty: 1 on 07/02/2024 by Donald Lehman MD at [facility] [employer] 01/29/2026 [id number] -05U / [id number] / [id number] Procedures Procedure Name Priority Date/Time Associated Diagnosis Comments ECG 12-LEAD Routine 08/31/2024 11:09 AM CDT Cardiac arrhythmia, unspecified cardiac arrhythmia type DEVICE CHECK - IN OFFICE Routine 025 10:28 AM CDT V tach (HCC) BASIC METABOLIC PANEL Routine 08/21/2024 Edema, lower extremity POCT LIPID PANEL Routine 07/23/2024 8:58 AM [...] 3 Months Results * ECG 12 lead (08/31/2024 11:09 AM CDT) us Donald Lehman MD ECG ORDERABLES Final Re sult * DEVICE CHECK - IN OFFICE (08/31/2024 10:28 AM CDT) Anatomical Region Laterality Modality Other Narrative 08/31/2024 1:42 PM CDT Table formatting from the original result was not included. ICD CHECK (IN OFFICE) Patient ID: Papa [place] is a 74 y.o. male. This patient received a House ICD. They had a routine in office device interrogation on 08/31/24 Device implant indications: Ventricular tachycardia Interrogation of the patient's device demonstrates the following: Presenting EGM: V sensed V sensed @ 51 bpm Underlying Rhythm: As above Original Device Settings Right Atrium Right Ventricle Sensitivity (mV) Auto mV Auto mV Pacing Outputs 2.5 V @ 0.5 ms 0.625 V @ 0.5 ms Testing Measurements Right Atrium Right Ventricle Sensitivity (mV) 4.0 mV Greater than 12 mV Impedence (Ohms) 440 ohms 660 ohms High Voltage Impedence 74 ohms Pace Threshold 1.0 V @ 0.5 ms 0.375 V @ 0.5 ms Pacing % 13 % Less than 1 % Battery Status: 8.8 years to [facility] with Charge Time not done. Episodes last 90 days/Comments: AF Berwind 0%, longest duration0 There were no treated ventricular arrhythmias noted on today's in office device interrogation. NORMAL DEVICE FUNCTION PROGRAMMED MEDICATIONS: Anti-coagulant(s): Aspirin 81 mg daily Anti-arrhythmic(s): Amiodarone 200 mg daily, Lopressor 25 mg twice daily. PLAN: 1) House ICD evaluation. 2) House remote transmission scheduled in 3 months. 3) Programming appropriate for device measurements Liban Smith, RN us Donald Lehman MD CV CARDIAC SERVICES PROC EDURES Final Result * Basic metabolic panel (08/21/2024) Blood 08/21/2024 us Jennifer Molina NP LAB BLOOD ORDERABLES Inez elizabeth Result EXTERNAL LAB * (ABNORMAL) POCT lipid panel (07/23/2024 8:58 [...] 4.2 % Battery Status: 8.6 years to [facility] with Charge Time not done seconds Episodes last 90 days/Comments: AF Berwind less than 1%, there was 1 episode [...] only minimal bruising in the area. Liban Smith RN Leigh Ann Cisse NP CV CARDIAC [...] MD LAB BLOOD ORDERABLES Fin al Result [facility] [address] Department [place] [address] * (ABNORMAL) Differential, auto (07/03/2024 5:17 AM CDT) Neutrophil abs 5.70 1.50 - 6.50 K/cumm Imm gran abs 0.03 0.00 - 0.10 K/cumm [facility] Lymphocyte abs 0.47(L) 0.80 - 3.30 K/cumm [facility] Monocyte abs 0.66 0.20 - 0.80 K/cumm [facility] Eosinophil abs 0.21 0.00 - 0.50 K/cumm [facility] Basophil abs 0.02 0.00 - 0.10 K/cumm [facility] Neutrophil pct 80.4 % [facility] Comment: Interpretive Data Percent cell count reference ranges are not reported, since discordance with absolute values may lead to misinterpretation of CBC data. Current Interpretive Data was last revised on 2017. Imm gran pct 0.4 % [facility] Comment: Interpretive Data Percent cell count reference ranges are not reported, since discordance with absolute values may lead to misinterpretation of CBC data. Current Interpretive Data was last revised on 2017. Lymphocyte pct 6.6 % [facility] Comment: Interpretive Data Percent cell count reference ranges are not reported, since discordance with absolute values may lead to misinterpretation of CBC data. Current Interpretive Data was last revised on 2017. Monocyte pct 9.3 % [facility] Comment: Interpretive Data Percent cell count reference ranges are not reported, since discordance with absolute values may lead to misinterpretation of CBC data. Current Interpretive Data was last revised on 2017. Eosinophil pct 3.0 % [facility] Comment: Interpretive Data Percent cell count reference ranges are not reported, since discordance with absolute values may lead to misinterpretation of CBC data. Current Interpretive Data was last revised on 2017. Basophil pct 0.3 % [facility] Comment: Interpretive Data Percent cell count reference ranges are not reported, since discordance with absolute values may lead to misinterpretation of CBC data. Current Interpretive Data was last revised on 2017. Blood 07/03/2024 5:17 AM CDT 07/03/2024 6:05 AM CDT Macho Sweet MD LAB BLOOD ORDERABLES Fin al Result Performing Organization Address [facility] Co de Phone Number [facility] [address] Department [place] [address] * (ABNORMAL) CBC with auto differential (07/03/2024 5:17 AM CDT) Pathologist [facility] WBC 7.09 3.80 - 9.90 K/cumm Hgb 12.4(L) 13.0 - 17.5 g/dL [facility] Hct 37.9(L) 38.9 - 50.3 % [facility] Plt 217 150 - 400 K/cumm [facility] MPV 10.8 9.1 - 12.[address] [facility] RBC 4.23(L) 4.30 - 5.80 M/cumm [facility] MCV 89.6 81.3 - 96.[address] [facility] MCH 29.3 27.1 - 33.[address] [facility] MCHC 32.7 32.3 - 35.7 g/dL [facility] RDW CV 14.3 11.1 - 14.9 % [facility] RDW SD 46.3 35.7 - 48.[address] [facility] NRBC abs 0.00 0.00 - 0.01 K/cumm [facility] Blood 07/03/2024 5:17 AM CDT 07/03/2024 6:05 AM CDT Macho Sweet MD LAB BLOOD ORDERABLES Fin al Result Performing Organization Address [facility]/ZIP Co de Phone Number [facility] [address] [place] [address] * Magnesium (07/03/2024 5:17 AM CDT) Pathologist [facility] Department Magnesium 1.9 1.4 - 2.5 mg/dL Blood 07/03/2024 5:17 AM CDT 07/03/2024 6:06 AM CDT Macho Sweet MD LAB BLOOD ORDERABLES Fin al Result Performing Organization Address [facility]/ZIP Co de Phone Number [facility] [address] [facility] [place] [address] * Basic metabolic panel (07/03/2024 5:17 AM CDT) Sodium 135 135 - 145 mmol/L Potassium, pl 4.3 3.3 - 4.9 mmol/L [facility] Chloride 101 97 - 110 mmol/L [facility] CO2 25 22 - 32 mmol/L [facility] Anion gap 9 2 - 15 mmol/L [facility] BUN 22 6 - 25 mg/dL [facility] Creatinine 1.05 0.80 - 1.30 mg/dL [facility] Glucose 86 70 - 199 mg/dL [facility] Comment: Interpretive Data Fasting glucose >/= [...] 2022. Calcium 8.8 8.5 - 10.3 mg/dL [facility] Blood 07/03/2024 5:17 AM CDT 07/03/2024 6:06 AM CDT Macho Sweet MD LAB BLOOD ORDERABLES Fin al Result Performing Organization Address City/[facility]/ZIP Co de Phone Number [facility] [address] [place] [address] * X-ray chest 2 views (07/03/2024 2:29 [...] PROCEDURE(S): Comprehensive electrophysiologic evaluation with attempted induction (64864) Placement of transvenous implantable cardioverter-defibrillator PHARMACY GENERAL MANAGER: Donald Lehman MD, [facility] AUTO AIR CONDITIONING APPRENTICE(S): None. INDICATION(S): Near-syncope, nonsustained ventricular tachycardia ANESTHESIA [...] principles of shared decision-making and utilizing the [place] [employer] ICD CardioSmart Decision Aid. [...] ms which required rescue external cardioversion for latter-day of sinus rhythm. All venous sheaths were [...] area in stable condition. CONDUCTION INTERVALS: RR WA QRS QT AH HV 933 206 80 [...] check in 7-10 days. Donald Lehman MD, [facility] [address] [place] [address], [address], [place] [address] Ying Guaman NP CV ELECTROPHYSIOLOGY PROCS Edited [...] MD LAB BLOOD ORDERABLES F inal Result [facility] [address] Department [place] [address] * Differential, auto (07/02/2024 2:27 AM CDT) Neutrophil abs 4.92 1.50 - 6.50 K/cumm Imm gran abs 0.03 0.00 - 0.10 K/cumm [facility] Lymphocyte abs 0.86 0.80 - 3.30 K/cumm [facility] Monocyte abs 0.61 0.20 - 0.80 K/cumm [facility] Eosinophil abs 0.25 0.00 - 0.50 K/cumm [facility] Basophil abs 0.02 0.00 - 0.10 K/cumm [facility] Neutrophil pct 73.6 % [facility] Comment: Interpretive Data Percent cell count reference ranges are not reported, since discordance with absolute values may lead to misinterpretation of CBC data. Current Interpretive Data was last revised on 2017. Imm gran pct 0.4 % [facility] Comment: Interpretive Data Percent cell count reference ranges are not reported, since discordance with absolute values may lead to misinterpretation of CBC data. Current Interpretive Data was last revised on 2017. Lymphocyte pct 12.9 % [facility] Comment: Interpretive Data Percent cell count reference ranges are not reported, since discordance with absolute values may lead to misinterpretation of CBC data. Current Interpretive Data was last revised on 2017. Monocyte pct 9.1 % [facility] Comment: Interpretive Data Percent cell count [...] revised on 2017. Basophil pct 0.3 % [facility] Comment: Interpretive Data Percent cell count reference ranges are not reported, since discordance with absolute values may lead to misinterpretation of CBC data. Current Interpretive Data was last revised on 2017. Blood 07/02/2024 2:27 AM CDT 07/02/2024 2:29 AM CDT Kin Boyd MD LAB BLOOD ORDERABLES F inal Result [facility] [address] Department of Laboratories [place], [place] [id number] * (ABNORMAL) CBC with auto differential (07/02/2024 2:27 AM CDT) WBC 6.69 3.80 - 9.90 K/cumm Hgb 12.5(L) 13.0 - 17.5 g/dL [facility] Hct 39.4 38.9 - 50.3 % [facility] Plt 243 150 - 400 K/cumm [facility] MPV 10.2 9.1 - 12.3 fL [facility] RBC 4.41 4.30 - 5.80 M/cumm [facility] MCV 89.3 81.3 - 96.4 fL [facility] MCH 28.3 27.1 - 33.3 pg [facility] MCHC 31.7(L) 32.3 - 35.7 g/dL [facility] RDW CV 14.3 11.1 - 14.9 % [facility] RDW SD 47.5 35.7 - 48.1 fL [facility] NRBC abs 0.00 0.00 - 0.01 K/cumm [facility] Blood 07/02/2024 2:27 AM CDT 07/02/2024 2:29 AM CDT Kin Boyd MD LAB BLOOD ORDERABLES F inal Result Performing Organization Address [facility] de Phone Number [facility] [address] [address] [facility] [place] [address] * Magnesium (07/02/2024 2:27 AM CDT) Magnesium 2.3 1.4 - 2.5 mg/dL Blood 07/02/2024 2:27 AM CDT 07/02/2024 2:29 AM CDT Kin Boyd MD LAB BLOOD ORDERABLES F inal Result Performing Organization Address [facility] de Phone Number [facility] [address] Department [place] [address] * (ABNORMAL) Basic metabolic panel (07/02/2024 2:27 AM CDT) Sodium 137 135 - 145 mmol/L Potassium, pl 4.2 3.3 - 4.9 mmol/L [facility] Chloride 101 97 - 110 mmol/L [facility] CO2 25 22 - 32 mmol/L [facility] Anion gap 11 2 - 15 mmol/L [facility] BUN 33(H) 6 - 25 mg/dL [facility] Creatinine 1.43(H) 0.80 - 1.30 mg/dL [facility] Glucose 99 70 - 199 mg/dL [facility] [...] 2022. Calcium 9.4 8.5 - 10.3 mg/dL [facility] Blood 07/02/2024 2:27 AM CDT 07/02/2024 2:29 AM CDT Kin Boyd MD LAB BLOOD ORDERABLES F inal Result Performing Organization Address [facility] de Phone Number [facility] [address] Department [place] [address] * ECG 12 lead (07/01/2024 1:45 PM CDT) 07/01/2024 1:45 PM CDT Narrative [facility] - 07/01/2024 4:00 PM CDT Vent Rate: 71 bpm RR Interval: 837 msec WA Interval: 206 msec QRS Duration: 87 msec QT Interval: 397 msec QTC Interval: 420 msec P-R-T Tebbetts: 52 - 27 - 34 degrees IMPRESSION: SINUS RHYTHM WITH FREQUENT VENTRICULAR PREMATURE COMPLEXES LOW QRS VOLTAGE IN PRECORDIAL LEADS [QRS DEFLECTION < 1.0 mV IN CHEST LEADS] ABNORMAL RHYTHM ECG Electronically Signed By: Dr. Bharathi Aguilar [facility] Tosha Jin NP ECG ORDERABLES Final Result Performing Organization Address [facility] de Phone Number [facility] * ECG 12 lead (07/01/2024 8:39 AM CDT) 07/01/2024 8:39 AM CDT Narrative [facility] - 07/01/2024 12:46 PM CDT Vent Rate: 65 bpm RR Interval: 922 msec WA Interval: 202 msec QRS Duration: 86 msec QT Interval: 392 msec QTC Interval: 403 msec P-R-T Tebbetts: 42 - 17 - 29 degrees IMPRESSION: SINUS RHYTHM NORMAL ECG Electronically Signed By: Dr. Bharathi Aguilar [facility] Chandni Benton MD ECG ORDERABLES Final Resul t Performing Organization Address [facility] de Phone Number [facility] * eGFR (07/01/2024 6:19 AM CDT) [...] ORDERABLES F inal Result Performing Organization Address City/[facility] Co de Phone Number [facility] [address] Department [place] [address] * Differential, auto (07/01/2024 6:19 AM CDT) Neutrophil abs 4.84 1.50 - 6.50 K/cumm Imm gran abs 0.02 0.00 - 0.10 K/cumm [facility] Lymphocyte abs 0.89 0.80 - 3.30 K/cumm [facility] Monocyte abs 0.70 0.20 - 0.80 K/cumm [facility] Eosinophil abs 0.21 0.00 - 0.50 K/cumm [facility] Basophil abs 0.03 0.00 - 0.10 K/cumm [facility] Neutrophil pct 72.4 % [facility] Comment: Interpretive Data Percent cell count reference ranges are not reported, since discordance with absolute values may lead to misinterpretation of CBC data. Current Interpretive Data was last revised on 2017. Imm gran pct 0.3 % C[facility] Comment: Interpretive Data Percent cell count reference ranges are not reported, since discordance with absolute values may lead to misinterpretation of CBC data. Current Interpretive Data was last revised on 2017. Lymphocyte pct 13.3 % MADAY Comment: Interpretive Data Percent cell count reference ranges are not reported, since discordance with absolute values may lead to misinterpretation of CBC data. Current Interpretive Data was last revised on 2017. Monocyte pct 10.5 % CERYAIR Comment: Interpretive Data Percent cell count reference ranges are not reported, since discordance with absolute values may lead to misinterpretation of CBC data. Current Interpretive Data was last revised on 2017. Eosinophil pct 3.1 % MADAY Comment: Interpretive Data Percent cell count reference ranges are not reported, since discordance with absolute values may lead to misinterpretation of CBC data. Current Interpretive Data was last revised on 2017. Basophil pct 0.4 % MADAY Comment: Interpretive Data Percent cell count reference ranges are not reported, since discordance with absolute values may lead to misinterpretation of CBC data. Current Interpretive Data was last revised on 2017. Blood 07/01/2024 6:19 AM CDT 07/01/2024 6:28 AM CDT Kin Boyd MD LAB BLOOD ORDERABLES F inal Result MADAY [address] Department of Laboratories [place], [place] [id number] * (ABNORMAL) CBC with auto differential (07/01/2024 6:19 AM CDT) WBC 6.69 3.80 - 9.90 K/cumm Hgb 12.4(L) 13.0 - 17.5 g/dL MADAY Hct 37.8(L) 38.9 - 50.3 % MADAY Plt 213 150 - 400 K/cumm [facility] MPV 10.1 9.1 - 12.3 fL [facility] RBC 4.27(L) 4.30 - 5.80 M/cumm [facility] MCV 88.5 81.3 - 96.4 fL [facility] MCH 29.0 27.1 - 33.3 pg [facility] MCHC 32.8 32.3 - 35.7 g/dL [facility] RDW CV 14.6 11.1 - 14.9 % [facility] RDW SD 46.9 35.7 - 48.1 fL [facility] NRBC abs 0.00 0.00 - 0.01 K/cumm [facility] Blood 07/01/2024 6:19 AM CDT 07/01/2024 6:28 AM CDT Kin Boyd MD LAB BLOOD ORDERABLES F inal Result Performing Organization Address [facility] de Phone Number [facility] [address] [facility] [place] [address] * Magnesium (07/01/2024 6:19 AM CDT) Pathologist [facility] Magnesium 1.9 1.4 - 2.5 mg/dL Blood 07/01/2024 6:19 AM CDT 07/01/2024 6:28 AM CDT Kin Boyd MD LAB BLOOD ORDERABLES F inal Result Performing Organization Address [facility] de Phone Number [facility] [address] [facility] [place] [address] * (ABNORMAL) Hepatic function panel (07/01/2024 6:19 AM CDT) Bilirubin, total 1.0 0.1 - 1.2 mg/dL Bilirubin, direct 0.2 0.1 - 0.3 mg/dL [facility] Protein, pl 6.1(L) 6.5 - 8.5 g/dL [facility] Albumin 3.3(L) 3.5 - 5.0 g/dL [facility] Alk phos 95 40 - 130 Units/L [facility] ALT 25 7 - 55 Units/L [facility] AST 16 10 - 50 Units/L [facility] Blood 07/01/2024 6:19 AM CDT 07/01/2024 6:28 AM CDT Kin Boyd MD LAB BLOOD [place] [address] [address] Department [place] [address] * (ABNORMAL) Basic metabolic panel (07/01/2024 6:19 [...] 2022. Calcium 9.2 8.5 - 10.3 mg/dL [facility] Blood 07/01/2024 6:19 AM CDT 07/01/2024 6:28 AM CDT Kin Boyd MD LAB BLOOD ORDERABLES [facility] [address] [address] Department [place] [address] from Last 3 Months Insurance MEDICARE [facility] [employer] MEDICARE 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
--- OUTSIDE RECORDS SUMMARY | 2024-09-07 06:45 | XMS_ITS | Data Portability ---
Author Organization [place] [facility] [employer], Main Office Address [address] [place] [address] Care Team Providers Care Rail Grinder Name Role Phone ROSARIO CARVAJAL Primary Care [...] will continue with exercise and anti-inflammatory medication. Not available 05/22/2022 15:03:46 08/30/2022 08/30/2022 Patient [...] risks benefits limitations and alternatives in detail. [email or web address] Not available 08/30/2022 10:26:07 11/08/2022 11/08/2022 Patient returns status post carpal tunnel release left cubital tunnel release left. Pain and numbness are resolving. He has looks like he has had a very nice result. His incisions look clean. Sutures out today. Follow up on an as-needed basis. He can get back to activity slowly. I told him not to overdo it. [email or web address] Not available 11/08/2022 09:35:04 Plan of Treatment Reminders Order Date Submit Date Provider Last Modified By Organization Details Last Modified Time Details Appointments None recorded. Lab None recorded. Referral None recorded. Procedures injection/a spiration joint/bursa (PROC) - in office procedure, administere d by provider 2022 023 [email or web address] In-Office Order, Internal Use Only DO Not Attach Compendium DO Not Attach Compendium, Do Not Delete/merge, [address] 14:55:12 Surgeries None recorded. Imaging None recorded. Medication Orders Kenalog 10 mg/mL suspension for injection 2022 023 [place] [id number] [address] [facility], [place], [place], [id number], 14:57:54 ropivacaine (PF) 5 mg/mL (0.5 %) injection solution 2022 023 [email or web address] Not available 16:08:51 Patient TargetsNo targets recorded. Patient InstructionsNo instructions recorded. Reason for Referral None Reported. Results Created Date Observation Date Name Description Value Unit Range Abnormal Flag Note LastModifiedBy Organization Detail LastModifiedTime 03/13/19 23 XR, shoul isabella No observ ation record ed. MIGRATION. [facility] [place] [address] [facility] [address], [place], [address], 05/03/2022 01:50:34 04/26/19 23 04/26/2022 elect romyo gram + nerve condu ction study No observ ation record ed. [email or web address] [id number] [facility] [address], [place], [address], 05/03/2022 01:50:34 Result Notes None recorded. Problems Name Problem SNOMED Code Status Onset Date Resolution Date Notes Provider Name and Address Organization Details Recorded Time Pain of left shoulder joint 8834193194861 9109 Active 2022 Not Available [facility] 3 01:49:44 Partial thickness rotator cuff tear 721965959 Active 2022 Not Available [facility] 3 01:49:44 Full thickness rotator cuff tear 454290022 Active 2022 Not Available [facility] 3 01:49:45 Full thickness rotator cuff tear 177070247 Active 2022 Not Available [facility] 3 01:49:45 Carpal tunnel syndrome of left wrist 6278819546125 02 Active 2022 Not Available [facility] 3 01:49:45 Bilateral carpal tunnel syndrome 1224124719045 9101 Active 2022 GORDON Abel null, [place] [facility] 3 14:38:36 Carpal tunnel syndrome of right wrist 8828118022628 08 Active 2022 GORDON Abel[place] [facility] 3 14:38:54 Problem Notes None recorded. Procedures Surgical History Date Name Laterality Status Provider Name and Address Organization Details Recorded Time 3 Ortho - Cortisone Injection completed Christo Edmond MD [address] [place] [address], [phone], [facility] - [employer] [facility] 05/22/2022 15:01:17 Imaging Results None recorded. Procedure Notes None recorded. Medical Equipment None Reported. Allergies Allergen ID Allergen Name Allergen Category Reaction Reaction Severity Criticality Documentation Date Start Date Code Code System Note Provider Name and Address Organization Details Recorded Time 83128 Demerol medicatio n Not available Not available Not available 05/03/2022 83401 1 RxNorm Not Available [facility] 3 01:50:28 Medications Name Sig Start Date [...] suspension for injection in office 2022 active [facility]: 0003- 0494- 20 Not Available [...] %) injection solution in office 2022 active [facility] 47127 -064- 01 Not Available Not Available Not Available Vitals Date Recorded Body mass index (BMI) Body height Body weight Provider Name and Address Organization Details Last Updated DateTime 04/10/2022 36.7 kg/m2 177.8 cm 976600.65 g Not Available [employer] 05/03/2022 01:49:29 Date Recorded Body height Provider Name an d Address Organization Details Last Updated DateTime 05/22/2022 177.8 cm GORDON Abel [facility] [employer] [facility] 05/22/2022 14:37:23 Date Recorded Body height Provider Name an d Address Organization Details Last Updated DateTime 08/30/2022 177.8 cm Sushma Ricketts [facility] [employer] 08/30/2022 10:05:33 Date Recorded Body height Body mass index (BMI) Body weight Provider Name and Address Organization Details Last Updated DateTime 11/08/2022 180.34 cm 36.8 kg/m2 290410.39 anish Catrachita Pike [facility]NA [place] [facility] [place] [email or web address] 11/08/2022 09:22:57 Social History None recorded. Functional Status None recorded. Mental Status None recorded. Family History Relationship Description Onset Age of this Age Resolved Age Notes LastModified by Organization Details LastModified Time Father Heart disease [email or web address] [id number] Not available 05/03/2022 01:49:17 Brother Family history of malignant neoplasm [email or web address] [id number] Not available 05/03/2022 01:49:17 Medical History No medical history recorded. Past Encounters Encounter ID Performer Location Encounter Start Date Encounter Closed Date Diagnosis/Indication Diagnosis SNOMED-CT Code Diagnosis ICD10 Code Diagnosis Note [id number] Christo Edmond MD [facility] [address] [place] [address] 03/13/2022 00:00:00 03/13/2022 15:35:06 [id number] Christo Edmond MD [facility] [place] [address] [place] [address] 04/10/2022 00:00:00 04/10/2022 14:08:16 [id number] Christo Edmond MD [facility] [place] [address] [place] [address] 05/22/2022 14:31:14 05/22/2022 15:25:37 Carpal tunnel syndrome of left wrist 8259308021 53968 G56.02 Bilateral carpal tunnel syndrome 4634196972 1427860 G56.03 Carpal waqar tabitha syndrome of right wrist 8578541042 42963 G56.01 Partial th ickness rotator cuff tear 099012268 M75.102 [id number] Christo Edmond MD [facility] [place] [address] [place] [address] 08/30/2022 10:02:29 08/30/2022 11:32:18 Bilateral carpal tunnel syndrome 0058390368 8687184 G56.03 Pain of le ft shoulder joint 3630876498 1000082 M25.512 Partial th ickness rotator cuff tear 838280521 M75.102 Full thick ness rotator cuff tear 964261164 M75.873 [id number] Christo Edmond MD [facility] [place] [address] [place] [address] 11/08/2022 09:20:38 11/08/2022 09:59:06 Bilateral carpal tunnel syndrome 5260464508 1403665 G56.03 Pain of le ft shoulder joint 2043212286 2096616 M25.512 Partial th ickness rotator cuff tear 689172959 M75.102 Full thick ness rotator cuff tear 313438117 M75.121 Postoperative visit 8770 73565 Z29 Health Concerns Section Related Observation LastModified by Organization Detai ls LastModified Time None Recorded Concern Status LastModified by Organization Details LastModified Time None Recorded Advance Directives Directive None Recorded Payers Insurance Date Sequence Insurance Name Policy Number Policy Duckworth Covered Member ID [place]worth Member ID Guarantor Name 11/27/2022 1 [place] [id number] [place] 06/03/2023 2 [place] 106 Jana Heller Shanique [id number] [place] 06/03/2023 [employer] - DMEPOS ASSIGNED (MEDICARE DME REGION B) [place] [id number] [place] Notes Date Note Type [...] change in bowel/bladder habits;weakness;numbn ess;swelling;warmth Not Available [email or web address] 03/13/2022 15:35:06 04/10/2022 text/html ShoulderReported [email or web address] Dominance:right [...] change in bowel/bladder habits;weakness;numbn ess;swelling;warmth Not Available [email or web address] 04/10/2022 14:08:16 05/22/2022 text/html Patient returns bilateral [...] with activity overhead. Christo Edmond MD [address], [place], [address], [employer] 05/22/2022 15:04:06 08/30/2022 text/html Patient returns bilateral [...] with activity overhead. Christo Edmond MD [address], [place], [address], [email or web address] 08/30/2022 10:26:30 11/08/2022 text/html Patient returns status post cubital carpal tunnel release on the left. Numbness and tingling are resolving he looks great. He is comfortable and he thinks the problem has been addressed. Christo Edmond MD [address], [place], [address], [email or web address] 11/08/2022 09:35:21
--- OUTSIDE RECORDS SUMMARY | 2024-09-07 06:45 | XMS_ITS | Clinical Summary ---
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 angina pectoris 12/02/2018 Encounters Date Type Department Care Team Description 08/31/2024 11:15 AM CDT Office Visit [facility] [address] [place] [phone] Donald Lehman MD Cardiac arrhythmia, unspecified cardiac arrhythmia type (Primary Dx); Automatic implantable cardiac defibrillator in situ; Cardiomyopathy, ischemic; History of coronary artery stent placement; V tach (HCC); Cardiac pacemaker in situ 08/31/2024 11:00 AM CDT Ancillary Procedure [facility] [address] [place] [phone] Automatic implantable cardiac defibrillator in situ (Primary Dx); V tach (HCC) 08/24/2024 Results Follow-Up [facility] Cardiology [address] [place] [phone] Jennifer Molina NP Basic metabolic panel 07/23/2024 9:00 AM CDT Office Visit [facility] Cardiology [address] [place] [address] [address] [place] [phone] Jennifer Molina NP Edema, lower extremity; V tach (HCC); Automatic implantable cardiac defibrillator in situ; Coronary artery disease involving ekuk coronary artery of ekuk heart without angina pectoris; Lipid screening; Essential hypertension 07/10/2024 Telephone [facility] [address] [place] [address] [place] [phone] Leigh Ann Cisse NP 07/09/2024 1:15 PM CDT Office Visit [facility] [address] [place] [address] [place] [phone] Leigh Ann Cisse NP Cardiac arrhythmia, unspecified cardiac arrhythmia type (Primary Dx); Cardiac pacemaker in situ 07/09/2024 1:00 PM CDT Ancillary Procedure [facility] [address] [place] [address] [place] [phone] Automatic implantable cardiac defibrillator in situ (Primary Dx); Cardiac pacemaker in situ 07/09/2024 Telephone [facility] Cardiology [address] [place] [address] [place] [phone] Bam Singh MD 07/09/2024 Orders Only [facility] [address] [place] [address] [place] [phone] Donald Lehman MD V tach (HCC) (Primary Dx) 07/03/2024 Telephone [facility] Cardiology [address] [facility] [address] [place] [phone] Tosha Jin NP 07/02/2024 3:32 PM CDT Anesthesia Event [facility] Electrophysiology Lab [address] [place] [phone] Ashley Maldonado MD Malik, Asad S., MD 07/02/2024 3:30 PM CDT - 07/02/2024 5:05 PM CDT Surgery [facility] Electrophysiology Lab [address] [place] [phone] Donald Lehman MD ELECTROPHYSIOLOGIC EVALUATION (EPS) WITH INDUCTION OR ATTEMPTED INDUCTION OF ARRHYTHMIA [id number] 07/02/2024 12:44 PM CDT - 07/03/2024 2:13 PM CDT Hospital Encounter [address] [phone] Lorena Mueller, Macho Naidu MD Halasa, Tariq, MD V-tach (HCC) (Primary Dx); V tach (HCC); Coronary artery disease involving ekuk coronary artery of ekuk heart without angina pectoris Discharge Disposition: Discharge to home or self care 07/02/2024 12:12 PM CDT - 07/02/2024 11:59 PM CDT Hospital Encounter [facility] [address] [place] [phone] Emergency, Room R Discharge Disposition: Discharge to home or self care 07/02/2024 Orders Only [facility] Hospitalists [address] [place] [phone] Lorena Muelleriaz, DO 07/01/2024 Orders Only [address] [phone] Lorena Mueller, DO 07/01/2024 Orders Only [facility] Cardiac Catheterization Lab [address] [place] [phone] Chandni Benton MD V tach (HCC) (Primary Dx) 06/30/2024 10:50 PM CDT - 07/02/2024 12:10 PM CDT Hospital Encounter [address] [address] Brian Dai DO Khoukaz, Ghassan Hikmat, MD [place], Nicholas Peter, MD V tach (HCC) (Primary Dx); History of coronary artery stent placement; Simple chronic bronchitis (HCC); Morbid (severe) obesity due to excess calories (HCC); Coronary artery disease involving ekuk coronary artery of ekuk heart without angina pectoris; BOOGIE (obstructive sleep [...] WITH INDUCTION OR ATTEMPTED INDUCTION OF ARRHYTHMIA [id number]; Surgeon: Donald Lehman MD; Location: [facility] EP LAB; Service: Cardiovascular; Laterality: Left; Medical devices from this surgery are in the Medical Devices section. CARDIAC CATHETERIZATION 07/02/2024 N/A Procedure: ULTRASOUND GUIDANCE FOR VASCULAR ACCESS S&I 11214; Surgeon: Donald Lehman MD; Location: [facility] EP LAB; Service: Cardiovascular; Laterality: N/A; Medical devices from this surgery are in the Medical Devices section. CARDIAC ELECTROPHYSIOLOGY PROCEDURE 07/02/2024 N/A Procedure: IMPLANT DUAL CHAMBER PPM SYSTEM W/ DUAL ELECTRODES (GEN AND LEADS, NEW OR REPLACE) 17738; Surgeon: Donald Lehman MD; Location: [facility] EP LAB; Service: Cardiovascular; Laterality: N/A; Medical devices from this surgery are in the Medical Devices section. FRACTURE SURGERY 1997 HERNIA REPAIR 2005 Medical History Medical History Date Comments Coronary artery disease Hypertension Hyperlipidemia Ischemic cardiomyopathy [place] (myocardial infarction) (HCC) COPD (chronic obstructive pulmonary [...] drink = 0.6 oz pur e alcohol) [facility] Utilities Answer Date Recorded In the past [...] often do you attend chur ch or anabaptism services? More than 4 times per year 07/03/2024 Do you belong to any clubs o r organizations such as confucianism groups, unions, fraternal or athletic groups, or [...] any time in the past [address] [facility], were you homeless or living in a usp (including now)? No 07/03/2024 Personal Safety Answer Date Recorded Have you ever been in or are you currently in a harmful physical or emotional relationship or is someone making you feel afraid or unsafe? 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 ICD House Vascular 12/01/2025 CDDRA 500Q / [id number] / House Vascular Active Fixation Steroid Eluting Latex Free Sterile Right Atrium Ventricle Ultipace 52cm Rtw7828/52 - [id number] - [id number] Implanted:Qty: 1 on 07/02/2024 by Donald Lehman MD at [facility] Lead Right: Ventricle House Vascular 05/02/2027 EPE2612/5 2 / [id number] / [employer] Optisure 8fr 65cm 1 Coil Df4 Connector True Bipolar Optim Onl412x/65 - [id number] - [id number] Implanted:Qty: 1 on 07/02/2024 by Donald Lehman MD at [facility] Lead Right: [employer] 06/02/2027 [id number]/6 5 / [id number] / [employer] Device Closure Vascade Od5 Fr Femoral Artery [id number] - [id number] - [id number] Implanted:Qty: 1 on 07/02/2024 by Donald Lehman MD at [facility] [employer] 04/01/2026 700-500DX -05U / [id number] / [id number] [employer] Device Vascular Closure Femoral Artery Bioabsorbable Dual Method Vascade 6-7fr Collagen [id number] - [id number] - [id number] Implanted:Qty: 1 on 07/02/2024 by Donald Lehman MD at [facility] [employer] 04/15/2026 700-580I- 05U / [id number] 11A / [id number] [employer] Device Closure Vascade Od5 Fr Femoral Artery [id number] - [id number] - [id number] Implanted:Qty: 1 on 07/02/2024 by Donald Lehman MD at [facility] [employer] 01/29/2026 700-500DX -05U / [id number] [id number] / [id number] Procedures Procedure Name Priority Date/Time Associated [...] not done. Episodes last 90 days/Comments: AF [place] 0%, longest duration0 There were no treated ventricular arrhythmias noted on today's in office device interrogation. NORMAL DEVICE FUNCTION PROGRAMMED MEDICATIONS: Anti-coagulant(s): Aspirin 81 mg daily Anti-arrhythmic(s): Amiodarone 200 mg daily, Lopressor 25 mg twice daily. PLAN: 1) House ICD evaluation. 2) House remote transmission scheduled in 3 months. 3) Programming appropriate for device measurements Liban Smith RN Donald Lehman MD CV CARDIAC SERVICES PROC EDURES Final Result * Basic metabolic panel (08/21/2024) Blood 08/21/2024 us Jennifer Molina NP LAB BLOOD ORDERABLES Inez l Result EXTERNAL LAB * (ABNORMAL) POCT lipid [...] done seconds Episodes last 90 days/Comments: AF [place] less than 1%, there was 1 episode [...] LAB BLOOD ORDERABLES Fin al Result [facility] [address] Department [place] [address] * (ABNORMAL) Differential, auto (07/03/2024 5:17 AM CDT) Neutrophil abs 5.70 1.50 - 6.50 K/cumm Imm gran abs 0.03 0.00 - 0.10 K/cumm [facility] Lymphocyte abs 0.47(L) 0.80 - 3.30 K/cumm [facility] Monocyte abs 0.66 0.20 - 0.80 K/cumm [facility] Eosinophil abs 0.21 0.00 - 0.50 K/cumm [facility] Basophil abs 0.02 0.00 - 0.10 K/cumm [facility] Neutrophil pct 80.4 % [facility] Comment: Interpretive Data Percent cell count reference ranges are not reported, since discordance with absolute values may lead to misinterpretation of CBC data. Current Interpretive Data was last revised on 2017. Imm gran pct 0.4 % [facility] Comment: Interpretive Data Percent cell count reference ranges are not reported, since discordance with absolute values may lead to misinterpretation of CBC data. Current Interpretive Data was last revised on 2017. Lymphocyte pct 6.6 % [facility] Comment: Interpretive Data Percent cell count reference ranges are not reported, since discordance with absolute values may lead to misinterpretation of CBC data. Current Interpretive Data was last revised on 2017. Monocyte pct 9.3 % [facility] Comment: Interpretive Data Percent cell count reference ranges are not reported, since discordance with absolute values may lead to misinterpretation of CBC data. Current Interpretive Data was last revised on 2017. Eosinophil pct 3.0 % [facility] Comment: Interpretive Data Percent cell count reference ranges are not reported, since discordance with absolute values may lead to misinterpretation of CBC data. Current Interpretive Data was last revised on 2017. Basophil pct 0.3 % [facility] Comment: Interpretive Data Percent cell count reference ranges are not reported, since discordance with absolute values may lead to misinterpretation of CBC data. Current Interpretive Data was last revised on 2017. Blood 07/03/2024 5:17 AM CDT 07/03/2024 6:05 AM CDT Macho Sweet MD LAB BLOOD ORDERABLES Fin al Result Performing Organization Address [facility]/State/ZIP Co de Phone Number [facility] [address] [place] [address] * (ABNORMAL) CBC with auto differential (07/03/2024 5:17 AM CDT) Pathologist [facility] WBC 7.09 3.80 - 9.90 K/cumm Hgb 12.4(L) 13.0 - 17.5 g/dL [facility] Hct 37.9(L) 38.9 - 50.3 % [facility] Plt 217 150 - 400 K/cumm [facility] MPV 10.8 9.1 - 12.3 fL [facility] RBC 4.23(L) 4.30 - 5.80 M/cumm [facility] MCV 89.6 81.3 - 96.4 fL [facility] MCH 29.3 27.1 - 33.3 pg [facility] MCHC 32.7 32.3 - 35.7 g/dL [facility] RDW CV 14.3 11.1 - 14.9 % [facility] RDW SD 46.3 35.7 - 48.1 fL [facility] NRBC abs 0.00 0.00 - 0.01 K/cumm [facility] Blood 07/03/2024 5:17 AM CDT 07/03/2024 6:05 AM CDT Macho Sweet MD LAB BLOOD ORDERABLES Fin al Result [facility] [address] [place], [place] [id number] * Magnesium (07/03/2024 5:17 AM CDT) Magnesium 1.9 1.4 - 2.5 mg/dL Blood 07/03/2024 5:17 AM CDT 07/03/2024 6:06 AM CDT Macho Sweet MD LAB BLOOD ORDERABLES Fin al Result Performing Organization Address [facility] Co de Phone Number [facility] [address] Department [place] [address] * Basic metabolic panel (07/03/2024 5:17 AM CDT) [facility] Sodium 135 135 - 145 mmol/L Potassium, pl 4.3 3.3 - 4.9 mmol/L [facility] Chloride 101 97 - 110 mmol/L [facility] CO2 25 22 - 32 mmol/L [facility] Anion gap 9 2 - 15 mmol/L [facility] BUN 22 6 - 25 mg/dL [facility] Creatinine 1.05 0.80 - 1.30 mg/dL [facility] Glucose 86 70 - 199 mg/dL [facility] Comment: Interpretive Data Fasting glucose >/= 126 [...] 2022. Calcium 8.8 8.5 - 10.3 mg/dL [facility] Blood 07/03/2024 5:17 AM CDT 07/03/2024 6:06 AM CDT Macho Sweet MD LAB BLOOD ORDERABLES Fin al Result Performing Organization Address [facility] Co de Phone Number [facility] [address] Department [place] [address] * X-ray chest 2 views (07/03/2024 2:29 [...] PROCEDURE(S): Comprehensive electrophysiologic evaluation with attempted induction (91683) Placement of transvenous implantable cardioverter-defibrillator SENIOR TECHNICAL SUPPORT ANALYST: Doanld Lehman MD, [facility] DUSTER(S): None. INDICATION(S): Near-syncope, nonsustained ventricular tachycardia ANESTHESIA [...] principles of shared decision-making and utilizing the [employer] ICD CardioSmart Decision Aid. [...] ms which required rescue external cardioversion for religion of sinus rhythm. All venous sheaths were [...] area in stable condition. CONDUCTION INTERVALS: RR OR QRS QT AH HV 933 206 80 [...] check in 7-10 days. Donald Lehman MD, [facility] [address] [place] [address], [address], [place] [address] Ying Guaman NP CV ELECTROPHYSIOLOGY PROCS Edited [...] MD LAB BLOOD ORDERABLES F inal Result [facility] [address] Department [place] [address] * Differential, auto (07/02/2024 2:27 AM CDT) Neutrophil abs 4.92 1.50 - 6.50 K/cumm Imm gran abs 0.03 0.00 - 0.10 K/cumm [facility] Lymphocyte abs 0.86 0.80 - 3.30 K/cumm [facility] Monocyte abs 0.61 0.20 - 0.80 K/cumm [facility] Eosinophil abs 0.25 0.00 - 0.50 K/cumm [facility] Basophil abs 0.02 0.00 - 0.10 K/cumm [facility] Neutrophil pct 73.6 % [facility] Comment: Interpretive Data Percent cell count reference ranges are not reported, since discordance with absolute values may lead to misinterpretation of CBC data. Current Interpretive Data was last revised on 2017. Imm gran pct 0.4 % [facility] Comment: Interpretive Data Percent cell count reference ranges are not reported, since discordance with absolute values may lead to misinterpretation of CBC data. Current Interpretive Data was last revised on 2017. Lymphocyte pct 12.9 % [facility] Comment: Interpretive Data Percent cell count reference ranges are not reported, since discordance with absolute values may lead to misinterpretation of CBC data. Current Interpretive Data was last revised on 2017. Monocyte pct 9.1 % [facility] Comment: Interpretive Data Percent cell count reference ranges are not reported, since discordance with absolute values may lead to misinterpretation of CBC data. Current Interpretive Data was last revised on 2017. Eosinophil pct 3.7 % [facility] Comment: Interpretive Data Percent cell count reference ranges are not reported, since discordance with absolute values may lead to misinterpretation of CBC data. Current Interpretive Data was last revised on 2017. Basophil pct 0.3 % [facility] Comment: Interpretive Data Percent cell count reference ranges are not reported, since discordance with absolute values may lead to misinterpretation of CBC data. Current Interpretive Data was last revised on 2017. Blood 07/02/2024 2:27 AM CDT 07/02/2024 2:29 AM CDT us Kin Boyd MD LAB BLOOD ORDERABLES F inal Result [facility] [address] Department [place] [address] * (ABNORMAL) CBC with auto differential (07/02/2024 2:27 AM CDT) WBC 6.69 3.80 - 9.90 K/cumm Hgb 12.5(L) 13.0 - 17.5 g/dL [facility] Hct 39.4 38.9 - 50.3 % [facility] Plt 243 150 - 400 K/cumm [facility] MPV 10.2 9.1 - 12.3 fL [facility] RBC 4.41 4.30 - 5.80 M/cumm [facility] MCV 89.3 81.3 - 96.4 fL [facility] MCH 28.3 27.1 - 33.3 pg [facility] MCHC 31.7(L) 32.3 - 35.7 g/dL [facility] RDW CV 14.3 11.1 - 14.9 % [facility] RDW SD 47.5 35.7 - 48.1 fL [facility] NRBC abs 0.00 0.00 - 0.01 K/cumm [facility] Blood 07/02/2024 2:27 AM CDT 07/02/2024 2:29 AM CDT Kin Boyd MD LAB BLOOD ORDERABLES F inal Result Performing Organization Address City/[facility]/ZIP Co de Phone Number [facility] [address] Department [place] [address] * Magnesium (07/02/2024 2:27 AM CDT) Pathologist [facility] Magnesium 2.3 1.4 - 2.5 mg/dL Blood 07/02/2024 2:27 AM CDT 07/02/2024 2:29 AM CDT Kin Boyd MD LAB BLOOD ORDERABLES F inal Result Performing Organization Address [facility] de Phone Number [facility] [address] Department [place] [address] * (ABNORMAL) Basic metabolic panel (07/02/2024 2:27 AM CDT) Pathologist [facility] Sodium 137 135 - 145 mmol/L Potassium, pl 4.2 3.3 - 4.9 mmol/L [facility] Chloride 101 97 - 110 mmol/L [facility] CO2 25 22 - 32 mmol/L [facility] Anion gap 11 2 - 15 mmol/L [facility] BUN 33(H) 6 - 25 mg/dL [facility] Creatinine 1.43(H) 0.80 - 1.30 mg/dL [facility] Glucose 99 70 - 199 mg/dL [facility] Comment: Interpretive Data Fasting glucose [...] 2022. Calcium 9.4 8.5 - 10.3 mg/dL [facility] Blood 07/02/2024 2:27 AM CDT 07/02/2024 2:29 AM CDT Kin Boyd MD LAB BLOOD ORDERABLES F inal Result Performing Organization Address [facility] de Phone Number [facility] [address] Department [place] [address] * ECG 12 lead (07/01/2024 1:45 PM CDT) 07/01/2024 1:45 PM CDT Narrative [facility] - 07/01/2024 4:00 PM CDT Vent Rate: 71 bpm RR Interval: 837 msec OR Interval: 206 msec QRS Duration: 87 msec QT Interval: 397 msec QTC Interval: 420 msec P-R-T [place]: 52 - 27 - 34 degrees IMPRESSION: SINUS RHYTHM WITH FREQUENT VENTRICULAR PREMATURE COMPLEXES LOW QRS VOLTAGE IN PRECORDIAL LEADS [QRS DEFLECTION < 1.0 mV IN CHEST LEADS] ABNORMAL RHYTHM ECG Electronically Signed By: Dr. Bharathi Aguilar [facility] Tosha Jin NP ECG ORDERABLES Final Result Performing Organization Address [facility] de Phone Number [facility] * ECG 12 lead (07/01/2024 8:39 AM CDT) 07/01/2024 8:39 AM CDT Narrative [facility] - 07/01/2024 12:46 PM CDT Vent Rate: 65 bpm RR Interval: 922 msec OR Interval: 202 msec QRS Duration: 86 msec QT Interval: 392 msec QTC Interval: 403 msec P-R-T [place]: 42 - 17 - 29 degrees IMPRESSION: SINUS RHYTHM NORMAL ECG Electronically Signed By: Dr. Bharathi Aguilar [facility] us Chandni Benton MD ECG ORDERABLES Final Resul t [facility] * eGFR (07/01/2024 6:19 AM [...] ORDERABLES F inal Result Performing Organization Address City/[facility]/ZIP Co de Phone Number [facility] [address] Department [place] [address] * Differential, auto (07/01/2024 6:19 AM CDT) Neutrophil abs 4.84 1.50 - 6.50 K/cumm Imm gran abs 0.02 0.00 - 0.10 K/cumm [facility] Lymphocyte abs 0.89 0.80 - 3.30 K/cumm [facility] Monocyte abs 0.70 0.20 - 0.80 K/cumm [facility] Eosinophil abs 0.21 0.00 - 0.50 K/cumm [facility] Basophil abs 0.03 0.00 - 0.10 K/cumm [facility] Neutrophil pct 72.4 % [facility] Comment: Interpretive Data Percent cell count reference ranges are not reported, since discordance with absolute values may lead to misinterpretation of CBC data. Current Interpretive Data was last revised on 2017. Imm gran pct 0.3 % [facility] Comment: Interpretive Data Percent cell [...] revised on 2017. Monocyte pct 10.5 % [facility] Comment: Interpretive Data Percent cell [...] LAB BLOOD ORDERABLES F inal Result [facility] [address] Department [place] [address] * (ABNORMAL) CBC with auto differential (07/01/2024 6:19 AM CDT) WBC 6.69 3.80 - 9.90 K/cumm Hgb 12.4(L) 13.0 - 17.5 g/dL [facility] Hct 37.8(L) 38.9 - 50.3 % [facility] Plt 213 150 - 400 K/cumm [facility] CH MPV 10.1 9.1 - 12.3 fL [facility] RBC 4.27(L) 4.30 - 5.80 M/cumm [facility] MCV 88.5 81.3 - 96.4 fL [facility] MCH 29.0 27.1 - 33.3 pg [facility] MCHC 32.8 32.3 - 35.7 g/dL [facility] RDW CV 14.6 11.1 - 14.9 % [facility] CH RDW SD 46.9 35.7 - 48.1 fL [facility] NRBC abs 0.00 0.00 - 0.01 K/cumm [facility] Blood 07/01/2024 6:19 AM CDT 07/01/2024 6:28 AM CDT Kin Boyd MD LAB BLOOD ORDERABLES F inal Result Performing Organization Address [facility] de Phone Number [facility] [address] [facility] [employer] [place], [place] [id number] * Magnesium (07/01/2024 6:19 AM CDT) [facility] Magnesium 1.9 1.4 - 2.5 mg/dL Blood 07/01/2024 6:19 AM CDT 07/01/2024 6:28 AM CDT Kin Boyd MD LAB BLOOD ORDERABLES F inal Result Performing Organization Address [facility] de Phone Number [facility] [facility] [address] [address] [facility] [place], [place] [id number] * (ABNORMAL) Hepatic function panel (07/01/2024 6:19 AM CDT) Bilirubin, total 1.0 0.1 - 1.2 mg/dL Bilirubin, direct 0.2 0.1 - 0.3 mg/dL [facility] Protein, pl 6.1(L) 6.5 - 8.5 g/dL [facility] Albumin 3.3(L) 3.5 - 5.0 g/dL [facility] Alk phos 95 40 - 130 Units/L [facility] ALT 25 7 - 55 Units/L [facility] AST 16 10 - 50 Units/L [facility] Blood 07/01/2024 6:19 AM CDT 07/01/2024 6:28 AM CDT Kin Boyd MD LAB [place]LOOD [place] [address] [address] [place] [address] * (ABNORMAL) Basic metabolic panel [...] Calcium 9.2 8.5 - 10.3 mg/dL [facility] Blood 07/01/2024 6:19 AM CDT 07/01/2024 6:28 AM CDT Kin Boyd MD LAB BLOOD [place] [address] [address] Department [place] [address] from Last 3 Months Insurance MEDICARE [facility] MEDICARE [facility] FEDERAL MEDICARE [facility] Address: [address] [place] [phone] [facility] FED[facility]AL Advance Directives For more information, please contact: [phone] * Full Code (Latest Code Status on [...] specifically selected below: No intubation Care Teams Ux Lead Relationship Specialty Start Date End Date Cole Petty MD [address] [place] [address] PCP - General 07/01/12
--- OUTSIDE RECORDS SUMMARY | 2024-09-07 06:45 | XMS_ITS | Encounter Summary ---
Author Organization [facility] Healthcare Address [address] [place] [address] Care Team Providers Care Miter Grinder Operator Name Role Phone Cole Petty MD Primary Care Prov ider Encounter Details Date Type Department Care Team (Late st Contact Info) Description 08/24/2024 Results Follow-Up [facility] Cardiology [address] [facility] [place] [address] Jennifer Molina NP [address] [place] [address] Basic metabolic panel Social History Tobacco Use Types Packs/Day Years Used Date Smoking Tobacco: Former Cigarettes 2.5 50 Q uit: 2020 Cigars Smokeless Tobacco: Former Quit: 10/09/2019 Alcohol Use Standard Drinks/Week Comments No 0 (1 standard drink = 0.6 oz pur e alcohol) [facility] Utilities Answer Date Recorded In the past 12 months has [employer], gas, oil, or water [employer] threatened to shut off services in your [...] week 07/03/2024 How often do you attend [facility] or quaker services? More than 4 times per year 07/03/2024 Do you belong to any clubs o r organizations such as lutheran groups, unions, fraternal or athletic groups, or [...] time in the past 12 m [facility], were you homeless or living in a half-way (including now)? No 07/03/2024 Personal Safety Answer Date Recorded Have you ever been in or are you currently in a harmful physical or emotional relationship or is someone making you feel afraid or unsafe? 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
--- OUTSIDE RECORDS SUMMARY | 2024-09-07 06:45 | XMS_ITS | Clinical Summary ---
Author Organization [facility] Address [facility] [place] [address] Care Team Providers Care Filleter Name Role Phone Unavailable Primary Care Provider [...]
[2024-09-07 07:37] LABS: Alanine Aminotransferase 17 U/L (6-50); Albumin Level 3.7 g/dL (3.5-5.1); Alkaline Phosphatase 89 U/L (38-126); Anion Gap 9 mmol/L (4-12); Aspartate Amino Transferase 23 U/L (17-59); Bilirubin,Total 0.6 mg/dL (0.2-1.3); Blood Urea Nitrogen 22 mg/dL (9-20); Calcium 9.5 mg/dL (8.4-10.2); Carbon Dioxide 26 mmol/L (22-30); Chloride 104 mmol/L (98-107); Estimated Glomerular Filt Rate > 60; Glucose 100 mg/dL (65-110); Potassium 4.0 mmol/L (3.4-5.0); Sodium 139 mmol/L (137-145); Total Protein 6.7 g/dL (6.3-8.2)
[2024-09-07 08:07] LABS: Thyroid Stimulating Hormone 4.750 uIU/mL (0.465-4.680)
== END 2024-09-07 06:41 | disposition home or self-care (01) ==
PROVIDERS: PCP Family Medicine Adolescent Medicine
DX: I49.9 Cardiac arrhythmia, unspecified (principal); I25.5 Ischemic cardiomyopathy; Z95.5 Presence of coronary angioplasty implant and graft; Z95.810 Presence of automatic (implantable) cardiac defibrillator
CPT/HCPCS: 36415; 80053; 84443

== ENCOUNTER 2024-11-10 05:02 | Emergency (ER) | payer MEDICARE, BC, SELFPAY ==
--- NOTE | ~2024-11-10 | XR_ITS ---
EXAMINATION: XR abdomen/kub 1V, 11/10/2024 7:55 CDT HISTORY: Left ureteral stone COMPARISON: CT 11/10/2024. Technique: 3 view. Findings: Moderate fecal content, no dilated bowel loops. Probable left proximal ureteral calculus measures 4 x 5 mm. No acute osseous abnormality. Impression: 1. Probable left ureteral calculus. Correlation with repeat CT is suggested Reviewed, dictated and finalized at location A. Impression: 1. Probable left ureteral calculus. Correlation with repeat CT is suggested
--- NOTE | ~2024-11-10 | CT_ITS ---
EXAMINATION: CT abdomen pelvis wo con DATE: 11/10/2024 06:12 INDICATION: Left lower quadrant abdominal pain TECHNIQUE: Computed tomography (CT) of the abdomen and pelvis was performed with 100 mL Omnipaque-350 intravenous contrast. Automated exposure control and iterative reconstruction technique were employed. The dose-length product was 995.11 mGy-cm. COMPARISON: 02/10/2015 FINDINGS: Lung bases are clear. Heart size is normal. Atherosclerotic coronary artery calcific location. Cardiac pacemaker leads terminating at the radiocarpal appendage and at the apex of the right ventricle. No pericardial or pleural effusion. Liver, gallbladder, spleen, pancreas and bilateral adrenal glands are normal. Bilateral renal cysts the largest on the right measuring 5.9 cm. 405 mm nonobstructing stone at a lower pole calyx of the left kidney. There is however mild left hydroureteronephrosis extending to a 4 mm stone in the mid left ureter. Mild diverticulosis along the descending and sigmoid colon. Small bowel and appendix are normal. Decompressed bladder is unremarkable. Prostatomegaly measuring 4.7 x 4.5 cm. No free intraperitoneal gas or fluid. No pathologically enlarged abdominal or pelvic lymphadenopathy. 0.9 x 1.9 cm left undescended testis position in the pelvis near the entrance to the empty left inguinal canal. Postoperative change of prior umbilical hernia mesh repair. Severe lower lumbar spondylosis. IMPRESSION: 1. Left nephrolithiasis with obstructing 4 mm stone in the mid left ureter with mild left hydroureteronephrosis. 2. Undescended left testis. 3. Prostatomegaly. Reviewed, dictated and finalized at location A.
--- OUTSIDE RECORDS SUMMARY | 2024-11-10 05:04 | XMS_ITS | Encounter Summary ---
Author Organization [facility] Healthcare Address [address] [place] [address] Care Team Providers Care Office Copy Selector Name Role Phone Cole Petty MD Primary Care Prov ider Encounter Details Date Type Department Care Team (Late st Contact Info) Description 06/29/2024 Orders Only [facility] Health Information Management [address] [place] [id number] Scanning, Provider Social History Tobacco Use Types Packs/Day Years Used Date Smoking Tobacco: Former Cigars Smokeless Tobacco: Former Quit: 10/09/2019 Comments:CIGARS/ 1 DAILY Alcohol Use Standard Drinks/Week Comments No 0 (1 standard drink = 0.6 oz pur e alcohol) [facility] Utilities Answer Date Recorded In the past 12 months has [employer], gas, oil, or water company threatened to shut off services in your home? No 07/03/2024 Social Connection and Isolation Panel Answer Date Recorded In a typical week, how many times do you talk on the phone with family, friends, or neighbors? More than three times a week 07/03/2024 How often do you get togethe r with friends or relatives? More than three times a week 07/03/2024 How often do you attend chur ch or cheondoism services? More than 4 times per year 07/03/2024 Do you belong to any clubs o r organizations such as anabaptism groups, unions, fraternal or athletic groups, or [...] any time in the past 12 m [facility], were you homeless or living in a chcf (including now)? No 07/03/2024 Personal Safety Answer Date Recorded Have you ever been in or are you currently in a harmful physical or emotional relationship or is someone making you feel afraid or unsafe? 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 Gender Identity Not on file Sexual Orientation Not on file documented as of this encounter Functional Status documented as of this encounter Plan of Treatment Not on file documented as of this encounter Procedures Procedure Name Priority Date/Time Associated Diagnosis Comments CARDIOLOGY DOCUMENT SCAN 06/29/2024 documented in this encounter Results * Cardiology Document Scan (06/29/2024) Anatomical Region Laterality Modality Other us Provider Scanning CV CARDIAC SERVICES PROCEDURES Edited Result - Final documented in this encounter Visit Diagnoses Not on filedocumented in this encounter Care Teams Office Copy Selector Relationship Specialty Start Date End Date Cole Petty MD PCP - General 07/01/12 documented as of this encounter
--- OUTSIDE RECORDS SUMMARY | 2024-11-10 05:04 | XMS_ITS | Clinical Summary ---
Author Organization [facility] Address [facility] [place] [address] Care Team Providers Care Regulator Assembler Name Role Phone Unavailable Primary Care Provider [...] COVID-19 Vaccine ( - 2023-2 5 season) 2024 RSV Immunization or 60+ Years (1 - [...]
[2024-11-10 05:05] VITALS: BP 142/72; PULSE 51; RESP 18; TEMP 36.3; O2SAT 100
--- OUTSIDE RECORDS SUMMARY | 2024-11-10 05:41 | XMS_ITS | Clinical Summary ---
Author Organization [facility] Address [facility] [place] [address] Care Team Providers Care Pharmacy Helper Name Role Phone Unavailable Primary Care Provider [...]
--- OUTSIDE RECORDS SUMMARY | 2024-11-10 05:41 | XMS_ITS | Encounter Summary ---
Author Organization [facility] Healthcare Address [address] [place] [address] Care Team Providers Care Manager Maintenance Name Role Phone Cole Petty MD Primary Care Prov ider Encounter Details Date Type Department Care Team (Late st Contact Info) Description 06/29/2024 Orders Only [facility] Health Information Management [address] [place] [id number] Scanning, Provider Social History Tobacco Use Types Packs/Day Years Used Date Smoking Tobacco: Former Cigars Smokeless Tobacco: Former Quit: 10/09/2019 Comments:CIGARS/ 1 DAILY Alcohol Use Standard Drinks/Week Comments No 0 (1 standard drink = 0.6 oz pur e alcohol) [facility] Utilities Answer Date Recorded In the past [address] [employer], gas, oil, or water company threatened [...] often do you attend chur ch or shinto services? More than 4 times per year 07/03/2024 Do you belong to any clubs o r organizations such as sabianist groups, unions, fraternal or athletic groups, or [...] any time in the past 12 m [facility], were you homeless or living in a chcf (including now)? No 07/03/2024 Personal Safety Answer Date Recorded Have you ever been in or are you currently in a harmful physical or emotional relationship or is someone making you feel afraid or unsafe? 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
--- OUTSIDE RECORDS SUMMARY | 2024-11-10 05:41 | XMS_ITS | Clinical Summary ---
Author Organization [facility] [address] Address [address] [place] [address] Care Team Providers Care Gi Technician Name Role Phone Cole Petty MD Primary [...] (10 mg total) by mouth daily Active amiodarone (PACERONE) 200 mg tabletIndicatio ns:Life-Threate julian Ventricular Tachycardia Take 1 tablet (200 mg total) by mouth daily 30 tablet 5 08/05/19 25 025 Active metoprolol tartrate (LOPRESSOR) 25 mg immediate release tablet Take 1 tablet (25 mg total) by mouth 2 (two) times a day 180 tablet 3 07/24/19 25 026 Active furosemide (LASIX) 20 mg tabletIndicatio ns:Edema, lower extremity TAKE 1 TABLET(20 MG) BY MOUTH DAILY 90 tablet 2 09/16/19 25 Active potassium chloride ER 20 mEq CR tabletIndicatio ns:Edema, lower extremity TAKE 1 TABLET(20 MEQ) BY MOUTH DAILY 90 tablet 09/26/19 25 Active nitroglycerin (NITROSTAT) 0.4 mg SL tablet DISSOLVE ONE TABLET UNDER TONGUE NEEDED FOR CHEST PAIN EVERY 5 MINUTES FOR UP TO 3 DOSES. 25 tablet 10/28/19 25 Active nitroglycerin (NITROSTAT) 0.[address] 1 TABLET UNDER THE TONGUE AND DISSOLVE EVERY 5 MINUTES NEEDED FOR CHEST PAIN. MAY REPEAT UP TO 3 DOSES 25 tablet 09/16/19 25 025 Discontinued Active Problems Problem Noted Date Diagnosed Date V-tach 07/02/2024 COPD (chronic obstructive pulmonary disease) BOOGIE (obstructive sleep apnea) 07/01/2024 Morbid (severe) obesity due to excess calories 0 06/19/2022 Angina pectoris, unspecified 06/19/2022 History of coronary artery stent placement 12/22 Coronary artery disease invo lving [place] coronary artery of [place] heart without angina pectoris 12/02/2018 Encounters Date Type Department Care Team Description 10/12/2024 8:30 AM CDT Ancillary Procedure Ar[facility]hythmia [facility] [address] [place] [phone] AICD (automatic cardioverter/defibril lator) present (Primary Dx); V tach ([facility]) 10/01/2024 9:15 AM CDT Office Visit [facility] Cardiology at [address] [place] [address] Bam Singh MD Coronary artery disease involving [place] coronary artery of [place] heart without angina pectoris (Primary Dx); History of coronary artery stent placement; V-tach ([facility]) 08/31/2024 11:15 AM CDT Office Visit [facility] [address] [place] [phone] Donald Lehman MD Cardiac arrhythmia, unspecified cardiac arrhythmia type (Primary Dx); Automatic implantable cardiac defibrillator in situ; Cardiomyopathy, ischemic; History of coronary artery stent placement; V tach ([facility]); Cardiac pacemaker in situ 08/31/2024 11:00 AM CDT Ancillary Procedure Arrhythmia Center [address] [facility] [address] [place] [phone] Automatic implantable cardiac defibrillator in situ (Primary Dx); V tach (HCC) 08/24/2024 Results Follow-Up [facility] Cardiology [address] [place] [address] Jennifer Molina NP Basic metabolic panel from Last 3 Months Surgical History Surgery Date Site/Laterality Comments CARDIAC CATHETERIZATION CORONARY ANGIOPLASTY 03/04/1995 - 03/03/1996 Angioplasty to RCA CORONARY ANGIOPLASTY WITH STENT PLACEMENT 10/09/2019 Stent to proximal LCX CARDIAC ELECTROPHYSIOLOGY PROCEDURE 07/02/2024 Left Procedure: ELECTROPHYSIOLOGIC EVALUATION (EPS) WITH INDUCTION OR ATTEMPTED INDUCTION OF ARRHYTHMIA [id number]; Surgeon: Donald Lehman MD; Location: [facility] EP [facility]; Service: Cardiovascular; Laterality: Left; Medical devices from this surgery are in the Medical Devices section. CARDIAC CATHETERIZATION 07/02/2024 N/A Procedure: ULTRASOUND GUIDANCE FOR VASCULAR ACCESS S&I [id number]; Surgeon: Donald Lehman MD; Location: [facility] EP LAB; Service: Cardiovascular; Laterality: N/A; Medical devices from this surgery are in the Medical Devices section. CARDIAC ELECTROPHYSIOLOGY PROCEDURE 07/02/2024 N/A Procedure: IMPLANT DUAL CHAMBER PPM SYSTEM W/ DUAL ELECTRODES (GEN AND LEADS, NEW OR REPLACE) [id number]; Surgeon: Donald Lehman MD; Location: [facility] EP [facility]; Service: Cardiovascular; Laterality: N/A; Medical devices from this surgery are in the Medical Devices section. FRACTURE SURGERY 1998 HERNIA REPAIR 2005 Medical History Medical History Date Comments Coronary artery disease Hypertension Hyperlipidemia Ischemic cardiomyopathy [place] (myocardial infarction) (HCC) COPD (chronic obstructive pulmonary disease) Sleep apnea Heart disease 1995 Benign prostatic [...] drink = 0.6 oz pur e alcohol) [facility] Utilities Answer Date Recorded In the past 12 months has th e [employer], gas, oil, or water [employer] threatened to shut off services in your [...] week 07/03/2024 How often do you attend [facility] or protestant services? More than 4 times per year 07/03/2024 Do you belong to any clubs o r organizations such as nondenominational groups, unions, fraternal or athletic groups, or [...] any time in the past 12 m [facility], were you homeless or living in a senior care (including now)? No 07/03/2024 Personal Safety Answer Date Recorded Have you ever been in or are you currently in a harmful physical or emotional relationship or is someone making you feel afraid or unsafe? 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 Gender Identity Not on file Sexual Orientation Not on file Obstetrics History Last Filed Vital Signs Vital Sign Reading Time Taken Comments Blood Pressure 110/80 10/01/2024 8:48 AM CDT Pulse 58 10/01/2024 8:48 AM CDT Temperature 36.1 C (97 F) 07/03/2024 11:55 AM CDT Respiratory Rate 20 07/03/2024 11:55 AM CDT Oxygen Saturation 98% 10/01/2024 8:48 AM CDT Inhaled Oxygen Concentration - - Weight 118.4 kg (261 lb) 10/01/2024 8:48 AM CDT Height 180.3 cm (5' 11) 10/01/2024 8:48 AM CDT Body Mass Index 36.4 10/01/2024 8:48 AM CDT Plan of Treatment Health Maintenance [...] 2017 Well Visit 65+ 2017 Influenza Vaccine (#1) 2024 01/11/2020 Fall Risk Assessment 07/03/2025 07/03/2024, 12/08/19 20 Medical Devices Implanted Type Area Draw In Hand Device Identifier Shelf Expiration Date Model / Serial / Lot House Vascular Defib Cardiac [id number] [place] Implantable 2 Chamber [id number] - [id number] - [id number] Implanted:Qty: 1 on 07/02/2024 by Donald Lehman MD at [facility] ICD House Vascular 12/01/2025 CDDRA 500Q / [id number] / House Vascular Active Fixation Steroid Eluting Latex Free Sterile Right Atrium Ventricle Ultipace 52cm [id number]/52 - [id number] - [id number] Implanted:Qty: 1 on 07/02/2024 by Donald Lehman MD at [facility] Lead Right: Ventricle House Vascular 05/02/2027 MSL5862/5 2 / [id number] / [employer] Optisure 8fr 65cm 1 Coil Df4 Connector True Bipolar Optim [id number]/65 - [id number] - [id number] Implanted:Qty: 1 on 07/02/2024 by Donald Lehman MD at [facility] Lead Right: [employer] 06/02/2027 [id number]/6 5 / [id number] / [employer] Device Closure Vascade Od5 Fr Femoral Artery [id number] - [id number] - [id number] Implanted:Qty: 1 on 07/02/2024 by Donald Lehman MD at [facility] [employer] 04/01/2026 700-500DX -05U / [id number] 204A / [id number] [employer] Device Vascular Closure Femoral Artery Bioabsorbable Dual Method Vascade 6-7fr Collagen [id number] - [id number] - [id number] Implanted:Qty: 1 on 07/02/2024 by Donald Lehman MD at [facility] [employer] 04/15/2026 [id number]- 05U / [id number] 11A / [id number] [facility] Medical [facility] Device Closure Vascade Od5 Fr Femoral Artery [id number] - [id number] - [id number] Implanted:Qty: 1 on 07/02/2024 by Donald Lehman MD at [facility] Medical [facility] 01/29/2026 700-500DX -05U / [id number] / [id number] Procedures Procedure Name Priority Date/Time Associated Diagnosis Comments DEVICE CHECK - REMOTE Routine 10/12/2024 9:28 AM CDT V tach (HCC) ECG 12-LEAD Routine 08/31/2024 11:09 AM CDT Cardiac arrhythmia, unspecified cardiac arrhythmia type DEVICE CHECK - IN OFFICE Routine 08/31/2024 10:28 AM CDT V tach (HCC) BASIC METABOLIC PANEL Routine 08/21/2024 Edema, lower extremity from Last 3 Months Results * DEVICE CHECK - REMOTE (10/12/2024 9:28 AM CDT) Anatomical Region Laterality Modality Other Narrative 10/12/2024 12:37 PM CDT Table formatting from the original result was not included. ICD CHECK (REMOTE) Patient ID: Papa [place] is a 74 y.o. male This patient received a House ICD. They had a remote transmission on 10/12/2024. Device implant indications: VT Interrogation of the patient's device demonstrates the following: Presenting EGM: A paced/A sense V paced @ 50-98 bpm Original Device Settings Right Atrium Right Ventricle Sensitivity (mV) Auto mV Auto mV Pacing Outputs 2.5 V @ 0.5 ms 0.875 V @ 0.5 ms Testing Measurements Right Atrium Right Ventricle Sensitivity (mV) 3.9 mV >12 mV Impedence (Ohms) 440 ohms 650 ohms High Voltage Impedence 79 ohms Pace Threshold 1.125 V @ 0.5 ms 0.625 V @ 0.5 ms Pacing % 21 % 1.1 % Battery Status: 8.6-9.4 years to KETAN Episodes last 90 days/Comments: AF [place] 0% No new ventricular events NORMAL DEVICE FUNCTION PROGRAMMED Medications: Anti-coagulant(s): Aspirin 81 mg Anti-arrhythmic(s): Amiodarone 200 mg daily, Lopressor 25 mg twice a day PLAN: 1) House ICD evaluation. 2) House remote transmission scheduled in 3 months. 3) Programming appropriate for device measurements Jennifer Beaver RN Donald Lehman MD CV CARDIAC SERVICES PROC EDURES Final Result * ECG 12 lead (08/31/2024 11:09 AM CDT) Donald Lehman MD ECG ORDERABLES Final Re [...] not done. Episodes last 90 days/Comments: AF [place] 0%, longest duration0 There were no treated ventricular arrhythmias noted on today's in office device interrogation. NORMAL DEVICE FUNCTION PROGRAMMED MEDICATIONS: Anti-coagulant(s): Aspirin 81 mg daily Anti-arrhythmic(s): Amiodarone 200 mg daily, Lopressor 25 mg twice daily. PLAN: 1) House ICD evaluation. 2) House remote transmission scheduled in 3 months. 3) Programming appropriate for device measurements Liban Smith RN us Donald Lehman MD CV CARDIAC SERVICES PROC EDURES Final Result * Basic metabolic panel (08/21/2024) Blood 08/21/2024 us Jennifer Molina NP LAB BLOOD ORDERABLES Inez elizabeth Result EXTERNAL LAB from Last 3 Months Insurance MEDICARE [facility] MEDICARE [facility] MEDICARE [facility] Advance Directives For more information, please contact: [phone] * Full Code (Latest Code Status on [...] specifically selected below: No intubation Care Teams Gi Technician Relationship Specialty Start Date End Date Cole Petty MD PCP - General 07/01/12
[2024-11-10] MEDS: HYDROmorphone HCL INJ (*CRX) 1 MG/ML SYR 0.5 MG IV PUSH (06:00)
[2024-11-10] MEDS: SODIUM CHLORIDE 0.9% IV 1,000 ML 999 ML IV CONT (06:00)
[2024-11-10 06:10] LABS: Hematocrit 50.1 % (42.0-52.0); Hemoglobin 15.3 g/dL (14.0-18.0); Immature Granulocyte Percent A 0.3 % (0-0.5); Lymphocytes Absolute Auto 0.64 K/mm3 (0.9-3.2); Mean Corpuscular HGB Conc 30.5 g/dl (32-36); Mean Corpuscular Hemoglobin 26.7 pg (26-34); Mean Corpuscular Volume 87.3 fl (80-100); Nucleated Red Blood Cells Absolute Auto 0.000 K/mm3 (0.0-0.012); Nucleated Red Blood Cells Perc 0.0 % (0.0-0.2); Platelet Count Result 247 k/mm3 (150-375); Red Blood Count 5.74 M/mm3 (4.6-6.20); White Blood Count 7.5 K/mm3 (4.5-10.0)
--- NOTE | 2024-11-10 06:18 | ED.GENADULT ---
HPI - General Adult General Chief complaint: Urogenital-Male <Ashish Sabillon MD - Last Filed: 11/10/24 06:41> Stated complaint: flank pain <Ashish Sabillon MD - Last Filed: 11/10/24 06:41> Time Seen by Provider: 11/10/24 05:23 <Ashish Sabillon MD - Last Filed: 11/10/24 06:41> History of Present Illness HPI narrative: This is a 74-year-old male presenting ED with chief complaint of left flank pain. Pain started at 1:00 a.m.. An achy pain in his left lower abdomen. severe in intensity, Nonradiating. Feels similar to kidney stones that he has had in the past. Is not associated with fevers nausea vomiting diarrhea hematuria dysuria. Patient has history of kidney stones. <Ashish Sabillon MD - Last Filed: 11/10/24 06:41> Related Data Home medications: Home Medications ?Medication ?Instructions ?Recorded ?Confirmed ?Last Taken ?Type aspirin 81 mg chewable tablet 81 mg PO HS 10/09/19 11/10/24 11/03/19 History acetaminophen 500 mg tablet 500 mg PO Q4-6H PRN pain 06/27/24 11/10/24 Unknown History (Acetaminophen Extra Strength) albuterol sulfate 90 mcg/actuation 1 - 2 puff inhalation Q4-6H PRN 06/27/24 11/10/24 Unknown History aerosol inhaler shortness of breath or wheezing amiodarone 200 mg tablet 200 mg PO DAILY 11/10/24 11/10/24 Unknown History furosemide 20 mg tablet (Lasix) 20 mg PO QAM 11/10/24 11/10/24 Unknown History metoprolol tartrate 25 mg tablet 25 mg PO BID 11/10/24 11/10/24 Unknown History potassium chloride 20 mEq 20 meq PO DAILY 11/10/24 11/10/24 Unknown History tablet,extended release (K-Tab) <Ashish Sabillon MD - Last Filed: 11/10/24 06:41> Allergies/adverse reactions: Allergies Allergy/AdvReac Type Severity Reaction Status Date / Time meperidine (From Demerol) Allergy Intermediate Vomiting Verified 11/10/24 08:42 propoxyphene (From AdvReac Mild Nausea and Verified 11/10/24 08:42 Darvocet-N) Vomiting <Ashish Sabillon MD - Last Filed: 11/10/24 06:41> FOR[facility]LY [facility], LATER [facility] Past Medical History Medical History: Medical History Severe obstructive sleep apnea-hypopnea syndrome With polysomnogram 2020 indicating recommended treatment with BiPAP pressures of 11/ 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 Singh Hypertension Non-ST elevated myocardial infarction (non-STEMI) Myocardial infarction Hyperlipidemia Obese BMI 36.2 <Ashish Sabillon MD - Last Filed: 11/10/24 06:41> Surgical History Surgical History: Surgical History S/P drug eluting coronary stent placement (10/2019) October 2019 <Ashish Sabillon MD - Last Filed: 11/10/24 06:41> Family History Family History: Family History Sibling Acute myocardial infarction Thyroid cancer Father Malignant neoplasm of prostate Acute myocardial infarction Mother Acute myocardial infarction <Ashish Sabillon MD - Last Filed: 11/10/24 06:41> Social History Social History: Social History (Updated 11/10/24 @ 07:49 by Sushma Lacey) Social History: Of the patient lives with his Jana. They have been for 51 years. They raised a son and a daughter. The daughter is a nurse practitioner. They live on [address]. 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 He stays busy working on things around the property. He used to smoke 2 packs of cigarettes per day the majority of the years he smoked he smoked unfiltered cigarettes and chewed tobacco. He also smoked about 5 cigars a day as well. He quit smoking altogether in 2019. He used to drink 2 fifths of [place] a day on the weekends for a lot of years with about 3 shots of [place] on week days to stop his morning tremors. He quit drinking altogether in approximately 2004. He denies history of illicit substance use. Code status: The patient states he does not have advanced directives in place. However he does not think he would want intubation or CPR. He he states that he would be willing to have cardioversion if on in and unstable heart rhythm. He would not want prolonged or heroic measures. Surrogate decision maker: Jana () Smoking packs per day: 2 Smoking cigarettes per day: 40.0 Years smoked: 51 Smoking pack-years: 102.00 Smoking status: Former smoker Additional smoking assessment comments: he also smoked cigars and used chewing tabacco he has quit all Alcohol intake: former Alcohol use details: 2 fifths of [place] for about 30 years quit in 2004 Substance use: never Substance use type: does not use Do You Feel Safe in your Home?: Yes Lack of Transportation: No Lack of Food: Never True Current Housing: I Have Housing Concerned About Future Housing: No Difficulty Paying Gas/Electric Bills: No Difficulty Paying for Meds: No Currently Unemployed: No Education: High School Diploma/GED Difficulty w/ Childcare or Family Care: No Living arrangements: with family Occupation/Education: other Gender identity (if verbalized by the patient): Male Sexual Orientation (if Verbalized by the Patient): Straight or Heterosexual Spiritual care concerns: No <Ashish Sabillon MD - Last Filed: 11/10/24 06:41> Exam Narrative: APPEARANCE: No apparent distress. Head: atraumatic. EYES: EOMI, NOSE: Atraumatic NECK: Trachea midline RESPIRATORY: No increased rate of breathing CARDIOVASCULAR: RRR, ABDOMINAL: Obese, soft nontender no guarding rebound no CVA tenderness MUSCULOSKELETAl: No obvious deformities NEURO: Alert. Moving 4/4 extremities SKIN:: Warm, dry. Normal color PSYCHIATRIC: Normal affect <Ashish Sabillon MD - Last Filed: 11/10/24 06:41> Course Vital Signs Vital signs: Vital Signs Temperature 97.4 F L 11/10/24 05:05 Pulse Rate 51 L 11/10/24 05:05 Respiratory Rate 18 11/10/24 05:05 Blood Pressure 142/72 H 11/10/24 05:05 Pulse Oximetry 100 11/10/24 05:05 Oxygen Delivery Room Air 11/10/24 05:05 Temperature 97.4 F L 11/10/24 05:05 Pulse Rate 86 11/10/24 07:55 Respiratory Rate 18 11/10/24 07:55 Blood Pressure 142/76 H 11/10/24 07:55 Pulse Oximetry 99 11/10/24 07:55 Oxygen Delivery Room Air 11/10/24 05:05 <Ashish Sabillon MD - Last Filed: 11/10/24 06:41> Vital Signs Temperature 97.4 F L 11/10/24 05:05 Pulse Rate 51 L 11/10/24 05:05 Respiratory Rate 18 11/10/24 05:05 Blood Pressure 142/72 H 11/10/24 05:05 Pulse Oximetry 100 11/10/24 05:05 Oxygen Delivery Room Air 11/10/24 05:05 Temperature 97.4 F L 11/10/24 05:05 Pulse Rate 86 11/10/24 07:55 Respiratory Rate 18 11/10/24 07:55 Blood Pressure 142/76 H 11/10/24 07:55 Pulse Oximetry 99 11/10/24 07:55 Oxygen Delivery Room Air 11/10/24 05:05 <Yuri Torres MD - Last Filed: 11/10/24 17:23> Medical Decision Making MDM Narrative Medical decision making narrative: -Course: 74-year-old male presenting with left-sided flank and abdominal pain. Patient and was treated with Dilaudid and Toradol. Labs within normal limits. Urine with greater than 100 red blood cells no signs of infection. Patient signed out exertion pending response to treatment and CT abdomen pelvis. -DDX includes but is not limited to: Kidney stone, UTI, diverticulitis/constipation/muscle strain <Ashish Sabillon MD - Last Filed: 11/10/24 06:41> -Course: 74-year-old male presenting with left-sided flank and abdominal pain. Patient and was treated with Dilaudid and Toradol. Labs within normal limits. Urine with greater than 100 red blood cells no signs of infection. Patient signed out exertion pending response to treatment and CT abdomen pelvis. -DDX includes but is not limited to: Kidney stone, UTI, diverticulitis/constipation/muscle strain --- Patient care was signed out to me by the overnight physician, Dr Sabillon, with CT pending with the anticipated disposition being discharge home with a kidney stone and supportive medications. Patient is currently afebrile with no leukocytosis, hemoglobin 15.3. No acute abnormalities on the patient's CMP other than a mild TROY. Patient has had this level previously. UA was positive for blood but negative for infection. Patient was treated with a L of IV fluids IV Zofran, IV Toradol IV Dilaudid. CT scan showed left nephrolithiasis with obstructing 4 mm stone in the mid left ureter with mild left hydroureteronephrosis. On re-evaluation patient does feel improved. Patient was updated the results of his workup was comfortable plan for discharge and close follow-up. <Yuri Torres MD - Last Filed: 11/10/24 17:23> Vital Signs Vital Signs: Vital Signs Temperature 97.4 F L 11/10/24 05:05 Pulse Rate 51 L 11/10/24 05:05 Respiratory Rate 18 11/10/24 05:05 Blood Pressure 142/72 H 11/10/24 05:05 Pulse Oximetry 100 11/10/24 05:05 Oxygen Delivery Room Air 11/10/24 05:05 Temperature 97.4 F L 11/10/24 05:05 Pulse Rate 86 11/10/24 07:55 Respiratory Rate 18 11/10/24 07:55 Blood Pressure 142/76 H 11/10/24 07:55 Pulse Oximetry 99 11/10/24 07:55 Oxygen Delivery Room Air 11/10/24 05:05 <Ashish Sabillon MD - Last Filed: 11/10/24 06:41> Vital Signs Temperature 97.4 F L 11/10/24 05:05 Pulse Rate 51 L 11/10/24 05:05 Respiratory Rate 18 11/10/24 05:05 Blood Pressure 142/72 H 11/10/24 05:05 Pulse Oximetry 100 11/10/24 05:05 Oxygen Delivery Room Air 11/10/24 05:05 Temperature 97.4 F L 11/10/24 05:05 Pulse Rate 86 11/10/24 07:55 Respiratory Rate 18 11/10/24 07:55 Blood Pressure 142/76 H 11/10/24 07:55 Pulse Oximetry 99 11/10/24 07:55 Oxygen Delivery Room Air 11/10/24 05:05 <Yuri Torres MD - Last Filed: 11/10/24 17:23> Lab Data Result diagrams: 11/10/24 05:59 11/10/24 05:59 <Ashish Sabillon MD - Last Filed: 11/10/24 06:41> Labs: Lab Results 11/10/24 Range/Units 05:59 WBC 7.5 (4.5-10.0) K/mm3 RBC 5.74 (4.6-6.20) M/mm3 Hgb 15.3 (14.0-18.0) g/dL Hct 50.1 (42.0-52.0) % MCV 87.3 (80-100) fl MCH 26.7 (26-34) pg MCHC 30.5 L (32-36) g/dl RDW 14.5 (11.5-14.5) % Plt Count 247 (150-375) k/mm3 MPV 10.6 H (7.4-10.4) fl Immature Gran % (Auto) 0.3 (0-0.5) % Neut % (Auto) 83.3 H (45.5-73.1) % Lymph % (Auto) 8.6 L (18.3-44.2) % Story % (Auto) 6.2 (2.6-8.5) % Eos % (Auto) 1.3 (0-4.4) % Baso % (Auto) 0.3 (0.2-1.2) % Lymph # (Auto) 0.64 L (0.9-3.2) K/mm3 Story # (Auto) 0.5 (0.1-0.6) K/mm3 Eos # (Auto) 0.1 (0-0.3) K/mm3 Baso # (Auto) 0.0 (0.0-0.1) K/mm3 Abs Immat Gran (auto) 0.02 (0.00-0.031) K/mm3 Absolute Neuts (auto) 6.2 (1.3-6.7) K/mm3 Absolute Nucleated RBC 0.000 (0.0-0.012) K/mm3 Nucleated RBC % 0.0 (0.0-0.2) % Sodium 137 (137-145) mmol/L Potassium 3.9 (3.4-5.0) mmol/L Chloride 101 (98-107) mmol/L Carbon Dioxide 27 (22-30) mmol/L Anion Gap 9 (4-12) mmol/L BUN 24 H (9-20) mg/dL Creatinine 1.69 H (0.7-1.3) mg/dL Estim Creat Clear Calc 45 ml/min Estimated GFR 40 L (59 - ) Glucose 118 H (65-110) mg/dL Calcium 10.1 (8.4-10.2) mg/dL Total Bilirubin 0.9 (0.2-1.3) mg/dL AST 24 (17-59) U/L ALT 17 (6-50) U/L Alkaline Phosphatase 121 (38-126) U/L Total Protein 7.5 (6.3-8.2) g/dL Albumin 4.1 (3.5-5.1) g/dL Lipase 69 (23-300) U/L Urine Color Yellow (Yellow) Urine Appearance Clear (Clear) Urine pH 6.5 (5.0-9.0) Ur Specific [place] 1.019 (1.001-1.035) Urine Protein Negative (Negative) mg/dL Urine Glucose (UA) Negative (Negative) mg/dL Urine Ketones Trace H (Negative) mg/dL Ur Blood (Man) 2+ H (Negative) Urine Nitrate Negative (Negative) Urine Bilirubin Negative (Negative) Urine Urobilinogen 1.0 (<2.0) mg/dL Leukocyte Esterase Rfl Trace H (Negative) ANSELMO/UL Urine RBC >100 H (0-2) /hpf Urine WBC 0-5 (0-3) /hpf Ur Squamous Epith Cells None seen (Few) /hpf Calcium Oxalate Crystal Present (None) /hpf Urine Bacteria None seen /hpf Urine Casts 0-2 <Ashish Sabillon MD - Last Filed: 11/10/24 06:41> Lab Results 11/10/24 Range/Units 05:59 WBC 7.5 (4.5-10.0) K/mm3 RBC 5.74 (4.6-6.20) M/mm3 Hgb 15.3 (14.0-18.0) g/dL Hct 50.1 (42.0-52.0) % MCV 87.3 (80-100) fl MCH 26.7 (26-34) pg MCHC 30.5 L (32-36) g/dl RDW 14.5 (11.5-14.5) % Plt Count 247 (150-375) k/mm3 MPV 10.6 H (7.4-10.4) fl Immature Gran % (Auto) 0.3 (0-0.5) % Neut % (Auto) 83.3 H (45.5-73.1) % Lymph % (Auto) 8.6 L (18.3-44.2) % Story % (Auto) 6.2 (2.6-8.5) % Eos % (Auto) 1.3 (0-4.4) % Baso % (Auto) 0.3 (0.2-1.2) % Lymph # (Auto) 0.64 L (0.9-3.2) K/mm3 Story # (Auto) 0.5 (0.1-0.6) K/mm3 Eos # (Auto) 0.1 (0-0.3) K/mm3 Baso # (Auto) 0.0 (0.0-0.1) K/mm3 Abs Immat Gran (auto) 0.02 (0.00-0.031) K/mm3 Absolute Neuts (auto) 6.2 (1.3-6.7) K/mm3 Absolute Nucleated RBC 0.000 (0.0-0.012) K/mm3 Nucleated RBC % 0.0 (0.0-0.2) % Sodium 137 (137-145) mmol/L Potassium 3.9 (3.4-5.0) mmol/L Chloride 101 (98-107) mmol/L Carbon Dioxide 27 (22-30) mmol/L Anion Gap 9 (4-12) mmol/L BUN 24 H (9-20) mg/dL Creatinine 1.69 H (0.7-1.3) mg/dL Estim Creat Clear Calc 45 ml/min Estimated GFR 40 L (59 - ) Glucose 118 H (65-110) mg/dL Calcium 10.1 (8.4-10.2) mg/dL Total Bilirubin 0.9 (0.2-1.3) mg/dL AST 24 (17-59) U/L ALT 17 (6-50) U/L Alkaline Phosphatase 121 (38-126) U/L Total Protein 7.5 (6.3-8.2) g/dL Albumin 4.1 (3.5-5.1) g/dL Lipase 69 (23-300) U/L Urine Color Yellow (Yellow) Urine Appearance Clear (Clear) Urine pH 6.5 (5.0-9.0) Ur Specific [place] 1.019 (1.001-1.035) Urine Protein Negative (Negative) mg/dL Urine Glucose (UA) Negative (Negative) mg/dL Urine Ketones Trace H (Negative) mg/dL Ur Blood (Man) 2+ H (Negative) Urine Nitrate Negative (Negative) Urine Bilirubin Negative (Negative) Urine Urobilinogen 1.0 (<2.0) mg/dL Leukocyte Esterase Rfl Trace H (Negative) ANSELMO/UL Urine RBC >100 H (0-2) /hpf Urine WBC 0-5 (0-3) /hpf Ur Squamous Epith Cells None seen (Few) /hpf Calcium Oxalate Crystal Present (None) /hpf Urine Bacteria None seen /hpf Urine Casts 0-2 <Yuri Torres MD - Last Filed: 11/10/24 17:23> Discharge Plan Discharge Clinical Impression: Kidney stone <Ashish Sabillon MD - Last Filed: 11/10/24 06:41> Patient Disposition: Home <Ashish Sabillon MD - Last Filed: 11/10/24 06:41> Condition: Stable <Ashish Sabillon MD - Last Filed: 11/10/24 06:41> Instructions: Antibiotic Form, Kidney Stones (ED) <Ashish Sabillon MD - Last Filed: 11/10/24 06:41> Additional Instructions: You were seen in the emergency department for a kidney stone. Please use Motrin/Tylenol for pain. Use oxycodone for breakthrough pain. Use Zofran for nausea. Use Flomax to help pass the stone. Please follow-up with your Urologist for further management. Please return if you develop severe pain, fevers or intractable nausea and vomiting. Your CT scan showed a 4 mm stone in the mid left ureter. <Ashish Sabillon MD - Last Filed: 11/10/24 06:41> Patient Language: [place]er <Ashish Sabillon MD - Last Filed: 11/10/24 06:41> Prescriptions: New ibuprofen 800 mg tablet 800 mg PO TID PRN (Reason: pain) 7 Days Qty: 21 0RF acetaminophen 500 mg tablet 1,000 mg PO TID PRN (Reason: mary) 7 Days Qty: 42 0RF tamsulosin [Flomax] 0.4 mg capsule 0.4 mg PO DAILY Qty: 30 0RF oxycodone 5 mg tablet 5 mg PO Q4H PRN (Reason: pain) Qty: 14 0RF ondansetron 4 mg tablet,disintegrating 4 mg PO Q8H PRN (Reason: nausea and vomiting) Qty: 30 0RF No Action diclofenac sodium 75 mg tablet,delayed release (DR/EC) 75 mg PO BID Qty: 60 0RF amiodarone 200 mg tablet 200 mg PO DAILY furosemide [Lasix] 20 mg tablet 20 mg PO QAM metoprolol tartrate 25 mg tablet 25 mg PO BID potassium chloride [K-Tab] 20 mEq tablet extended release 20 meq PO DAILY phentermine 37.5 mg tablet 37.5 mg PO DAILY Qty: 30 3RF Rx Instructions: must administer 30 minutes before or 1-2 hours after breakfast aspirin 81 mg Tablet,Chewable 81 mg PO HS ezetimibe 10 mg tablet 10 mg PO DAILY Qty: 90 1RF albuterol sulfate 90 mcg/actuation HFA aerosol inhaler 1 - 2 puff INHALATION Q4-6H PRN (Reason: shortness of breath or wheezing) acetaminophen [Acetaminophen Extra Strength] 500 mg tablet 500 mg PO Q4-6H PRN (Reason: pain) tamsulosin 0.4 mg capsule See Rx Instructions .ROUTE .COMPLEX Qty: 180 0RF Dose Instruction: TAKE 1 CAPSULE BY MOUTH TWICE DAILY Rx Instructions: TAKE 1 CAPSULE BY MOUTH TWICE DAILY atorvastatin 40 mg tablet 40 mg PO HS Qty: 90 0RF <Ashish Sabillon MD - Last Filed: 11/10/24 06:41> Follow-up/Referrals: Vivek Hernandez MD [Physician, Urology] - 1 Week Referral Note: Kidney stone Cole Petty MD [Primary Care Provider, Family Practice] <Ashish Sabillon MD - Last Filed: 11/10/24 06:41>
[2024-11-10 06:21] LABS: Add Urine Microscopic? YES; Appearance Urine Clear (Clear); Glucose Urine UA Negative (Negative); Leukocyte Esterase Ur Trace LEU/UL (Negative); Nitrate Urine Negative (Negative); Non Pathogenic Casts 0-2; Specific Grav Ur 1.019 (1.001-1.035)
[2024-11-10 06:34] LABS: Alanine Aminotransferase 17 U/L (6-50); Albumin Level 4.1 g/dL (3.5-5.1); Alkaline Phosphatase 121 U/L (38-126); Anion Gap 9 mmol/L (4-12); Aspartate Amino Transferase 24 U/L (17-59); Bilirubin,Total 0.9 mg/dL (0.2-1.3); Blood Urea Nitrogen 24 mg/dL (9-20); Calcium 10.1 mg/dL (8.4-10.2); Carbon Dioxide 27 mmol/L (22-30); Chloride 101 mmol/L (98-107); Estimated CRCL calculation 45 ml/min; Estimated Glomerular Filt Rate 40; Glucose 118 mg/dL (65-110); Lipase 69 U/L (23-300); Potassium 3.9 mmol/L (3.4-5.0); Sodium 137 mmol/L (137-145); Total Protein 7.5 g/dL (6.3-8.2)
[2024-11-10] MEDS: ONDANSETRON INJ 4 MG/2 ML VIAL IV PUSH (06:48)
[2024-11-10] MEDS: KETOROLAC 15 MG/ML VIAL (*BKC) IV PUSH (06:49)
[2024-11-10 06:51] VITALS: BP 115/65; PULSE 55; RESP 16; O2SAT 97
[2024-11-10 07:55] VITALS: BP 111/52; BP 142/76; PULSE 67; PULSE 86; RESP 18; O2SAT 98; O2SAT 99
== END 2024-11-10 08:47 | disposition home or self-care (01) ==
PROVIDERS: Emergency Provider Emergency Medicine; PCP Family Medicine Adolescent Medicine
DX: N13.2 Hydronephrosis with renal and ureteral calculous obstruction (principal); I25.10 Atherosclerotic heart disease of native coronary artery without angina pectoris; I25.2 Old myocardial infarction; E78.00 Pure hypercholesterolemia, unspecified; G47.33 Obstructive sleep apnea (adult) (pediatric); I27.23 Pulmonary hypertension due to lung diseases and hypoxia; Z95.5 Presence of coronary angioplasty implant and graft; Z87.442 Personal history of urinary calculi; Z87.891 Personal history of nicotine dependence; N40.0 Benign prostatic hyperplasia without lower urinary tract symptoms; Q53.9 Undescended testicle, unspecified
CPT/HCPCS: 36415; 74018; 74176; 80053; 81001; 83690; 85025; 96361; 96374; 96375; 99284; J1171; J1885; J2405; J7030